=== PATIENT | female | born 1950 | race Caucasian/White ===

== ENCOUNTER 2022-07-04 13:15 | Outpatient (CLI) | payer MEDICARE, BC, SELFPAY ==
[2022-07-04 11:25] LABS: Albumin* 4.6 g/dL (3.3-5.0)
[2022-07-04 11:26] LABS: Chloride* 105 mmol/L (96-114); Potassium* 4.4 mmol/L (3.6-5.1); Sodium* 141 mmol/L (135-149)
[2022-07-04 11:28] LABS: Cholesterol* 179 mg/dL (90-199); Creatinine* 0.6 mg/dL (0.5-1.5); Estimated Glomerular Filt Rate 95 ml/min
[2022-07-04 11:29] LABS: Alanine Aminotransferase* 43 U/L (4-35); Alkaline Phosphatase* 79 U/L (40-150); Aspartate Amino Transferase* 34 U/L (12-35); Bilirubin Total* 0.6 mg/dL (0.1-1.5); Blood Urea Nitrogen* 16 mg/dL (7-30); Calcium* 9.7 mg/dL (8.4-10.6); Carbon Dioxide* 28 mmol/L (20-32); Glucose* 89 mg/dL (60-115); Total Protein* 7.5 g/dL (6.0-8.3); Triglycerides* 119 mg/dL (40-149); Vitamin D 25 Hydroxy* 45 ng/mL (30-80)
[2022-07-04 11:30] LABS: HDL Cholesterol* 61 mg/dL (>=50); LDL Cholesterol Calculated 94 mg/dL (<100)
== END 2022-07-04 13:16 | disposition home or self-care (01) ==
PROVIDERS: PCP Family Medicine; Visit Provider Family Medicine
DX: I10 Essential (primary) hypertension (principal); E78.5 Hyperlipidemia, unspecified
CPT/HCPCS: 80053; 80061; 82306

== ENCOUNTER 2022-07-05 17:46 | Outpatient (CLI) | payer MEDICARE, BC, SELFPAY ==
--- OUTSIDE RECORDS SUMMARY | 2022-07-05 17:49 | XMS_ITS | Encounter Summary ---
:1950 Author Organization [facility] Address [address] [place] [id number] Care Team Providers Name Role Phone Sofia Landers PA-C Primary Care Provider Sofia Landers PA-C Unavailable Sofia Landers PA-C Unavailable Reason for Visit Reason Onset Date Comments Panel Management 06/13/2017 colon cancer screeni Encounter Details Date Type Department Care Team Description 06/13/2017 Telephone [facility] Sofia Landers Panel Management Clinic Oumou MONCADA (colon cancer [address] [place] screening ) [place] [address] [facility] [id number] [place] [address] (Wo rk) Social History Tobacco Use Types Packs/Day Years Used Date Smoking Tobacco: Never Smokeless Tobacco: Never Alcohol Use Standard Drinks/Week Comments Yes 0 (1 standard drink = 0.6 oz pure alcoho l) occasional glass of wine Sex Assigned at Date Recorded Not on file documented as of this encounter Miscellaneous Notes Telephone Encounter - Sveta Anglin CMA - 06/13/2017 1:09 PM CST Summary: Patient is due/failing the following: COLONOSCOPY Action needed: Schedule a colonoscopy Type of outreach: Phone, spoke to patient. patient will complete in 2018 closer to when her is due Questions for provider review: None Sveta Anglin Chart routed to Care Team . Panel Management Review Patient has the following on her problem list: Hypertension Last three blood pressure readings: BP Readings from Last 3 Encounters: 04/05/17 120/70 04/05/16 124/66 03/30/15 134/80 Blood pressure: Passed HTN Guidelines: Age 18-59 BP range: Less than 140/90 Age 60-85 with Diabetes: Less than 140/90 Age 60-85 without Diabetes: less than 150/90 Composite cancer screening Chart review shows that this patient is due/due soon for the following Colonoscopy [employer] documented in this encounter Plan of Treatment Not on filedocumented as of this encounter Visit Diagnoses Not on filedocumented in this encounter Care Teams Cement Tester Assistant Relationship Specialty Start Date End Date Sofia Landers PA-C PCP - General 05/10/06 Sofia Landers PA-C PCP - Assigned PCP 12/05/10 10/09/18 Jessica [id number] JOSE LU[place] FRASER [id number] Sofia Landers PA-C Assigned PCP 05/10/12 04/17/21 Jessica [id number] [place] [id number] documented as of this encounter
--- OUTSIDE RECORDS SUMMARY | 2022-07-05 17:49 | XMS_ITS | Encounter Summary ---
:1950 Author Organization [place] Address [address] [place] [address] Care Team Providers Name Role Phone Sofia Landers PA-C Primary Care Provider Sofia Landers PA-C Unavailable Sofia Landers PA-C Unavailable Reason for Referral Diagnostic Procedure Outpatient (Routine) - Closed Specialty Diagnoses / Procedures Referred By Contact Refer red To Contact Diagnoses Special screening for malignant neoplasms, colon Sofia Landers PA-C [facility] [id number] [place] [address] [place] CORNELI[place] [id number] Referral ID Status Reason Start Date Expiration Date Visits V isits Requested Authorized [id number] Closed Specialty 10/18/2017 10/18/2018 1 1 Services Required Reason for Visit Reason Onset Date Comments Orders 10/18/2017 call- order Encounter Details Date Type Department Care Team Description 10/18/2017 [facility] Laura Landers PA-C Orders (call- order) [facility] Oumou Lopez [address] [place] [address] [place] [phone] Social History Tobacco Use Types Packs/Day Years Used Date Smoking Tobacco: Never Smokeless Tobacco: Never Alcohol Use Standard Drinks/Week Comments Yes 0 (1 standard drink = 0.6 oz pure alcoho l) occasional glass of wine Sex Assigned at Date Recorded Not on file documented as of this encounter Miscellaneous Notes Telephone Encounter - Lauryn Maurer CMA - 10/18/2017 3:48 PM CDT Order placed. Pt informed. Lauryn Maurer CMA ([facility]) Telephone Encounter - Giuliana Bryson - 10/18/2017 10:15 AM CDT Reason for Call: Request for an order or referral: Order or referral being requested: colonoscopy Date needed: as soon as possible Has the patient been seen by the PCP for this problem? Not Applicable Additional comments: Pt received a letter that she is due for this. She called to set it up, but there is no order. Please call once placed. Phone number Patient can be reached at: Home number on file [phone] (home) Best Time: Any Can we leave a detailed message on this number? YES Call taken on 10/18/2017 at 10:15 AM by Giuliana Bryson documented in this encounter Plan of Treatment Scheduled Referrals Name Type Priority Associated Diagnoses [facility] Referral Routine Special screen ing for Ordered: 10/18/2017 PROCEDURE ONLY [facility] malignant neopla [facility] ; No colon Provider Preference documented as of this encounter Visit Diagnoses Diagnosis Special screening for malignant neoplasm s, colon - Primary documented in this encounter Care Teams Claim Auditor Relationship Specialty Start Date End Date Sofia Landers PA-C PCP - General 05/10/06 Sofia Landers PA-C PCP - Assigned PCP 12/05/10 10/09/18 Saurabh [id number] [facility] [place] [id number] Sofia aLnders PA-C Assigned PCP 05/10/12 04/17/21 Saurabh [id number] [facility] [id number] documented as of this encounter
--- OUTSIDE RECORDS SUMMARY | 2022-07-05 17:49 | XMS_ITS | Encounter Summary ---
:1950 Author Organization [facility] Address [address] [place] [id number] Care Team Providers Name Role Phone Sofia Landers PA-C Primary Care Provider Sofia Landers PA-C Unavailable Sofia Landers PA-C Unavailable Reason for Visit Reason Comments Physical Panel Management Fall risk, Hep C, Lipid, MP Encounter Details Date Type Department Care Team Description 04/05/2016 Office Visit [facility] Sofia Landers Encoun ter for routine adult health examination without abnormal findings (Primary Dx); Clinic [place]ADA Uterine cancer (H); [address] [place]h Malignant neoplasm of ovary, unspecified laterality (H); [place] [address] ISHA Hyperlipide marissa LDL goal <130; [id number] Essential hypertension with goal blood p ressure less than 130/80; [phone] [place] [address] Visit for screening mammogram; [phone] Need for hepati tis C screening test (Work) Social History Tobacco Use Types Packs/Day Years Used Date Smoking Tobacco: Never Smokeless Tobacco: Never Alcohol Use Standard Drinks/Week Comments Yes 0 (1 standard drink = 0.6 oz pure alcoho l) occasional glass of wine Sex Assigned at Date Recorded Not on file documented as of this encounter Last Filed Vital Signs Vital Sign Reading Time Taken Comments Blood Pressure 124/66 04/05/2016 9:37 AM CDT Pulse 78 04/05/2016 9:37 AM CDT Temperature 36.7 ??C (98.1 ??F) 04/05/2016 9:37 AM CDT Respiratory Rate 12 04/05/2016 9:37 AM CDT Oxygen Saturation - - Inhaled Oxygen Concentration - - Weight 72.1 kg (159 lb) 04/05/2016 9:37 AM CDT Height 149.9 cm (4' 11) 04/05/2016 9:37 AM CDT Body Mass Index 32.11 04/05/2016 9:37 AM CDT documented in this encounter Patient Instructions Patient InstructionsMorosa-Lorelei Pete CMA - 04/01/2016 8:09 AM CDT Preventive Health Recommendations Female Ages 65 + Yearly exam: ??? See your health care provider every year in order to o Review health changes. o Discuss preventive care. o Review your medicines if your doctor has prescribed any. ??? You no longer need a yearly Pap test unless you've had an abnormal Pap test in the past 10 years. If you have vaginal symptoms, such as bleeding or discharge, be sure to talk with your provider about a Pap test. ??? Every 1 to 2 years, have a mammogram. If you are over 69, talk with your health care provider about whether or not you want to continue having screening mammograms. ??? Every 10 years, have a colonoscopy. Or, have a yearly FIT test (stool test). These exams will check for colon cancer. ??? Have a cholesterol test every 5 years, or more often if your doctor advises it. ??? Have a diabetes test (fasting glucose) every three years. If you are at risk for diabetes, you should have this test more often. ??? At age 65, have a bone density scan (DEXA) to check for osteoporosis (brittle bone disease). Shots: ??? Get a flu shot each year. ??? Get a tetanus shot every 10 years. ??? Talk to your doctor about your pneumonia vaccines. There are now two you should receive - Pneumovax (PPSV 23) and Prevnar (PCV 13). ??? Talk to your doctor about the shingles vaccine. ??? Talk to your doctor about the hepatitis B vaccine. Nutrition: ??? Eat at least 5 servings of fruits and vegetables each day. ??? Eat whole-grain bread, whole-wheat pasta and brown rice instead of white grains and rice. ??? Talk to your provider about Calcium and Vitamin D. Lifestyle ??? Exercise at least 150 minutes a week (30 minutes a day, 5 days a week). This will help you control your weight and prevent disease. ??? Limit alcohol to one drink per day. ??? No smoking. ??? Wear sunscreen to prevent skin cancer. ??? See your dentist twice a year for an exam and cleaning. ??? See your eye doctor every 1 to 2 years to screen for conditions such as glaucoma, macular degeneration, cataracts, etc??? documented in this encounter Progress Notes Winifred Grimes - 04/08/2016 9:26 AM CDT Order(s) created erroneously. Erroneous order ID: [id number] Order canceled by: WINIFRED GRIMES Order cancel date/time: 04/08/2016 9:26 AM Sofia Landers PA-C - 04/05/2016 9:39 AM CDT SUBJECTIVE: Edith Stallings is a 65 year old female who presents for Preventive Visit. Are you in the first 12 months of your Medicare coverage? No-just has not used it Physical Annual: Getting at least 3 servings of Calcium per day:: Yes Bi-annual eye exam:: Yes Dental care twice a year:: Yes Sleep apnea or symptoms of sleep apnea:: None Diet:: Low salt and Low fat/cholesterol Frequency of exercise:: 1 day/week Duration of exercise:: Less than 15 minutes Taking medications regularly:: Yes Medication side effects:: Not applicable Additional concerns today:: No She has not follow up with sas statistical programmer for her ovarian and uterine cancer as recommended. She was to have 1 more appt with them before she went to annual screening tests with me. She would like pap today COGNITIVE SCREEN 1) Repeat 3 items (Banana, Ebony, Chair) 2) Clock draw: NORMAL 3) 3 item recall: Recalls 3 objects Results: 3 items recalled: COGNITIVE IMPAIRMENT LESS LIKELY, normal clock Mini-CogTM Copyright S [employer]. Licensed by the author for use in [facility]; reprintedwith permission (fabiano@[email or web address]). All rights reserved. All Histories reviewed and updated in [facility] as appropriate. Social History Substance Use Topics ??? Smoking status: Never Smoker ??? Smokeless tobacco: Never Used ??? Alcohol Use: Yes Comment: occasional glass of wine The patient does not drink >3 drinks per day nor >7 drinks per week. Today's PHQ-2 Score: PHQ-2 (??1999 Pfizer) 04/05/2016 Q1: Little interest or pleasure in doing things 0 Q2: Feeling down, depressed or hopeless 0 PHQ-2 Score 0 Little interest or pleasure in doing things - Feeling down, depressed or hopeless - PHQ-2 Score - Do you feel safe in your environment - Yes Do you have a Health Care Directive?: No: Advance care planning reviewed with patient; information given to patient to review. Current providers sharing in care for this patient include: Patient Care Team: Sofia Landers PA-C as PCP - General ?? Hearing impairment: No ?? Ability to successfully perform activities of daily living: Yes, no assistance needed ?? Fall risk: Fallen 2 or more times in the past year?: No Any fall with injury in the past year?: No ?? Home safety: none identified The following health maintenance items are reviewed in [facility] and correct as of today: Health Maintenance Topic Date Due ??? HEPATITIS C SCREENING 1966 ??? FALL RISK ASSESSMENT 2013 ??? BMP Q1 YR (NO INBASKET) 03/30/2016 ??? LIPID MONITORING Q1 YEAR( NO INBASKET) 03/30/2016 ??? INFLUENZA VACCINE (SYSTEM ASSIGNED) 04/07/2016 ??? ADVANCE DIRECTIVE PLANNING Q5 YRS (NO INBASKET) 03/28/2017 ??? MAMMO SCREEN Q2 YR (SYSTEM ASSIGNED) 04/06/2017 ??? TETANUS IMMUNIZATION (SYSTEM ASSIGNED) 05/02/2017 ??? COLON CANCER SCREEN (SYSTEM ASSIGNED) 05/23/2017 ??? DEXA SCAN SCREENING (SYSTEM ASSIGNED) Completed ??? PNEUMOCOCCAL Completed Pneumonia Vaccine:are both up to date Mammogram Screening: Patient over age 50, mutual decision to screen reflected in health maintenance. History of abnormal Pap smear: she is no longer seeing onc [employer] statistical programmer ROS: C: NEGATIVE for fever, chills, change in weight I: NEGATIVE for worrisome rashes, moles or lesions E: NEGATIVE for vision changes or irritation E/M: NEGATIVE for ear, mouth and throat problems R: NEGATIVE for significant cough or SOB B: NEGATIVE for masses, tenderness or discharge CV: NEGATIVE for chest pain, palpitations or peripheral edema GI: NEGATIVE for nausea, abdominal pain, heartburn, or change in bowel habits : NEGATIVE for frequency, dysuria, or hematuria female: has some labial itching, uses hydrocortisone and /or vagisil with good relief, she did have a yeast infection in the past year as well, is a bit itchy again wonders if she has this back M: NEGATIVE for significant arthralgias or myalgia N: NEGATIVE for weakness, dizziness or paresthesias P: NEGATIVE for changes in mood or affect Labs reviewed in [facility] BP Readings from Last 3 Encounters: 03/30/15 134/80 10/29/14 155/85 04/28/14 138/81 Wt Readings from Last 3 Encounters: 04/05/16 159 lb (72.122 kg) 03/30/15 161 lb (73.029 kg) 04/28/14 156 lb (70.761 kg) OBJECTIVE: Pulse 78 Temp(Src) 98.1 ??F (36.7 ??C) (Oral) Resp 12 Ht 4' 11 (1.499 m) Wt 159 lb (72.122 kg) BMI 32.10 kg/m2 Estimated body mass index is 32.1 kg/(m^2) as calculated from the following: Height as of this encounter: 4' 11 (1.499 m). Weight as of this encounter: 159 lb (72.122 kg). EXAM: GENERAL: healthy, alert and no distress EYES: Eyes grossly normal to inspection, PERRL and conjunctivae and sclerae normal HENT: ear canals and TM's normal, nose and mouth without ulcers or lesions NECK: no adenopathy, no asymmetry, masses, or scars and thyroid normal to palpation RESP: lungs clear to auscultation - no rales, rhonchi or wheezes BREAST: normal without masses, tenderness or nipple discharge and no palpable axillary masses or adenopathy CV: regular rate and rhythm, normal S1 S2, no S3 or S4, no murmur, click or rub, no peripheral edemaand peripheral pulses strong ABDOMEN: soft, nontender, no hepatosplenomegaly, no masses and bowel sounds normal (female): normal female external genitalia with some erythema and excoriations of labias B, normal urethral meatus, vaginal mucosa is pale, normal cervix/adnexa/uterus without masses or discharge MS: no gross musculoskeletal defects noted, no edema SKIN: no suspicious lesions or rashes NEURO: Normal strength and tone, mentation intact and speech normal PSYCH: mentation appears normal, affect normal/bright ASSESSMENT / PLAN: 1. Encounter for routine adult health examination without abnormal findings Pap smear updated, patient will schedule mammogram 2. Uterine cancer (H) Sent staff message to her onc provider regarding necessity for further Pap smears and for how long - Pap imaged thin layer screen with HPV - recommended age 30 - 65 years (select HPV order below) - HPV High Risk Types DNA Cervical cancelled order for Pap and HPV, received staff message from her [employer] statistical programmer onc, she no longer requires Pap smears the only time she would need a vaginal Pap smear is if she was having vaginal bleeding. She should continue to have annual pelvic exams though and surveillance of her ovarian cancer, see telephone call April 05, 2016 3. Malignant neoplasm of ovary, unspecified laterality (H) Annual pelvic exams - Pap imaged thin layer screen with HPV - recommended age 30 - 65 years (select HPV order below) - HPV High Risk Types DNA Cervical 4. Hyperlipidemia LDL goal <130 Continue current meds - LIPID REFLEX TO DIRECT LDL PANEL - Comprehensive metabolic panel (BMP + Alb, Alk Phos, ALT, AST, Total. Bili, TP) 5. Essential hypertension with goal blood pressure less than 130/80 Has been well-controlled continue current meds - Comprehensive metabolic panel (BMP + Alb, Alk Phos, ALT, AST, Total. Bili, TP) 6. Visit for screening mammogram - *MA Screening Digital Bilateral; Future 7. Need for hepatitis C screening test - Hepatitis C antibody End of Life Planning: Patient currently has an advanced directive: No. I have verified the patient's ablity to prepare an advanced directive/make health care decisions. Literature was provided to assist patient in preparingan advanced directive. COUNSELING: Reviewed preventive health counseling, as reflected in patient instructions Estimated body mass index is 32.1 kg/(m^2) as calculated from the following: Height as of this encounter: 4' 11 (1.499 m). Weight as of this encounter: 159 lb (72.122 kg). Weight management plan: Discussed healthy diet and exercise guidelines and patient will follow up in6 months in clinic to re-evaluate. reports that she has never smoked. She has never used smokeless tobacco. Appropriate preventive services were discussed with this patient, including applicable screening as appropriate for cardiovascular disease, diabetes, osteopenia/osteoporosis, and glaucoma. As appropriate for age/gender, discussed screening for colorectal cancer, prostate cancer, breast cancer, and cervical cancer. Checklist reviewing preventive services available has been given to the patient. Reviewed patients plan of care and provided an AVS. The Basic Care Plan (routine screening as documented in Health Maintenance) for Edith meets the Care Plan requirement. This Care Plan has been established and reviewed with the Patient. Counseling Resources: ATP IV Guidelines Pooled Cohorts Equation Calculator Breast Cancer Risk Calculator FRAX Risk Assessment ICSI Preventive Guidelines Dietary Guidelines for Americans, 2009 [employer] MyPlate ASA Prophylaxis Lung CA Screening Sofia Landers PA-C [facility] Answers for HPI/ROS submitted by the patient on 04/02/2016 PHQ-2 Depressed: Not at all, Not at all PHQ-2 Score: 0 Electronically signed by Sofia Landers PA-C documented in this encounter Plan of Treatment Not on filedocumented as of this encounter Procedures Procedure Name Priority Date/Time Associated Diagnosis Comme nts LIPID REFLEX TO Routine 04/05/2016 10:25 Hyperlipidemia LDL Re sults for this DIRECT LDL PANEL AM CDT goal <130 procedure a re in the results section. HEPATITIS C ANTIBODY Routine 04/05/2016 10:25 Need for hepatit is C Results for this AM CDT screening test procedure are in the results section. COMPREHENSIVE Routine 04/05/2016 10:25 Hyperlipidemia LDL Resu lts for this METABOLIC PANEL AM CDT goal <130 procedure are in Essential hypertension the r esults with goal blood section. pressure less than 130/80 HPV HIGH RISK TYPES Routine 04/05/2016 10:05 Uterine can cer (H) Results for this DNA CERVICAL AM CDT Malignant neoplasm of proced ure are in ovary, unspecified the resul ts laterality (H) section. documented in this encounter Results *MA Screening Digital Bilateral (04/08/2016 9:39 AM CDT) Anatomical Region Laterality Modality Breast Bilateral Mammography Specimen (Source) Anatomical Location Collection Method / Collectio n Time Received Time / Laterality Volume Impressions 04/08/2016 11:09 AM CDT IMPRESSION: BI-RADS CATEGORY: 1 - Negative. RECOMMENDED FOLLOW-UP: Annual Mammograph y. Recommend routine annual screening mammo graphy. Exam results letter mailed to patient. CHIDI ESPOSITO MD Narrative 04/08/2016 11:09 AM CDT SCREENING MAMMOGRAM, BILATERAL, DIGITAL w/CAD - 04/08/2016 9:39 AM. BREAST SYMPTOMS: No current breast compl aints. COMPARISON: ??04/06/2015, 03/31/2014, 03/27, 03/27/2012. BREAST DENSITY: Almost entirely fat. COMMENTS: No findings of suspicion for m alignancy. Procedure Note Chidi Esposito MD - 04/08/2016 SCREENING MAMMOGRAM, BILATERAL, DIGITAL w/CAD - 04/08/2016 9:39 AM. BREAST SYMPTOMS: No current breast compl aints. COMPARISON: 04/06/2015, 03/31/2014, 013, 03/27/2012. BREAST DENSITY: Almost entirely fat. COMMENTS: No findings of suspicion for m alignancy. IMPRESSION: BI-RADS CATEGORY: 1 - Negati ve. RECOMMENDED FOLLOW-UP: Annual Mammograph y. Recommend routine annual screening mammo graphy. Exam results letter mailed to patient. CHIDI ESPOSITO MD Sofia Landers PA-C IMFrank MAMMOGRAPHY ORDERABLES (ABNORMAL) Comprehensive metabolic panel (BMP + Alb, Alk Phos, ALT, AST, Total. Bili, TP) (04/05/2016 10:25 AM CDT) athologist Signature Sodium 140 133 - 144 [facility] mmol/L [facility] Potassium 4.1 3.4 - 5.3 [facility] mmol/L [facility] Chloride 104 94 - 109 [facility] mmol/L [facility] Carbon Dioxide 31 20 - 32 [facility] mmol/L [facility] Anion Gap 5 3 - 14 [facility] mmol/L [facility] Glucose 91 70 - 99 [facility] mg/dL [facility] Urea Nitrogen 14 7 - 30 [place] mg/dL [facility] Creatinine 0.70 0.52 - [place] 1.04 mg/dL [facility] GFR Estimate 84 >60 [place] mL/min/1.[address] Comment: Non GFR Calc GFR Estimate If Black >90 >60 mL/min/1.7m2 F [facility] GFR Calc [facility] Calcium 9.9 8.5 - 10.1 mg/dL [facility] Bilirubin Total 0.4 0.2 - 1.3 mg/dL [facility] Albumin 4.0 3.4 - 5.0 g/dL [facility] Protein Total 7.9 6.8 - 8.8 g/dL [place] [facility] Alkaline Phosphatase 82 40 - 150 U/L [facility] ALT 51 (H) 0 - 50 U/L [facility] AST 19 0 - 45 U/L [facility] Specimen Anatomical Collection Method Collection Time Receive d Time (Source) Location / / Volume Laterality Blood specimen 04/05/2016 10: 6 (specimen) AM CDT 10:26 AM CDT Sofia Landers PA-C LAB - BLOOD ORDERABLES Performing Organization Address City/State/ZIP Code Phon e Number [address] [place] [address] [place] [address] [phone] CENTER Hepatitis C antibody (04/05/2016 10:25 AM CDT) Component Value Ref Test Analysis Performed At [facility] Range Method Time Signature Hepatitis C Nonreactive NR [facility] Antibody Assay performance character istics have not been established for newborns, [facility] infants, and children [facility] Specimen Anatomical Collection Method Collection Time Receive d Time (Source) Location / / Volume Laterality Blood specimen 04/05/2016 10:25 6 (specimen) AM CDT 10:26 AM CDT Sofia SAENZ-C LAB - BLOOD ORDERABLES Performing Organization Address City/State/ZIP Code Phon e Number [facility] [address] [place] [address] [place] (ABNORMAL) LIPID REFLEX TO DIRECT LDL PANEL (04/05/2016 10:25 AM CDT) athologist Signature Cholesterol 243 (H) <200 mg/dL [facility] Comment: Desirable: <200 mg/dl Triglycerides 220 (H) <150 mg/dL [facility] Comment: Borderline high: ??150-199 mg/dl High: ? 200-499 mg/dl Very high: ? >499 mg/dl HDL Cholesterol 45 (L) >49 mg/dL [facility] LDL Cholesterol Calculated 154 (H) <100 mg/dL [facility] Comment: Above desirable: ??100-129 mg/dl Borderline High: ??130-159 mg/dL High: ? 160-189 mg/dL Very high: ? >189 mg/dl Non HDL Cholesterol 198 (H) <130 mg/dL [facility] Comment: Above Desirable: ??130-159 mg/dl Borderline high: ??160-189 mg/dl High: ? 190-219 mg/dl Very high: ? >219 mg/dl Specimen Anatomical Collection Method Collection Time Receive d Time (Source) Location / / Volume Laterality Blood specimen 04/05/2016 10:25 6 (specimen) AM CDT 10:26 AM CDT Sofia Landers PA-C LAB - BLOOD ORDERABLES Performing Organization Address City/State/ZIP Code Phon e Number M [address] [place] [address] [place] [id number] [phone] CENTER (ABNORMAL) HPV High Risk Types DNA Cervical (04/05/2016 10:05 AM CDT) [facility] gist Method Time Signature HPV 16 DNA Test canceled NEG [facility] by physician [facility] [place] Specimen Cervical [facility] Description Cells [facility] [place] Specimen Anatomical Collection Method Collection Time Receive d Time (Source) Location / / Volume Laterality Cervical Cells 04/05/2016 10:05 6 AM CDT 11:40 AM CDT Sofia Landers PA-C LAB - BLOOD ORDERABLES Performing Organization Address City/State/ZIP Code Phon e Number [facility] [place] [address] [place], [place] [id number] documented in this encounter Visit Diagnoses Diagnosis Encounter for routine adult health exami nation without abnormal findings - Primary Uterine cancer (H) Malignant neoplasm of uterus, part unspe cified Malignant neoplasm of ovary, unspecified laterality (H) Hyperlipidemia LDL goal <130 Other and unspecified hyperlipidemia Essential hypertension with goal blood p ressure less than 130/80 Visit for screening mammogram Other screening mammogram Need for hepatitis C screening test Special screening examination for other specified viral diseases Visit for screening mammogram Other screening mammogram documented in this encounter 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
--- OUTSIDE RECORDS SUMMARY | 2022-07-05 17:49 | XMS_ITS | Encounter Summary ---
:1950 Author Organization [facility] Address [address] [place] [address] Care Team Providers Name Role Phone Sofia Landers PA-C Primary Care Provider Sofia Landers PA-C Unavailable Sofia Landers PA-C Unavailable Reason for Visit Diagnostic Imaging Mammo - Closed Specialty Diagnoses / Procedures Referred By Contact Refer red To Contact Diagnoses Encounter for screening mammogram for breast cancer Sofia Landers PA-C Procedures *MA Screening Digital Bilateral [place] [address] [facility] [place] [id number] Referral ID Status Reason Start Date Expiration Date Visits Requ ested Visits Authorized [id number] Closed 04/12/2018 04/12/2019 1 1 Encounter Details Date Type Department Care Team Description 05/02/2018 Radiant Appointment [facility] Sofia Landers, Encounter for Clinic Yulia Flaherty PA-C screening mammogram [address] [place] [address] [facility] [id number] [facility] [phone] [place] [id number] Social History Tobacco Use Types Packs/Day Years Used Date Smoking Tobacco: Never Smokeless Tobacco: Never Alcohol Use Standard Drinks/Week Comments Yes 0 (1 standard drink = 0.6 oz pure alcoho l) occasional glass of wine Sex Assigned at Date Recorded Not on file documented as of this encounter Plan of Treatment Not on filedocumented as of this encounter Procedures Procedure Name Priority Date/Time Associated Diagnosis Comme nts MA SCREENING Routine 05/02/2018 9:28 AM Encounter for Results for this DIGITAL BILATERAL CDT screening mammogram pro cedure are in for breast cancer the result s section. documented in this encounter Results *MA Screening Digital Bilateral (05/02/2018 9:28 AM CDT) Anatomical Region Laterality Modality Breast Bilateral Mammography Specimen (Source) Anatomical Location Collection Method / Collectio n Time Received Time / Laterality Volume Impressions 05/02/2018 5:59 PM CDT IMPRESSION: BI-RADS CATEGORY: 1 - ??NEGATIVE. RECOMMENDED FOLLOW-UP: Annual Mammograph y Exam results letter mailed to patient. DAMIAN JACKMAN MD Narrative 05/02/2018 5:59 PM CDT MAMMOGRAPHY SCREENING DIGITAL BILATERAL ??With CAD 05/02/2018 9:28 AM BREAST SYMPTOMS: No current breast compl aints. COMPARISON: 04/12/2017, 04/08/2016, 5, 03/31/2014. BREAST DENSITY: Almost entirely fat. COMMENTS: No findings of suspicion for m alignancy. ?? Procedure Note Damian Jackman MD - 05/02/2018Form atting of this note might be different from the original. MAMMOGRAPHY SCREENING DIGITAL BILATERAL With CAD 05/02/2018 9:28 AM BREAST SYMPTOMS: No current breast compl aints. COMPARISON: 04/12/2017, 04/08/2016, 5, 03/31/2014. BREAST DENSITY: Almost entirely fat. COMMENTS: No findings of suspicion for m alignancy. IMPRESSION: BI-RADS CATEGORY: 1 - NEGATI VE. RECOMMENDED FOLLOW-UP: Annual Mammograph y Exam results letter mailed to patient. DAMIAN JACKMAN MD Sofia Landers PA-C IM[facility] MAMMOGRAPHY ORDERABLES documented in this encounter Visit Diagnoses Diagnosis Encounter for screening mammogram for br east cancer documented in this encounter Care Teams [employer] Wiring Technician Relationship Specialty Start Date End Date Sofia Landers PA-C PCP - General 05/10/06 Sofia Landers PA-C PCP - Assigned PCP 12/05/10 10/09/18 [place] [id number] [place] [id number] Sofia Landers PA-C Assigned PCP 05/10/12 04/17/21 [place] [address] [place] [id number] documented as of this encounter
--- OUTSIDE RECORDS SUMMARY | 2022-07-05 17:49 | XMS_ITS | Encounter Summary ---
:1950 Author Organization [facility] Address [address] [place] [id number] Care Team Providers Name Role Phone Sofia Landers PA-C Primary Care Provider Sofia Landers PA-C Unavailable Encounter Details Date Type Department Care Team Description 01/15/2019 Travel Social History Tobacco Use Types Packs/Day Years [...] on filedocumented in this encounter Care Teams Indirect Sales Representative Relationship Specialty Start Date End Date Sofia Landers PA-C PCP - General 05/10/06 Sofia Landers PA-C Assigned PCP 05/10/12 04/17/21 Saurabh [id number] JOSE LUIS FRASER [id number] documented as of this encounter
--- OUTSIDE RECORDS SUMMARY | 2022-07-05 17:49 | XMS_ITS | Encounter Summary ---
:1950 Author Organization [facility] Address [address] [place] [address] Care Team Providers Name Role Phone Sofia Landers PA-C Primary Care Provider Sofia Landers PA-C Unavailable Reason for Visit Reason Comments Flank Pain Encounter Details Date Type Department Care Team Description 01/15/[address] [facility] Fabricio Momin, Kidney stone [facility] Emergency Dept [address] [place] [phone] [place] [id number] (Wo rk) Social History Tobacco Use Types Packs/Day Years Used Date Smoking Tobacco: Never Smokeless Tobacco: Never Alcohol Use Standard Drinks/Week Comments Yes 0 (1 standard drink = 0.6 oz pure alcoho l) occasional glass of wine Sex Assigned at Date Recorded Not on file documented as of this encounter Last Filed Vital Signs Vital Sign Reading Time Taken Comments Blood Pressure 129/69 01/15/2019 11:30 PM CDT Pulse 88 01/15/2019 11:30 PM CDT Temperature 35.7 ??C (96.3 ??F) 01/15/2019 9:30 PM CDT Respiratory Rate 16 01/15/2019 11:30 PM CDT Oxygen Saturation 97% 01/15/2019 11:30 PM CDT Inhaled Oxygen Concentration - - Weight 68.9 kg (152 lb) 01/15/2019 9:30 PM CDT Height - - Body Mass Index 30.36 04/12/2018 9:52 AM CDT documented in this encounter Discharge Instructions AttachmentsThe following attachments cannot be sent through Care Everywhere. Kidney Stone w/ Colic (Malagasy)documented in this encounter Medications at Time of Discharge Medication Sig Dispensed Refills Start Date End Date amLODIPine (NORVASC) 10 MG Take 1 tablet 90 tablet 3 2017 tabletIndications: (10 mg) by mouth Hypertension goal BP (blood daily pressure) < 130/80 atorvastatin (LIPITOR) 20 MG Take 1 tablet 90 tablet 3 01/2018 tabletIndications: (20 mg) by mouth Hyperlipidemia LDL goal <130 daily ZACH LOW STRENGTH OR 1 TABLET DAILY 0 fish oil-omega-3 fatty acids Take 2 g by 0 (OMEGA 3) 1000 MG capsule mouth daily. hydrochlorothiazide Take 1 tablet 90 tablet 3 04/12/2018 (HYDRODIURIL) 25 MG (25 mg) by mouth tabletIndications: daily Hypertension goal BP (blood pressure) < 130/80 ibuprofen (ADVIL/MOTRIN) 800 Take 1 tablet 30 tablet 0 01/05 MG tablet (800 mg) by mouth every 8 hours as needed for pain lisinopril Take 3 tablets 270 tablet 3 04/12/2018 (PRINIVIL/ZESTRIL) 20 MG (60 mg) by mouth tabletIndications: daily Hypertension goal BP (blood pressure) < 130/80 MULTI-VITAMIN OR 1 tablet daily 0 HYDROcodone-acetaminophen Take 1 tablet by 18 tablet 0 01/0501/18/2019 (NORCO) 5-325 MG tablet mouth every 6 hours as needed for pain ondansetron (ZOFRAN ODT) 4 Take 1 tablet (4 10 tablet 0 06/201901/18/2019 MG ODT tab mg) by mouth every 8 hours as needed for nausea tamsulosin (FLOMAX) 0.4 MG Take 1 capsule 10 capsule 0 01/1501/25/2019 capsule (0.4 mg) by mouth daily for 10 doses documented as of this encounter ED Notes Blanca Mai RN - 01/15/2019 10:43 PM CDT Pt going to CT at this time, reports comfort still no further medication given at this time Sofia Chau RN - 01/15/2019 9:27 PM CDT Pt presents with concerns of possible kidney stone. Pt states that it started with bladder spasms. Pain started about 1900 in the right flank. Extra strength Tylenol at 1900 and Advil at 1730. Fabricio Momin MD - 01/15/2019 9:19 PM CDT History Chief Complaint Patient presents with ??? Flank Pain The history is provided by the patient. Edith Stallings is a 68 year old female who presents to the emergency department with concerns of a possible kidney stone. Patient started having urinary frequency and urgency around 1530 today. She started to get right flank pain around 1900. She reports having 4-5 kidney stones in the past and this pain today feels similar. Patient denies any hematuria. No nausea or vomiting. The pain in her back is constant, but waxes and wanes in intensity. She took one Advil at 1700 and one extra strength Tylenolat 1900. Patient denies any recent falls or injuries. Allergies: Allergies Allergen Reactions ??? Pneumovax [Pneumococcal Polysaccharides] Lump, fever ??? Sulfa Drugs Rash Problem List: Patient Active Problem List Diagnosis Date Noted ??? [facility] 02/10/2011 Priority: High X EMERGENCY CARE PLAN Presenting Problem Signs and Symptoms Treatment Plan Questions or conerns during clinic hours I will call the clinic directly Questions or conerns outside clinic hours I will call the 24 hour nurse line at [phone] Patient needs to schedule an appointment I will call the 24 hour scheduling team at [phone] orclinic directly Same day treatment I will call the clinic first, nurse line if after hours, urgent care and expresscare if needed DX [phone] REPLACED WITH [phone] [facility] (11/12/2012) ??? H/O malignant neoplasm of endometrium Priority: Medium 04/29/10 Hysterectomy: Pathology - Stage IA, grade 1, endometrioid adenocarcinoma of the endometrium.?? 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 8/31/11 NIL pap 03/28/12 NIL pap 04/15/13 NIL pap 04/05/16 NIL pap. Per telephone encounter on 04/05/16 with Mary Portillo from Oncology, does not need any pap testing done unless she is having vaginal spotting or bleeding or something concerning on speculum exam. ??? Overweight 11/06/2013 Priority: Medium Problem list name updated by automated process. Provider to review ??? Advanced directives, counseling/discussion 03/28/2012 Priority: Medium ??? Osteopenia 01/31/2011 Priority: Medium ? ? Hypertension goal BP (blood pressure) < 130/80 12/10/2010 Priority: Medium ??? Malignant neoplasm of ovary (H) 08/18/2010 Priority: Medium ? ? HYPERLIPIDEMIA LDL GOAL <130 06/06/2010 Priority: Medium ??? Uterine cancer (H) 04/21/2010 Priority: Medium 03/30/10 embx-- A. Uterus, endometrial curettings: - Endometrial endometrioid adenocarcinoma, FIGO grade I - Background of atypical complex hyperplasia 04/29/10 hysterectomy: FINAL DIAGNOSIS: A-D. Lymph nodes, right periaortic (3), left periaortic (2), left pelvic (9), and right pelvic (7): - No evidence of malignancy. (0) E. Uterus, fallopian tube and ovary, hysterectomy and right salpingo-oophorectomy: - Uterus: - Endometrial endometrioid adenocarcinoma, FIGO grade I. - Tumor invades myometrium to a maximal depth of 0.2 cm of a 1.2 cm myometrium. - No lymphovascular invasion present. - Tumor confined to endometrium without involvement of lower uterine segment of endocervix. - Surgical margins free of tumor. - Parametria: - No evidence of malignancy. - Ovary: - No evidence of malignancy. - Fallopian tube: - No evidence of malignancy. F. 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 - Tumor size: 6.5 x 5.7 x 3.5 - Estimated percentage of adenocarcinomatous component: 70%. - Ovarian surface free of tumor. - Fallopian tube: - No pathologic diagnosis 08/05/10: Appendix, appendectomy: - Obliteration of appendiceal lumen at tip; small fecalith present. - Negative for significant inflammation and neoplasia. B. Omentum, biopsy: - Fibroadipose tissue with no diagnostic alteration. - Negative for malignancy. 04/06/11 pap NIL 03/28/12 pap NIL. Plan-- pap in 1 year. Next surveillance visit scheduled for 09/26/12. 04/15/13 pap NIL. Plan-- If today's Pap is WNL, she will be due in one year for a pap (due 04/15/14) Per SGO guidelines pap not indicated in patients with endometrial cancer as it is not a reliable indicator of recurrence. No pap due unless clinically indicated/advised by provider. ??? Postmenopausal bleeding 03/08/2010 Priority: Medium ??? Symptomatic menopausal or female climacteric states 05/10/2006 Priority: Medium Past Medical History: Past Medical History: Diagnosis Date ??? Endometrial cancer (H) ??? Essential hypertension, benign ??? H/O malignant neoplasm of endometrium ??? Other and unspecified hyperlipidemia ??? Ovarian cancer (H) ??? Personal history of urinary calculi Past Surgical History: Past Surgical History: Procedure Laterality Date ??? BIOPSY ??? COLONOSCOPY 05/23/2007 repeat in 10 years ??? COLONOSCOPY N/A 11/10/2017 Procedure: COLONOSCOPY; COLONOSCOPY; Surgeon: Jordan Jimenes MD; Location: [facility] ??? CYSTOSCOPY 11/28/06 [facility] ??? EVENT PLANNING MANAGER SURGERY April 2010 ??? HYSTEROSCOPY 03/30/10 Hysteroscopy, D&C, removal of portion of endocervical polyp. ??? LAPAROSCOPIC APPENDECTOMY ??? LAPAROSCOPIC HYSTERECTOMY SUPRACERVICAL, BILATERAL SALPINGO-OOPHORECTOMY, COMBINED with lymph node dissection Family History: Family History Problem Relation Age of Onset ??? Genetic Disorder Daughter down's syndrome ??? C.A.D. Father [place], age 65, first event at 40 ??? Hypertension Father ??? Hypertension Mother ??? Genetic Disorder Daughter Social History: Marital Status: [2] Social History Tobacco Use ??? Smoking status: Never Smoker ??? Smokeless tobacco: Never Used Substance Use Topics ??? Alcohol use: Yes Comment: occasional glass of wine ??? Drug use: No Medications: amLODIPine (NORVASC) 10 MG tablet atorvastatin (LIPITOR) 20 MG tablet ZACH LOW STRENGTH OR fish oil-omega-3 fatty acids (OMEGA 3) 1000 MG capsule hydrochlorothiazide (HYDRODIURIL) 25 MG tablet lisinopril (PRINIVIL/ZESTRIL) 20 MG tablet MULTI-VITAMIN OR Review of Systems All other systems reviewed and are negative. Physical Exam BP: 161/85 Heart Rate: 95 Temp: 96.3 ??F (35.7 ??C) Resp: 19 Weight: 68.9 kg (152 lb) SpO2: 99 % Physical Exam Constitutional: She appears well-developed and well-nourished. No distress. HENT: Head: Normocephalic and atraumatic. Right Ear: External ear normal. Left Ear: External ear normal. Eyes: Right eye exhibits no discharge. Left eye exhibits no discharge. Neck: Normal range of motion. Neck supple. Cardiovascular: Normal rate. Pulmonary/Chest: Effort normal. No respiratory distress. Abdominal: Soft. Bowel sounds are normal. She exhibits no distension and no mass. There is no tenderness. There is no rebound and no guarding. No hernia. Musculoskeletal: Normal range of motion. She exhibits no edema, tenderness or deformity. Neurological: She is alert. No cranial nerve deficit. Skin: Skin is warm and dry. No rash noted. She is not diaphoretic. No erythema. No pallor. Psychiatric: She has a normal mood and affect. Her behavior is normal. Judgment and thought content normal. Nursing note and vitals reviewed. ED Course Procedures Results for orders placed or performed during the hospital encounter of 01/15/19 CT Abdomen Pelvis w/o Contrast Narrative CT ABDOMEN AND PELVIS WITHOUT CONTRAST 01/15/2019 10:48 PM HISTORY: Right flank pain, hematuria, history of kidney stones COMPARISON: None. TECHNIQUE: Axial CT images of the abdomen and pelvis from the diaphragm to the symphysis pubis were acquired without IV contrast. Radiation dose for this scan was reduced using automated exposure control, adjustment of the mA and/or kV according to patient size, or iterative reconstruction technique. FINDINGS: 5 mm stone in the distal right ureter with mild-moderate proximal hydronephrosis. There is mild right perinephric fat stranding. Kidneys are normal in size and configuration. No other renal, ureteral, or bladder stones. Hysterectomy change. No free air or free fluid. There is mild diverticulosis without evidence for diverticulitis. There are no dilated loops of small intestine or large bowel to suggest ileus or obstruction. Probable appendectomy changes. Gallbladder unremarkable. Liver unremarkable. No splenomegaly. No definite adrenal nodules. Pancreas grossly unremarkable. The remainder of the visualized abdomen is unremarkable on this noncontrast scan. Survey of the visualized bony structures demonstrates no destructive bony lesions. The visualized lung bases are unremarkable. There are mild atherosclerotic changes of the visualized aorta and its branches. There is no evidence of aortic aneurysm. Impression IMPRESSION: 5 mm stone in the distal right ureter with mild/moderate hydronephrosis. Routine UA with microscopic Result Value Ref Range Color Urine Yellow Appearance Urine Slightly Cloudy Glucose Urine Negative NEG^Negative mg/dL Bilirubin Urine Negative NEG^Negative Ketones Urine Negative NEG^Negative mg/dL Specific [place] Urine 1.021 1.003 - 1.035 Blood Urine Large (A) NEG^Negative pH Urine 6.0 5.0 - 7.0 pH Protein Albumin Urine 30 (A) NEG^Negative mg/dL Urobilinogen mg/dL 0.0 0.0 - 2.0 mg/dL Nitrite Urine Negative NEG^Negative Leukocyte Esterase Urine Negative NEG^Negative Source Midstream Urine WBC Urine 3 0 - 5 /HPF RBC Urine >182 (H) 0 - 2 /HPF Bacteria Urine Few (A) NEG^Negative /HPF Squamous Epithelial /HPF Urine 3 (H) 0 - 1 /HPF Mucous Urine Present (A) NEG^Negative /LPF Basic metabolic panel Result Value Ref Range Sodium 140 133 - 144 mmol/L Potassium 3.8 3.4 - 5.3 mmol/L Chloride 104 94 - 109 mmol/L Carbon Dioxide 29 20 - 32 mmol/L Anion Gap 7 3 - 14 mmol/L Glucose 122 (H) 70 - 99 mg/dL Urea Nitrogen 25 7 - 30 mg/dL Creatinine 0.83 0.52 - 1.04 mg/dL GFR Estimate 72 >60 mL/min/[1.73_m2] GFR Estimate If Black 83 >60 mL/min/[1.73_m2] Calcium 9.3 8.5 - 10.1 mg/dL CBC with platelets differential Result Value Ref Range WBC 9.7 4.0 - 11.0 10e9/L RBC Count 4.69 3.8 - 5.2 10e12/L Hemoglobin 14.3 11.7 - 15.7 g/dL Hematocrit 42.5 35.0 - 47.0 % MCV 91 78 - 100 fl MCH 30.5 26.5 - 33.0 pg MCHC 33.6 31.5 - 36.5 g/dL RDW 13.5 10.0 - 15.0 % Platelet Count 380 150 - 450 10e9/L Diff Method Automated Method % Neutrophils 64.9 % % Lymphocytes 20.8 % % Monocytes 10.1 % % Eosinophils 3.3 % % Basophils 0.6 % % Immature Granulocytes 0.3 % Nucleated RBCs 0 0 /100 Absolute Neutrophil 6.3 1.6 - 8.3 10e9/L Absolute Lymphocytes 2.0 0.8 - 5.3 10e9/L Absolute Monocytes 1.0 0.0 - 1.3 10e9/L Absolute Basophils 0.1 0.0 - 0.2 10e9/L Abs Immature Granulocytes 0.0 0 - 0.4 10e9/L Absolute Nucleated RBC 0.0 Medications 0.9% sodium chloride BOLUS (0 mLs Intravenous Stopped 01/15/192319) ketorolac (TORADOL) injection 15 mg (15 mg Intravenous Given 01/15/192216) Labs are reviewed and patient did have a fair amount of blood in her urine. I did do a CT scan of the abdomen which did show a 5 mm distal ureteral stone. She has passed stones in the past so I think atrial of pain medications at home is reasonable. Patient's pain is much better after the above medications were given. Patient will be discharged home with Vicodin, ibuprofen and Flomax. Patient will strain her urine. Patient will follow up with urology if there is no improvement over the next 2 to 3 days. Assessments & Plan (with Medical Decision Making) Kidney stone I have reviewed the nursing notes. I have reviewed the findings, diagnosis, plan and need for follow up with the patient. This document serves as a record of services personally performed by Fabricio Momin, *. It was created on their behalf by Garima Johnson, a trained medical van driver. The creation of this record is based on the provider's personal observations and the statements of the patient. This document has been checked and approved by the attending provider. Note: Chart documentation done in part with [employer] Voice Recognition software. Although reviewed after completion, some word and grammatical errors may remain. 01/15/2019 [facility] Fabricio Momin MD 01/16/19 0637 documented in this encounter Miscellaneous Notes Result Encounter Note - Landon Morales RN - 01/15/2019 11:32 PM CDT Final urine culture report is NEGATIVE per [facility] ED Lab Result protocol. If NEGATIVE result, no change in treatment, per [facility] ED Lab Result protocol. documented in this encounter Plan of Treatment Not on filedocumented as of this encounter Procedures Procedure Name Priority Date/Time Associated Comments Diagnosis CT ABDOMEN PELVIS W/O STAT 01/15/2019 10:48 Re sults for this CONTRAST PM CDT procedure are i n the results section. CBC WITH PLATELETS & STAT 01/15/2019 10:14 Res ults for this DIFFERENTIAL PM CDT procedure are i n the results section. BASIC METABOLIC PANEL STAT 01/15/2019 10:14 Re sults for this PM CDT procedure are i n the results section. ROUTINE UA WITH STAT 01/15/2019 9:34 PM Result s for this MICROSCOPIC CDT procedure are i n the results section. URINE CULTURE Routine 01/15/2019 9:34 PM Kidney stone Results for this CDT procedure are i n the results section. documented in this encounter Results CT Abdomen Pelvis w/o Contrast (01/15/2019 10:48 PM CDT) Anatomical Region Laterality Modality Abdomen/Pelvis, SUBRAD CT BODY, UMP CT ABDOMEN PELVIS, Computed Tomography RAD CT Specimen (Source) Anatomical Location Collection Method / Collectio n Time Received Time / Laterality Volume Impressions 01/16/2019 6:27 PM CDT IMPRESSION: 5 mm stone in the distal right ureter with mild/moderate hydronephrosis. RAMA PEREZ MD Narrative 01/16/2019 6:[address] ABDOMEN AND PELVIS WITHOUT CONTRAST 01/15/2019 10:48 PM HISTORY: Right flank pain, hematuria, hi story of kidney stones COMPARISON: None. TECHNIQUE: Axial CT images of the abdome n and pelvis from the diaphragm to the symphysis pubis were ac quired without IV contrast. Radiation dose for this scan was reduced using automated exposure control, adjustment of the mA and/or kV according to patient size, or iterative reconstruction technique. FINDINGS: 5 mm stone in the distal right ureter with mild-moderate proximal hydronephrosis. There is mild r ight perinephric fat stranding. Kidneys are normal in size an d configuration. No other renal, ureteral, or bladder stones. Hyst erectomy change. No free air or free fluid. There is mild diverticulo sis without evidence for diverticulitis. There are no dilated loo ps of small intestine or large bowel to suggest ileus or obstruction. P robable appendectomy changes. Gallbladder unremarkable. Liver unremark able. No splenomegaly. No definite adrenal nodules. Pancreas gross ly unremarkable. The remainder of the visualized abdomen is unremarkabl e on this noncontrast scan. Survey of the visualized bony structures demonstrates no destructive bony lesions. The visualized lung bases are unremarkable. There are mild atherosclerotic changes of the visu alized aorta and its branches. There is no evidence of aortic aneurysm. Procedure Note Rama Perez MD - 01/16/2019Fo rmatting of this note might be different from the original. CT ABDOMEN AND PELVIS WITHOUT CONTRAST 10:48 PM HISTORY: Right flank pain, hematuria, hi story of kidney stones COMPARISON: None. TECHNIQUE: Axial CT images of the abdome n and pelvis from the diaphragm to the symphysis pubis were ac quired without IV contrast. Radiation dose for this scan was reduced using automated exposure control, adjustment of the mA and/or kV according to patient size, or iterative reconstruction technique. FINDINGS: 5 mm stone in the distal right ureter with mild-moderate proximal hydronephrosis. There is mild r ight perinephric fat stranding. Kidneys are normal in size an d configuration. No other renal, ureteral, or bladder stones. Hyst erectomy change. No free air or free fluid. There is mild diverticulo sis without evidence for diverticulitis. There are no dilated loo ps of small intestine or large bowel to suggest ileus or obstruction. P robable appendectomy changes. Gallbladder unremarkable. Liver unremark able. No splenomegaly. No definite adrenal nodules. Pancreas gross ly unremarkable. The remainder of the visualized abdomen is unremarkabl e on this noncontrast scan. Survey of the visualized bony structures demonstrates no destructive bony lesions. The visualized lung bases are unremarkable. There are mild atherosclerotic changes of the visu alized aorta and its branches. There is no evidence of aortic aneurysm. IMPRESSION: 5 mm stone in the distal rig ht ureter with mild/moderate hydronephrosis. RAMA PEREZ MD Fabricio Momin MD IMG CT ORDERABLES CBC with platelets differential (01/15/2019 10:14 PM [facility]) [facility] gist Method Time Signature WBC 9.7 4.0 - 01/15/2019 [facility] 11.0 10:25 PM [facility] 10e9/L [facility] RBC Count 4.69 3.8 - 5.2 01/15/2019 [facility] 10e12/L 10:25 PM [facility] Hemoglobin 14.3 11.7 - 01/15/2019 [facility] 15.7 g/dL 10:25 PM [facility] Hematocrit 42.5 35.0 - 01/15/2019 [facility] 47.0 % 10:25 PM [facility] MCV 91 78 - 100 01/15/2019 [facility] fl 10:25 PM [facility] MCH 30.5 26.5 - 01/15/2019 [facility] 33.0 pg 10:25 PM [facility] MCHC 33.6 31.5 - 01/15/2019 [facility] 36.5 g/dL 10:25 PM [facility] RDW 13.5 10.0 - 01/15/2019 [facility] 15.0 % 10:25 PM [facility] Platelet Count 380 150 - 450 01/15/2019 [facility] 10e9/L 10:25 PM [facility] Diff Method Automated 01/15/2019 [facility] Method 10:25 PM [facility] % Neutrophils 64.9 % 01/15/2019 [facility] 10:25 PM [facility] % Lymphocytes 20.8 % 01/15/2019 [facility] 10:25 PM [facility] % Monocytes 10.1 % 01/15/2019 [facility] 10:25 PM [facility] % Eosinophils 3.3 % 01/15/2019 [facility] 10:25 PM [facility] % Basophils 0.6 % 01/15/2019 [facility] 10:25 PM [facility] % Immature 0.3 % 01/15/2019 [facility] Granulocytes 10:25 PM [facility] Nucleated RBCs 0 0 /100 01/15/2019 [facility] 10:25 PM [facility] Absolute 6.3 1.6 - 8.3 01/15/2019 [facility] Neutrophil 10e9/L 10:25 PM [facility] Absolute 2.0 0.8 - 5.3 01/15/2019 [facility] Lymphocytes 10e9/L 10:25 PM [facility] Absolute 1.0 0.0 - 1.3 01/15/2019 [facility] Monocytes 10e9/L 10:25 PM [facility] Absolute 0.1 0.0 - 0.2 01/15/2019 [facility] Basophils 10e9/L 10:25 PM [facility] Abs Immature 0.0 0 - 0.4 01/15/2019 [facility] Granulocytes 10e9/L 10:25 PM [facility] Absolute 0.0 01/15/2019 [facility] Nucleated RBC 10:25 PM [facility] Specimen Anatomical Collection Method Collection Time Receive d Time (Source) Location / / Volume Laterality Blood specimen 01/15/2019 10:14 9 (specimen) PM CDT 10:22 PM CDT Fabricio Momin MD LAB - BLOOD ORDERABLES Performing Organization Address City/State/ZIP Code [facility] e Number [address] [place] [address] [address] [place], [place] [address] [phone] CENTER (ABNORMAL) Basic metabolic panel (01/15/2019 10:14 PM CDT) athologist Signature Sodium 140 133 - 144 01/15/2019 [place] mmol/L 10:39 PM [facility] Potassium 3.8 3.4 - 5.3 01/15/2019 [place] mmol/L 10:39 PM [facility] Chloride 104 94 - 109 01/15/2019 [place] mmol/L 10:39 PM [facility] Carbon Dioxide 29 20 - 32 01/15/2019 [place] mmol/L 10:39 PM [facility] Anion Gap 7 3 - 14 01/15/2019 [place] mmol/L 10:39 PM [facility] Glucose 122 (H) 70 - 99 01/15/2019 [place] mg/dL 10:39 PM [facility] Urea Nitrogen 25 7 - 30 01/15/2019 [place] mg/dL 10:39 PM [facility] Creatinine 0.83 0.52 - 01/15/2019 [place] 1.04 mg/dL 10:39 PM [facility] GFR Estimate 72 >60 01/15/2019 [place] mL/min/{1. 10:39 PM [facility] 73_m2} [facility] Comment: Non GFR Calc Starting 07/24/2018, serum creatinine ba sed estimated GFR (eGFR) will be calculated using the Chronic Kidney Dise [facility] Epidemiology Collaboration (CKD-EPI) equation. GFR Estimate If 83 >60 mL/min/{1.73_m2} 01/15/2019 10 :39 PM [facility] Black [facility] Comment: GFR Calc Starting 07/24/2018, serum creatinine ba sed estimated GFR (eGFR) will be calculated using the Chronic Kidney Dise [facility] Epidemiology Collaboration (CKD-EPI) equation. Calcium 9.3 8.5 - 10.1 mg/dL 01/15/2019 10:39 PM [facility] Specimen Anatomical Collection Method Collection Time Receive d Time (Source) Location / / Volume Laterality Blood specimen 01/15/2019 10:14 9 (specimen) PM CDT 10:22 PM CDT Fabricio Momin MD LAB - BLOOD ORDERABLES Performing Organization Address City/State/ZIP Code Phon e Number [address] [place] [id number] [address] [place] [address], [facility] [phone] [place] Urine Culture Aerobic Bacterial (01/15/2019 9:34 PM CDT) Component Value Ref Test Analysis Performed At [facility] Range Method Time Signature Specimen Midstream Urine INFECTIOUS Description DISEASES DIAGNOSTIC LABORATORY Culture Micro 10,000 to 50,000 colonies/mL 019 INFECTIOUS mixed urogenital edison 5:31 AM CDT DISEA SES Susceptibility testing not routinely done DIAGNOSTIC LABORATORY Specimen (Source) Anatomical Collection Method Collection Time Re ceived Time Location / / Volume Laterality Examination of 01/15/2019 9:34 01/15/2019 9:38 midstream urine PM CDT PM CDT specimen (procedure) Fabricio Momin MD LAB - MICRO GENERAL ORDERABL ES Performing Organization Address City/State/ZIP Code Phon e Number INFECTIOUS DISEASES [address] [place] [address] DIAGNOSTIC LABORATORY, [facility] INFECTIOUS DISEASES [address] [place] [address], [place] DIAGNOSTIC LABORATORY (ABNORMAL) Routine UA with microscopic (01/15/2019 9:34 PM CDT) [facility] Method Time Signature Color Urine Yellow 01/15/2019 [facility] 9:45 PM [facility] Appearance Urine Slightly 01/15/2019 [facility] Cloudy 9:45 PM [facility] Glucose Urine Negative NEG^Negat 01[facility]15[facility]2019 [facility]dL 9:45 PM [facility] Bilirubin Urine Negative NEG^Negat 01/15/2019 [facility] [place] 9:45 PM [facility] Ketones Urine Negative NEG^Negat 01/15/2019 [place] mg/dL 9:45 PM [facility] Specific [place] 1.021 1.003 - 01/15/2019 [facility] Urine 1.035 9:45 PM [facility] Blood Urine Large (A) NEG^Negat 01/15/2019 [facility] [place] 9:45 PM [facility] pH Urine 6.0 5.0 - 7.0 01/15/2019 [facility] pH 9:45 PM [facility] Protein Albumin 30 (A) NEG^Negat 01/15/2019 [place] U[place]anta mg/dL 9:45 PM [facility] Urobilinogen 0.0 0.0 - 2.0 01/15/2019 [facility] mg/dL mg/dL 9:45 PM [facility] Nitrite Urine Negative NEG^Negat 01/15/2019 [facility] [place] 9:45 PM [facility] Leukocyte Negative NEG^Negat 01/15/2019 [place] Esterase Urine [place] 9:45 PM [facility] Source Midstream 01/15/2019 [place] Urine 9:34 PM [facility] WBC Urine 3 0 - 5 01/15/2019 [facility] /HPF 9:45 PM [facility] RBC Urine >182 (H) 0 - 2 01/15/2019 [facility] /HPF 9:45 PM [facility] Bacteria Urine Few (A) NEG^Negat 01/15/2019 [place] /HPF 9:45 PM [facility] Squamous 3 (H) 0 - 1 01/15/2019 [place] Epithelial /HPF /HPF 9:45 PM T [facility] Mucous Urine Present (A) NEG^Negat 01/15/2019 [place] /LPF 9:45 PM [facility] Specimen (Source) Anatomical Collection Method Collection Time Re ceived Time Location / / Volume Laterality Examination of 01/15/2019 9:34 01/15/2019 9:37 midstream urine PM CDT PM CDT specimen (procedure) Fabricio Momin MD LAB - URINE ORDERABLES Performing Organization Address City/State/ZIP Code Phon e Number [address] [place], [place] [address] [place], [place] [address], [facility] [phone] CENTER documented in this encounter Visit Diagnoses Diagnosis Kidney stone Calculus of kidney documented in this encounter Administered Medications Inactive Administered Medications - up to 3 most recent administrations Medication Order MAR Action Action Date Dose Rate Site 0.9% sodium chloride BOLUS New Bag 01/15/2019 10:15 PM 1,000 mLs 1000 mL/hr Intravenous, 1,000 mL, CDT ONCE, at 1,000 mL/hr, Administer over 1 Hours, On Mon01/15/19 at 2157, For 1 dose HYDROmorphone (PF) (DILAUDID) injection 0.5 mg 0.5 mg, Intravenous, ONCE PRN, moderate to severe pain, Starting on Mon01/15/19 at 2155, For 1 dose, For ordered IV doses 0 .1-4 mg give IV Push undiluted. Administer each 2mg over 2-5 minutes. ketorolac (TORADOL) injection 15 mg Given 01/15/2019 10:17 PM CDT 15 mg 15 mg, Intravenous, ONCE, On Mon01/15/19 at 2157, For 1 dose, Do not give within 6 hours of Ibuprofen. Can cause pain on injection. If ordered intravenously (IV) : administer through a running maintenance fluid over 1 minute followed by a flush. If patient complains of pain on injection, may dilute 15-30 mg in 5 mL and push over 1 to 2 minutes. ondansetron (ZOFRAN) injection 4 mg Given 01/15/2019 10:15 PM CDT 4 mg 4 mg, Intravenous, EVERY 30 MIN PRN, nausea, vomiting, Administer over 2-5 Minutes, Starting on Mon01/15/19 at 2155, For 3 doses, May repeat in 30 minutes as needed, up to 3 doses. Irritant. For ordered IV doses 0.1-4 mg, give IV Push undiluted over 2-5 minutes. sodium chloride 0.9% infusion at 125 mL/hr, Intravenous, CONTINUOUS, A dminister after the bolus., Starting on Mon01/15/19 at 2157, Until Mon01/16/19 at 0132 documented in this encounter Active and Recently Administered Medications Times are shown in CDT. Scheduled Medication Order 01/13/2019 01/14/2019 01/15/2019 0.9% sodium chloride BOLUS (COMPLETED) 2214 (New Bag - Provider: Blanca Mai, KLAUS)2320 (Stopped - Provider: Blanca Mai, RN) Intravenous, 1,000 mL, ONCE, at 1,000 mL /hr, Administer over 1 Hours, Mon01/15/19 at 2157, For 1 dose ketorolac (TORADOL) injection 15 mg (COMPLETED) 2216 (Given - Provider: Blanca Mai, RN) 15 mg, Intravenous, ONCE, Mon01/15/19 at 2157, For 1 dose, Do not give within 6 hours of Ibuprofen. Can cause pain on injection. If ordered intravenously (IV) : administer through a running maintenance fluid over 1 minute followed by a flush. If patient complains of pain on injection, may dilute 15-30 mg in 5 mL and push over 1 to 2 minutes. Continuous Medication Order 01/13/2019 01/14/2019 01/15/2019 sodium chloride 0.9% infusion 21 57 (Canceled Entry - Provider: Orders Generic Provider - Comment: Automatically canceled at discontinue of medication order) at 125 mL/hr, Intravenous, CONTINUOUS, A dminister after the bolus., Starting Mon01/15/19 at 2157, Until Mon01/16/19 at 0132 PRN Medication Order 01/13/2019 01/14/2019 01/15/2019 HYDROmorphone (PF) (DILAUDID) injection 0.5 mg 0.5 mg, Intravenous, ONCE PRN, 1 dose, S tarting Mon01/15/19 at 2155, Until Mon01/16/19 at 0132, moderate to severe pain, For ordered IV doses 0.1-4 mg give IV Push undiluted. Administer each 2mg over 2-5 minutes. ondansetron (ZOFRAN) injection 4 mg 2215 (Given - Provider: Blanca Mai RN) 4 mg, Intravenous, EVERY 30 MIN PRN, hannah sea, vomiting, Administer over 2-5 Minutes, Starting Mon01/15/19 at 2155, For 3 doses, May repeat in 30 minutes as needed, up to 3 doses. Irritant. For ordered IV doses 0.1-4 mg, give IV Push undiluted over 2-5 minutes. documented in this encounter Care Teams Improvement Coordinator Relationship Specialty Start Date End Date Sofia Landers PA-C PCP - General 05/10/06 Sofia Landers PA-C Assigned PCP 05/10/12 04/17/21 Saurabh [id number] [facility] [place] [id number] documented as of this encounter
--- OUTSIDE RECORDS SUMMARY | 2022-07-05 17:49 | XMS_ITS | Encounter Summary ---
:1950 Author Organization [facility] Address [address] [place] [id number] Care Team Providers Name Role Phone Sofia Landers PA-C Primary Care Provider Sofia Landers PA-C Unavailable Sofia Landers PA-C Unavailable Reason for Visit (Routine) - Closed Specialty Diagnoses / Procedures Referred By Contact Refer red To Contact Radiology / Radiology. Procedures Ph Mammography MA SCREENING DIGITAL [address] [place] [address] Phone: Referral ID Status Reason Start Date Expiration Date Visits Requ ested Visits Authorized [id number] Closed 04/05/2017 04/05/2018 1 1 Encounter Details Date Type Department Care Team Description 04/12/2017 Hospital Encounter [facility] Sofia Landers, Visit for screening [facility] PA-C mammogram [address] [place] [address] [facility] [id number] [address] [phone] [place] [address] Social History Tobacco Use Types Packs/Day Years Used Date Smoking Tobacco: Never Smokeless Tobacco: Never Alcohol Use Standard Drinks/Week Comments Yes 0 (1 standard drink = 0.6 oz pure alcoho l) occasional glass of wine Sex Assigned at Date Recorded Not on file documented as of this encounter Medications at Time of Discharge Medication Sig Dispensed Refills Start Date End Date ZACH LOW STRENGTH OR 1 TABLET DAILY 0 fish oil-omega-3 fatty acids Take 2 g by 0 (OMEGA 3) 1000 MG capsule mouth daily. MULTI-VITAMIN OR 1 tablet daily 0 amLODIPine (NORVASC) 10 MG Take 1 tablet 90 tablet 3 201604/12/2018 tabletIndications: (10 mg) by mouth Hypertension goal BP (blood daily pressure) < 130/80 atorvastatin (LIPITOR) 20 MG Take 1 tablet 90 tablet 3 03/0904/12/2018 tabletIndications: (20 mg) by mouth Hyperlipidemia LDL goal <130 daily hydrochlorothiazide Take 1 tablet 90 tablet 3 04/05/2017 (HYDRODIURIL) 25 MG (25 mg) by mouth tabletIndications: daily Hypertension goal BP (blood pressure) < 130/80 lisinopril Take 3 tablets 270 tablet 3 04/05/2017 04/12/2018 (PRINIVIL/ZESTRIL) 20 MG (60 mg) by mouth tabletIndications: daily Hypertension goal BP (blood pressure) < 130/80 documented as of this encounter Plan of Treatment Not on filedocumented as of this encounter Procedures Procedure Name Priority Date/Time Associated Diagnosis Comme nts MA SCREENING Routine 04/12/2017 9:27 AM Visit for screening Re sults for this DIGITAL BILATERAL CDT mammogram procedure are in the results section. documented in this encounter Results MA Screening Digital Bilateral (04/12/2017 9:27 AM CDT) Anatomical Region Laterality Modality Breast Bilateral Mammography Specimen (Source) Anatomical Location Collection Method / Collectio n Time Received Time / Laterality Volume Impressions 04/12/2017 5:50 PM CDT IMPRESSION: BI-RADS CATEGORY: 1 - ??NEGATIVE. RECOMMENDED FOLLOW-UP: Annual Mammograph y. Exam results letter mailed to patient. DAMIAN JACKMAN MD Narrative 04/12/2017 5:50 PM CDT SCREENING MAMMOGRAPHY, BILATERAL, DIGITAL w/CAD ??04/12/2017 9:27 AM BREAST SYMPTOMS: No current breast compl aints. COMPARISON: ??04/08/2016, 04/06/2015, 2013, 03/27/2013. BREAST DENSITY: Almost entirely fat. COMMENTS: No findings of suspicion for m alignancy. ?? Procedure Note Damian Jackman MD - 04/12/2017Form atting of this note might be different from the original. SCREENING MAMMOGRAPHY, BILATERAL, DIGITA L w/CAD 04/12/2017 9:27 AM BREAST SYMPTOMS: No current breast compl aints. COMPARISON: 04/08/2016, 04/06/2015, 03/31/20 14, 03/27/2013. BREAST DENSITY: Almost entirely fat. COMMENTS: No findings of suspicion for m alignancy. IMPRESSION: BI-RADS CATEGORY: 1 - NEGATI VE. RECOMMENDED FOLLOW-UP: Annual Mammograph y. Exam results letter mailed to patient. DAMIAN JACKMAN MD Sofia Landers PA-C [facility] MAMMOGRAPHY ORDERABLES documented in this encounter Visit Diagnoses Diagnosis Visit for screening mammogram Other screening mammogram documented in this encounter Care Teams Manager Integrated Relationship Specialty Start Date End Date Sofia Landers PA-C PCP - General 05/10/06 Sofia Landers PA-C PCP - Assigned PCP 12/05/10 10/09/18 Saurabh [id number] [place] [id number] Sofia Landers PA-C Assigned PCP 05/10/12 04/17/21 Saurabh [id number] [place] [id number] documented as of this encounter
--- OUTSIDE RECORDS SUMMARY | 2022-07-05 17:49 | XMS_ITS | Encounter Summary ---
:1950 Author Organization [facility] Address [address] [place] [id number] Care Team Providers Name Role Phone Sofia Landers PA-C Primary Care Provider Sofia Landers PA-C Unavailable Sofia Landers PA-C Unavailable Reason for Referral Diagnostic Imaging Mammo - Closed Specialty Diagnoses / Procedures Referred By Contact Refer red To Contact Diagnoses Encounter for screening mammogram for breast cancer Sofia Landers PA-C Procedures *MA Screening Digital Bilateral [place] [id number] [place] [id number] Referral ID Status Reason Start Date Expiration Date Visits Requ ested Visits Authorized [id number] Closed 04/12/2018 04/12/2019 1 1 Reason for Visit Reason Comments Physical Panel Management Honoring Choices, BMP, lipid , Fall risk, PHQ2 Encounter Details Date Type Department Care Team Description 04/12/[address] [facility] Sofia Landers Encoun ter for routine adult health examination without abnormal findings (Primary Dx); [facility] Hypertension goal BP (blood pressure) < 130/80; [address] Saurabh Hyperlipidemia LDL goal <130; [place] [id number] [address] Need for pr ophylactic vaccination and inoculation against influenza; [id number] VD Encounter for screening mammogram for br east cancer [phone] [place] [id number] Social History Tobacco Use Types Packs/Day Years Used Date Smoking Tobacco: Never Smokeless Tobacco: Never Alcohol Use Standard Drinks/Week Comments Yes 0 (1 standard drink = 0.6 oz pure alcoho l) occasional glass of wine Sex Assigned at Date Recorded Not on file documented as of this encounter Last Filed Vital Signs Vital Sign Reading Time Taken Comments Blood Pressure 130/66 04/12/2018 9:52 AM CDT Pulse 64 04/12/2018 9:52 AM CDT Temperature 36.8 ??C (98.2 ??F) 04/12/2018 9:52 AM CDT Respiratory Rate 12 04/12/2018 9:52 AM CDT Oxygen Saturation - - Inhaled Oxygen Concentration - - Weight 68 kg (150 lb) 04/12/2018 9:52 AM CDT Height 150.7 cm (4' 11.33) 04/12/2018 9:52 AM CDT Body Mass Index 29.96 04/12/2018 9:52 AM CDT documented in this encounter Patient Instructions Patient InstructionsMolin-Lorelei Pete CMA - 04/06/2018 2:10 PM CDT Preventive Health Recommendations Female Ages 65 [...] Prevnar (PCV 13). ??? Talk to your pharmacist about the shingles vaccine. ??? Talk to your doctor about the hepatitis B vaccine. Nutrition: ??? Eat at least 5 servings of fruits and vegetables each day. ??? Eat whole-grain bread, whole-wheat pasta and brown rice instead of white grains and rice. ??? Get adequate Calcium and Vitamin D. Lifestyle ??? Exercise [...] screen for conditions such as glaucoma, macular degeneration and cataracts. documented in this encounter Progress Notes Lauryn Maurer CMA - 04/12/2018 10:43 AM CDT Prior to injection verified patient identity using patient's name and date of . Due to injection administration, patient instructed to remain in clinic for 15 minutes afterwards, and to report any adverse reaction to me immediately. Injectable Influenza Immunization Documentation 1. Is the person to be vaccinated sick today? No 2. Does the person to be vaccinated have an allergy to a component of the vaccine? No Egg Allergy Algorithm Link 3. Has the person to be vaccinated ever had a serious reaction to influenza vaccine in the past? No 4. Has the person to be vaccinated ever had Guillain-Aguirre?? syndrome? No Form completed by Lauryn Maurer CMA (AAMA) Sofia Landers PA-C - 04/12/2018 9:45 AM CDT SUBJECTIVE: Edith Stallings is a 67 year old female who presents for Preventive Visit. Are you in the first 12 months of your Medicare coverage? No Physical Annual: Getting at least 3 servings of Calcium per day: Yes Bi-annual eye exam: Yes Dental care twice a year: Yes Sleep apnea or symptoms of sleep apnea: None Diet: Low salt Frequency of exercise: None Taking medications regularly: Yes Medication side effects: Not applicable Additional concerns today: YES (check mole on back) Ability to successfully perform activities of daily living: no assistance needed Home Safety: No safety concerns identified Hearing Impairment: no hearing concerns Fall risk: COGNITIVE SCREEN 1) Repeat 3 items (Leader, Season, Table) 2) Clock draw: NORMAL 3) 3 item recall: Recalls 3 objects Results: 3 items recalled: COGNITIVE IMPAIRMENT LESS LIKELY Mini-CogTM Copyright S Viky. Licensed by the author for use in [facility]; reprintedwith permission (soob@[employer]). All rights reserved. Reviewed and updated as needed this visit by clinical staff Tobacco Allergies Meds Med Hx Surg Hx Fam Hx Soc Hx Reviewed and updated as needed this visit by Provider Social History Substance Use Topics ??? Smoking status: Never Smoker ??? Smokeless tobacco: Never Used ??? Alcohol use Yes Comment: occasional glass of wine Alcohol Use 04/12/2018 If you drink alcohol do you typically have greater than 3 drinks per day OR greater than 7 drinks per week? No Today's PHQ-2 Score: PHQ-2 (??1999 Pfizer) 04/12/2018 Q1: Little interest or pleasure in doing things 0 Q2: Feeling down, depressed or hopeless 0 PHQ-2 Score 0 Q1: Little interest or pleasure in doing things Not at all Q2: Feeling down, depressed or hopeless Not at all PHQ-2 Score 0 Do you feel safe in your environment - Yes Do you have a Health Care Directive?: No: Advance care planning reviewed with patient; information given to patient to review. Current providers sharing in care for this patient include: Patient Care Team: Sofia Landers PA-C as PCP - General The following health maintenance items are reviewed in Epic and correct as of today: Health Maintenance Topic Date Due ??? ADVANCE DIRECTIVE PLANNING Q5 YRS 03/28/2017 ??? BMP Q1 YR 04/05/2018 ??? LIPID MONITORING Q1 YEAR 04/05/2018 ??? INFLUENZA VACCINE (1) 04/07/2018 ??? FALL RISK ASSESSMENT 04/05/2018 ??? PHQ-2 Q1 YR 04/05/2018 ??? MAMMO SCREEN Q2 YR (SYSTEM ASSIGNED) 04/12/2019 ??? TETANUS IMMUNIZATION (SYSTEM ASSIGNED) 04/05/2027 ??? COLON CANCER SCREEN (SYSTEM ASSIGNED) 11/11/2027 ??? DEXA SCAN SCREENING (SYSTEM ASSIGNED) Completed ??? PNEUMOCOCCAL Completed ??? HEPATITIS C SCREENING Completed Labs reviewed in [facility] BP Readings from Last 3 Encounters: 04/12/18 130/66 11/10/17 110/63 04/05/17 120/70 Wt Readings from Last 3 Encounters: 04/12/18 150 lb (68 kg) 04/05/17 161 lb 6.4 oz (73.2 kg) 04/05/16 159 lb (72.1 kg) Pneumonia Vaccine:up to date on both Mammogram Screening: Patient over age 50, mutual decision to screen reflected in health maintenance. She is s/p ovarian cancer, s/p total hysterectomy with BSO Review of Systems CONSTITUTIONAL: NEGATIVE for fever, chills, change in weight INTEGUMENTARY/SKIN: is worried about mole on back EYES: NEGATIVE for vision changes or irritation EYES: just saw eye dr ENT/MOUTH: NEGATIVE for ear, mouth and throat problems RESP: NEGATIVE for significant cough or SOB BREAST: NEGATIVE for masses, tenderness or discharge CV: NEGATIVE for chest pain, palpitations or peripheral edema GI: NEGATIVE for nausea, abdominal pain, heartburn, or change in bowel habits : NEGATIVE for frequency, dysuria, or hematuria MUSCULOSKELETAL: NEGATIVE for significant arthralgias or myalgia NEURO: NEGATIVE for weakness, dizziness or paresthesias PSYCHIATRIC: NEGATIVE for changes in mood or affect OBJECTIVE: BP 130/66 Pulse 64 Temp 98.2 ??F (36.8 ??C) (Temporal) Resp 12 Ht 4' 11.33 (1.507 m) Wt 150 lb (68 kg) BMI 29.96 kg/m2 Estimated body mass index is 29.96 kg/(m^2) as calculated from the following: Height as of this encounter: 4' 11.33 (1.507 m). Weight as of this encounter: 150 lb (68 kg). Physical Exam GENERAL APPEARANCE: healthy, alert and no distress EYES: Eyes grossly normal to inspection, PERRL and conjunctivae and sclerae normal HENT: ear canals and TM's normal, nose and mouth without ulcers or lesions, oropharynx clear and oral mucous membranes moist NECK: no adenopathy, no asymmetry, masses, or [...] bowel sounds normal (female): normal female external genitalia, normal urethral meatus, vaginal mucosal atrophy notedand normal post-hysterectomy exam without masses. MS: no musculoskeletal defects are noted and gait is age appropriate without ataxia SKIN: keratoses - seborrheic # left upper back NEURO: Normal strength and tone, sensory exam grossly normal, mentation intact and speech normal PSYCH: mentation appears normal and affect normal/bright Diagnostic Test Results: No results found for this or any previous visit (from the past 24 hour(s)). ASSESSMENT / PLAN: 1. Encounter for routine adult health examination without abnormal findings Healthy female - FLU VACCINE, INCREASED ANTIGEN, PRESV FREE, AGE 65+ [01550] - Vaccine Administration, Initial [92124] 2. Hypertension goal BP (blood pressure) < 130/80 At goal - amLODIPine (NORVASC) 10 MG tablet; Take 1 tablet (10 mg) by mouth daily Dispense: 90 tablet; Refill: 3 - hydrochlorothiazide (HYDRODIURIL) 25 MG tablet; Take 1 tablet (25 mg) by mouth daily Dispense: 90 tablet; Refill: 3 - lisinopril (PRINIVIL/ZESTRIL) 20 MG tablet; Take 3 tablets (60 mg) by mouth daily Dispense: 270 tablet; Refill: 3 - Comprehensive metabolic panel (BMP + Alb, Alk Phos, ALT, AST, Total. Bili, TP) 3. Hyperlipidemia LDL goal <130 Doing well - atorvastatin (LIPITOR) 20 MG tablet; Take 1 tablet (20 mg) by mouth daily Dispense: 90 tablet; Refill: 3 - Lipid panel reflex to direct LDL Fasting 4. Need for prophylactic vaccination and inoculation against influenza - FLU VACCINE, INCREASED ANTIGEN, PRESV FREE, AGE 65+ [65283] - Vaccine Administration, Initial [63474] End of Life Planning: Patient currently has an advanced directive: No. I have verified the patient's ablity to prepare an advanced directive/make health care decisions. Literature was provided to assist patient in preparingan advanced directive. COUNSELING: Reviewed preventive health counseling, as reflected in patient instructions BP Readings from Last 1 Encounters: 04/12/18 130/66 Estimated body mass index is 29.96 kg/(m^2) as calculated from the following: Height as of this encounter: 4' 11.33 (1.507 m). Weight as of this encounter: 150 lb (68 kg). reports that she has never smoked. She [...] ICSI Preventive Guidelines Dietary Guidelines for Americans, 2010 USDA's MyPlate ASA Prophylaxis Lung CA Screening Sofia Landers PA-C [facility] Answers for HPI/ROS submitted by the patient on 04/12/2018 PHQ-2 Score: 0 Electronically signed by Sofia Landers PA-C lipd documented in this encounter Miscellaneous Notes Addendum Note - Sofia Landers PA-C - 04/12/2018 10:52 AM CDT Addended by: SOFIA LANDERS on: 04/12/2018 10:52 AM Modules accepted: Orders documented in this encounter Plan of Treatment Not on filedocumented as of this encounter Procedures Procedure Name Priority Date/Time Associated Diagnosis Comme nts LIPID REFLEX TO Routine 04/12/2018 10:41 Hyperlipidemia LDL Re sults for this DIRECT LDL PANEL AM CDT goal <130 procedure a re in the results section. COMPREHENSIVE Routine 04/12/2018 10:41 Hypertension goal BP Re sults for this METABOLIC PANEL AM CDT (blood pressure) < proced ure are in 130/80 the results section. documented in this encounter Results *MA [...] patient. DAMIAN JACKMAN MD Sofia Landers PA-C IMG MAMMOGRAPHY ORDERABLES Comprehensive metabolic panel (BMP + Alb, Alk Phos, ALT, AST, Total. Bili, TP) (04/12/2018 10:41 AM CDT) P athologist Signature Sodium 141 133 - 144 04/12/2018 [place] mmol/L 2:27 PM [facility] Potassium 3.7 3.4 - 5.3 04/12/2018 [facility] mmol/L 2:27 PM [facility] Chloride 104 94 - 109 04/12/2018 [place] mmol/L 2:27 PM [facility] Carbon Dioxide 29 20 - 32 04/12/2018 [facility] mmol/L 2:27 PM [facility] Anion Gap 8 3 - 14 04/12/2018 [place] mmol/L 2:27 PM [facility] Glucose 88 70 - 99 04/12/2018 [place] mg/dL 2:27 PM [facility] Urea Nitrogen 20 7 - 30 04/12/2018 [place] mg/dL 2:27 PM [facility] Creatinine 0.68 0.52 - 04/12/2018 [place] 1.04 mg/dL 2:27 PM [facility] GFR Estimate 86 >60 04/12/2018 [place] mL/min/1.7 2:[address] Comment: Non GFR Calc GFR Estimate If >90 >60 mL/min/1.7m2 04/12/2018 2:27 P [facility] Comment: GFR Calc Calcium 9.4 8.5 - 10.1 mg/dL 04/12/2018 2:27 PM [facility] Bilirubin Total 0.5 0.2 - 1.3 mg/dL 04/12/2018 2:27 PM [facility] Albumin 3.9 3.4 - 5.0 g/dL 04/12/2018 2:27 PM [facility] Protein Total 7.7 6.8 - 8.8 g/dL 04/12/2018 2:27 PM [facility] Alkaline Phosphatase 80 40 - 150 U/L 04/12/2018 2:27 PM [facility] ALT 38 0 - 50 U/L 04/12/2018 2:27 PM [facility] AST 22 0 - 45 U/L 04/12/2018 2:27 PM [facility] Specimen Anatomical Collection Method Collection Time Receive d Time (Source) Location / / Volume Laterality Blood specimen 04/12/2018 10:41 8 (specimen) AM CDT 10:42 AM CDT Sofia Landers PA-C LAB - BLOOD ORDERABLES Performing Organization Address City/State/ZIP Code Phon e Number M [address] [place], [place] [address] [place] [address], [facility] [phone] CENTER (ABNORMAL) Lipid panel reflex to direct LDL Fasting (04/12/2018 10:41 AM CDT) athologist Signature Cholesterol 171 <200 mg/dL 04/12/2018 [place] 2:27 PM T [facility] Triglycerides 154 (H) <150 mg/dL 04/12/2018 [place] 2:27 PM CDT [facility] Comment: Borderline high: ??150-199 mg/dl High: ? 200-499 mg/dl Very high: ? >499 mg/dl HDL Cholesterol 50 >49 mg/dL 04/12/2018 2:27 PM CDT [facility] LDL Cholesterol 90 <100 mg/dL 04/12/2018 2:27 PM CDT [facility] Comment: Desirable: <100 mg/dl Non HDL Cholesterol 121 <130 mg/dL 04/12/2018 2:27 PM CDT [facility] Specimen Anatomical Collection Method Collection Time Receive d Time (Source) Location / / Volume Laterality Blood specimen 04/12/2018 10:41 8 (specimen) AM CDT 10:42 AM CDT Sofia Landers PA-C LAB - BLOOD ORDERABLES Performing Organization Address City/State/ZIP Code Phon e Number M [address] [place] [address] [place] [address], [facility] [phone] CENTER documented in this encounter Visit Diagnoses Diagnosis Encounter for routine adult health exami nation without abnormal findings - Primary Hypertension goal BP (blood pressure) < 130/80 Unspecified essential hypertension Hyperlipidemia LDL goal <130 Other and unspecified hyperlipidemia Need for prophylactic vaccination and in oculation against influenza Encounter for screening mammogram for br east cancer Encounter for screening mammogram for br east cancer documented in this encounter 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
--- OUTSIDE RECORDS SUMMARY | 2022-07-05 17:49 | XMS_ITS | Encounter Summary ---
:1950 Author Organization [facility] Address [address] [place] [address] Care Team Providers Name Role Phone Sofia Landers PA-C Primary Care Provider Sofia Landers PA-C Unavailable Sofia Landers PA-C Unavailable Reason for Visit Auth/Cert Specialty Diagnoses / Procedures Referred By Contact Refer red To Contact Gastroenterology Diagnoses screening Ph Endoscopy Procedures COLONOSCOPY [address] [place] [phone] Phone: Referral ID Status Reason Start Date Expiration Date Visits Requ ested Visits Authorized [id number] 1 1 Encounter Details Date Type Department Care Team Description 11/10/2017 Surgery [facility] Jordan Powell MD COLONOSCOPY Endoscopy [address] [address] [place], [place] [id number] (Wo rk) Surgery Details Date/Time Status Location OR Service Patient Case Case Traum a Class Class Type Case? 11/10/17 11:00 Posted PH GI Proc 01 Gastroenterology Outpatient AM Panel 1 Procedure [facility]RB Anes Op Region Wound Class Commen ts COLONOSCOPY N/A Conscious Sedation Rectum II-Clean Contami nated COLONOSCOPY Surgeon Surgeon Role Service Panel Jordan Jimenes MD Primary Gastroenterology 1 documented in this encounter Social History Tobacco Use Types Packs/Day Years Used Date Smoking Tobacco: Never Smokeless Tobacco: Never Alcohol Use Standard Drinks/Week Comments Yes 0 (1 standard drink = 0.6 oz pure alcoho l) occasional glass of wine Sex Assigned at Date Recorded Not on file documented as of this encounter Last Filed Vital Signs Vital Sign Reading Time Taken Comments Blood Pressure 110/63 11/10/2017 11:45 AM CDT Pulse - - Temperature 36.4 ??C (97.6 ??F) 11/10/2017 10:11 AM CDT Respiratory Rate 14 11/10/2017 11:45 AM CDT Oxygen Saturation 100% 11/10/2017 11:45 AM CDT Inhaled Oxygen Concentration - - Weight - - Height - - Body Mass Index - - documented in this encounter Medications at Time of [...] < 130/80 documented as of this encounter H&P Notes Jordan Jimenes MD - 11/10/2017 10:55 AM CDT [facility] GI Pre-Procedure Physical Assessment Edith Stallings Age: [age] year old Date of : 1950 Date of Surgery: 11/10/2017 Location [facility] Date of Exam 11/10/2017 Facility (Same day) Home clinic: [facility] Primary care provider: Sofia Landers Active problem list: Patient Active Problem List Diagnosis ??? Symptomatic menopausal or female climacteric states ??? Postmenopausal bleeding ??? Uterine cancer (H) ? ? HYPERLIPIDEMIA LDL GOAL <130 ??? Malignant neoplasm of ovary (H) ? ? Hypertension goal BP (blood pressure) < 130/80 ??? Osteopenia ??? Health Fdc ??? Advanced directives, counseling/discussion ??? Overweight ??? H/O malignant neoplasm of endometrium Medications (include herbals and vitamins): Any Plavix use in the last 7 days? No Current Facility-Administered Medications Medication ??? lidocaine 1 % 1 mL ??? lidocaine (LMX4) kit ??? sodium chloride (PF) 0.9% PF flush 3 mL ??? sodium chloride (PF) 0.9% PF flush 3 mL ??? ondansetron (ZOFRAN) injection 4 mg Allergies: Allergies Allergen Reactions ??? Pneumovax [Pneumococcal Polysaccharides] Lump, fever ??? Sulfa Drugs Rash Allergy to Latex? No Allergy to tape? No Social History: Social History Substance Use Topics ??? Smoking status: Never Smoker ??? Smokeless tobacco: Never Used ??? Alcohol use Yes Comment: occasional glass of wine Physical Exam: All vitals have been reviewed Blood pressure 155/85, temperature 97.6 ??F (36.4 ??C), temperature source Oral, resp. rate 16, FoB373 %. Airway assessment: Patient is able to open mouth wide Patient is able to stick out tongue Lungs: No increased work of breathing, good air exchange, clear to auscultation bilaterally, no crackles or wheezing Cardiovascular: Normal apical impulse, regular rate and rhythm, normal S1 and S2, no S3 or S4, and no murmur noted Lab / Radiology Results: All laboratory data reviewed Assessment: Appropriately NPO Chief complaint or anatomic assessment of involved area: screen Plan: Moderate (conscious) sedation Patient's active problems diagnostically and therapeutically optimized for the planned procedure Risks, benefits, alternatives to sedation and blood explained and consent obtained Risks, benefits, alternatives to procedure explained and consent obtained P2 (patient with mild systemic disease) Orders and progress notes are in the chart Discharge from Phase 1 and / or Phase 2 recovery when patient meets criteria I have reviewed the history and physical, lab finding(s), diagnostic data, medicaitons, and the planfor sedation. I have determined this patient to be an appropriate candidate for the planned sedation/ procedure and have reassessed the patient immediately prior to sedation / procedure. I have personally and medically directed the administration of medications used. Jordan Jimenes MD documented in this encounter Plan of Treatment Not on filedocumented as of this encounter Procedures Procedure Name Priority Date/Time Associated Diagnosis Comme nts COLONOSCOPY 11/10/2017 10:50 AM screening CDT COLONOSCOPY Routine 11/10/2017 10:47 AM Results for this CDT procedure are i n the results section . documented in this encounter Results COLONOSCOPY (11/10/2017 10:47 AM CDT) [facility] Method Time Signature COLONOSCOPY [facility] RADIOLOGY [address] [place] [address] [phone] ? Endoscopy Department RESULTS Patient Name: Edith Stallings ? Proc edure Date: 11/10/2017 10:47 AM ? Accou nt Number: [id number] Date of : 1950 ?Admit Type: Out patient Age: 67 ? Room: [place] [address] Gender: Female ?Note Statu s: Finalized Attending MD: Jordan Jimenes MD ? Total Sedation Time: Procedure: ? Colonoscopy Indications: ? Screening for colorectal malignant neoplasm Providers: ? Jordan Jimenes MD Referring MD: ?Sofia Landers MD Medicines: ? Fentanyl 50 micrograms IV, Midazol am 5 mg IV Complications: ? No immediate complications. Procedure: ? Pre-Anesthesia Assessment: ? - Prior to the procedure, a History and Physical was ? performed, and patient medications, allergies and ? sensitivities were reviewed. The patient's tolerance of ? previous anesthesia was revie wed. ? - The risks and benefits of the procedure and the ? sedation options and risks were discussed with the ? patient. All questions were answered and informed ? consent was obtained. ? After obtaining informed consent, the colonoscope was ? passed under direct vision. Throughout the procedure, ? the patie nt's blood pressure, pulse, and oxygen ? saturations were monitored continuously. The Colonoscope ? was introduced through the anus and advanced to the ? cecum, identified by appendiceal orifice and ileocecal ? valve. The colonoscopy was performed without difficulty. ? The patient tolerated the procedure well. The quality of ? the bowel preparation was goo d. ? Findings: ? Diverticula were found in the sigmoid colon. ? The exam was otherwise without abnormality. ? Impression: ?- Diverticulosis in the sigmoid co phil. ? - The examination was otherwi se normal. Recommendation: ?- Re peat colonoscopy in 10 years for screening purposes. ? - Return to referring physici an. ? Jordan Jimenes MD 11/10/2017 11:17:19 AM I was physically present for the entire viewing portion of t he exam.Jordan Jimenes MD Number of Addenda: 0 Note Initiated On: 11/10/2017 10:47 AM Specimen (Source) Anatomical Collection Method Collection Time Re ceived Time Location / / Volume Laterality 11/10/2017 10:47 AM CDT Sofia Landers PA-C PROCEDURES Performing Organization Address City/State/ZIP Code Phon e Number RADIOLOGY RESULTS documented in this encounter Visit Diagnoses Not on filedocumented in this encounter Administered Medications Inactive Administered Medications - up to 3 most recent administrations Medication Order MAR Action Action Date Dose Rate Site fentaNYL (PF) (SUBLIMAZE) Given 11/10/2017 10:55 AM CDT 50 mcg injection PRN, Administer over 3-5 Minutes, Starting on Mon11/10/17 at 1055, Intra-procedure lactated ringers infusion New Bag 11/10/2017 11:12 AM CDT 125 mL/hr at 125 mL/hr, Intravenous, CONTINUOUS, Intra-procedure, Starting on Mon11/10/17 at 1115, Until Mon11/10/17 at 1429 lidocaine (LMX4) kit Topical, EVERY 1 HOUR PRN, pain, with VA D insertion or accessing implanted port., Starting on Mon11/10/17 at 0952, Do NOT g shanta if patient has a history of allergy to any local anesthetic or any noelle product. Apply 30 minutes prior to VAD insertion or port access. MAX Dose: 2.5 g (?? of 5 g t ube), Pre-procedure lidocaine 1 % 1 mL Given 11/10/2017 10:22 AM CDT 1 mL 1 mL, Other, EVERY 1 HOUR PRN, mild pain with VAD insertion or accessing implanted port, Starting on Mon11/10/17 at 0952, Do NOT give if patient has a history of allergy to any local anesthetic or any noelle product. MAX dose 1 mL subcutaneous OR intradermal in divided doses., Pre-procedure midazolam (VERSED) injection Given 11/10/2017 10:58 AM CDT 1 mg Administer over 2 Minutes, PRN, Starting on Mon11/10/17 at 1055, Intra-procedure Given 11/10/2017 10:57 AM CDT 1 mg Given 11/10/2017 10:56 AM CDT 1 mg ondansetron (ZOFRAN) injection 4 mg 4 mg, Intravenous, ONCE PRN, nausea, vomiting, Adminis ter over 2-5 Minutes, Starting on Mon11/10/17 at 0952, For 1 do se, Give in ENDO pre procedure prep area. Irritant. For ordered doses up to 4 mg, give IV Push undiluted over 2-5 minutes., Pre-procedure simethicone (MYLICON) suspension Given 11/10/2017 10:57 AM CDT 0.1 mLs PRN, Starting on Mon11/10/17 at 1057, Intra-procedure sodium chloride (PF) 0.9% PF flush 3 mL Given 11/10/2017 10:22 AM CDT 3 mLs 3 mL, Intracatheter, EVERY 1 HOUR PRN, line flush, for peripheral IV flush post IV meds, Starting on Mon11/10/17 at 0952, Pre-procedure sodium chloride (PF) 0.9% PF flush 3 mL 3 mL, Intracatheter, EVERY 8 HOURS, Firs t dose on Mon11/10/17 at 1000, And Q1H PRN, to lock peripheral IV dormant line., Pre-procedure documented in this encounter Active and Recently Administered Medications Times are shown in CDT. Scheduled Medication Order 11/08/2017 11/09/2017 11/10/2017 sodium chloride (PF) 0.9% PF flush 3 mL 1000 (Canceled Entry - Provider: Orders Generic Provider - Comment: Automatically canceled at discontinue of medication order) 3 mL, Intracatheter, EVERY 8 HOURS, Firs t dose on Mon11/10/17 at 1000, And Q1H PRN, to lock peripheral IV dormant line., Pre-procedure Continuous Medication Order 11/08/2017 11/09/2017 11/10/2017 lactated ringers infusion 1112 ( New Bag - Provider: Karissa Renae RN) at 125 mL/hr, Intravenous, CONTINUOUS, I ntra-procedure, Starting Mon11/10/17 at 1115, Until Mon11/10/17 at 1429 PRN Medication Order 11/08/2017 11/09/2017 11/10/2017 fentaNYL (PF) (SUBLIMAZE) injection 1055 (Given - Provider: Karissa Renae, RN) Administer over 3-5 Minutes, PRN, Starting Mon11/10/17 at 105 5, Intra-procedure lidocaine (LMX4) kit Topical, EVERY 1 HOUR PRN, pain, with VA D insertion or accessing implanted port., Starting Mon11/10/17 at 0952, Do NOT give if patient has a history of allergy to any local anesthetic or any noelle prod uct. Apply 30 minutes prior to VAD inser tion or port access. MAX Dose: 2.5 g (?? of 5 g tube), Pre-procedure lidocaine 1 % 1 mL 1022 (Given - Provider: Koki Giron RN) 1 mL, Other, EVERY 1 HOUR PRN, mild pain with VAD insertion or accessing implanted port, Starting Mon11/10/17 at 0952, Do NOT give if patient has a history of allergy to any local anesthetic or any tenorio e product. MAX dose 1 mL subcutaneous O R intradermal in divided doses., Pre-procedure midazolam (VERSED) injection 105 5 (Given - Provider: Karissa Renae RN)1056 (Given - Provider: Karissa Renae RN)1057 (Given - Provider: Karissa Renae RN)1058 (Given - Provider: Karissa Renae, RN) Administer over 2 Minutes, PRN, Starting Mon11/10/17 at 1055, Int ra-procedure ondansetron (ZOFRAN) injection 4 mg 4 mg, Intravenous, ONCE PRN, nausea, vom iting, Administer over 2-5 Minutes, Starting Mon11/10/17 at 0952, For 1 dose, Give in ENDO pre procedure prep area. Irritant. For ordered doses up to 4 mg, give IV Push undiluted over 2-5 minutes., Pre-procedure simethicone (MYLICON) suspension 1057 (Given - Provider: Karissa Renae, RN) PRN, Starting Mon11/10/17 at 1057, Intra-procedure sodium chloride (PF) 0.9% PF flush 3 mL 1022 (Given - Provider: Koki Giron RN) 3 mL, Intracatheter, EVERY 1 HOUR PRN, l ine flush, for peripheral IV flush post IV meds, Starting Mon11/10/17 at 0952, Pre-procedure documented in this encounter Care Teams Nick Setter Relationship Specialty Start Date End Date Sofia Landers PA-C PCP - General 05/10/06 Sofia Landers PA-C PCP - Assigned PCP 12/05/10 10/09/18 Saurabh [id number] [facility] LU[facility] [place] [id number] Sofia Landers PA-C Assigned PCP 05/10/12 04/17/21 [facility] [id number] [facility] [phone] documented as of this encounter
--- OUTSIDE RECORDS SUMMARY | 2022-07-05 17:49 | XMS_ITS | Encounter Summary ---
:1950 Author Organization [facility] Address [address] [place] [address] Care Team Providers Name Role Phone Sofia Landers PA-C Primary Care Provider Sofia Landers PA-C Unavailable Sofia Landers PA-C Unavailable Reason for Visit Reason Comments Medication Refill Lisinopril, HCTZ, Lipitor, A mlodipine, Fosamax Encounter Details Date Type Department Care Team Description 03/31/2015 Refill [facility] Laura Landers PA-C Medication Refill Clinic [facility] (Lisinopril, HCTZ, [address] [place] [address] [address] [facility] Lipitor, Amlodipine, [place] [address] Fosamax) [address] [phone] Social History Tobacco Use Types Packs/Day Years Used Date Smoking Tobacco: Never Smokeless Tobacco: Never Alcohol Use Standard Drinks/Week Comments No 0 (1 standard drink = 0.6 oz pure alcoho l) Sex Assigned at Date Recorded Not on file documented as of this encounter Miscellaneous Notes Telephone Encounter - Katalina Post - 03/31/2015 2:43 PM CDT Lisinopril Last Written Prescription Date: 02/10/2014 Last Fill Quantity: 135, # refills: 3 Last Office Visit with [facility] primary care provider: 03/30/2015 Next 5 appointments (look out 90 days) May 20, 2015 10:00 AM Return Visit with Mary Portillo APRN CNP [facility] ([facility] [address] [address] [address] [facility] [address] POTASSIUM Date Value Ref Range Status 03/30/2015 3.8 3.4 - 5.3 mmol/L Final CREATININE Date Value Ref Range Status 03/30/2015 0.67 0.52 - 1.04 mg/dL Final BP Readings from Last 3 Encounters: 03/30/15 134/80 10/29/14 155/85 04/28/14 138/81 HCTZ Last Written Prescription Date: 02/10/2014 Last Fill Quantity: 90# refills: 3 Last Office Visit with [facility] primary care provider: 03/30/2015 Next 5 appointments (look out 90 days) May 20, 2015 10:00 AM Return Visit with Mary Portillo APRN CNP [facility] ([facility] [address] [address] [address] [facility] [address] POTASSIUM Date Value Ref Range Status 03/30/2015 3.8 3.4 - 5.3 mmol/L Final CREATININE Date Value Ref Range Status 03/30/2015 0.67 0.52 - 1.04 mg/dL Final BP Readings from Last 3 Encounters: 03/30/15 134/80 10/29/14 155/85 04/28/14 138/81 Lipitor Last Written Prescription Date: 02/10/2014 Last Fill Quantity: 90# refills: 3 Last Office Visit with [facility] primary care provider: 03/30/2015 Next 5 appointments (look out 90 days) May 20, 2015 10:00 AM Return Visit with Mary Portillo APRN CNP [facility] ([facility]) [address] [facility] [address] CHOL 183 03/30/2015 HDL 50 03/30/2015 LDL 100 03/30/2015 TRIG 163 03/30/2015 CHOLHDLRATIO 3.7 03/30/2015 Amlodipine Last Written Prescription Date: 02/10/2014 Last Fill Quantity: 90# refills: 3 Last Office Visit with [facility] primary care provider: 03/30/2015 Future Office Visit: Next 5 appointments (look out 90 days) May 20, 2015 10:00 AM Return Visit with Mary Portillo APRN CNP [facility] ([facility] [address] [facility] [address] BP Readings from Last 3 Encounters: 03/30/15 134/80 10/29/14 155/85 04/28/14 138/81 Fosamax Last Written Prescription Date: 03/27/2013 Last Fill Quantity: 12 tablets # refills: prn Last Office Visit with [facility] primary care provider: 03/30/2015 Future Office visit: Next 5 appointments (look out 90 days) May 20, 2015 10:00 AM Return Visit with Mary Portillo APRN CNP [facility] ([facility]) [address] [facility] [address] Routing refill request to provider for review/approval because: Drug not active on patient's medication list - discontinued 10/29/2014 documented in this encounter Plan of Treatment Not on filedocumented as of this encounter Visit Diagnoses Diagnosis Hyperlipidemia LDL goal <130 - Primary Other and unspecified hyperlipidemia Hypertension goal BP (blood pressure) < 130/80 Unspecified essential hypertension Osteopenia Disorder of bone and cartilage, unspecif ied documented in this encounter Care Teams Corrosion Control Engineer Relationship Specialty Start Date End Date Sofia Landers PA-C PCP - General 05/10/06 Sofia Landers PA-C PCP - Assigned PCP 12/05/10 10/09/18 Saurabh [id number] [facility] JOSE LUIS LOPEZ [id number] Sofia Landers PA-C Assigned PCP 05/10/12 04/17/21 Saurabh [id number] [place] JOSE LUIS [place] [id number] documented as of this encounter
--- OUTSIDE RECORDS SUMMARY | 2022-07-05 17:49 | XMS_ITS | Encounter Summary ---
:1950 Author Organization [facility] Address [address] [place] [address] Care Team Providers Name Role Phone Sofia Landers PA-C Primary Care Provider Sofia Landers PA-C Unavailable Sofia Landers PA-C Unavailable Reason for Visit Reason Onset Date Comments Medication Request 08/17/2016 Encounter Details Date Type Department Care Team Description 08/17/2016 Telephone [facility] Laura Landers PA-C Medication Request Clinic [facility] Lopez [address] [place] [address] [place] [address] [place] [phone] [phone] Social History Tobacco Use Types Packs/Day Years Used Date Smoking Tobacco: Never Smokeless Tobacco: Never Alcohol Use Standard Drinks/Week Comments Yes 0 (1 standard drink = 0.6 oz pure alcoho l) occasional glass of wine Sex Assigned at Date Recorded Not on file documented as of this encounter Miscellaneous Notes Telephone Encounter - Dhara Allred - 08/17/2016 2:55 PM CST Patient would like to do 3 of the 20mg she also wanted to thank you for thinking of that. DULER CONVEYOR Telephone Encounter - Sofia Landers PA-C - 08/17/2016 2:49 PM CST Please call pt- does she want to take 3 of the 20 mg tablets to equal 60mg so she only has 1 co payment or would she rather take the 20+40 mg ? Sofia Landers PA-C DULER CONVEYOR Telephone Encounter - Jackie Clemons - 08/17/2016 1:09 PM CST Pt is currently taking 60 mg of the lisinopril. She had switched over to [facility] pharmacy and they dont allow her to TAKE ONE AND ONE-HALF TABLETS BY MOUTH ONCE DAILY. So she would need a separate prescription for 20mg. DULER CONVEYOR documented in this encounter Plan of Treatment Not on filedocumented as of this encounter Visit Diagnoses Diagnosis Hypertension goal BP (blood pressure) < 130/80 - Primary Unspecified essential hypertension documented in this encounter Care Teams Endodontic Assistant Relationship Specialty Start Date End Date Sofia Landers PA-C PCP - General 05/10/06 Sofia Landers PA-C PCP - Assigned PCP 12/05/10 10/09/18 Jessica [id number] [place] [address] Sofia Landers PA-C Assigned PCP 05/10/12 04/17/21 Jessica [address] [facility] [place] [address] documented as of this encounter
--- OUTSIDE RECORDS SUMMARY | 2022-07-05 17:49 | XMS_ITS | Encounter Summary ---
:1950 Author Organization [facility] Address [address] [place] [address] Care Team Providers Name Role Phone Sofia Landers PA-C Primary Care Provider Sofia Landers PA-C Unavailable Sofia Landers PA-C Unavailable Reason for Visit Reason Comments Imm/Inj Encounter Details Date Type Department Care Team Description 08/21/2015 [facility]Nurse [facility] Imm/Inj Visit [address] [address] Social History Tobacco Use Types Packs/Day Years Used Date Smoking Tobacco: Never Smokeless Tobacco: Never Alcohol Use Standard Drinks/Week Comments No 0 (1 standard drink = 0.6 oz pure alcoho l) Sex Assigned at Date Recorded Not on file documented as of this encounter Progress Notes Etta Horn - 08/21/2015 3:24 PM CST Injectable Influenza Immunization Documentation 1. Is the person to be vaccinated sick today? No 2. Does the person to be vaccinated have an allergy to eggs or to a component of the vaccine? No 3. Has the person to be vaccinated today ever had a serious reaction to influenza vaccine in the past? No 4. Has the person to be vaccinated ever had Guillain-Blackwell syndrome? No Form completed by Etta Horn MA E CHANGER documented in this encounter Plan of Treatment Not on filedocumented as of this encounter Visit Diagnoses Diagnosis Need for prophylactic vaccination and in oculation against influenza - Primary documented in this encounter Care Teams Mediation Commissioner Relationship Specialty Start Date End Date Sofia Landers PA-C PCP - General 05/10/06 Sofia Landers PA-C PCP - Assigned PCP 12/05/10 10/09/18 Saurabh [id number] JOSE LU[place] FRASER [id number] Sofia Landers PA-C Assigned PCP 05/10/12 04/17/21 Saurabh [id number] JO[place] [id number] documented as of this encounter
--- OUTSIDE RECORDS SUMMARY | 2022-07-05 17:49 | XMS_ITS | Clinical Summary ---
:1950 Author Organization [facility] Address [address] [place] [address] Care Team Providers Name Role Phone Sofia Landers PA-C Primary Care Provider Allergies Active Allergy Reactions Severity Noted Date Comments Pneumococcal Polysaccharides 02/13/2014 Lump, fever Sulfa Drugs Rash 05/10/2006 Medications Medication Sig Dispensed Refills Start Date End Date Status ZACH LOW STRENGTH OR 1 TABLET 0 Active DAILY MULTI-VITAMIN OR 1 tablet 0 Act shanta daily fish oil-omega-3 fatty Take 2 g by 0 Active acids (OMEGA 3) 1000 MG mouth daily. capsule amLODIPine (NORVASC) 10 MG Take 1 tablet 90 tablet 3 8 Active tabletIndications: (10 mg) by Hypertension goal BP mouth daily (blood pressure) < 130/80 atorvastatin (LIPITOR) 20 Take 1 tablet 90 tablet 3 04/12/2018 Active MG tabletIndications: (20 mg) by Hyperlipidemia LDL goal mouth daily <130 hydrochlorothiazide Take 1 tablet 90 tablet 3 04/12/2018 Active (HYDRODIURIL) 25 MG (25 mg) by tabletIndications: mouth daily Hypertension goal BP (blood pressure) < 130/80 lisinopril Take 3 270 tablet 3 04/12/2018 Active (PRINIVIL/ZESTRIL) 20 MG tablets (60 tabletIndications: mg) by mouth Hypertension goal BP daily (blood pressure) < 130/80 ibuprofen (ADVIL/MOTRIN) Take 1 tablet 30 tablet 0 01/15/2019 Active 800 MG tablet (800 mg) by mouth every 8 hours as needed for pain Active Problems Problem Noted Date Overweight 11/06/2013 Overview: Problem list name updated by kelli pozo. Provider to review Advanced directives, counseling/discussion 03/28/2012 [facility] 02/10/2011 Overview: Formatting of this note is dif ferent from the original. X EMERGENCY CARE PLAN Presenting Problem Signs and Symptoms Tr eatment Plan Questions or conerns during clinic hour s I will call the clinic directly Questions or conerns outside clinic randy rs I will call the 24 hour nurse line at [phone] Patient needs to schedule an appointmen t I will call the 24 hour scheduling team at [phone] or clinic directly Same day treatment I will call the clin ic first, nurse line if after hours, urgent care and express care if needed DX V65.8 REPLACED WITH [id number] [facility] INTERMEDIATE (11/12/2012) Osteopenia 01/31/2011 Hypertension goal BP (blood pressure) < 130/80 011 Malignant neoplasm of ovary 08/18/2010 HYPERLIPIDEMIA LDL GOAL <130 06/06/2010 Uterine cancer 04/21/2010 Overview: 03/30/10 embx-- A. Uterus, endometrial cu rettings: - Endometrial endometrioid adenocarcinom a, FIGO grade I - Background of atypical complex hyperpl christopher 04/29/10 hysterectomy: FINAL DIAGNOSIS: A-D. Lymph nodes, right periaortic (3) , left periaortic (2), left pelvic (9), and right pelvic (7): - No evidence of malignancy. (0/) E. Uterus, fallopian tube and ovary, hys terectomy and right salpingo-oophorectomy: - Uterus: - Endometrial endometrioid adenocarcinom a, FIGO grade I. - Tumor invades myometrium [...] malignancy. F. 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 - Tumor size: 6.5 x 5.7 x 3.5 - Estimated percentage of adenocarcinoma tous component: 70%. - Ovarian surface free of tumor. - Fallopian tube: - No pathologic diagnosis 08/05/10: Appendix, appendectomy: - Obliteration of appendiceal lumen at t ip; small fecalith present. - Negative for significant inflammation and neoplasia. B. Omentum, biopsy: - Fibroadipose tissue with no diagnostic alteration. - Negative for malignancy. 04/06/11 pap NIL 03/28/12 pap NIL. Plan-- pap in 1 year. N ext surveillance visit scheduled for 09/26/12. 04/15/13 pap NIL. Plan-- If today's Pap is WNL, she will be due in one year for a pap (due 04/15/14) Per [facility] guidelines pap not indicated in patients with endometrial cancer as it is not a reliable indicator of recurrence. No pap due unless clinically indicated/advised by provider. Postmenopausal bleeding 03/08/2010 Overview: Symptomatic menopausal or female climacteric states H/O malignant neoplasm of endometrium Overview: Formatting of this note is dif ferent from the original. 04/29/10 Hysterectomy: Pathology - Stage IA, grade 1, endometrioid adenocarcinoma of the endometrium.?? 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 04/06/11 NIL pap 03/28/12 NIL pap 04/15/13 NIL pap 04/05/16 NIL pap. Per telephone encounter on 04/05/16 with Mary Portillo from Oncology, does not need any pap testing done unless she is having vaginal spotting or bleeding or something concerning on speculum exam. Resolved Problems Problem Noted Date Resolved Date Hyperlipidemia 05/10/2006 10/19/2010 Overview: Problem list name updated by kelli pozo. Provider to review Essential hypertension, benign 05/10/2006 4 Immunizations Name Administration Dates Next Due HEPA 04/18/2011, 01/04/2000 HepB 07/08/1994, 01/17/1994, 12/16/1993 Influenza (High Dose) 3 valent 04/12/2018, 06/13/2017, 04/08, vaccine 08/21/2015 Influenza (IIV3) PF 04/19/2012, 04/18/2011, 06/12/2007, 06/13/2006, 06/21/2002, 05/26/2001, 06/24/2000 Pneumo Conj 13-V (2010&after) 03/30/2015 Pneumococcal 23 valent 02/10/2014 TD (ADULT, 7+) 11/29/1996 TDAP Vaccine (Adacel) 04/05/2017, 05/02/2007 Typhoid IM 01/04/2000 Zoster vaccine, live 04/19/2012 Family History Medical History Relation Comments Genetic Disorder Daughter 1 down's syndrome Genetic Disorder Daughter 2 C.A.D. Father [place], age 65, fir st event at 40 Hypertension Father Hypertension Mother Relation Status Comments Daughter 1 Alive Daughter 2 Father Mother Son 1 Alive Son 2 Alive Social History Tobacco Use Types Packs/Day Years Used Date Smoking Tobacco: Never Smokeless Tobacco: Never Alcohol Use Standard Drinks/Week Comments Yes 0 (1 standard drink = 0.6 oz pure alcoho l) occasional glass of wine Sex Assigned at Date Recorded Not on file Last Filed Vital Signs Vital Sign Reading Time Taken Comments Blood Pressure 129/69 01/15/2019 11:30 PM CDT Pulse 88 01/15/2019 11:30 PM CDT Temperature 35.7 ??C (96.3 ??F) 01/15/2019 9:30 PM CDT Respiratory Rate 16 01/15/2019 11:30 PM CDT Oxygen Saturation 97% 01/15/2019 11:30 PM CDT Inhaled Oxygen Concentration - - Weight 68.9 kg (152 lb) 01/15/2019 9:30 PM CDT Height 150.7 cm (4' 11.33) 04/12/2018 9:52 AM CDT Body Mass Index 30.36 04/12/2018 9:52 AM CDT Plan of Treatment Health Maintenance Due Date Last Done Comments ANNUAL REVIEW OF HM ORDERS 1950 CT COLONOGRAPHY 1950 FIT-DNA (Cologuard) 1950 FIT 1950 FLEX SIG 1950 COVID-19 Vaccine (#1) 04/29/1951 ZOSTER IMMUNIZATION (2 of 06/14/2012 04/19/2012 3) ADVANCE CARE PLANNING 03/28/2017 03/28/2012 FALL RISK ASSESSMENT 04/12/2019 04/12/2018, 04/05/2017, 04/05/2016 LIPID 04/12/2019 04/12/2018, 04/05/2017, 04/05/2016, Additional history exists MEDICARE ANNUAL WELLNESS 04/12/2019 04/12/2018, 04/05/2017, VISIT 04/05/2016, Additional history exists BMP 01/16/2020 01/15/2019, 04/12/2018, 04/05/2017, Additional history exists MAMMO SCREENING 05/02/2020 05/02/2018, 04/12/2017, 04/08/2016, Additional history exists PHQ-2 (once per calendar 08/07/2021 04/12/2018, 04/05/2017, year) 04/05/2016, Additional history exists INFLUENZA VACCINE (#1) 2022 04/12/2018, 06/13/2017, 04/08/2016, Additional history exists DTAP/TDAP/TD IMMUNIZATION 04/05/2027 04/05/2017, 05/02/2007 , (4 - Td or Tdap) 11/29/1996, Additional history exists DEXA 04/19/2027 04/19/2012, 08/05/2008, 07/26/2006 COLONOSCOPY 11/11/2027 11/10/2017, 11/10/2017, 05/23/2007 COLORECTAL CANCER SCREENING 11/11/2027 Pneumococcal Vaccine: 65+ Completed 03/30/2015, 02/10/2014 Years HEPATITIS C SCREENING Completed 04/05/2016 IPV IMMUNIZATION Aged Out No longer eligi ble based on patient 's age to complete this topic MENINGITIS IMMUNIZATION Aged Out No longe r eligible based on patient 's age to complete this topic Insurance Payer Benefit Plan / Subscriber ID Effective Phone Address T ype Group Dates MEDICARE MEDICARE [id number] 2015-Prese [phone] ATTN ROMINA MS Medicare nt 40 [address] [place] [address] BCBS BCBS OF [place] [id number] 2018-Prese [phone] [address] [address] Indemnity nt 00 [place] [id number] [address] Stallings Personal/Family Self [id number]) [place] [phone] Edith Stallings Personal/Family Self [id number] (Home) W [phone] Pieter [place] (Work) [phone] Edith Stallings Personal/Family Self 1950 [address] (Home) [place] [id number] Care Teams Regional Facilities Specialist Relationship Specialty Start Date End Date Sofia Landers PA-C PCP - General 05/10/06
--- OUTSIDE RECORDS SUMMARY | 2022-07-05 17:49 | XMS_ITS | Encounter Summary ---
:1950 Author Organization [facility] Address [address] [place] [address] Care Team Providers Name Role Phone Sofia Landers PA-C Primary Care Provider Sofia Landers PA-C Unavailable Sofia Landers PA-C Unavailable Reason for Visit Reason Comments Other Encounter Details Date Type Department Care Team Description 04/05/2016 Telephone [facility] Sofia Landers PA-C [place] [address] [address] [facility] [place] [phone] [place] [id number] (Wo rk) Social History Tobacco Use Types Packs/Day Years Used Date Smoking Tobacco: Never Smokeless Tobacco: Never Alcohol Use Standard Drinks/Week Comments Yes 0 (1 standard drink = 0.6 oz pure alcoho l) occasional glass of wine Sex Assigned at Date Recorded Not on file documented as of this encounter Miscellaneous Notes Telephone Encounter - Sofia Landers PA-C - 04/05/2016 2:07 PM CDT Spoke with pt to relay this message, no longer needing paps Will cancel this pap pt is fine with this still needs annual pelvic exams despite having total hysterectomy and BSO to check for masses Sofia Landers PA-C Telephone Encounter - Sofia Landers PA-C - 04/05/2016 2:02 PM CDT ----- Message from Mary Portillo APRN CNP sent at 04/05/2016 1:21 PM CDT ----- Regarding: RE: does she need continued paps and for how long? She actually does not need any pap testing done unless she is having vaginal spotting or bleeding orsomething concerning on speculum exam. Our group stopped doing pap tests for women with endometrial cancer (previously was on an annual basis). As for ovarian cancer, she would not need any pap tests either. The only time she would need pap follow up would be if she had a history of DEANDRA II or greater.She is actually over 5 years out so she can have annual pelvic exams which can be done with you as she does not need to be seen at our clinic unless there is something concerning. FYI: The recommendations regarding no pap tests in women with endometrial cancer came from [facility] choosing wisely. Thanks Mary ----- Message ----- From: Sofia Landers PA-C Sent: 04/05/2016 1:17 PM To: Mary Portillo APRN CNP Subject: does she need continued paps and for how phil# Norma, I saw our mutual patient today for a PE. She admitted that she did not follow up as she was supposed to with you. She requested a pap, which I did today. Is the co test for HPV necessary in conjunction with the screening pap for her? Also, does she require further paps and if so for how long would you recommend them? Thanks Sofia Landers PA-C documented in this encounter Plan of Treatment Not on filedocumented as of this encounter Visit Diagnoses Not on filedocumented in this encounter Care Teams Oil Pipeline Operator Relationship Specialty Start Date End Date Sofia Landers PA-C PCP - General 05/10/06 Sofia Landers PA-C PCP - Assigned PCP 12/05/10 10/09/18 Saurabh [id number] [place] [id number] Sofia Landers PA-C Assigned PCP 05/10/12 04/17/21 Saurabh [id number] [place] [id number] documented as of this encounter
--- OUTSIDE RECORDS SUMMARY | 2022-07-05 17:49 | XMS_ITS | Encounter Summary ---
:1950 Author Organization [facility] Address [address] [place] [address] Care Team Providers Name Role Phone Sofia Landers PA-C Primary Care Provider Sofia Landers PA-C Unavailable Sofia Landers PA-C Unavailable Reason for Visit (Routine) - Closed Specialty Diagnoses / Procedures Referred By Contact Refer red To Contact Radiology / Radiology. Diagnoses 04/06/15, 03/31/14, 03/27/13, 03/27/12 Ph Mammography Procedures MA SCREENING DIGITAL BILATERAL [address] [place] [address] Phone: Referral ID Status Reason Start Date Expiration Date Visits Requ ested Visits Authorized [id number] Closed 04/05/2016 04/05/2017 1 1 Encounter Details Date Type Department Care Team Description 04/08/2016 Hospital Encounter [facility] Sofia Landers, Visit for screening [facility] PA-C mammogram [address] [place] [address] [facility] [address] [phone] [place] [address] Social History Tobacco Use Types [...] MG Take 1 tablet 90 tablet 3 201504/05/2017 tabletIndications: (10 mg) by mouth Hypertension goal BP (blood daily pressure) < 130/80 atorvastatin (LIPITOR) 20 MG Take 1 tablet 90 tablet 3 03/0904/05/2017 tabletIndications: (20 mg) by mouth Hyperlipidemia LDL goal <130 daily hydrochlorothiazide Take 1 tablet 90 tablet 3 04/05/2016 (HYDRODIURIL) 25 MG (25 mg) by mouth tabletIndications: daily Hypertension goal BP (blood pressure) < 130/80 lisinopril TAKE ONE AND 135 tablet 3 04/05/2016 08/17/2016 (PRINIVIL,ZESTRIL) 40 MG ONE-HALF TABLETS tabletIndications: BY MOUTH ONCE Hypertension goal BP (blood DAILY pressure) < 130/80 documented as of this encounter Plan of Treatment Not on filedocumented as of this encounter Procedures Procedure Name Priority Date/Time Associated Diagnosis Comme nts MA SCREENING Routine 04/08/2016 9:39 AM Visit for screening Re sults for [...] graphy. Exam results letter mailed to patient. HUE ESPOSITO MD Narrative 04/08/2016 11:09 AM CDT SCREENING MAMMOGRAM, BILATERAL, DIGITAL w/CAD - 04/08/2016 9:39 AM. BREAST SYMPTOMS: No current breast compl aints. COMPARISON: ??04/06/2015, 03/31/2014, 03/27, 03/27/2012. BREAST DENSITY: Almost entirely fat. COMMENTS: No findings of suspicion for m alignancy. Procedure Note Hue Esposito MD - 04/08/2016 SCREENING MAMMOGRAM, BILATERAL, DIGITAL w/CAD - 04/08/2016 9:39 AM. BREAST SYMPTOMS: No current breast compl aints. COMPARISON: 04/06/2015, 03/31/2014, 013, 03/27/2012. BREAST DENSITY: Almost entirely fat. COMMENTS: No findings of suspicion for m alignancy. IMPRESSION: BI-RADS CATEGORY: 1 - Negati ve. RECOMMENDED FOLLOW-UP: Annual Mammograph y. Recommend routine annual screening mammo graphy. Exam results letter mailed to patient. HUE ESPOSITO MD Sofia Landers PA-C IMG MAMMOGRAPHY ORDERABLES documented in this encounter Visit Diagnoses Diagnosis Visit for screening mammogram Other screening mammogram documented in this encounter Care Teams Lacquer Sizer Relationship Specialty Start Date End Date Sofia Landers PA-C PCP - General 05/10/06 Sofia Landers PA-C PCP - Assigned PCP 12/05/10 10/09/18 Saurabh [id number] [address] [id number] Sofia Landers PA-C Assigned PCP 05/10/12 04/17/21 Saurabh [id number] [place] [id number] documented as of this encounter
--- OUTSIDE RECORDS SUMMARY | 2022-07-05 17:49 | XMS_ITS | Encounter Summary ---
:1950 Author Organization [facility] Address [address] [place] [address] Care Team Providers Name Role Phone Sofia Landers PA-C Primary Care Provider Sofia Landers PA-C Unavailable Sofia Landers PA-C Unavailable Reason for Visit Reason Comments Imm/Inj flu shot Encounter Details Date Type Department Care Team Description 06/13/2017 Allied Health/Nurse [facility] Imm/Inj (flu shot) Visit [address] [address] Social History Tobacco Use Types Packs/Day Years Used Date Smoking Tobacco: Never Smokeless Tobacco: Never Alcohol Use Standard Drinks/Week Comments Yes 0 (1 standard drink = 0.6 oz pure alcoho l) occasional glass of wine Sex Assigned at Date Recorded Not on file documented as of this encounter Progress Notes Lauryn Maurer CMA - 06/13/2017 9:13 AM CST Chief Complaint Patient presents with ??? Imm/Inj flu shot Prior to injection verified patient identity using patient's name and date of . Injectable Influenza Immunization Documentation 1. Is the [...] No Form completed by Lauryn Maurer CMA (AAGA) Per orders of Sofia Landers, injection of flu shot given by Lauryn Maurer. Patient instructed to remain in clinic for 15 minutes afterwards, and to report any adverse reaction to me immediately. GER RELIABILITY documented in this encounter Plan of Treatment Not on filedocumented as of this encounter Visit Diagnoses Diagnosis Need for prophylactic vaccination and in oculation against influenza - Primary documented in this encounter Care Teams Gang Punch Operator Relationship Specialty Start Date End Date Sofia Landers PA-C PCP - General 05/10/06 Sofia Landers PA-C PCP - Assigned PCP 12/05/10 10/09/18 Jessica [id number] [facility] [place] [id number] Sofia Landers PA-C Assigned PCP 05/10/12 04/17/21 Jessica [id number] [facility] JOSE LUIS [place] [id number] documented as of this encounter
--- OUTSIDE RECORDS SUMMARY | 2022-07-05 17:49 | XMS_ITS | Encounter Summary ---
:1950 Author Organization [facility] Address [address] [place] [address] Care Team Providers Name Role Phone Sofia Landers PA-C Primary Care Provider Sofia Landers PA-C Unavailable Sofia Landers PA-C Unavailable Encounter Details Date Type Department Care Team Description 04/06/[address] [facility] Sofia Landers, Routine general medical examination at a health care facility; [facility] LETTY-Dania Screening for breast cancer [address] [place] [address] [place] [address] [address] [phone] [place] [address] Social History Tobacco Use Types [...] daily. MULTI-VITAMIN OR 1 tablet daily 0 alendronate (FOSAMAX) 35 MG TAKE 1 TABLET BY 12 tablet 4 04/05/2016 tabletIndications: MOUTH EVERY 7 Osteopenia DAYS amLODIPine (NORVASC) 10 MG TAKE ONE TABLET 90 tablet 3 03/0804/05/2016 tabletIndications: BY MOUTH EVERY Hypertension goal BP (blood DAY pressure) < 130/80 atorvastatin (LIPITOR) 20 MG TAKE ONE TABLET 90 tablet 3 04/05/2016 tabletIndications: BY MOUTH EVERY Hyperlipidemia LDL goal <130 DAY hydrochlorothiazide TAKE ONE TABLET 90 tablet 3 04/01/2015 04/05/2016 (HYDRODIURIL) 25 MG BY MOUTH EVERY tabletIndications: DAY Hypertension goal BP (blood pressure) < 130/80 lisinopril TAKE ONE AND 135 tablet 3 04/01/2015 04/05/2016 (PRINIVIL,ZESTRIL) 40 MG ONE-HALF TABLETS tabletIndications: BY MOUTH ONCE Hypertension goal BP (blood DAILY pressure) < 130/80 documented as of this encounter Plan of Treatment Not on filedocumented as of this encounter Procedures Procedure Name Priority Date/Time Associated Diagnosis Comme nts MA SCREENING Routine 04/06/2015 11:29 AM Routine general Resul ts for this DIGITAL BILATERAL CDT medical examination pro cedure are [facility] the results facility section. Screening for breast cancer documented in this encounter Results MA Screening Digital Bilateral (04/06/2015 11:29 AM CDT) Anatomical Region Laterality Modality Breast Bilateral Mammography Specimen (Source) Anatomical Location Collection Method / Collectio n Time Received Time / Laterality Volume Impressions 04/06/2015 3:23 PM CDT IMPRESSION: BI-RADS CATEGORY: 1 - ??Negative RECOMMENDED FOLLOW-UP: Annual Mammograph y. Exam results letter mailed to patient. ?? ARLEN FAUSTIN MD Narrative 04/06/2015 3:23 PM CDT SCREENING MAMMOGRAM, BILATERAL, DIGITAL w/CAD - 04/06/2015 11:29 AM BREAST SYMPTOMS: No current breast compl aints. COMPARISON: ??03/31/14, 03/27/13, 03/27/12, 03/22/11. BREAST DENSITY: Almost entirely fat. COMMENTS: No findings of suspicion for m alignancy. ? Procedure Note Arlen Faustin MD - 04/06/2015For matting of this note might be different from the original. SCREENING MAMMOGRAM, BILATERAL, DIGITAL w/CAD - 04/06/2015 11:29 AM BREAST SYMPTOMS: No current breast compl aints. COMPARISON: 03/31/14, 03/27/13, 03/27/12, . BREAST DENSITY: Almost entirely fat. COMMENTS: No findings of suspicion for m alignancy. IMPRESSION IMPRESSION: BI-RADS CATEGORY: 1 - Negati ve RECOMMENDED FOLLOW-UP: Annual Mammograph y. Exam results letter mailed to patient. ARLEN FAUSTIN MD Sofia Landers PA-C IMG MAMMOGRAPHY ORDERABLES documented in this encounter Visit Diagnoses Diagnosis Routine general medical examination at a health care facility documented in this encounter Care Teams Furniture Painter Relationship Specialty Start Date End Date Sofia Landers PA-C PCP - General 05/10/06 Sofia Landers PA-C PCP - Assigned PCP 12/05/10 10/09/18 Saurabh [id number] [address] [id number] Sofia Landers PA-C Assigned PCP 05/10/12 04/17/21 Saurabh [id number] JOSE LU[place] FR[place] [id number] documented as of this encounter
--- OUTSIDE RECORDS SUMMARY | 2022-07-05 17:49 | XMS_ITS | Encounter Summary ---
:1950 Author Organization [facility] Address [address] [place] [address] Care Team Providers Name Role Phone Sofia Landers PA-C Primary Care Provider Sofia Landers PA-C Unavailable Sofia Landers PA-C Unavailable Reason for Visit Auth/Cert Specialty Diagnoses / Procedures Referred By Contact Refer red To Contact Gastroenterology Diagnoses screening Ph Endoscopy Procedures COLONOSCOPY [address] [place] [address] Phone: Referral ID Status Reason Start Date Expiration Date Visits Requ ested Visits Authorized [id number] 1 1 Encounter Details Date Type Department Care Team Description 11/10/2017 Hospital Encounter [facility] Jordan Jimenes [facility] Endoscopy MD Rob [address] [place], [place] [address] [facility] [phone] [place], [place] [address] (Wo rk) Social History Tobacco Use Types [...] Jimenes MD - 11/10/2017 10:55 AM CDT [facility] GI Pre-Procedure Physical Assessment Edith Stallings Age: [age] year old Date of : 1950 Date of Surgery: 11/10/2017 Location [facility] [place] Date of Exam 11/10/2017 Facility (Same day) Home clinic: [facility] Primary care provider: Sofia Landers Active problem list: Patient Active Problem List Diagnosis ??? Symptomatic menopausal or female climacteric states ??? Postmenopausal bleeding ??? Uterine cancer (H) ? ? HYPERLIPIDEMIA LDL GOAL <130 ??? Malignant neoplasm of ovary (H) ? ? Hypertension goal BP (blood pressure) < 130/80 ??? Osteopenia ??? Health Shelter ??? Advanced directives, counseling/discussion ??? Overweight ??? [...] ??C), temperature source Oral, resp. rate 16, [id number] %. Airway assessment: Patient is able to [...] encounter Results COLONOSCOPY (11/10/2017 10:47 AM CDT) [facility] Method Time Signature COLONOSCOPY [facility] [place] RADIOLOGY [address] [place] [address] [phone] ? Endoscopy Department RESULTS Patient Name: Edith Stallings ? Proc edure Date: 11/10/2017 10:47 AM ? Accou nt Number: [id number] Date of : 1950 ?Admit Type: Out patient Age: 67 ? Room: [place] [address] Gender: Female ?Note Statu s: Finalized Attending [...] (SUBLIMAZE) injection 1055 (Given - Provider: Karissa Renae RN) Administer over 3-5 Minutes, PRN, Starting [...] Karissa Renae RN)1058 (Given - Provider: Karissa Renae RN) Administer over 2 Minutes, PRN, Starting [...] (MYLICON) suspension 1057 (Given - Provider: Karissa Renae RN) PRN, Starting Mon11/10/17 at 1057, Intra-procedure sodium chloride (PF) 0.9% PF flush 3 mL 1022 (Given - Provider: Koki Giron RN) 3 mL, Intracatheter, EVERY 1 HOUR PRN, l ine flush, for peripheral IV flush post IV meds, Starting Mon11/10/17 at 0952, Pre-procedure documented in this encounter Care Teams Carbon Sequestration Plant Manager Relationship Specialty Start Date End Date Sofia Landers PA-C PCP - General 05/10/06 Sofia Landers PA-C PCP - Assigned PCP 12/05/10 10/09/18 Saurabh [id number] [id number] Sofia Landers PA-C Assigned PCP 05/10/12 04/17/21 Saurabh [id number] LU[place] [id number] documented as of this encounter
--- OUTSIDE RECORDS SUMMARY | 2022-07-05 17:49 | XMS_ITS | Encounter Summary ---
:1950 Author Organization [facility] Address [address] [place] [address] Care Team Providers Name Role Phone Sofia Landers PA-C Primary Care Provider Sofia Landers PA-C Unavailable Sofia Landers PA-C Unavailable Reason for Visit Reason Comments Physical Panel Management Tdap, fall risk, honoring ch oices, lipid, bmp Encounter Details Date Type Department Care Team Description 04/05/2017 Office Visit [facility] Sofia Landers Encoun ter for routine adult health examination without abnormal findings (Primary Dx); [facility] Hypertension goal BP (blood pressure) < 130/80; [id number] Saurabh Hyperlipidemia LDL goal <130; [place] [address] [facility] Encounter f or screening mammogram for breast cancer; [id number] Need for vaccination; [phone] [place] [address] Malignant neoplasm of ovary, unspecified laterality (H) Social History Tobacco Use Types Packs/Day Years Used Date Smoking Tobacco: Never Smokeless Tobacco: Never Alcohol Use Standard Drinks/Week Comments Yes 0 (1 standard drink = 0.6 oz pure alcoho l) occasional glass of wine Sex Assigned at Date Recorded Not on file documented as of this encounter Last Filed Vital Signs Vital Sign Reading Time Taken Comments Blood Pressure 120/70 04/05/2017 8:20 AM CDT Pulse 85 04/05/2017 7:39 AM CDT Temperature 36.9 ??C (98.5 ??F) 04/05/2017 7:39 AM CDT Respiratory Rate 18 04/05/2017 7:39 AM CDT Oxygen Saturation - - Inhaled Oxygen Concentration - - Weight 73.2 kg (161 lb 6.4 oz) 04/05/2017 7:39 AM CDT Height 150.2 cm (4' 11.13) 04/05/2017 7:39 AM CDT Body Mass Index 32.45 04/05/2017 7:39 AM CDT documented in this encounter Patient Instructions Patient InstructionsMarisel Goodman - 03/29/2017 11:58 AM CDT Preventive Health Recommendations Female Ages [...] cataracts. documented in this encounter Progress Notes Sofia Landers PA-C - 04/05/2017 7:30 AM CDT SUBJECTIVE: Edith Stallings is a 66 year old female who presents for Preventive Visit. Are you in the first 12 months of your Medicare coverage? No Physical Annual: Getting at least 3 servings of Calcium per day:: Yes Bi-annual eye exam:: Yes Dental care twice a year:: Yes Sleep apnea or symptoms of sleep apnea:: None Diet:: Low fat/cholesterol and Carbohydrate counting Taking medications regularly:: Yes Medication side effects:: None Additional concerns today:: No COGNITIVE SCREEN 1) Repeat 3 items (Banana, [place], Chair) 2) Clock draw: NORMAL 3) 3 item recall: Recalls 3 objects Results: 3 items recalled: COGNITIVE IMPAIRMENT LESS LIKELY Mini-CogTM Kirill Salmon. Licensed by the author for use in [facility]; reprintedwith permission ([email or web address]). All rights reserved. Reviewed and updated as needed this visit by clinical staff Reviewed and updated as needed this visit by Provider Social History Substance Use Topics ??? Smoking status: Never Smoker ??? Smokeless tobacco: Never Used ??? Alcohol use Yes Comment: occasional glass of wine The patient does not drink >3 drinks per day nor >7 drinks per week. Today's PHQ-2 Score: PHQ-2 (??1999 Pfizer) 04/05/2016 Q1: Little interest or pleasure in doing things 0 Q2: Feeling down, depressed or hopeless 0 PHQ-2 Score 0 Q1: Little interest or pleasure in doing things - Q2: Feeling down, depressed or hopeless - PHQ-2 [...] Yes, no assistance needed ?? Fall risk: ?? Home safety: none identified The following health maintenance items are reviewed in [facility] and correct as of today:Health Maintenance Topic Date Due ??? ADVANCE DIRECTIVE PLANNING Q5 YRS 03/28/2017 ??? BMP Q1 YR 04/05/2017 ??? FALL RISK ASSESSMENT 04/05/2017 ??? LIPID MONITORING Q1 YEAR 04/05/2017 ??? INFLUENZA VACCINE (SYSTEM ASSIGNED) 04/07/2017 ??? TETANUS IMMUNIZATION (SYSTEM ASSIGNED) 05/02/2017 ??? COLON CANCER SCREEN (SYSTEM ASSIGNED) 05/23/2017 ??? MAMMO SCREEN Q2 YR (SYSTEM ASSIGNED) 04/08/2018 ??? DEXA SCAN SCREENING (SYSTEM ASSIGNED) Completed ??? PNEUMOCOCCAL Completed ??? HEPATITIS C SCREENING Completed Labs reviewed in [facility] BP Readings from Last 3 Encounters: 04/05/17 140/76 04/05/16 124/66 03/30/15 134/80 Wt Readings from Last 3 Encounters: 04/05/17 161 lb 6.4 oz (73.2 kg) 04/05/16 159 lb (72.1 kg) 03/30/15 161 lb (73 kg) Pneumonia Vaccine:UTD Mammogram Screening: Patient over age 50, mutual decision to screen reflected in health maintenance. History of abnormal Pap smear: NO - age 63 - see link Cervical Cytology Screening Guidelines Last 3 Pap Results: PAP (no units) Date Value 04/15/2013 NIL 03/28/2012 NIL 04/06/2011 NIL She did have ovarian cancer- no longer seeing oncology, s/p complete hysterectomy and BSO ROS: C: NEGATIVE for fever, chills, change [...] : NEGATIVE for frequency, dysuria, or hematuria M: NEGATIVE for significant arthralgias or myalgia N: NEGATIVE for weakness, dizziness or paresthesias P: NEGATIVE for changes in mood or affect OBJECTIVE: There were no vitals taken for this visit. Estimated body mass index is 32.11 kg/(m^2) as calculatedfrom the following: Height as of 04/05/16: 4' 11 (1.499 m). Weight as of 04/05/16: 159 lb (72.1 kg). EXAM: GENERAL APPEARANCE: healthy, alert and no distress [...] no masses and bowel sounds normal (female): deferred by pt today MS: no musculoskeletal defects are noted and gait is age appropriate without ataxia SKIN: no suspicious lesions or rashes NEURO: Normal strength and tone, sensory exam grossly normal, mentation intact and speech normal PSYCH: mentation appears normal and affect normal/bright ASSESSMENT / PLAN: 1. Encounter for routine adult health examination without abnormal findings Healthy female, 2. Hypertension goal BP (blood pressure) < 130/80 At goal, continue current meds - BASIC METABOLIC PANEL - lisinopril (PRINIVIL/ZESTRIL) 20 MG tablet; Take 3 tablets (60 mg) by mouth daily Dispense: 270 tablet; Refill: 3 - amLODIPine (NORVASC) 10 MG tablet; Take 1 tablet (10 mg) by mouth daily Dispense: 90 tablet; Refill: 3 - hydrochlorothiazide (HYDRODIURIL) 25 MG tablet; Take 1 tablet (25 mg) by mouth daily Dispense: 90 tablet; Refill: 3 3. Hyperlipidemia LDL goal <130 Await labs, continue current treatment - Lipid panel reflex to direct LDL - atorvastatin (LIPITOR) 20 MG tablet; Take 1 tablet (20 mg) by mouth daily Dispense: 90 tablet; Refill: 3 4. Encounter for screening mammogram for breast cancer Pt to set up - *MA Screening Digital Bilateral; Future 5. Need for vaccination updated - TDAP VACCINE (ADACEL) [64851.002] - 1st Administration [04243] 6. Malignant neoplasm of ovary, unspecified laterality (H) Will plan for pelvic exam next year, she declined this year as she is not having any symptoms End of Life Planning: Patient currently has an advanced directive: No. I have verified the patient's ablity to prepare an advanced directive/make health care decisions. Literature was provided to assist patient in preparingan advanced directive. COUNSELING: Reviewed preventive health counseling, as reflected in patient instructions Estimated body mass index is 32.11 kg/(m^2) as calculated from the following: Height as of 04/05/16: 4' 11 (1.499 m). Weight as of 04/05/16: 159 lb (72.1 kg). Weight management plan: Discussed healthy diet and exercise guidelines and patient will follow up in12 months in clinic to re-evaluate. reports that [...] Preventive Guidelines Dietary Guidelines for Americans, 2009 USDA's MyPlate ASA Prophylaxis Lung CA Screening Sofia Landers PA-C [facility] signed by Sofia Landers PA-C documented in this encounter Nursing Notes Imani Sue - 04/05/2017 7:30 AM CDT Chief Complaint Patient presents with ??? Physical ??? Panel Management Tdap, fall risk, honoring choices, lipid, bmp Initial BP 140/76 Pulse 85 Temp 98.5 ??F (36.9 ??C) (Oral) Resp 18 Ht 4' 11.13 (1.502 m) Wt 161 lb 6.4 oz (73.2 kg) BMI 32.45 kg/m2 Estimated body mass index is 32.45 kg/(m^2) as calculated from the following: Height as of this encounter: 4' 11.13 (1.502 m). Weight as of this encounter: 161 lb 6.4 oz (73.2 kg). Medication Reconciliation: complete Imani Guerrero MA Lauryn Maurer CMA - 04/05/2017 7:30 AM CDT Prior to injection verified patient identity using patient's name and date of . Screening Questionnaire for Adult Immunization Are you sick today? No Do you have allergies to medications, food, a vaccine component or latex? Yes Have you ever had a serious reaction after receiving a vaccination? Yes Do you have a long-term health problem with heart disease, lung disease, asthma, kidney disease, metabolic disease (e.g. diabetes), anemia, or other blood disorder? No Do you have cancer, leukemia, HIV/AIDS, or any other immune system problem? No In the past 3 months, have you taken medications that affect your immune system, such as prednisone,other steroids, or anticancer drugs; drugs for the treatment of rheumatoid arthritis, Crohn???s disease, or psoriasis; or have you had radiation treatments? No Have you had a seizure, or a brain or other nervous system problem? No During the past year, have you received a transfusion of blood or blood products, or been given immune (gamma) globulin or antiviral drug? No For women: Are you or is there a chance you could become during the next month? No Have you received any vaccinations in the past 4 weeks? No Immunization questionnaire was positive for at least one answer. Notified provider. Per orders of Sofia Landers, injection of tdap given by Lauryn Maurer. Patient instructed to remain in clinic for 15 minutes afterwards, and to report any adverse reaction to me immediately. Screening performed by Lauryn Maurer on 04/05/2017 at 8:25 AM. documented in this encounter Plan of Treatment Not on filedocumented as of this encounter Procedures Procedure Name Priority Date/Time Associated Diagnosis Comme nts LIPID REFLEX TO Routine 04/05/2017 8:26 AM Hyperlipidemia LDL goal Results for this DIRECT LDL PANEL CDT <130 procedure a re in the results section. BASIC METABOLIC Routine 04/05/2017 8:26 AM Hypertension goal B P Results for this PANEL CDT (blood pressure) < procedure are in 130/80 the results section. documented in this encounter Results Lipid panel reflex to direct LDL (04/05/2017 8:26 AM CDT) athologist Signature Cholesterol 156 <200 mg/dL 04/05/2017 [place] 10:57 AM T [facility] Triglycerides 93 <150 mg/dL 04/05/2017 [place] 10:57 AM [facility] Comment: Fasting specimen HDL Cholesterol 51 >49 mg/dL 04/05/2017 10:57 AM [facility] LDL Cholesterol 86 <100 mg/dL 04/05/2017 10:57 AM KACEY SAHIL [facility] Comment: Desirable: <100 mg/dl Non HDL Cholesterol 105 <130 mg/dL 04/05/2017 10:[address] [facility] Specimen Anatomical Collection Method Collection Time Receive d Time (Source) Location / / Volume Laterality Blood specimen 04/05/2017 8:26 AM 017 8:27 (specimen) CDT AM CDT Sofia Landers PA-C LAB - BLOOD ORDERABLES Performing Organization Address City/State/ZIP Code Phon e Number [address] [place] [address] [place], [place] [address], [facility] [phone] [place] BASIC METABOLIC PANEL (04/05/2017 8:26 AM CDT) athologist Signature Sodium 143 133 - 144 04/05/2017 [place] mmol/L 10:57 AM [facility] Potassium 3.8 3.4 - 5.3 04/05/2017 [place] mmol/L 10:57 AM [facility] Chloride 106 94 - 109 04/05/2017 [place] mmol/L 10:57 AM [facility] Carbon Dioxide 26 20 - 32 04/05/2017 [place] mmol/L 10:57 AM [facility] Anion Gap 11 3 - 14 04/05/2017 [place] mmol/L 10:57 AM [facility] Glucose 91 70 - 99 04/05/2017 [place] mg/dL 10:57 AM [facility] Comment: Fasting specimen Urea Nitrogen 16 7 - 30 mg/dL 04/05/2017 10:57 AM [facility] Creatinine 0.76 0.52 - 1.04 mg/dL 04/05/2017 10:[address] [facility] GFR Estimate 75 >60 mL/min/1.7m2 04/05/2017 10:57 AM [facility] Comment: Non GFR Calc GFR Estimate If >90 >60 mL/min/1.7m2 04/05/2017 10:57 AM [facility] Comment: GFR Calc Calcium 9.3 8.5 - 10.1 mg/dL 04/05/2017 10:57 AM [facility] Specimen Anatomical Collection Method Collection Time Receive d Time (Source) Location / / Volume Laterality Blood specimen 04/05/2017 8:26 AM 017 8:27 (specimen) CDT AM T Sofia Landers PA-C LAB - BLOOD ORDERABLES Performing Organization Address City/State/ZIP Code Phon e Number [address] [place] [id number] [place] [id number] [place] [address] CENTER documented in this encounter Visit Diagnoses Diagnosis Encounter for routine adult health exami nation without abnormal findings - Primary Hypertension goal BP (blood pressure) < 130/80 Unspecified essential hypertension Hyperlipidemia LDL goal <130 Other and unspecified hyperlipidemia Encounter for screening mammogram for br east cancer Need for vaccination Need for prophylactic vaccination and in oculation against unspecified single disease Malignant neoplasm of ovary, unspecified laterality (H) documented in this encounter Care Teams Heavy Equipment Service Manager Relationship Specialty Start Date End Date Sofia Landers PA-C PCP - General 05/10/06 Sofia Landers PA-C PCP - Assigned PCP 12/05/10 10/09/18 Saurabh [id number] [phone] Sofia Landers PA-C Assigned PCP 05/10/12 04/17/21 [place] [id number] documented as of this encounter
--- OUTSIDE RECORDS SUMMARY | 2022-07-05 17:49 | XMS_ITS | Encounter Summary ---
:1950 Author Organization [facility] Address [address] [place] [address] Care Team Providers Name Role Phone Sofia Landers PA-C Primary Care Provider Sofia Landers PA-C Unavailable Sofia Landers PA-C Unavailable Reason for Visit Reason Onset Date Comments Refill Request 04/05/2016 call- refill Encounter Details Date Type Department Care Team Description 04/05/2016 Telephone [facility] Sofia Landers Refill Request (call- [facility] refill ) [id number] [place] [address] [facility] [phone] [place] [phone] (Wo rk) Social History Tobacco Use Types Packs/Day Years Used Date Smoking Tobacco: Never Smokeless Tobacco: Never Alcohol Use Standard Drinks/Week Comments Yes 0 (1 standard drink = 0.6 oz pure alcoho l) occasional glass of wine Sex Assigned at Date Recorded Not on file documented as of this encounter Miscellaneous Notes Telephone Encounter - Jonathon Valentin - 04/05/2016 2:24 PM CDT Rx sent to local pharm. Jonathon Valentin RN Telephone Encounter - Dhara Allred - 04/05/2016 1:52 PM CDT This was sent to mail order can you please resend to [facility]. Thanks. Telephone Encounter - Giuliana Bryson - 04/05/2016 1:27 PM CDT [facility] phone call message- patient requests medication or medication refill: If this is a refill request, has the caller requested the refill from the pharmacy already? [place] of the pharmacy and phone number for the current request: [facility] Flaherty Name of the medication requested: Lisinopril, Hydrochlorothiazide, Atorvastatin, Amlodipine Other request: Was in this AM, would like 90 day supplies OK to leave the result message on voice mail or with a family member? YES Call taken on 04/05/2016 at 1:27 PM by Giuliana Bryson documented in this encounter Plan of Treatment Not on filedocumented as of this encounter Visit Diagnoses Diagnosis Hypertension goal BP (blood pressure) < 130/80 - Primary Unspecified essential hypertension Hyperlipidemia LDL goal <130 Other and unspecified hyperlipidemia documented in this encounter Care Teams Physician Assistant Relationship Specialty Start Date End Date Sofia Landers PA-C PCP - General 05/10/06 Sofia Landers PA-C PCP - Assigned PCP 12/05/10 10/09/18 Jessica [id number] [place] [address] Sofia Landers PA-C Assigned PCP 05/10/12 04/17/21 Jessica [id number] [facility] [place] [phone] documented as of this encounter
--- OUTSIDE RECORDS SUMMARY | 2022-07-05 17:49 | XMS_ITS | Encounter Summary ---
:1950 Author Organization [facility] Address [address] [place] [address] Care Team Providers Name Role Phone Sofia Landers PA-C Primary Care Provider Sofia Landers PA-C Unavailable Sofia Landers PA-C Unavailable Reason for Visit Reason Onset Date Comments Call to schedule test 10/18/2017 colonoscopy Encounter Details Date Type Department Care Team Description 10/18/[address] [facility] Sofia Landers, Call t o schedule test [facility] (colonoscopy) Services Saurabh [facility] MASSIEL HARMAN [address] [address] [place], [place] [phone] Social History Tobacco Use Types Packs/Day Years Used Date Smoking Tobacco: Never Smokeless Tobacco: Never Alcohol Use Standard Drinks/Week Comments Yes 0 (1 standard drink = 0.6 oz pure alcoho l) occasional glass of wine Sex Assigned at Date Recorded Not on file documented as of this encounter Miscellaneous Notes Telephone Encounter - Cori Argueta - 10/18/2017 4:00 PM CDT Prep mailed Telephone Encounter - Mattie Hall - 10/18/2017 3:55 PM CDT Pt called to schedule colonoscopy. Orders placed by Bryce. Dx: screening. Pt is scheduled 11/10/2017 @ 1100 w/jerzy Jimenes @ 1000. Please mail prep. documented in this encounter Plan of Treatment Not on filedocumented as of this encounter Visit Diagnoses Not on filedocumented in this encounter Care Teams Rodeo Rider Relationship Specialty Start Date End Date Sofia Landers PA-C PCP - General 05/10/06 Sofia Landers PA-C PCP - Assigned PCP 12/05/10 10/09/18 [place]h [id number] [place] [phone] Sofia Landers PA-C Assigned PCP 05/10/12 04/17/21 Saurabh [id number] [place] [phone] documented as of this encounter
--- OUTSIDE RECORDS SUMMARY | 2022-07-05 17:50 | XMS_ITS | Encounter Summary ---
:1950 Author Organization [facility] Address [address] [place] [address] Care Team Providers Name Role Phone Sofia Landers PA-C Primary Care Provider Mikayla Allan MD Unavailable Sofia Landers PA-C Unavailable Reason for Visit Reason Comments Flu Shot Imm/Inj Zostavax Encounter Details Date Type Department Care Team Description 04/19/2012 [facility]/Nurse [facility] Flu Shot; Imm/Inj Visit Clinic [facility] (Zostavax) [address] [place] [phone] Social History Tobacco Use Types Packs/Day Years Used Date Smoking Tobacco: Never Smokeless Tobacco: Never Alcohol Use Standard Drinks/Week Comments No 0 (1 standard drink = 0.6 oz pure alcoho l) Sex Assigned at Date Recorded Not on file documented as of this encounter Progress Notes Kanwal Maurer - 04/19/2012 3:27 PM CDT Screening Questionnaire for Adult Immunization Are you sick today? No Do you have allergies to medications, food or any vaccine? Yes Have you ever had a serious reaction after receiving a vaccination? No Do you have a long-term health problem with heart disease, lung disease, asthma, kidney disease, diabetes, anemia, metabolic or blood disease? No Do you have cancer, leukemia, AIDS, or any immune system problem? No Do you take cortisone, prednisone, other steroids, or anticancer drugs, or have you had any x-ray (radiation) treatments? No Have you had a seizure, brain, or other nervous system problem? No During the past year, have you received a transfusion of blood or blood products, or been given a medicine called immune (gamma) globulin? No For women: Are you or is there a chance you could become during the next month? No Have you received any vaccinations in the past 4 weeks? No Immunization questionnaire was positive for at least one answer. Notified Yes. MNVFC doesn't apply on this patient Screening performed by Kanwal Maurer on 04/19/2012 at 3:27 PM. Injectable Influenza Immunization Documentation 1. Has the patient received the information for the injectable influenza vaccine? YES 2. Is the patient 6 months of age or older? YES 3. Does the patient have any of the following contraindications? Severe allergy to eggs? No Severe allergic reaction to previous influenza vaccines? No Allergy to contact lens solution/thimerosol? No History of Guillain-[place] syndrome? No Undergoing chemotherapy or radiation therapy? (vaccine should be given at least 2 weeks prior or 3 weeks after) No Currently have moderate or severe illness? No 4. The vaccine has been administered and the patient was instructed to wait 15 minutes before leaving the building in the event of an allergic reaction: YES Vaccination given by Kanwal Maurer LPN documented in this encounter Nursing Notes 04/19/2012 3:15 PM CDT >> KANWAL MAURER [facility] Apr 19, 2012 3:37 PM Prior to injection verified patient identity using patient's name and date of . Patient instructed to wait 15 minutes after injection is given. Kanwal Maurer LPN documented in this encounter Plan of Treatment Not on filedocumented as of this encounter Visit Diagnoses Diagnosis Need for prophylactic vaccination and in oculation against influenza - Primary Need for prophylactic vaccination and in oculation against other viral diseases(V04.89) Need for prophylactic vaccination and in oculation against other viral diseases documented in this encounter Care Teams Mutuel Clerk Relationship Specialty Start Date End Date Sofia Landers PA-C PCP - General 05/10/06 Mikayla Allan MD PCP - Obstetrics/Gynecology 05/18/1004/27 [facility] [address] [id number] Sofia Landers PA-C PCP - Assigned PCP 12/05/10 10/09/18 [place]aurabh [address] [place] [id number] documented as of this encounter
--- OUTSIDE RECORDS SUMMARY | 2022-07-05 17:50 | XMS_ITS | Encounter Summary ---
:1950 Author Organization [facility] Address [address] [place] [address] Care Team Providers Name Role Phone Sofia Landers PA-C Primary Care Provider Mikayla Allan MD Unavailable oSfia Landers PA-C Unavailable Sofia Landers PA-C Unavailable Encounter Details Date Type Department Care Team Description 10/08/[address] [facility] Mary Portillo ne cancer (H) [facility] Deanna Medel APRN CNP (Primary Dx) [address] [facility] [address] [place] [address] [id number] Social History Tobacco Use Types Packs/Day Years Used Date Smoking Tobacco: Never Smokeless Tobacco: Never Alcohol Use Standard Drinks/Week Comments No 0 (1 standard drink = 0.6 oz pure alcoho l) Sex Assigned at Date Recorded Not on file documented as of this encounter Last Filed Vital Signs Vital Sign Reading Time Taken Comments Blood Pressure 144/86 10/08/2012 1:57 PM TEACHER ASSOCIATE Pulse 103 10/08/2012 1:57 PM TEACHER ASSOCIATE Temperature 36.7 ??C (98.1 ??F) 10/08/2012 1:17 PM TEACHER ASSOCIATE Respiratory Rate 20 10/08/2012 1:17 PM TEACHER ASSOCIATE Oxygen Saturation 99% 10/08/2012 1:17 PM TEACHER ASSOCIATE Inhaled Oxygen Concentration - - Weight 75.8 kg (167 lb) 10/08/2012 1:17 PM TEACHER ASSOCIATE Height - - Body Mass Index 32.61 03/28/2012 8:37 AM CDT documented in this encounter Progress Notes Mary Portillo NP - 10/08/2012 1:19 PM CST Follow Up Notes on Referred Patient Date: 10/08/2012 RE: Edith Stallings : 1950 TIANA: 10/08/2012 Edith Stallings is a 61 year old woman with a diagnosis of Stage IA, grade 1, endometrioid adenocarcinoma of the endometrium. 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 She is here today for a surveillance visit. In brief, Ms. Stallings presented for evaluation after having onset of postmenopausal bleeding. She first had an attempted EMBx in clinic, but this came back showing scant cervical tissue only. She had an ultrasound done which found the uterus to measure 9cm in maximum dimension with an EMS = 1.5cm. The ov patricia appeared essentially normal, with a stable left approximate 2cm dermoid cyst which is stablefrom prior CT scan done in 2006. On 04/29/2010 she was taken to the OR and underwent a total laparoscopic hysterectomy with BSO and lymph node dissection. At her postop visit we discussed the fact that due to her early stage and lack of risk factors, that I did not recommend she undergo adjuvant therapy for her endometrial cancer. Dueto her incidental GI tumor found in her ovary I sent her to Medical Oncology for second opinion. Edith met with Dr. Olvera who recommended appendectomy to rule out this as a primary site of the cancer which could have metastasized to the ovary. So on 08/05/2010 she underwent a laparoscopic appendectomy and omentectomy. Both returned showing no evidence of disease. She has been VINEET since. Today she presents to clinic feeling well. She denies any vaginal bleeding, no changes in her bowel or bladder habits, no nausea/emesis, no lower extremity edema, and no difficulties eating or sleeping. She denies any abdominal discomfort/bloating, no fevers or chills, and no chest pain or shortness of breath. She states she has been feeling well and has no issues or concerns. She reports that she iscurrently sexually active and is using a lubricant without any difficulties; she denies any vaginal/vulvar dryness. She states that she has a blood pressure cuff at home but has not been using it; she states she is up to date on her visit with her PCP. She states that she is currently not doing anything for exercise beyond walking at work and that she would like to start and try to lose some weight. Review of Systems: See RN note for full ROS Past Medical History: Past Medical History Diagnosis Date ??? Other and unspecified hyperlipidemia Hyperlipidemia ??? Essential hypertension, benign Hypertension, Benign ??? Personal history of urinary calculi ??? Endometrial cancer ??? Ovarian cancer Past Surgical History: Past Surgical History Procedure Date ??? Cystoscopy 11/28/06 [place] ??? Colonoscopy 05/23/2007 repeat in 10 years ??? Hysteroscopy 03/30/10 Hysteroscopy, D&C, removal of portion of endocervical polyp. ??? Laparoscopic hysterectomy supracervical, bilateral salpingo-oophorectomy, combined with lymph node dissection ??? Laparoscopic appendectomy No health maintenance topics applied. Current Medications: Current Outpatient Prescriptions Medication Sig ??? amLODIPine (NORVASC) 10 MG tablet Take 1 tablet by mouth daily. ??? alendronate (FOSAMAX) 35 MG tablet Take 1 tablet by mouth every 7 days. ??? atorvastatin (LIPITOR) 20 MG tablet Take 1 tablet by mouth daily. ??? lisinopril (PRINIVIL,ZESTRIL) 40 MG tablet Take 1 tablet by mouth daily. ??? hydrochlorothiazide (HYDRODIURIL) 25 MG tablet Take 1 tablet by mouth daily. ??? fish oil-omega-3 fatty acids (OMEGA 3) 1000 MG capsule Take 2 g by mouth daily. ??? ZACH LOW STRENGTH OR 1 TABLET DAILY ??? MULTI-VITAMIN OR 1 tablet daily Allergies: Allergies Allergen Reactions ??? Sulfa Drugs Rash Social History: History Substance Use Topics ??? Smoking status: Never Smoker ??? Smokeless tobacco: Never Used ??? Alcohol Use: No History Drug Use No Family History: Family History Problem Relation Age of Onset ??? C.A.D. Father [place], age 65, first event at 40 ??? Hypertension Mother ??? Genetic Daughter down's syndrome Physical Exam: BP 152/90 Pulse 115 Temp(Src) 98.1 ??F (36.7 ??C) (Oral) Resp 20 Wt 75.751 kg (167 lb) SpO2 99% There is no height on file to calculate BMI. General Appearance: healthy and alert, no distress HEENT: no thyromegaly, no palpable nodules or masses Cardiovascular: regular rate and rhythm, no gallops, rubs or murmurs Respiratory: lungs clear, no rales, rhonchi or wheezes, normal diaphragmatic excursion Musculoskeletal: extremities non tender and without edema Skin: no lesions or rashes Neurological: normal gait, no gross defects Psychiatric: appropriate mood and affect Hematological: normal cervical, supraclavicular and inguinal lymph nodes Gastrointestinal: abdomen soft, non-tender, non-distended, no organomegaly or masses Genitourinary: External genitalia and urethral meatus appears normal. Vagina is smooth without nodularity or masses. Cervix, uterus, and adnexa are surgically absent. Bimanual exam reveal no masses, nodularity or fullness. Recto-vaginal exam confirms these findings. Assessment: Edith Stallings is a 61 year old woman with a diagnosis of Stage IA, grade 1, endometrioid adenocarcinoma of the endometrium. 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 She is here today for a surveillance visit. No evidence of disease. 25 minutes were spent with this patient, over 50% of that time was spent in symptom management, treatment planning and in counseling and coordination of care. Plan: 1.) Patient to RTC in 6 months for next surveillance visit with pap. BP and HR rechecked at end of visit and were improved. Patient to contact the clinic with any questions or concerns in the interim. 2.) Discussed starting exercise program for weight loss and control of HTN. Reviewed the importance of achieving weight control for risk reduction and for overall health. Encouraged her to start off slowly and gradually increase her activity. Patient verbalized understanding and that she would look into her insurance regarding a step program. 3.) Labs and/or tests ordered include: None today. 4.) Health maintenance issues addressed today and is up to date. Have encouraged her to contact the clinic where she had her colonoscopy and update them with her uterine cancer diagnosis to see if theywould like her to be seen sooner than 2017 (10 years from last colonoscopy). ZIYAD Vasquez- Women's Health Nurse Practitioner Gynecologic Oncology CC Patient Care Team: Sofia Landers PA-C as PCP - General HER ASSOCIATE documented in this encounter Nursing Notes 10/08/2012 1:15 PM CST >> JESUS MANUEL MAGALLON RN MonOct 08, 2012 1:20 PM Edith Stallings's goals for this visit include: follow up Patient requests these members of her care team be copied on today's visit information: Jacquie Crews Initial BP 152/90 Pulse 115 Temp(Src) 98.1 ??F (36.7 ??C) (Oral) Resp 20 Wt 75.751 kg (167 lb) SpO2 99% Estimated Body mass index is 32.62 kg/(m^2) as calculated from the following: Height as of 12: 5' 0(1.524 m). Weight as of this encounter: 167 lb(75.751 kg).. BP completed using cuff size: regular Review of Systems: Systemic no weight changes; no fever; no chills; no night sweats; no appetite changes Skin no rashes, or lesions Eye no irritation; no changes in vision Eduardo-Laryngeal no dysphagia; no hoarseness Pulmonary no cough; no shortness of breath Cardiovascular no chest pain; no palpitations Gastrointestinal no diarrhea; no constipation; no abdominal pain; no changes in bowel habits; no blood in stool Genitourinary no urinary frequency; no urinary urgency; no dysuria; no pain; no abnormal vaginal discharge; no abnormal vaginal bleeding Breast no breast discharge; no breast changes; no breast pain Musculoskeletal no myalgias; no arthralgias; no back pain Psychiatric no depressed mood; no anxiety Hematologic no tender lymph nodes; no noticeable swellings or lumps Endocrine no hot flashes; no heat/cold intolerance Neurological no tremor; no numbness and tingling; no headaches; no difficulty Sleeping Jesus Manuel Magallon RN documented in this encounter Plan of Treatment Not on filedocumented as of this encounter Visit Diagnoses Diagnosis Uterine cancer (H) - Primary Malignant neoplasm of uterus, part unspe cified documented in this encounter Care Teams Instructor Nurse Relationship Specialty Start Date End Date Sofia Landers PA-C PCP - General 05/10/06 Mikayla Allan MD PCP - Obstetrics/Gynecology 05/18/1004/27 [facility] [address] [place] [address] [id number] Sofia Landers PA-C PCP - Assigned PCP 12/05/10 10/09/18 [place] [id number] [place] [id number] Sofia Landers PA-C Assigned PCP 05/10/12 04/17/21 Saurabh [id number] [facility] [place] [phone] documented as of this encounter
--- OUTSIDE RECORDS SUMMARY | 2022-07-05 17:50 | XMS_ITS | Encounter Summary ---
:1950 Author Organization [facility] Address [address] [place] [address] Care Team Providers Name Role Phone Sofia Landers PA-C Primary Care Provider Mikayla Allan MD Unavailable Sofia Landers PA-C Unavailable Sofia Landers PA-C Unavailable Reason for Visit Reason Comments Oncology Clinic Visit follow up with Pap Encounter Details Date Type Department Care Team Description 11/04/2013 Oncology Visit [facility] Mary Portillo ne cancer (H) (Primary Dx); Cancer Center Deanna Medel APRN AIRCRAFT DESIGNER Malignant neoplasm of ovary, unspecified laterality (H); [address] Hypertension goal BP (blood pressure) < 130/[id number] [place] [address] [id number] Social History Tobacco Use Types Packs/Day Years Used Date Smoking Tobacco: Never Smokeless Tobacco: Never Alcohol Use Standard Drinks/Week Comments No 0 (1 standard drink = 0.6 oz pure alcoho l) Sex Assigned at Date Recorded Not on file documented as of this encounter Last Filed Vital Signs Vital Sign Reading Time Taken Comments Blood Pressure 167/91 11/04/2013 1:32 PM CDT Pulse 104 11/04/2013 1:32 PM CDT Temperature 36.7 ??C (98 ??F) 11/04/2013 1:32 PM CDT Respiratory Rate 20 11/04/2013 1:32 PM CDT Oxygen Saturation 98% 11/04/2013 1:32 PM CDT Inhaled Oxygen Concentration - - Weight 73.8 kg (162 lb 9.6 oz) 11/04/2013 1:32 PM CDT Height 151.1 cm (4' 11.5) 11/04/2013 1:32 PM CDT Body Mass Index 32.29 11/04/2013 1:32 PM CDT documented in this encounter Progress Notes Mary Portillo, ENRIQUE - 11/04/2013 1:07 PM CDT Follow Up Notes on Referred Patient Date: 11/04/2013 RE: Edith Stallings : 1950 TIANA: 11/04/2013 Edith Stallings is a 63 year old woman with a diagnosis of [...] lymph node dissection. At her postop visit it was discussed that the fact that due to her early stage and lack of risk factors, that Dr. Allan did not recommend she undergo adjuvant therapy for her endom etrial cancer or be followed with CA 125. Due to her incidental GI tumor found in her ovary Dr. Allan sent her to Medical Oncology for second opinion. Edith met with Dr. Olvera who recommended appendectomy to rule out this as a primary site of the cancer which could have metastasized to the ovary. So on 08/05/2010 she underwent a laparoscopic appendectomy and omentectomy. Both returned showing no evidence of disease. She has been VINEET since. 04/15/13: Pap NIL. Today she comes to clinic feeling well. She denies any vaginal bleeding, no changes in her bowel or bladder habits, no nausea/emesis, no lower extremity edema, and no difficulties eating or sleeping. She denies any abdominal discomfort/bloating, no fevers or chills, and no chest pain or shortness of br eath. She states she is sexually active and is using a lubricant; she reports some vaginal/vulvar dryness but has not been using anything. She states she has a blood pressure cuff at home but has not been using it; she denies any new onset headaches or vision changes. She states her hot flashes are the same and only occur on first waking in the morning; she denies any hot flashes during the day or atnight and states the one she has is not very bad. Review of Systems: See RN note for [...] with lymph node dissection ??? Laparoscopic appendectomy Health Maintenance Due Topic Date Due ??? Pneumovax ([facility] Assigned) 2013 Current Medications: Current Outpatient Prescriptions Medication Sig ??? amLODIPine (NORVASC) 10 MG tablet Take 1 tablet (10 mg) by mouth daily ??? alendronate (FOSAMAX) 35 MG tablet Take 1 tablet (35 mg) by mouth every 7 days ??? atorvastatin (LIPITOR) 20 MG tablet Take 1 tablet (20 mg) by mouth daily ??? lisinopril (PRINIVIL,ZESTRIL) 40 MG tablet Take 1 tablet (40 mg) by mouth daily ??? hydrochlorothiazide (HYDRODIURIL) 25 MG tablet Take 1 tablet (25 mg) by mouth daily ??? fish oil-omega-3 fatty acids (OMEGA 3) [...] Relation Age of Onset ??? C.A.D. Father [place], age 65, first event at 40 ??? Hypertension Mother ??? Genetic Daughter down's syndrome Physical Exam: BP 167/91 Pulse 104 Temp 98 ??F (36.7 ??C) (Oral) Resp 20 Ht 1.511 m (4' 11.5) Wt 73.755 kg (162 lb 9.6 oz) BMI 32.30 kg/m2 SpO2 98% Body mass index is 32.30 kg/(m^2). General Appearance: healthy and alert, no distress [...] these findings. Assessment: Edith Stallings is a 63 year old woman with a diagnosis of Stage IA, grade 1, endometrioid adenocarcinoma of the endometrium. 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 She is here today for a surveillance visit. 30 minutes were spent with this patient, over 50% of that time was spent in symptom management, treatment planning and in counseling and coordination of care. Plan: 1.) Patient to RTC in 6 months for her next surveillance visit. Reviewed remaining surveillance of every 6 months until 04/2015. Reviewed new recommendations from [facility] against annual pap smears for endometrial cancer as well as not following CA 125 for her and answered her questions to the best of my ability. Reviewed signs and symptoms for when she should contact the clinic or seek additional care. Patient to contact the clinic with any questions or concerns in the interim. Discussed using a water based lubricant, like Replens, for daily use as well as for intercourse. 2.) Genetic risk factors were assessed and the patient does not meet the qualifications for a referral. 3.) Labs and/or tests ordered include: None today. 4.) HTN: she is declining a recheck of her BP at visit end. Discussed taking her BP at home and recording to bring with her to her PCP visit; she states she will call her PCP today/tomorrow and be seenthis week. Reviewed when to seek emergency care for elevated BP and she verbalized understanding. 5.) Health maintenance issues addressed today include annual health maintenance, including DEXA scanis due this year. Non-obstetrics gyn issues with PCP. She is overdue for follow up on her HTN with her PCP. ZIYAD Vasquez- Women's Health Nurse Practitioner Gynecologic Oncology CC Patient Care Team: Sofia Landers PA-C as PCP - General documented in this encounter Nursing Notes 11/04/2013 1:15 PM CDT >> Jackie Woodward LPN Mon Nov 04, 2013 1:37 PM Edith Stallings's goals for this visit include: follow up Patient requests these members of her care team be copied on today's visit information: Sofia Landers Initial BP 167/91 Pulse 104 Temp 98 ??F (36.7 ??C) (Oral) Resp 20 Ht 1.511 m (4' 11.5) Wt73.755 kg (162 lb 9.6 oz) BMI 32.30 kg/m2 SpO2 98% Estimated Body mass index is 32.30 kg/(m^2) as calculated from the following: Height as of this encounter: 4' 11.5(1.511 m). Weight as of this encounter: 162 lb 9.6 oz(73.755 kg).. BP completed using cuff size: regular [...] nodes; no noticeable swellings or lumps Endocrine yes - Hot flashes on and on Neurological no tremor; no numbness and tingling; no headaches; no difficulty sleeping Controls Design Engineer Referral Protocol If the patient has any difficulties chewing/swallowing. Has lost > 2# in 1 week or 8# in 1 month. Or is on a tube feeding. Please discuss Controls Design Engineer referral with provider. Last colonoscopy: 2006 Last mammogram: 03/2013 Last dexascan:02/2012 Last thyroid screening: NONE Last cholesterol screenin03/2013 Last diabetes screenin03/2013 Does the patient need a Flu shot/Pneumonia shot? NO* Does the patient have an advanced directive? NO If no, was information packet given? has Do you feel safe at home? YES Jackie Woodward LPN documented in this encounter Plan of Treatment Not on filedocumented as of this encounter Visit Diagnoses Diagnosis Uterine cancer (H) - Primary Malignant neoplasm of uterus, part unspe cified Malignant neoplasm of ovary, unspecified laterality (H) Hypertension goal BP (blood pressure) < 130/80 Unspecified essential hypertension documented in this encounter Care Teams Windsurfing Instructor Relationship Specialty Start Date End Date Sofia Landers PA-C PCP - General 05/10/06 Mikayla Allan MD PCP - Obstetrics/Gynecology 05/18/1004/27 [facility] [address] [place] [id number] Sofia Landers PA-C PCP - Assigned PCP 12/05/10 10/09/18 Saurabh [id number] LUIS DASILVA [id number] Sofia Landers PA-C Assigned PCP 05/10/12 04/17/21 Saurabh [id number] LUIS DASILVA [phone] documented as of this encounter
--- OUTSIDE RECORDS SUMMARY | 2022-07-05 17:50 | XMS_ITS | Encounter Summary ---
:1950 Author Organization [facility] Address [address] [place] [address] Care Team Providers Name Role Phone Sofia Landers PA-C Primary Care Provider Mikayla Allan MD Unavailable Sofia Landers PA-C Unavailable Sofia Landers PA-C Unavailable Encounter Details Date Type Department Care Team Description 03/27/2013 Hospital Encounter [facility] Fifi Landers PA-C [facility] [address] [place] [address] [place] [id number] [phone] Social History Tobacco Use Types Packs/Day Years [...] tablet daily 0 alendronate (FOSAMAX) 35 MG Take 1 tablet 12 tablet 0 03/2710/29/2014 tabletIndications: Osteopenia (35 mg) by mouth every 7 days amLODIPine (NORVASC) 10 MG Take 1 tablet 90 tablet 3 201202/10/2014 tabletIndications: (10 mg) by mouth Hypertension goal BP (blood daily pressure) < 130/80 atorvastatin (LIPITOR) 20 MG Take 1 tablet 90 tablet 3 03/0802/10/2014 tabletIndications: (20 mg) by mouth Hyperlipidemia LDL goal <130 daily hydrochlorothiazide Take 1 tablet 90 tablet 3 03/27/2013 (HYDRODIURIL) 25 MG (25 mg) by mouth tabletIndications: daily Hypertension goal BP (blood pressure) < 130/80 lisinopril (PRINIVIL,ZESTRIL) Take 1 tablet 90 tablet 3 11/06/2013 40 MG tabletIndications: (40 mg) by mouth Hypertension goal BP (blood daily pressure) < 130/80 documented as of this encounter Plan of Treatment Not on filedocumented as of this encounter Visit Diagnoses Not on filedocumented in this encounter Care Teams Front Sight Attacher Relationship Specialty Start Date End Date Sofia Landers PA-C PCP - General 05/10/06 Mikayla Allan MD PCP - Obstetrics/Gynecology 05/18/1004/27 [facility] [address] [place] [address] [phone] Sofia Landers PA-C PCP - Assigned PCP 12/05/10 10/09/18 Jessica [id number] [address] [place] [id number] Sofia Landers PA-C Assigned PCP 05/10/12 04/17/21 Jessica [id number] JOSE LUIS FRASER [id number] documented as of this encounter
--- OUTSIDE RECORDS SUMMARY | 2022-07-05 17:50 | XMS_ITS | Encounter Summary ---
:1950 Author Organization [place] Address [address] [place] [address] Care Team Providers Name Role Phone Sofia Landers PA-C Primary Care Provider Sofia Landers PA-C Unavailable Sofia Landers PA-C Unavailable Reason for Visit Reason Comments Physical renew rx Panel Management BMP Encounter Details Date Type Department Care Team Description 03/30/2015 Office Visit [facility] Sofia Landers Routin e general medical examination at a health care facility (Primary Dx); Clinic Oumou MONCADA Hyperlipidemia LDL goal <130; [id number] Saurabh Hypertension goal BP (blood pressure) < 130/80; [place] [address] ISHA Screening f or breast cancer; [id number] [address] Need for prophylactic vaccination and in oculation against other combinations of diseases [phone] [place] [id number] Social History Tobacco Use Types Packs/Day Years Used Date Smoking Tobacco: Never Smokeless Tobacco: Never Alcohol Use Standard Drinks/Week Comments No 0 (1 standard drink = 0.6 oz pure alcoho l) Sex Assigned at Date Recorded Not on file documented as of this encounter Last Filed Vital Signs Vital Sign Reading Time Taken Comments Blood Pressure 134/80 03/30/2015 8:36 AM CDT Pulse 74 03/30/2015 8:36 AM CDT Temperature 36.7 ??C (98 ??F) 03/30/2015 8:36 AM CDT Respiratory Rate 14 03/30/2015 8:36 AM CDT Oxygen Saturation - - Inhaled Oxygen Concentration - - Weight 73 kg (161 lb) 03/30/2015 8:36 AM CDT Height 151.5 cm (4' 11.65) 03/30/2015 8:36 AM CDT Body Mass Index 31.82 03/30/2015 8:36 AM CDT documented in this encounter Patient Instructions Patient Emanuel Rinaldi - 03/25/2015 4:23 PM CDT Preventive Health Recommendations Female Ages [...] a tetanus shot every 10 years. ??? Get a one-time shot to prevent pneumonia (Pneumovax). ??? Talk to your doctor about the shingles vaccine. ??? Talk to your doctor about the hepatitis B vaccine. Nutrition: ??? Eat at least 5 servings of fruits and vegetables each day. ??? Eat whole-grain bread, whole-wheat pasta and brown rice instead of white grains and rice. ??? For bone health: Eat calcium-rich foods or take calcium pills (500 to 600 mg) twice a day with food. Also take vitamin D (1000 IUs) each day. Lifestyle ??? Exercise at least 150 minutes [...] encounter Progress Notes Sofia Landers PA-C - 03/25/2015 4:23 PM CDT SUBJECTIVE: Edith Stallings is a 64 year old female who presents for Preventive Visit. Are you in the first 12 months of your Medicare coverage? No Healthy Habits: ?? Do you get at least three servings of calcium containing foods daily (dairy, green leafy vegetables, etc.)? yes ?? Amount of exercise or daily activities, outside of work: 1 day(s) per week ?? Problems taking medications regularly No ?? Medication side effects: No ?? Have you had an eye exam in the past two years? no ?? Do you see a dentist twice per year? yes ?? Do you have sleep apnea, excessive snoring or daytime drowsiness?no COGNITIVE SCREEN 1) Repeat 3 items (Banana, [place], Chair) 2) Clock draw: ABNORMAL wrong time 3) 3 item recall: Recalls 3 objects Results: abnormal clock only the time was wrong though she recalls 3 objects Mini-CogTM Copyright Marline Salmon. Licensed by the author for use in [facility]; reprintedwith permission ([email or web address]). All rights reserved. Other concerns to address: Vaginal itch- slight, started about 2 months ago, uses replens for vaginal moisturizer. Helps a little bit, seems to be more focused on one labia. All Histories reviewed and updated in [facility] as appropriate. History Substance Use Topics ??? Smoking status: Never Smoker ??? Smokeless tobacco: Never Used ??? Alcohol Use: No The patient does not drink >3 drinks per day nor >7 drinks per week. Today's PHQ-2 Score: Do you feel safe in your environment [...] no assistance needed ?? Fall risk: ?? Fall Risk Assessment completed per order. ?? Home safety: none identified The following health maintenance items are reviewed in [facility] and correct as of today: Health Maintenance Topic Date Due ??? FALL RISK ASSESSMENT 2013 ??? BMP Q1 YR (NO INBASKET) 02/14/2015 ??? LIPID MONITORING Q1 YEAR( NO INBASKET) 02/14/2015 ??? INFLUENZA VACCINE (SYSTEM ASSIGNED) 04/07/2015 ??? MAMMO SCREEN Q2 YR (SYSTEM ASSIGNED) 03/31/2016 ??? ADVANCE DIRECTIVE PLANNING Q5 YRS (NO INBASKET) 03/28/2017 ??? TETANUS IMMUNIZATION (SYSTEM ASSIGNED) 05/02/2017 ??? COLON CANCER SCREEN (SYSTEM ASSIGNED) 05/23/2017 ??? PNEUMOVAX ([facility] ASSIGNED) Completed ??? DEXA SCAN SCREENING (SYSTEM ASSIGNED) Completed Pneumonia Vaccine:Adults age 65+ who received Pneumovax (PPSV23) at 65 years or older: Should be given PCV13 > 1 year after their most recent PPSV23 Mammogram Screening: Patient over age 50, mutual decision to screen reflected in health maintenance. ROS: C: NEGATIVE for fever, chills, change [...] NEGATIVE for frequency, dysuria, or hematuria female: right labia has been itching. It does not bother her during the day it seems to be more irritated at night. nno vaginal discharge, she uses Replens for vaginal moisturizing M: NEGATIVE for significant arthralgias or myalgia N: NEGATIVE for weakness, dizziness or paresthesias E: NEGATIVE for temperature intolerance, skin/hair changes H: NEGATIVE for bleeding problems P: NEGATIVE for changes in mood or affect Labs reviewed in [facility] BP Readings from Last 3 Encounters: 03/30/15 134/80 10/29/14 155/85 04/28/14 138/81 Wt Readings from Last 3 Encounters: 03/30/15 161 lb (73.029 kg) 04/28/14 156 lb (70.761 kg) 02/10/14 156 lb 14.4 oz (71.169 kg) OBJECTIVE: There were no vitals taken for this visit. Estimated body mass index is 30.47 kg/(m^2) as calculatedfrom the following: Height as of 04/28/14: 5' (1.524 m). Weight as of 04/28/14: 156 lb (70.761 kg). EXAM: GENERAL APPEARANCE: healthy, alert and [...] no masses and bowel sounds normal (female): right labia is beefy red , no vaginal discharge no blisters or ulcerations noted MS: no musculoskeletal defects are noted and gait is age appropriate without ataxia SKIN: no suspicious lesions or rashes NEURO: Normal strength and tone, sensory exam grossly normal, mentation intact and speech normal PSYCH: mentation appears normal and affect normal/bright ASSESSMENT / PLAN: 1. Routine general medical examination at a health care facility - Lipid Profile with reflex to direct LDL - Comprehensive metabolic panel (BMP + Alb, Alk Phos, ALT, AST, Total. Bili, TP) - MA Screening Digital Bilateral; Future 2. Hyperlipidemia LDL goal <130 Await labs - Lipid Profile with reflex to direct LDL - Comprehensive metabolic panel (BMP + Alb, Alk Phos, ALT, AST, Total. Bili, TP) 3. Hypertension goal BP (blood pressure) < 130/80 Near goal patient is going to start exercising now that she is retired - Comprehensive metabolic panel (BMP + Alb, Alk Phos, ALT, AST, Total. Bili, TP) 4. Screening for breast cancer Patient will call to set up appointment - MA Screening Digital Bilateral; Future 5. Need for prophylactic vaccination and inoculation against other combinations of diseases - PNEUMOCOCCAL CONJ VACCINE 13 VALENT IM (PREVNAR 13) - ADMIN 1st VACCINE End of Life Planning: Patient currently has an advanced directive: No. I have verified the patient's ablity to prepare an advanced directive/make health care decisions. Literature was provided to assist patient in preparingan advanced directive. COUNSELING: regular exercise healthy diet/nutrition vision screening Estimated body mass index is 30.47 kg/(m^2) as calculated from the following: Height as of 04/28/14: 5' (1.524 m). Weight as of 04/28/14: 156 lb (70.761 kg). Weight management plan: Current exercise routine: no regular exercise. Diet regimen was discussed and plan is self-directed dieting: reduce portions. reports that she has never smoked. She [...] been established and reviewed with the Patient. Sofia Landers PA-C, [facility] Electronically signed by Sofia Landers PA-C documented in this encounter Nursing Notes Lauryn Maurer, ROOM SERVICE WAITER - 03/30/2015 9:38 AM CDT Prior to injection verified patient [...] positive for at least one answer. Notified provider of both yes' and was ok to give. MNVFC doesn't apply on this patient Per orders of Sofia Landers, injection of prevnar given by Lauryn Maurer. Patient instructed to remain in clinic for 20 minutes afterwards, and to report any adverse reaction to me immediately. Screening performed by Lauryn Maurer on 03/30/2015 at 9:38 AM. Etta Horn - 03/30/2015 8:38 AM CDT Chief Complaint Patient presents with ??? Physical renew rx ??? Panel Management BMP Initial BP 134/80 mmHg Pulse 74 Temp(Src) 98 ??F (36.7 ??C) (Temporal) Resp 14 Ht 4' 11.65 (1.515 m) Wt 161 lb (73.029 kg) BMI 31.82 kg/m2 Estimated body mass index is 31.82 kg/(m^2) as calculated from the following: Height as of this encounter: 4' 11.65 (1.515 m). Weight as of this encounter: 161 lb (73.029 kg). BP completed using cuff size: regular Etta Horn MA documented in this encounter Plan of Treatment Not on filedocumented as of this encounter Procedures Procedure Name Priority Date/Time Associated Comments Diagnosis LIPID REFLEX TO DIRECT Routine 03/30/2015 9:23 AM Routine gene ral Results for this LDL PANEL CDT medical examination devin alfaro are in at a health care the results facility section. Hyperlipidemia LDL goal <130 COMPREHENSIVE Routine 03/30/2015 9:23 AM Routine general Resul ts for this METABOLIC PANEL CDT medical examination gorge juarez are in at a [facility] the results facility section. Hyperlipidemia LDL goal <130 Hypertension goal BP (blood pressure) < 130/80 documented in this encounter Results MA Screening Digital Bilateral (04/06/2015 11:29 AM CDT) Anatomical Region Laterality Modality Breast Bilateral Mammography Specimen (Source) Anatomical Location Collection Method / Collectio n Time Received Time / Laterality Volume Impressions 04/06/2015 3:23 PM CDT IMPRESSION: BI-RADS CATEGORY: 1 - ??Negative RECOMMENDED FOLLOW-UP: Annual Mammograph y. Exam results letter mailed to patient. ?? KIKE FAUSTIN MD Narrative 04/06/2015 3:23 PM CDT SCREENING MAMMOGRAM, BILATERAL, DIGITAL w/CAD - 04/06/2015 11:29 AM BREAST SYMPTOMS: No current breast compl aints. COMPARISON: ??03/31/14, 03/27/13, 03/27/12, 03/22/11. BREAST DENSITY: Almost entirely fat. COMMENTS: No findings of suspicion for m alignancy. ? Procedure Note Kike Faustin MD - 04/06/2015For matting of this [...] y. Exam results letter mailed to patient. KIKE FAUSTIN MD Sofia Landers PA-C IMG MAMMOGRAPHY ORDERABLES Comprehensive metabolic panel (BMP + Alb, Alk Phos, ALT, AST, Total. Bili, TP) (03/30/2015 9:23 AM CDT) athologist Signature Sodium 137 133 - 144 [place] mmol/L [facility] Potassium 3.8 3.4 - 5.3 [place] mmol/L [facility] Chloride 103 94 - 109 [place] mmol/L [facility] Carbon Dioxide 26 20 - 32 [place] mmol/L [facility] Anion Gap 8 3 - 14 [place] mmol/L [facility] Glucose 88 70 - 99 [place] mg/dL [facility] Urea Nitrogen 20 7 - 30 [place] mg/dL [facility] Creatinine 0.67 0.52 - [place] 1.04 mg/dL [facility] GFR Estimate 88 >60 [place] mL/min/1.[address] Comment: Non GFR Calc GFR Estimate If Black >90 >60 mL/min/1.7m2 F [facility] GFR Calc [facility] Calcium 10.0 8.5 - 10.1 mg/dL [facility] Bilirubin Total 0.4 0.2 - 1.3 mg/dL [facility] Albumin 4.0 3.4 - 5.0 g/dL [facility] Protein Total 7.9 6.8 - 8.8 g/dL [facility] Alkaline Phosphatase 84 40 - 150 U/L [facility] ALT 47 0 - 50 U/L [facility] AST 21 0 - 45 U/L [facility] Specimen Anatomical Collection Method Collection Time Receive d Time (Source) Location / / Volume Laterality Blood specimen 03/30/2015 9:23 AM 015 9:24 (specimen) CDT AM CDT Sofia Landers PA-C LAB - BLOOD ORDERABLES Performing Organization Address City/State/ZIP Code Phon e Number [address] [place] [id number] [place] [address], [facility] [phone] CENTER (ABNORMAL) Lipid Profile with reflex to direct LDL (03/30/2015 9:23 AM CDT) P athologist Signature Cholesterol 183 <200 mg/dL [facility] Comment: LDL Cholesterol is the primary guide to therapy. The NCEP recommends further evaluation of: patients with cholesterol greater than 200 mg/dL if additional risk facto rs are present, cholesterol greater than 240 mg/dL, triglycerides greater than 1 50 mg/dL, or HDL less than 40 mg/dL. Triglycerides 163 (H) 0 - 150 mg/dL [facility] HDL Cholesterol 50 (L) >50 mg/dL [facility] LDL Cholesterol Calculated 100 0 - 129 mg/dL [facility] Comment: LDL Cholesterol is the primary guide to therapy: LDL-cholesterol goal in high risk patients is <100 mg/dL and in very high risk patients is <70 mg/dL. VLDL-Cholesterol 33 (H) 0 - 30 mg/dL [facility] Cholesterol/HDL Ratio 3.7 0.0 - 5.0 [facility] Specimen Anatomical Collection Method Collection Time Receive d Time (Source) Location / / Volume Laterality Blood specimen 03/30/2015 9:23 AM 015 9:24 (specimen) CDT AM CDT Sofia Landers PA-C LAB - BLOOD ORDERABLES Performing Organization Address City/State/ZIP Code Phon e Number [address] [place] [phone] [place] [address], [facility] [phone] CENTER documented in this encounter Visit Diagnoses Diagnosis Routine general medical examination at a health care facility - Primary Hyperlipidemia LDL goal <130 Other and unspecified hyperlipidemia Hypertension goal BP (blood pressure) < 130/80 Unspecified essential hypertension Need for prophylactic vaccination and in oculation against other combinations of diseases Routine general medical examination at a health care facility documented in this encounter Care Teams Athletic Field Custodian Relationship Specialty Start Date End Date Sofia Landers PA-C PCP - General 05/10/06 Sofia Landers PA-C PCP - Assigned PCP 12/05/10 10/09/18 Saurabh [id number] [place] [id number] Sofia Landers PA-C Assigned PCP 05/10/12 04/17/21 Saurabh [id number] [place] [id number] documented as of this encounter
--- OUTSIDE RECORDS SUMMARY | 2022-07-05 17:50 | XMS_ITS | Encounter Summary ---
:1950 Author Organization [place] Address [address] [place] [address] Care Team Providers Name Role Phone Sofia Landers PA-C Primary Care Provider Mikayla Allan MD Unavailable Sofia Landers PA-C Unavailable Sofia Landers PA-C Unavailable Reason for Visit Reason Comments Oncology Clinic Visit Encounter Details Date Type Department Care Team Description 04/15/2013 Oncology Visit [facility] Mary Mckeon ne cancer (H) (Primary Dx); Cancer Center Deanna Medel APRN CNP Malignant neoplasm of ovary (H) [address] [facility] [address] [place] [id number] Social History Tobacco Use Types Packs/Day Years Used Date Smoking Tobacco: Never Smokeless Tobacco: Never Alcohol Use Standard Drinks/Week Comments No 0 (1 standard drink = 0.6 oz pure alcoho l) Sex Assigned at Date Recorded Not on file documented as of this encounter Last Filed Vital Signs Vital Sign Reading Time Taken Comments Blood Pressure 140/85 04/15/2013 3:09 PM CDT Pulse 95 04/15/2013 3:09 PM CDT Temperature 36.9 ??C (98.5 ??F) 04/15/2013 3:09 PM CDT Respiratory Rate 18 04/15/2013 3:09 PM CDT Oxygen Saturation 98% 04/15/2013 3:09 PM CDT Inhaled Oxygen Concentration - - Weight 73.2 kg (161 lb 6.4 oz) 04/15/2013 3:09 PM CDT Height - - Body Mass Index 32.05 03/27/2013 8:30 AM CDT documented in this encounter Progress Notes Mary Mckeon NP - 04/22/2013 8:23 AM CDT Quick Note: Reviewed. Mary Mckeon NP - 04/15/2013 12:50 PM CDT Follow Up Notes on Referred Patient Date: 04/15/2013 RE: Edith Anaya : 1950 TIANA: 04/15/2013 Edith Anaya is a 62 year old woman with a history of Stage IA, grade 1, endometrioid adenocarcinoma of the endometrium. 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 She is here today for a surveillance visit and pap. In brief, Ms. Anaya presented for evaluation after having onset of [...] She has been VINEET since. 04/15/13: Pap pending. Today she comes to clinic feeling well. She denies any vaginal bleeding, no changes in her bowel or bladder habits, no nausea/emesis, no lower extremity edema, and no difficulties eating or sleeping. She denies any abdominal discomfort/bloating, no fevers or chills, and no chest pain or shortness of br eath. She states she has no specific concerns today regarding her cancer; she is wondering about hercontinued follow up plans. She states she is currently sexually active and they use a lubricant. Shestates she has a little vaginal/vulvar dryness but it is not bothersome or constant. She states she r ecently started a probiotic to help with some intestinal issues she was having; she states this along with taking Activia has helped. Review of Systems: See RN note for [...] Health Maintenance Due Topic Date Due ??? Pap Q1 Yr Diagnostic InDooBop Message 03/28/2013 ??? Influenza Vaccine (System Assigned) 05/07/2013 Current Medications: Current Outpatient Prescriptions Medication Sig [...] Relation Age of Onset ??? C.A.D. Father MS, age 65, first event at 40 ??? Hypertension Mother ??? Genetic Daughter down's syndrome Physical Exam: BP 140/85 Pulse 95 Temp 98.5 ??F (36.9 ??C) Resp 18 Wt 73.211 kg (161 lb 6.4 oz) SpO2 98% ? No There is no height on file to [...] Vagina is smooth without nodularity or masses. Cervix surgically absent. Bimanual exam reveal no masses, nodularity or fullness. Recto-vaginal exam confirms these findings. Pap collected. Assessment: Edith Anaya is a 62 year old woman with a history of Stage IA, grade 1, endometrioid adenocarcinoma of the endometrium. 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 She is here today for a surveillance visit and pap. 25 minutes were spent with this patient, over 50% of that time was spent in symptom management, treatment planning and in counseling and coordination of care. Plan: 1.) Patient to RTC in 6 months for her next surveillance visit. If today's Pap is WNL, she will be due in one year for a pap; if today's pap is not WNL, will evaluate to determine if additional testingis indicated. Reviewed her remaining surveillance of every 6 months for two more years. Reviewed signs and symptoms for when she should contact the clinic or seek additional care. Patient to contact the clinic with any questions or concerns in the interim. 2.) Genetic risk factors were assessed and the patient does not meet the qualifications for a referral. 3.) Discussed use of a water based lubricant (Replens) to help with vaginal/vulvar dryness. She can continue to use this for intercourse. 4.) Labs and/or tests ordered include: Pap. 5.) Health maintenance issues addressed today include annual health maintenance is up to date. She will continue to monitor her GI issues and if they worsen or do not improve, she will recontact her PCP. ZIYAD Vasquez- Women's Health Nurse Practitioner Gynecologic Oncology CC Patient Care Team: Sofia Landers PA-C as PCP - General documented in this encounter Nursing Notes 04/15/2013 3:15 PM CDT >> GIULIANA HAYES RN Mon Apr 15, 2013 3:12 PM Edith Anaya's goals for this visit include: follow up Patient requests these members of her care team be copied on today's visit information: Initial BP 140/85 Pulse 95 Temp 98.5 ??F (36.9 ??C) Resp 18 Wt 73.211 kg (161 lb 6.4 oz) SpO2 98% ? No Estimated Body mass index is 32.05 kg/(m^2) as calculated from the following: Height as of 03/27/13: 4' 11.5(1.511 m). Weight as of this encounter: 161 lb 6.4 oz(73.211 kg).. BP completed using cuff size: regular [...] and tingling; no headaches; no difficulty sleeping Joinery Factory Worker Referral Protocol If the patient has any difficulties chewing/swallowing. Has lost > 2# in 1 week or 8# in 1 month. Or is on a tube feeding. Please discuss Joinery Factory Worker referral with provider. Last colonoscopy: 2006 Last mammogram: 2012 Last dexascan:2011 Last thyroid screenin Last cholesterol screenin Last diabetes screenin Does the patient need a Flu shot/Pneumonia shot? NO Does the patient have an advanced directive? NO If no, was information packet given? Do you feel safe at home? YES Giuliana Hayes RN documented in this encounter Plan of Treatment Not on filedocumented as of this encounter Procedures Procedure Name Priority Date/Time Associated Comments Diagnosis PAP IMAGED THIN Routine 04/15/2013 12:00 AM Malignant neoplasm Results for this LAYER, DIAGNOSTIC CDT of ovary (H) procedure are in Uterine cancer (H) the resul ts section. documented in this encounter Results PAP imaged thin layer, diagnostic (04/15/2013 12:00 AM CDT) Component Value Ref Test Analysis Performed At [facility] Range Method Time Signature PAP NIL COPATH Copath Report COPATH Patient Name: EDITH ANAYA MR#: [id number] Specimen #: [id number] Collected: 04/15/2013 Received: 04/16/2013 Reported: 04/17/2013 11:18 Ordering Phy(s): MARY MCKEON SPECIMEN/STAIN PROCESS: Pap Imaged thin layer prep diagnostic (SurePath, FocalPoint with guided screening) ? Pap-Cyto x 1, Reflex HPV x 1 SOURCE: Vaginal ---- Pap Imaged thin layer prep diagnostic (SurePath, FocalPoint with guided screening) SPECIMEN ADEQUACY: Satisfactory for evaluation. -Transformation zone component absent. CYTOLOGIC INTERPRETATION: Negative for Intraepithelial Lesion or Malignancy Electronically signed out by: KRISTI Arrieta (ASCP) Processed and screened at [facility] CLINICAL HISTORY: Post Menopausal, Previous normal pap Date of Last Pap: 03/28/2012 Can Conveyor Feeder Cancer:: Hx of Uterine cancer, Papanicolaou Test Limitations: ??Cervical cytology is a scre ening test with limited sensitivity; regular screening is critical for cancer prevention; Pap tests are primarily effective for the diagnosis/prevention of squamous cell carcinoma, not adenoca rcinomas or other cancers. TESTING LAB LOCATION: [facility], [address] ??[id number] COLLECTION SITE: Client: ??[facility] Location: [facility] (B) Specimen (Source) Anatomical Collection Method Collection Time Re ceived Time Location / / Volume Laterality Cytologic 04/15/2013 04/16/2013 10:3 7 material AM CDT (specimen) Mary Mckeon APRN, CNP LAB - [facility] Performing Organization Address City/State/ZIP Code Phon e Number [place] documented in this encounter Visit Diagnoses Diagnosis Uterine cancer (H) - Primary Malignant neoplasm of uterus, part unspe cified Malignant neoplasm of ovary (H) Malignant neoplasm of ovary documented in this encounter Care Teams Inspector Circuitry Negative Relationship Specialty Start Date End Date Sofia Landers PA-C PCP - General 05/10/06 Mikayla Allan MD PCP - Obstetrics/Gynecology 05/18/1004/27 [facility] [address] [place] [address] Sofia Landers PA-C PCP - Assigned PCP 12/05/10 10/09/18 Saurabh [id number] [facility] [id number] Sofia Landers PA-C Assigned PCP 05/10/12 04/17/21 Saurabh [id number] [place] [id number] documented as of this encounter
--- OUTSIDE RECORDS SUMMARY | 2022-07-05 17:50 | XMS_ITS | Encounter Summary ---
:1950 Author Organization [place] Address [address] [place] [id number] Care Team Providers Name Role Phone Sofia Landers PA-C Primary Care Provider Mikayla Allan MD Unavailable Sofia Landers PA-C Unavailable Encounter Details Date Type Department Care Team Description 04/19/2012 Hospital Encounter [facility] Fifi Landers PA-C Osteopenia [address] [place], [place] [id number] [phone] Social History Tobacco Use Types Packs/Day Years [...] alendronate (FOSAMAX) 35 MG Take 1 tablet by 12 tablet 0 03/27/2013 tabletIndications: Osteopenia mouth every 7 days. amLODIPine (NORVASC) 10 MG Take 1 tablet by 90 tablet 3 03/27/2013 tabletIndications: mouth daily. Hypertension goal BP (blood pressure) < 130/80 atorvastatin (LIPITOR) 20 MG Take 1 tablet by 90 tablet 3 0 03/27/2012 03/27/2013 tabletIndications: mouth daily. Hyperlipidemia LDL goal <130 hydrochlorothiazide Take 1 tablet by 90 tablet 3 03/27/2012 03/27/2013 (HYDRODIURIL) 25 MG mouth daily. tabletIndications: Hypertension goal BP (blood pressure) < 130/80 lisinopril (PRINIVIL,ZESTRIL) Take 1 tablet by 90 tablet 3 03/27/2012 03/27/2013 40 MG tabletIndications: mouth daily. Hypertension goal BP (blood pressure) < 130/80 documented as of this encounter Plan of Treatment Not on filedocumented as of this encounter Procedures Procedure Name Priority Date/Time Associated Diagnosis Comme nts DX HIP/PELVIS/SPINE Routine 04/19/2012 3:54 PM Osteopenia Re sults for this CDT procedure are i n the results section. documented in this encounter Results Dexa hip/pelvis/spine* (04/19/2012 3:54 PM CDT) Anatomical Region Laterality Modality Dexa Computed Radiography Specimen (Source) Anatomical Collection Method Collection Time Re ceived Time Location / / Volume Laterality 04/19/2012 3:54 PM CDT Impressions 04/19/2012 6:27 PM CDT DXA BONE MINERAL DENSITY SCAN 04/19/2012 3:55 PM TECHNIQUE: The lumbar spine and hips wer e scanned with DXA technique performed using a Vapotherm scann er. ??DXA results are reported according to T-score. ??The T-score is t he standard deviation from the peak bone mass in a normal young adult p atient. ??A T-score of -1.0 to -2.5 correlates with osteopenia. ??A T-s core of less than -2.5 correlates with osteoporosis. In accordance with the ISCD (Internation al Society of Clinical Densitometry) the lowest BMD between the total hip and femoral neck will be used. INDICATION: ??Postmenopausal female who has been on Fosamax for 3 years. Personal history of osteopenia. COMPARISON: 08/05/2008. FINDINGS: Lumbar spine: The T-score is -1.3 betwee n L1 and L4. There has been no statistically significant change in t he bone mineral density of the lumbar spine since the most recent p rior study. Hips: ??The right hip T-score is -1.6. T he left hip T-score is -1.3. Bone mineral density in the worst hip is 0.929 gm/cm2. There is been no statistically significant change in t he average bone marrow density of the bilateral femoral neck si nce the most recent prior study. IMPRESSION: 1. Mild to moderate osteopenia, not sign ificantly changed since the prior study. DAMIAN JACKMAN 04/19/2012 6:26 PM Sofia Landers PA-C IMG DEXA ORDERABLES documented in this encounter Visit Diagnoses Diagnosis Osteopenia Disorder of bone and cartilage, unspecif ied documented in this encounter Care Teams Operating Room Technologist Relationship Specialty Start Date End Date Sofia Landers PA-C PCP - General 05/10/06 Mikayla Allan MD PCP - Obstetrics/Gynecology 05/18/1004/27 [facility] [address] [place] [address] Sofia Landers PA-C PCP - Assigned PCP 12/05/10 10/09/18 Saurabh [id number] [facility] [place] [id number] documented as of this encounter
--- OUTSIDE RECORDS SUMMARY | 2022-07-05 17:50 | XMS_ITS | Encounter Summary ---
:1950 Author Organization [place] Address [address] [place] [address] Care Team Providers Name Role Phone Sofia Landers PA-C Primary Care Provider Sofia Landers PA-C Unavailable Sofia Landers PA-C Unavailable Reason for Visit Reason Comments Oncology Clinic Visit 6 month follow up Uterine ca ncer Encounter Details Date Type Department Care Team Description 10/29/2014 Oncology Visit [facility] Mary Portillo neoplasm of ovary, unspecified laterality (H) (Primary Dx); [facility] Deanna Medel APRN CNP Uterine cancer (H) [address] [phone] [id number] Social History Tobacco Use Types Packs/Day Years Used Date Smoking Tobacco: Never Smokeless Tobacco: Never Alcohol Use Standard Drinks/Week Comments No 0 (1 standard drink = 0.6 oz pure alcoho l) Sex Assigned at Date Recorded Not on file documented as of this encounter Last Filed Vital Signs Vital Sign Reading Time Taken Comments Blood Pressure 155/85 10/29/2014 3:45 PM CDT Pulse 72 10/29/2014 3:45 PM CDT Temperature - - Respiratory Rate 18 10/29/2014 3:45 PM CDT Oxygen Saturation 98% 10/29/2014 3:45 PM CDT Inhaled Oxygen Concentration - - Weight - - Height - - Body Mass Index - - documented in this encounter Progress Notes Mary Portillo, JUNIOR STAFF ACCOUNTANT [employer] SALTER - 10/29/2014 3:40 PM CDT Follow Up Notes on Referred Patient Date: 10/29/2014 RE: Edith Stallings : 1950 TIANA: 10/29/2014 Edith Stallings is a 64 year old woman with a diagnosis of [...] to clinic feeling well. She denies any concerning symptoms related to her cancer. She denies any vaginal bleeding, no changes in her bowel or bladder habits, no nausea/emesis, no lower extremity edema, and no difficulties eating or sleeping. She denies any abdominal discomfort/bloating, no fevers or chills, and no chest pain or shortness of breath. She states her health screenings arecurrent and her PCP is managing her HTN. She states she does have a BP cuff at home and checks it periodically. She states she is sexually active and using a lubricant. She reports that she started using a water based lubricant after her last visit and has noticed an improvement in her dryness. Review of Systems: Systemic no weight changes; no fever; no chills; no night sweats; no appetite changes Skin no rashes, or lesions Eye no irritation; no changes in vision Eduardo-Laryngeal no dysphagia; no hoarseness Pulmonary no cough; no shortness of breath Cardiovascular no chest pain; no palpitations; + HTN Gastrointestinal no diarrhea; no constipation; no abdominal [...] and tingling; no headaches; no difficulty sleeping Past Medical History: Past Medical History Diagnosis Date ??? Other and unspecified hyperlipidemia Hyperlipidemia ??? Essential hypertension, benign Hypertension, Benign ??? Personal history of urinary calculi ??? Endometrial cancer ??? Ovarian cancer Past Surgical History: Past Surgical History Procedure Laterality Date ??? Cystoscopy 11/28/06 [place] ??? Colonoscopy 05/23/2007 repeat in 10 years ??? Hysteroscopy 03/30/10 Hysteroscopy, D&C, removal of portion of endocervical polyp. ??? Laparoscopic hysterectomy supracervical, bilateral salpingo-oophorectomy, combined with lymph node dissection ??? Laparoscopic appendectomy Health Maintenance Due Topic Date Due ??? FALL RISK ASSESSMENT 2013 Current Medications: Current Outpatient Prescriptions Medication Sig Dispense Refill ??? lisinopril (PRINIVIL,ZESTRIL) 40 MG tablet Take 1.5 tablets (60 mg) by mouth daily 135 tablet 3 ??? amLODIPine (NORVASC) 10 MG tablet Take 1 tablet (10 mg) by mouth daily 90 tablet 3 ??? atorvastatin (LIPITOR) 20 MG tablet Take 1 tablet (20 mg) by mouth daily 90 tablet 3 ??? fish oil-omega-3 fatty acids (OMEGA 3) 1000 MG capsule Take 2 g by mouth daily. ??? ZACH LOW STRENGTH OR 1 TABLET DAILY ??? MULTI-VITAMIN OR 1 tablet daily ??? hydrochlorothiazide (HYDRODIURIL) 25 MG tablet Take 1 tablet (25 mg) by mouth daily 90 tablet 3 Allergies: Allergies Allergen Reactions ??? Pneumovax [Pneumococcal Polysaccharides] Lump, fever ??? Sulfa Drugs Rash Social History: History Substance Use Topics ??? Smoking status: Never Smoker ??? Smokeless tobacco: Never Used ??? Alcohol Use: No History Drug Use No Family History: Family History Problem Relation Age of Onset ??? C.A.D. Father [place], age 65, first event at 40 ??? Hypertension Mother ??? Genetic Daughter down's syndrome Physical Exam: BP 155/85 Pulse 72 Resp 18 SpO2 98% There is no weight on file to calculate BMI. General Appearance: [...] smooth without nodularity or masses. Cervix surgically absent.. Bimanual exam reveal no masses, nodularity or fullness. Recto-vaginal exam confirms these findings. Assessment: Edith Stallings is a 64 year old woman with a diagnosis of Stage IA, grade 1, endometrioid adenocarcinoma of the endometrium. 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 She is here today for a surveillance visit. 20 minutes were spent with this patient, over 50% of that time was spent in symptom management, treatment planning and in counseling and coordination of care. Plan: 1.) Patient to RTC in 6 months for her next surveillance visit which will be near her five year chaparro; discussed that after that visit she can extend her surveillance to annually which can be done with her OB/PCP. Reviewed signs and symptoms for when she should contact the clinic or seek additional care. Patient to contact the clinic with any questions or concerns in the interim. 2.) Genetic risk factors were assessed and the patient does not meet the qualifications for a referral. 3.) Labs and/or tests ordered include: None today. 4.) Health maintenance issues addressed today include annual health maintenance and non-agency manager issues with PCP. Encouraged her to continue to monitor her BP at home and follow up with her PCP within one week for management of her HTN. Mary Portillo APRN, [facility]- Women's Health Nurse Practitioner Gynecologic Oncology CC ESTABLISHED PATIENT documented in this encounter Nursing Notes Jackie Woodward LPN - 10/29/2014 3:45 PM CDT Edith Stallings is a 64 year old female who presents for: Chief Complaint Patient presents with ??? Oncology Clinic Visit 6 month follow up Uterine cancer Initial Vitals: Pulse 72 Resp 18 Estimated body mass index is 30.47 kg/(m^2) as calculated from the following: Height as of 04/28/14: 1.524 m (5'). Weight as of 04/28/14: 70.761 kg (156 lb).. There is no height or weight on file to calculate BSA. BP completed using cuff size: regular No Pain (0) No LMP recorded. Patient has had a hysterectomy. Allergies and medications reviewed. Do you feel safe in your environment? Yes Medications: Medication refills not needed today. Pharmacy name entered into [employer]: [facility] - [place], [place] - [address] Have you fallen two or more times in the past year? No Have you fallen and had an injury in the past year? No At risk for falls?No Patient instructed to ask for assistance, when needed, while in clinic Preventing Falls at Home; Simple Steps To Keep You Safe booklet for fall prevention available forpatient and family per request Comments: 7 minutes for nursing intake (face to face time) Jackie Woodward LPN documented in this encounter Plan of Treatment Not on filedocumented as of this encounter Visit Diagnoses Diagnosis Malignant neoplasm of ovary, unspecified laterality (H) - Primary Uterine cancer (H) Malignant neoplasm of uterus, part unspe cified documented in this encounter Care Teams Locksmith Helper Relationship Specialty Start Date End Date Sofia Landers PA-C PCP - General 05/10/06 Sofia Landers PA-C PCP - Assigned PCP 12/05/10 10/09/18 Saurabh [id number] [place] [id number] Sofia Landers PA-C Assigned PCP 05/10/12 04/17/21 Saurabh [id number] [place] [id number] documented as of this encounter
--- OUTSIDE RECORDS SUMMARY | 2022-07-05 17:50 | XMS_ITS | Encounter Summary ---
:1950 Author Organization [place] Address [address] [place] [address] Care Team Providers Name Role Phone Sofia Landers PA-C Primary Care Provider Mikayla Allan MD Unavailable Sofia Landers PA-C Unavailable Sofia Landers PA-C Unavailable Reason for Visit Reason Onset Date Comments Refill Request 04/17/2014 fosamax Encounter Details Date Type Department Care Team Description 04/17/[address] [facility] Laura Landers PA-C Refill Request Clinic [facility] (fosamax) [phone] [address] [facility] [place] [phone] [phone] Social History Tobacco Use Types Packs/Day Years Used Date Smoking Tobacco: Never Smokeless Tobacco: Never Alcohol Use Standard Drinks/Week Comments No 0 (1 standard drink = 0.6 oz pure alcoho l) Sex Assigned at Date Recorded Not on file documented as of this encounter Miscellaneous Notes Telephone Encounter - Sofia Tillman LPN - 04/18/2014 4:48 PM CDT Patient is ok not renewing fosamax. Sofia Tillman LPN Telephone Encounter - Christoph Mendieta CMA - 04/18/2014 10:58 AM CDT Called and left message for patient with below information and requested call back as to what her thoughts are. Clint Mendieta MA Telephone Encounter - Sofia Landers PA-C - 04/18/2014 10:50 AM CDT Please call pt- at our last PE we discussed stopping this med as the new recommendations are to use it for 5 years. She starting this med in 2008, so this med should be stopped in 2013. What are her thoughts? I can call her on Monday too if she wishes to further discuss Sofia Landers PA-C Telephone Encounter - Jennifer Gibson RN - 04/17/2014 3:06 PM CDT Pending Prescriptions: Disp Refills alendronate (FOSAMAX) 35 MG tablet 12 tab*prn Sig: Take 1 tablet (35 mg) by mouth every 7 days Provider only. HIRO: 03/13/2014 Last Dexa Scan: 04/19/2012 Creatinine Date Value Range Status 02/14/2014 0.81 0.52 - 1.04 mg/dL Final ] Jennifer Gibson MS/ALIX, RN Telephone Encounter - Dhara Allred - 04/17/2014 2:52 PM CDT Last Fill Date: 01/31/14 Last Fill Quantity: 12 Last Office Visit: 03/13/14 documented in this encounter Plan of Treatment Not on filedocumented as of this encounter Visit Diagnoses Diagnosis Osteopenia Disorder of bone and cartilage, unspecif ied documented in this encounter Care Teams Fur Operator Relationship Specialty Start Date End Date Sofia Landers PA-C PCP - General 05/10/06 Mikayla Allan MD PCP - Obstetrics/Gynecology 05/18/1004/27 [facility] [address] [place] [id number] Sofia Landers PA-C PCP - Assigned PCP 12/05/10 10/09/18 Saurabh [id number] [place] [phone] Sofia Landers PA-C Assigned PCP 05/10/12 04/17/21 Saurabh [id number] [place] [phone] documented as of this encounter
--- OUTSIDE RECORDS SUMMARY | 2022-07-05 17:50 | XMS_ITS | Encounter Summary ---
:1950 Author Organization [place] Address [address] [place] [address] Care Team Providers Name Role Phone Sofia Landers PA-C Primary Care Provider Mikayla Allan MD Unavailable Sofia Landers PA-C Unavailable Sofia Landers PA-C Unavailable Reason for Visit Reason Onset Date Comments Results 02/21/2014 Encounter Details Date Type Department Care Team Description 02/21/2014 Telephone [facility] Sofia Landers PA-C Results [facility] [id number] [place] [address] [place] [address] [place] [phone] (Wo rk) Social History Tobacco Use Types Packs/Day Years Used Date Smoking Tobacco: Never Smokeless Tobacco: Never Alcohol Use Standard Drinks/Week Comments No 0 (1 standard drink = 0.6 oz pure alcoho l) Sex Assigned at Date Recorded Not on file documented as of this encounter Miscellaneous Notes Telephone Encounter - Sofia Tillman LPN - 02/21/2014 4:55 PM CDT Patient informed note below. Sofia Tillman LPN Telephone Encounter - Dhara Allred - 02/21/2014 2:51 PM CDT Notes Recorded by Dhara Allred on 02/21/2014 at 2:50 PM lmtc see phone encounter thanks ------ Notes Recorded by Lauryn Mcneill NP on 02/21/2014 at 12:27 PM Please let her know that her liver function was slightly elevated. This could be related to her cholesterol medication. Please see if she drinks alcohol and if so I would recommend cutting back on this. If not I would recommend following up to recheck this in 4-6 weeks. If any body aches, joint pains to let us know. If no new symptoms would just recommend recheck. ------ documented in this encounter Plan of Treatment Not on filedocumented as of this encounter Visit Diagnoses Not on filedocumented in this encounter Care Teams Drosophere Operator Relationship Specialty Start Date End Date Sofia Landers PA-C PCP - General 05/10/06 Mikayla Allan MD PCP - Obstetrics/Gynecology 05/18/1004/27 [facility] [address] [place] [address] Sofia Landers PA-C PCP - Assigned PCP 12/05/10 10/09/18 Saurabh [id number] [id number] Sofia Landers PA-C Assigned PCP 05/10/12 04/17/21 Saurabh [id number] [phone] documented as of this encounter
--- OUTSIDE RECORDS SUMMARY | 2022-07-05 17:50 | XMS_ITS | Encounter Summary ---
:1950 Author Organization [facility] Address [address] [place] [address] Care Team Providers Name Role Phone Sofia Landers PA-C Primary Care Provider Mikayla Allan MD Unavailable Sofia aLnders PA-C Unavailable Sofia Landers PA-C Unavailable Encounter Details Date Type Department Care Team Description 02/14/2014 Orders Only [facility] Maribell vated ALT measurement (Primary Dx); [facility] Hyperlipidemia LDL goal <130 ; [id number] Hypertension goal BP (blood pressure) < 130/80 [place] [phone] Social History Tobacco Use Types Packs/Day Years Used Date Smoking Tobacco: Never Smokeless Tobacco: Never Alcohol Use Standard Drinks/Week Comments No 0 (1 standard drink = 0.6 oz pure alcoho l) Sex Assigned at Date Recorded Not on file documented as of this encounter Miscellaneous Notes Addendum Note - Lauryn Mcneill NP - 02/21/2014 12:30 PM CDT Addended by: LAURYN MCNEILL on: 02/21/2014 12:30 PM Modules accepted: Orders documented in this encounter Plan of Treatment Not on filedocumented as of this encounter Procedures Procedure Name Priority Date/Time Associated Diagnosis Comme nts LIPID REFLEX TO Routine 02/14/2014 8:42 AM Hyperlipidemia LDL goal Results for this DIRECT LDL PANEL CDT <130 procedure a re in the results section. ALT Routine 02/14/2014 8:42 AM Hyperlipidemia LDL goa l Results for this CDT <130 procedure are i n the results section. BASIC METABOLIC Routine 02/14/2014 8:42 AM Hypertension goal B P Results for this PANEL CDT (blood pressure) < procedure are in 130/80 the results section. documented in this encounter Results (ABNORMAL) Lipid panel reflex to direct LDL (02/14/2014 8:42 AM CDT) athologist Signature Cholesterol 138 <200 mg/dL [facility] Comment: LDL Cholesterol is the primary guide to therapy. The NCEP recommends further evaluation of: patients with cholesterol greater than 200 mg/dL if additional risk facto rs are present, cholesterol greater than 240 mg/dL, triglycerides greater than 1 50 mg/dL, or HDL less than 40 mg/dL. Triglycerides 152 (H) 0 - 150 mg/dL [facility] HDL Cholesterol 23 (L) >50 mg/dL [facility] LDL Cholesterol Calculated 85 0 - 129 mg/dL [facility] Comment: LDL Cholesterol is the primary guide to therapy: LDL-cholesterol goal in high risk patients is <100 mg/dL and in very high risk patients is <70 mg/dL. VLDL-Cholesterol 30 0 - 30 mg/dL [facility] Cholesterol/HDL Ratio 6.0 (H) 0.0 - 5.0 [facility] Specimen Anatomical Collection Method Collection Time Receive d Time (Source) Location / / Volume Laterality Blood specimen 02/14/2014 8:42 AM 014 8:43 (specimen) CDT AM CDT Sofia Landers PA-C LAB - BLOOD ORDERABLES Performing Organization Address City/State/ZIP Code Phon e Number M [place] [phone] [facility] [address] [place], [place] [address] [facility] [facility] (ABNORMAL) Basic metabolic panel (02/14/2014 8:42 AM CDT) athologist Signature Sodium 143 133 - 144 [place] mmol/L [facility] Potassium 3.4 3.4 - 5.3 [place] mmol/L [facility] Chloride 103 94 - 109 [place] mmol/L [facility] Carbon Dioxide 29 20 - 32 [place] mmol/L [facility] Anion Gap 12.2 6 - 17 [place] mmol/L [facility] Glucose 104 (H) 60 - 99 [place] mg/dL [facility] Urea Nitrogen 18 7 - 30 [place] mg/dL [facility] Creatinine 0.81 0.52 [facility] 1.04 mg/dL [facility] GFR Estimate 71 >60 [place] mL/min/1.[address] LAB GFR Estimate If 86 >60 [place] Black mL/min/1.[address] LAB Calcium 9.5 8.5 - 10.4 [place] mg/dL [facility] Specimen Anatomical Collection Method Collection Time Receive d Time (Source) Location / / Volume Laterality Blood specimen 02/14/2014 8:42 AM 014 8:43 (specimen) CDT AM CDT Sofia Landers PA-C LAB - BLOOD ORDERABLES Performing Organization Address City/State/ZIP Code Phon e Number M [address] [place] [phone] [facility] (ABNORMAL) ALT (02/14/2014 8:42 AM CDT) P athologist Signature ALT 86 (H) 0 - 50 U/L [facility] Specimen Anatomical Collection Method Collection Time Receive d Time (Source) Location / / Volume Laterality Blood specimen 02/14/2014 8:42 AM 014 8:43 (specimen) CDT AM CDT Sofia Landers PA-C LAB - BLOOD ORDERABLES Performing Organization Address City/State/ZIP Code Phon e Number [address] [place] [address] [facility] documented in this encounter Visit Diagnoses Diagnosis Elevated ALT measurement - Primary Nonspecific elevation of levels of trans aminase or lactic acid dehydrogenase (LDH) Hyperlipidemia LDL goal <130 Other and unspecified hyperlipidemia Hypertension goal BP (blood pressure) < 130/80 Unspecified essential hypertension documented in this encounter Care Teams Sampler Radioactive Waste Relationship Specialty Start Date End Date Sofia Landers PA-C PCP - General 05/10/06 Mikayla Allan MD PCP - Obstetrics/Gynecology 05/18/1004/27 [facility] [address] [place] [address] [phone] Sofia Landers PA-C PCP - Assigned PCP 12/05/10 10/09/18 Saurabh [id number] [facility] [place] [id number] Sofia Landers PA-C Assigned PCP 05/10/12 04/17/21 Saurabh [id number] [place] [id number] documented as of this encounter
--- OUTSIDE RECORDS SUMMARY | 2022-07-05 17:50 | XMS_ITS | Encounter Summary ---
:1950 Author Organization [facility] Address [address] [place] [address] Care Team Providers Name Role Phone Sofia Landers PA-C Primary Care Provider Mikayla Allan MD Unavailable Sofia Landers PA-C Unavailable Sofia Landers PA-C Unavailable Reason for Visit Reason Comments Physical Encounter Details Date Type Department Care Team Description 03/27/2013 Office Visit [facility] Sofia Landers Routin e general medical examination at a health care facility (Primary Dx); Clinic [place] Hypertension goal BP (blood pressure) < 130/80; [address] Saurabh Osteopenia; [place] [id number] [place]HA Hyperlipide marissa LDL goal <130; [id number] Screening for breast cancer [phone] [place] [address] Social History Tobacco Use Types Packs/Day Years Used Date Smoking Tobacco: Never Smokeless Tobacco: Never Alcohol Use Standard Drinks/Week Comments No 0 (1 standard drink = 0.6 oz pure alcoho l) Sex Assigned at Date Recorded Not on file documented as of this encounter Last Filed Vital Signs Vital Sign Reading Time Taken Comments Blood Pressure 136/84 03/27/2013 8:30 AM CDT Pulse 92 03/27/2013 8:30 AM CDT Temperature 36.7 ??C (98 ??F) 03/27/2013 8:30 AM CDT Respiratory Rate - - Oxygen Saturation - - Inhaled Oxygen Concentration - - Weight 73 kg (161 lb) 03/27/2013 8:30 AM CDT Height 151.1 cm (4' 11.5) 03/27/2013 8:30 AM CDT Body Mass Index 31.97 03/27/2013 8:30 AM CDT documented in this encounter Patient Instructions Patient InstructionsSo Robertson - 03/27/2013 8:21 AM CDT Preventive Health Recommendations Female Ages 50 - 64 Yearly exam: See your health care provider every year in order to o Review health changes. o Discuss preventive care. o Review your medicines if your doctor has prescribed any. Get a Pap test every three years (unless you have an abnormal result and your provider advises testing more often). If you get Pap tests with HPV test, you only need to test every 5 years, unless you have an abnormal result. You do not need a Pap test if your uterus was removed (hysterectomy) and you have not had cancer. You should be tested each year for STDs (sexually transmitted diseases) if you're at risk. Have a mammogram every 1 to 2 years. Have a colonoscopy at age 50, or have a yearly FIT test (stool test). These exams screen for colon cancer. Have a cholesterol test every 5 years, or more often if advised. Have a diabetes test (fasting glucose) every three years. If you are at risk for diabetes, you should have this test more often. If you are at risk for osteoporosis (brittle bone disease), think about having a bone density scan (DEXA). Shots: Get a flu shot each year. Get a tetanus shot every 10 years. Nutrition: Eat at least 5 servings of fruits and vegetables each day. Eat whole-grain bread, whole-wheat pasta and brown rice instead of white grains and rice. For bone health: Eat calcium-rich foods or take calcium pills (500 to 600 mg) twice a day with food. Also take vitamin D (1000 IUs) each day. Lifestyle Exercise at least 150 minutes a week (30 minutes a day, 5 days a week). This will help you control your weight and prevent disease. Limit alcohol to one drink per day. No smoking. Wear sunscreen to prevent skin cancer. See your dentist every six months for an exam and cleaning. See your eye doctor every 1 to 2 years. documented in this encounter Progress Notes Sofia Landers PA-C - 03/27/2013 8:21 AM CDT SUBJECTIVE: CC: Edith Stallings is an 62 year old woman who presents for preventive health visit. Healthy Habits: ?? Do you get at least three servings of calcium containing foods daily (dairy, green leafy vegetables, etc.)? yes ?? Amount of exercise or daily activities, outside of work: 1 day(s) per week, ?? Problems taking medications regularly No ?? Medication side effects: No ?? Have you had an eye exam in the past two years? No, but going to do that ?? Do you see a dentist twice per year? yes ?? Do you have sleep apnea, excessive snoring or daytime drowsiness?no Other concerns to address: none Today's PHQ-2 Score: 0 Abuse: Current or Past(Physical, Sexual or Emotional)- No Do you feel safe in your environment - Yes History Substance Use Topics ??? Smoking status: Never Smoker ??? Smokeless tobacco: Never Used ??? Alcohol Use: No The patient does not drink >3 drinks per day nor >7 drinks per week. Last Mammo:No results found. Recent Labs Lab Test 03/28/12 0905 03/07/11 0848 CHOL 193 167 HDL 42* 39* LDL 120 99 TRIG 152* 148 CHOLHDLRATIO 5.0 4.0 Reviewed orders with patient. Reviewed health maintenance and updated orders accordingly - Yes History of abnormal Pap smear: NO - age 30-65 PAP every 5 years with negative HPV co-testing recommended Last 3 Pap Results: PAP (no units) Date Value 03/28/2012 NIL 04/06/2011 NIL 03/30/2010 NIL All Histories reviewed and updated in [facility]. ROS: C: NEGATIVE for fever, chills, change in weight I: NEGATIVE for worrisome rashes, moles or lesions E: NEGATIVE for vision changes or irritation ENT: NEGATIVE for ear, mouth and throat problems R: NEGATIVE for significant cough or SOB B: NEGATIVE for masses, tenderness or discharge CV: NEGATIVE for chest pain, palpitations or peripheral edema GI: has had 1 explosive episode of diarrhea right away in the morning, then she feels better. This has been going on for about 1 month. No blood no ab pain. No nausea or diarrhea noted. Last colonoscopy was in 2006 and was normal. : NEGATIVE for unusual urinary or vaginal symptoms. No vaginal bleeding. M: NEGATIVE for significant arthralgias or myalgia N: NEGATIVE for weakness, dizziness or paresthesias P: NEGATIVE for changes in mood or affect Labs reviewed in [facility] BP Readings from Last 3 Encounters: 03/27/13 136/84 10/08/12 144/86 03/28/12 122/74 Wt Readings from Last 3 Encounters: 03/27/13 161 lb (73.029 kg) 10/08/12 167 lb (75.751 kg) 03/28/12 163 lb (73.936 kg) OBJECTIVE: There were no vitals taken for this visit. Estimated Body mass index is 32.62 kg/(m^2) as calculatedfrom the following: Height as of 03/28/12: 5' 0(1.524 m). Weight as of 10/08/12: 167 lb(75.751 kg). 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 MS: no musculoskeletal defects are noted and gait is age appropriate without ataxia SKIN: no suspicious lesions or rashes NEURO: Normal strength and tone, sensory exam grossly normal, mentation intact and speech normal PSYCH: mentation appears normal and affect normal/bright ATP III Guidelines FRAX Risk Assessment ICSI Preventive Guidelines ASSESSMENT/PLAN: V70.0 Routine general medical examination at a health care facility (primary encounter diagnosis) Comment: Plan: Lipid panel reflex to direct LDL 401.9 Hypertension goal BP (blood pressure) < 130/80 Comment: improving Plan: amLODIPine (NORVASC) 10 MG tablet, lisinopril (PRINIVIL,ZESTRIL) 40 MG tablet, hydrochlorothiazide (HYDRODIURIL) 25 MG tablet, Basic metabolic panel Recheck in 6 months 733.90 Osteopenia Comment: been on meds since 2008 Plan: alendronate (FOSAMAX) 35 MG tablet Consider d/c med in 2013 per new guidelines 272.4 Hyperlipidemia LDL goal <130 Comment: await labs Plan: atorvastatin (LIPITOR) 20 MG tablet, ALT, Lipid panel reflex to direct LDL Recheck in 12 months V76.10 Screening for breast cancer Comment: Plan: MA Screening Digital Bilateral Diarrhea, she will add probiotics and if unimproved do colonoscopy to evaluate Counseling: Dietary Guidelines for Americans, 2010 USDA's MyPlate regular exercise healthy diet/nutrition vision screening reports that she has never smoked. She has never used smokeless tobacco. Estimated Body mass index is 32.62 kg/(m^2) as calculated from the following: Height as of 12: 5' 0(1.524 m). Weight as of 10/08/12: 167 lb(75.751 kg). Weight management plan: Current exercise routine: walking. Diet regimen was discussed and plan is self-directed dieting: reduce portions. Sofia Landers PA-C, [facility] Electronically signed by Sofia Landers PA-C documented in this encounter Nursing Notes 03/27/2013 8:30 AM CDT >> SO ROBERTSON Wed Mar 27, 2013 8:36 AM Patient presents with: Physical Initial BP 136/84 Pulse 92 Temp 98 ??F (36.7 ??C) (Oral) Ht 4' 11.5 (1.511 m) Wt 161 lb (73.029 kg) BMI 31.97 kg/m2 Estimated Body mass index is 31.97 kg/(m^2) as calculated from the following: Height as of this encounter: 4' 11.5(1.511 m). Weight as of this encounter: 161 lb(73.029 kg).. BP completed using cuff size: regular documented in this encounter Plan of Treatment Not on filedocumented as of this encounter Procedures Procedure Name Priority Date/Time Associated Diagnosis Comme nts LIPID REFLEX TO Routine 03/27/2013 9:06 AM Routine general med ical Results for this DIRECT LDL PANEL CDT examination at a health procedure are in care facility the results Hyperlipidemia LDL goal sect ion. <130 ALT Routine 03/27/2013 9:06 AM Hyperlipidemia LDL goa l Results for this CDT <130 procedure are i n the results section. BASIC METABOLIC Routine 03/27/2013 9:06 AM Hypertension goal B P Results for this PANEL CDT (blood pressure) < procedure are in 130/80 the results section. documented in this encounter Results (ABNORMAL) Lipid panel reflex to direct LDL (03/27/2013 9:06 AM CDT) P athologist Signature Cholesterol 153 0 - 200 AMALIA mg/dL [facility] Comment: LDL Cholesterol is the primary guide to therapy. The NCEP recommends further evaluation of: patients with cholesterol greater than 200 mg/dL if additional risk facto rs are present, cholesterol greater than 240 mg/dL, triglycerides greater than 1 50 mg/dL, or HDL less than 40 mg/dL. Triglycerides 101 0 - 150 mg/dL [facility] Comment: Fasting specimen HDL Cholesterol 41 (L) 50 - 110 mg/dL [facility] LDL Cholesterol Calculated 92 0 - 129 mg/dL [facility] Comment: LDL Cholesterol is the primary guide to therapy: LDL-cholesterol goal in high risk patients is <100 mg/dL and in very high risk patients is <70 mg/dL. VLDL-Cholesterol 20 0 - 30 mg/dL [facility] Cholesterol/HDL Ratio 4.0 0.0 - 5.0 [facility] Specimen Anatomical Collection Method Collection Time Receive d Time (Source) Location / / Volume Laterality Blood specimen 03/27/2013 9:06 AM 013 9:08 (specimen) CDT AM CDT Sofia Landers PA-C LAB - BLOOD ORDERABLES Performing Organization Address City/State/ZIP Code Phon e Number M [place] [id number] [facility] [place] [address] [facility] (ABNORMAL) Basic metabolic panel (03/27/2013 9:06 AM CDT) athologist Signature Sodium 145 (H) 133 - 144 [place] mmol/L [facility] Potassium 3.8 3.4 - 5.3 [place] mmol/L [facility] Chloride 104 94 - 109 [place] mmol/L [facility] Carbon Dioxide 30 20 - 32 [place] mmol/L [facility] Anion Gap 10.8 6 - 17 [place] mmol/L [facility] Glucose 94 60 - 99 [place] mg/dL [facility] Comment: Fasting specimen Urea Nitrogen 14 7 - 30 mg/dL [facility] Creatinine 0.75 0.52 - 1.04 mg/dL [facility] GFR Estimate 78 >60 mL/min/1.7m2 [facility] GFR Estimate If Black >90 >60 mL/min/1.7m2 F [facility] Calcium 9.9 8.5 - 10.4 mg/dL [facility] Specimen Anatomical Collection Method Collection Time Receive d Time (Source) Location / / Volume Laterality Blood specimen 03/27/2013 9:06 AM 013 9:08 (specimen) CDT AM CDT Sofia Leesa PA-C LAB - BLOOD ORDERABLES Performing Organization Address City/State/ZIP Code Phon e Number M [address] [place] [address] [facility] ALT (03/27/2013 9:06 AM CDT) athologist Signature ALT 47 0 - 50 U/L [facility] Specimen Anatomical Collection Method Collection Time Receive d Time (Source) Location / / Volume Laterality Blood specimen 03/27/2013 9:06 AM 013 9:08 (specimen) CDT AM CDT Sofia [place] PA-C LAB - BLOOD ORDERABLES Performing Organization Address City/State/ZIP Code Phon e Number M [place] [phone] [facility] [address] JUAREZ, [place] [address] [facility] documented in this encounter Visit Diagnoses Diagnosis Routine general medical examination at a health care facility - Primary Hypertension goal BP (blood pressure) < 130/80 Unspecified essential hypertension Osteopenia Disorder of bone and cartilage, unspecif ied Hyperlipidemia LDL goal <130 Other and unspecified hyperlipidemia documented in this encounter Care Teams Fermenting Cellar Dropper Relationship Specialty Start Date End Date Sofia Landers PA-C PCP - General 05/10/06 Mikayla Allan MD PCP - Obstetrics/Gynecology 05/18/1004/27 [facility] [address] [place] [address] [id number] Sofia Landers PA-C PCP - Assigned PCP 12/05/10 10/09/18 Saurabh [id number] DASIL[place] [id number] Sofia Landers PA-C Assigned PCP 05/10/12 04/17/21 Saurabh [id number] [id number] documented as of this encounter
--- OUTSIDE RECORDS SUMMARY | 2022-07-05 17:50 | XMS_ITS | Encounter Summary ---
:1950 Author Organization [facility] Address [address] [place] [address] Care Team Providers Name Role Phone Sofia Landers PA-C Primary Care Provider Mikayla Allan MD Unavailable Sofia Landers PA-C Unavailable Sofia Landers PA-C Unavailable Reason for Visit Reason Onset Date Comments Symptoms 02/13/2014 Encounter Details Date Type Department Care Team Description 02/13/[address] [facility] Sofia Landers PA-C Symptoms [place] [id number] [place] [address] [place] [address] [place] LOPE[place] [address] (Wo rk) Social History Tobacco Use Types Packs/Day Years Used Date Smoking Tobacco: Never Smokeless Tobacco: Never Alcohol Use Standard Drinks/Week Comments No 0 (1 standard drink = 0.6 oz pure alcoho l) Sex Assigned at Date Recorded Not on file documented as of this encounter Miscellaneous Notes Telephone Encounter - Jennifer Gibson RN - 02/13/2014 1:06 PM CDT Edith Stallings is a 63 year old female who calls with possible reaction to pneumovax and cough. NURSING ASSESSMENT Description: Redness around injection site about the size of a silver dollar, better today, now concerned with cough Onset/duration: 02/11/2014 Precip. factors: Pneumovax on 02/10/2014, canceled appointment with regarding same symptoms on 02/11/2014 Associated symptoms: Cough, fever - at 5:00a.m temp was 101 after tylenol temp is currently 98.0. Improves/worsens symptoms: Fever managed with tylenol Pain scale (1-10) 0/10 Taking medication(s) as prescribed? Yes Taking over the counter medication(s?) Yes Any medication side effects? No significant side effects Any barriers to taking medication(s) as prescribed? No Medication(s) improving/managing symptoms? Yes Medication reconciliation completed: Yes Last exam/Treatment: 02/10/2014 NURSING PLAN: Nursing advice to patient continue taking tylenol, encourage fluids and rest RECOMMENDED DISPOSITION: Home care advice -see above. Patient has a lab appointment tomorrow morning. If she is still experiencing symptoms she will make an appointment. Will comply with recommendation: Yes If further questions/concerns or if symptoms do not improve, worsen or new symptoms develop, call your PCP or [facility] as soon as possible. Guideline used: cough Telephone Triage Protocols for Nurses, Fourth Edition, Araceli Gbison RN Telephone Encounter - Lauryn Maurer CMA - 02/13/2014 12:01 PM CDT Spoke with EL and reviewed chart, pt received pneumovax(not flu) and did not show up to appt that was scheduled 02/11(looks like it was canceled.) Please triage per Lauryn Mcneill. Lauryn Maurer CMA ([facility]) Telephone Encounter - Micki Guillen - 02/13/2014 11:52 AM CDT Pt called and was seen on Saturday 02/10 and received a flu shot, she was seen again on 02/11 because she was running a fever and the area from the shot was raised and swollen. She is still running a tempand the area is red,raised,swollen and hurts. Thanks documented in this encounter Plan of Treatment Not on filedocumented as of this encounter Visit Diagnoses Not on filedocumented in this encounter Care Teams Awning Hanger Supervisor Relationship Specialty Start Date End Date Sofia Landers PA-C PCP - General 05/10/06 Mikayla Allan MD PCP - Obstetrics/Gynecology 05/18/1004/27 [facility] [address] [place] [phone] Sofia Landers PA-C PCP - Assigned PCP 12/05/10 10/09/18 Saurabh [id number] [place] FRASER [phone] Sofia Landers PA-C Assigned PCP 05/10/12 04/17/21 Saurabh [id number] [place] [phone] documented as of this encounter
--- OUTSIDE RECORDS SUMMARY | 2022-07-05 17:50 | XMS_ITS | Encounter Summary ---
:1950 Author Organization [place] Address [address] [place] [address] Care Team Providers Name Role Phone Sofia Landers PA-C Primary Care Provider Mikayla Allan MD Unavailable Sofia Landers PA-C Unavailable Sofia Landers PA-C Unavailable Reason for Referral Specialty Diagnoses / Procedures Referred By Contact Refer red To Contact Sofia Landers PA- C [place] [phone] [facility] [place] [id number] Referral ID Status Reason Start Date Expiration Date Visits Requ ested Visits Authorized Reason for Visit Reason Comments Hypertension Health Maintenance pneumovax Encounter Details Date Type Department Care Team Description 11/06/2013 Office Visit [facility] Sofia Landers, Hypert ension goal BP (blood pressure) < 130/80 (Primary Dx); Clinic [place] Overweight; [address] Jessica Hyperlipidemia LDL goal <130 [place] [address] [place] [phone] [facility] [phone] [place] [id number] Social History Tobacco Use Types Packs/Day Years Used Date Smoking Tobacco: Never Smokeless Tobacco: Never Alcohol Use Standard Drinks/Week Comments No 0 (1 standard drink = 0.6 oz pure alcoho l) Sex Assigned at Date Recorded Not on file documented as of this encounter Last Filed Vital Signs Vital Sign Reading Time Taken Comments Blood Pressure 146/82 11/06/2013 9:34 AM CDT Pulse 67 11/06/2013 9:34 AM CDT Temperature - - Respiratory Rate - - Oxygen Saturation - - Inhaled Oxygen Concentration - - Weight 73.6 kg (162 lb 4.8 oz) 11/06/2013 9:34 AM CDT Height 152.4 cm (5') 11/06/2013 9:34 AM CDT Body Mass Index 31.7 11/06/2013 9:34 AM CDT documented in this encounter Progress Notes Sofia Landers PA-C - 11/06/2013 8:43 AM CDT SUBJECTIVE: Edith Stallings is a 63 year old female who presents to clinic today for the following health issues: Hyperlipidemia Follow-Up ?? Rate your low fat/cholesterol diet?: good ?? Taking statin? Yes, no muscle aches from statin ?? Other lipid medications/supplements?: none Hypertension Follow-up ?? Outpatient blood pressures are not being checked. ?? Low Salt Diet: no added salt ?? Amount of exercise or physical activity: None, she is motivated to start exercise In fact, she isgoing to check out gyms after our appt today She knows how to eat well, just has to do it. States she does pretty well already though does think she eats too much ?? Problems taking medications regularly: No ?? Medication side effects: none ?? Diet: regular (no restrictions) History Substance Use Topics ??? Smoking status: Never Smoker ??? Smokeless tobacco: Never Used ??? Alcohol Use: No Problem list and histories reviewed & adjusted, as indicated. Additional history: has just met with creative arts therapist oncologist. She is doing well per pt. Notes are reviewed BP Readings from Last 3 Encounters: 11/06/13 146/82 11/04/13 167/91 04/15/13 140/85 Wt Readings from Last 3 Encounters: 11/06/13 162 lb 4.8 oz (73.619 kg) 11/04/13 162 lb 9.6 oz (73.755 kg) 04/15/13 161 lb 6.4 oz (73.211 kg) Labs reviewed in [facility] ROS: C: NEGATIVE for fever, chills, change in weight E/M: NEGATIVE for ear, mouth and throat problems R: NEGATIVE for significant cough or SOB CV: NEGATIVE for chest pain, palpitations or peripheral edema GI: NEGATIVE for nausea, abdominal pain, heartburn, or change in bowel habits OBJECTIVE: BP 146/82 Pulse 67 Ht 5' (1.524 m) Wt 162 lb 4.8 oz (73.619 kg) BMI 31.70 kg/m2 Body mass index is 31.70 kg/(m^2). GENERAL: healthy, alert, well nourished, well hydrated, no distress NECK: no tenderness, no adenopathy, no asymmetry, no masses, no stiffness; thyroid- normal to palpation RESP: lungs clear to auscultation - no rales, no rhonchi, no wheezes CV: regular rates and rhythm, normal S1 S2, no S3 or S4 and no murmur, no click or rub - ABDOMEN: soft, no tenderness, no hepatosplenomegaly, no masses, normal bowel sounds MS: extremities- no gross deformities noted, no edema Diagnostic test results: None, labs are up to date ASSESSMENT/PLAN: Hypertension - is not to goal, will increase dosage of lisinopril to 60 mg, float nurse bp recheck encouraged weight loss, she is able to do 4 METS of activity without symptoms so may begin exercise program, recheck in 3 months with me Overweight- nutrition referral, diet and exercise lifestyle changes. Pt is motivated will recheck in3 month to see progress, may be able to decrease bp med dosage at that time Hyperlipidemia- goal is meet, labs in 6 months Follow up with Provider - 3 months Sofia Landers PA-C, [facility] Electronically signed by Sofia Landers PA-C documented in this encounter Nursing Notes 11/06/2013 9:30 AM CDT >> Christoph Mendieta, PARKER MonNov 06, 2013 9:40 AM Patient presents with: Blood Pressure Health Maintenance - pneumovax Initial BP 146/82 Pulse 67 Ht 5' (1.524 m) Wt 162 lb 4.8 oz (73.619 kg) BMI 31.70 kg/m2 Estimated Body mass index is 31.70 kg/(m^2) as calculated from the following: Height as of this encounter: 5' 0(1.524 m). Weight as of this encounter: 162 lb 4.8 oz(73.619 kg). BP completed using cuff size: regular. K Gayatri VILA documented in this encounter Plan of Treatment Scheduled Referrals Name Type Priority Associated Diagnoses Order S [facility] NUTRITION REFERRAL Referral Routine Hypertension goal BP ( blood Ordered: 11/06/2013 pressure) < 130/ 80 Overweight documented as of this encounter Visit Diagnoses Diagnosis Hypertension goal BP (blood pressure) < 130/80 - Primary Unspecified essential hypertension Overweight(278.02) Overweight Hyperlipidemia LDL goal <130 Other and unspecified hyperlipidemia documented in this encounter Care Teams Boarding Specialist Relationship Specialty Start Date End Date Sofia Landers PA-C PCP - General 05/10/06 Mikayla Allan MD PCP - Obstetrics/Gynecology 05/18/1004/27 [facility] [address] [place] [phone] Sofia Landers PA-C PCP - Assigned PCP 12/05/10 10/09/18 Jessica [id number] [facility] [place] [id number] Sofia Landers PA-C Assigned PCP 05/10/12 04/17/21 Jessica [id number] [place] [address] documented as of this encounter
--- OUTSIDE RECORDS SUMMARY | 2022-07-05 17:50 | XMS_ITS | Encounter Summary ---
:1950 Author Organization [place] Address [address] [place] [address] Care Team Providers Name Role Phone Sofia Landers PA-C Primary Care Provider Mikayla Allan MD Unavailable Sofia Landers PA-C Unavailable Sofia Landers PA-C Unavailable Encounter Details Date Type Department Care Team Description 11/13/2013 Office Visit [facility] XX RESIGNED XX [address] [place], [place] [id number] [place] [address] [phone] Social History Tobacco Use Types Packs/Day Years Used Date Smoking Tobacco: Never Smokeless Tobacco: Never Alcohol Use Standard Drinks/Week Comments No 0 (1 standard drink = 0.6 oz pure alcoho l) Sex Assigned at Date Recorded Not on file documented as of this encounter Last Filed Vital Signs Vital Sign Reading Time Taken Comments Blood Pressure - - Pulse - - Temperature - - Respiratory Rate - - Oxygen Saturation - - Inhaled Oxygen - - Concentration Weight 71.7 kg (158 lb) 11/13/2013 4:03 PM CDT Height 152.4 cm (5') 11/13/2013 4:03 PM per EPIC lyric rds from CDT 03/28/12 Body Mass Index 30.86 11/13/2013 4:03 PM CDT documented in this encounter Progress Notes Kylie Street, RD - 11/20/2013 4:11 PM CDT [facility] Medical Nutrition Therapy Visit Type: Initial Assessment Edith Stallings referred by Sofia Landers for MNT related to Hyperlipidemia, Hypertension and Overweight Patient accompanied by self. Nutrition Assessment: Anthropometrics Height: . 152.4 cm (5') (per EPIC records from 03/28/12) BMI: 30.92 Weight: 71.668 kg (158 lb) WT hx: 167# 10/08/12 BSA: 1.74 IBW (kg): Female: 43 Recommended BMT: Nutrition History Meal/Snack Patterns: 3 meals/day Use of Vitamin/Mineral/Herbal Supplements: MVI, fish oil Previous Diet / Nutrition Education / Counseling: none Level of Knowledge: Intermediate knowledge Beliefs and Attitudes: Self-efficacy Willingness to Learn: Eager Physical Activity Physical Activity History: none Nutrition Prescription Energy: [id number] Protein: Fluid: Food Record Motivated to lose wt because had to increase BP meds. Knows what she needs to do but struggling to make her head do it. Wants to lose sensibly and doesn't want it to be about the # on the scale. Knows she needs to exercise more. 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 Past week has been weighing and measuring food and decreasing portions. Drinks black coffee and water. Doers get hungry either amsnack or pm snack time depending on when lunch is. Wakes 6am 7am B bran flakes with a honey nut cheerios to add flavor, half chobani yogurt 11:30am packs lunch 1cup leftovers made from scratch cooking, fresh veggies w/hummus and fruit 5:30pm if home sald and veggie, meat, skim milk. If not home, eats out 1x/wk salad or soup out of town for work (eats with 0-4x/wk, they split meals) Evening tough time, recently stopped eating after supper except 1 piece of chocolate which has been working. Focuses on getting work down during this time. Labs: none noteworthy Dx: HTN, high cholesterol, h/o uterine cancer Nutrition Diagnosis: Problem: Excessive energy intake Etiology: r/t self monitoring deficit and inactivity Signs and Symptoms: AEB BMI>30 and discussion with pt Nutrition Intervention: Nutrition Education: Survival information, Meals and Snacks: General/healthful diet Nutrition counseling: Cognitive such as self-monitoring Handouts: all from wt management folder Nutrition Goals: Wt loss of 1-2# per week Nutrition Plan: ?? Eat within 1 hour of rising and 4-6x/day by adding an am or pm snack. ?? 3+ cups non-starchy veggies/day. ?? 64+oz water/day. Self Monitoring Plan: ?? Weigh and measure foods for appropriate portions Accountability Plan: ?? Weigh in at clinic, start with weekly Physical Activity Goal: 7x/wk for 15 minutes Plan A: walk on treadmill before work Nutrition Follow Up / Monitoring: Weight, physical activity, portions Patient has RD contact information to call/email if needed. Kylie Street RD, LD Time Spent: 60 minutes documented in this encounter Plan of Treatment Not on filedocumented as of this encounter Visit Diagnoses Not on filedocumented in this encounter Care Teams Paper Cup Machine Operator Relationship Specialty Start Date End Date Sofia Landers PA-C PCP - General 05/10/06 Mikayla Allan MD PCP - Obstetrics/Gynecology 05/18/1004/27 [facility] [address] [place] [address] Sofia Landers PA-C PCP - Assigned PCP 12/05/10 10/09/18 [id number] [place] [address] [place] [address] Sofia Landers PA-C Assigned PCP 05/10/12 04/17/21 [facility]abh [id number] [facility] [id number] documented as of this encounter
--- OUTSIDE RECORDS SUMMARY | 2022-07-05 17:50 | XMS_ITS | Encounter Summary ---
:1950 Author Organization [place] Address [address] [place] [address] Care Team Providers Name Role Phone Sofia Mccray PA-C Primary Care Provider Mikayla Allan MD Unavailable Sofia Mccray PA-C Unavailable Sofia Mccray PA-C Unavailable Reason for Visit Reason Comments Hypertension re check Panel Management pneumovax Encounter Details Date Type Department Care Team Description 02/10/2014 Office Visit [facility] Sofia Mccray Need f or prophylactic vaccination against Streptococcus pneumoniae (pneumococcus) (Primary Dx); [facility] [place] Hypertension goal BP (blood pressure) < 130/80; [address] Saurabh Hyperlipidemia LDL goal <130 [place] [address] [id number] [address] [phone] [place] [address] Social History Tobacco Use Types Packs/Day Years Used Date Smoking Tobacco: Never Smokeless Tobacco: Never Alcohol Use Standard Drinks/Week Comments No 0 (1 standard drink = 0.6 oz pure alcoho l) Sex Assigned at Date Recorded Not on file documented as of this encounter Last Filed Vital Signs Vital Sign Reading Time Taken Comments Blood Pressure 130/62 02/10/2014 8:36 AM CDT Pulse 76 02/10/2014 8:07 AM CDT Temperature 36.7 ??C (98.1 ??F) 02/10/2014 8:07 AM CDT Respiratory Rate 20 02/10/2014 8:07 AM CDT Oxygen Saturation - - Inhaled Oxygen Concentration - - Weight 71.2 kg (156 lb 14.4 oz) 02/10/2014 8:07 AM CDT Height 152.4 cm (5') 02/10/2014 8:07 AM CDT Body Mass Index 30.64 02/10/2014 8:07 AM CDT documented in this encounter Progress Notes Sofia Mccray PA-C - 02/10/2014 7:55 AM CDT SUBJECTIVE: Edith Stallings is a 63 year old female who presents to clinic today for the following health issues: Hypertension Follow-up ?? Outpatient blood pressures are not being checked. ?? Low Salt Diet: low salt ?? Amount of exercise or physical activity: varies by day but goes 10 minutes to an hour a day ?? Problems taking medications regularly: No ?? Medication side effects: none ?? Diet: low salt and cut back on bread, not as much sugar History Substance Use Topics ??? Smoking status: Never Smoker ??? Smokeless tobacco: Never Used ??? Alcohol Use: No Problem list and histories reviewed & adjusted, as indicated. Additional history: she is seeing the php wordpress developer on a regular basis, to keep her motivated She is losing weight and feels so much better per pt BP Readings from Last 3 Encounters: 02/10/14 130/62 11/06/13 146/82 11/04/13 167/91 Wt Readings from Last 3 Encounters: 02/10/14 156 lb 14.4 oz (71.169 kg) 11/13/13 158 lb (71.668 kg) 11/06/13 162 lb 4.8 oz (73.619 kg) Labs reviewed in EPIC ROS: C: NEGATIVE for fever, chills, change in weight R: NEGATIVE for significant cough or SOB CV: NEGATIVE for chest pain, palpitations or peripheral edema OBJECTIVE: BP 130/62 Pulse 76 Temp(Src) 98.1 ??F (36.7 ??C) (Oral) Resp 20 Ht 5' (1.524 m) Wt 156 lb 14.4 oz (71.169 kg) BMI 30.64 kg/m2 Body mass index is 30.64 kg/(m^2). GENERAL: healthy, alert, well nourished, well hydrated, no distress NECK: no tenderness, no adenopathy, no asymmetry, no masses, no stiffness; thyroid- normal to palpation RESP: lungs clear to auscultation - no rales, no rhonchi, no wheezes CV: regular rates and rhythm, normal S1 S2, no S3 or S4 and no murmur, no click or rub - MS: extremities- no gross deformities noted, no edema PSYCH: Alert and oriented times 3; speech- coherent , normal rate and volume; able to articulate logical thoughts, able to abstract reason, no tangential thoughts, no hallucinations or delusions, affect- normal Diagnostic test results: none ASSESSMENT/PLAN: (V03.82) Need for prophylactic vaccination against Streptococcus pneumoniae (pneumococcus) (primary encounter diagnosis) Comment: Plan: PNEUMOCOCCAL VACCINE,ADULT,SQ OR IM, ADMIN VACCINE, FIRST [60007] HTN- near goal encouraged more weight loss, recheck in 6 months random BP checks recommended Hyperlipidemia- await results titrate prn Sofia Mccray PA-C, [facility] documented in this encounter Nursing Notes Lauryn Maurer, [facility] - 02/10/2014 8:36 AM CDT Prior to injection verified patient identity using patient's name and date of . Per orders of Sofia Mccray, injection of pneumovax given by Lauryn Maurer. Patient instructed to remain in clinicfor 20 minutes afterwards, and to report any adverse reaction to me immediately. Screening Questionnaire for Adult Immunization Are you sick today? No Do you have allergies to medications, food or any vaccine? No Have you ever had a serious reaction [...] the past 4 weeks? No Immunization questionnaire answers were all negative. MNVFC doesn't apply on this patient Lauryn Maurer CMA ([facility]) Screening performed by Lauryn Maurer on 02/10/2014 at 8:36 AM. Lauryn Maurer CMA - 02/10/2014 8:09 AM CDT Chief Complaint Patient presents with ??? Blood Pressure re check ??? Panel Management pneumovax Initial BP 136/72 Pulse 76 Temp(Src) 98.1 ??F (36.7 ??C) (Oral) Resp 20 Ht 5' (1.524 m) Wt156 lb 14.4 oz (71.169 kg) BMI 30.64 kg/m2 Estimated body mass index is 30.64 kg/(m^2) as calculated from the following: Height as of this encounter: 5' (1.524 m). Weight as of this encounter: 156 lb 14.4 oz (71.169 kg). BP completed using cuff size: regular Lauryn Maurer CMA ([facility]) documented in this encounter Miscellaneous Notes Addendum Note - Sofia Mccray PA-C - 02/10/2014 10:28 AM CDT Addended by: SOFIA MCCRAY on: 02/10/2014 10:28 AM Modules accepted: Orders documented in this encounter Plan of Treatment Not on filedocumented as of this encounter Visit Diagnoses Diagnosis Need for prophylactic vaccination agains t Streptococcus pneumoniae (pneumococcus) - Primary Need for prophylactic vaccination agains t streptococcus pneumoniae (pneumococcus) Hypertension goal BP (blood pressure) < 130/80 Unspecified essential hypertension Hyperlipidemia LDL goal <130 Other and unspecified hyperlipidemia documented in this encounter Care Teams Compress Trucker Relationship Specialty Start Date End Date Sofia Mccray PA-C PCP - General 05/10/06 Mikayla Allan MD PCP - Obstetrics/Gynecology 05/18/1004/27 [facility] [address] [place] [address] Sofia Mccray PA-C PCP - Assigned PCP 12/05/10 10/09/18 Saurabh [id number] [facility] [place] [phone] Sofia Mccray PA-C Assigned PCP 05/10/12 04/17/21 [facility]aurabh [id number] [facility] [place] [phone] documented as of this encounter
--- OUTSIDE RECORDS SUMMARY | 2022-07-05 17:50 | XMS_ITS | Encounter Summary ---
:1950 Author Organization [place] Address [address] [place] [address] Care Team Providers Name Role Phone Sofia Landers PA-C Primary Care Provider Mikayla Allan MD Unavailable Sofia Landers PA-C Unavailable Sofia Landers PA-C Unavailable Encounter Details Date Type Department Care Team Description 03/27/2013 Results Only [facility] Sofia Landers PA-C Zimmerman Rogers [address] [place] [address] [address] [place] [address] [place] [phone] [place] [address] (Wo rk) Social [...] Date/Time Associated Diagnosis Comme nts MA SCREENING 03/27/2013 11:37 AM Results for this DIGITAL BILATERAL CDT procedure are in the results section. documented in this encounter Results MA Screening Digital Bilateral (03/27/2013 11:37 AM CDT) Anatomical Region Laterality Modality Breast Bilateral Other Specimen (Source) Anatomical Collection Method Collection Time Re ceived Time Location / / Volume Laterality 03/27/2013 11:37 AM CDT Impressions 03/27/2013 3:16 PM CDT IMPRESSION: BI-RADS 1: NEGATIVE. RECOMMENDATIONS: ??Routine annual mammog nabil. DAMIAN JACKMAN MD Narrative 03/27/2013 3:16 PM CDT SCREENING MAMMOGRAM, BILATERAL, DIGITAL w/ CAD ??- ??03/27/2013 11:37 AM BREAST SYMPTOMS: ? No current breast symptoms were reported. COMPARISON: 03/27/2012, 03/22/2011, , 08/05/2008 PARENCHYMAL PATTERN: The breasts are mos tly fatty replaced. COMMENTS: No findings of suspicion for m alignancy. Procedure Note Damian Jackman MD - 03/27/2013Form atting of this note might be different from the original. SCREENING MAMMOGRAM, BILATERAL, DIGITAL w/ CAD - 03/27/2013 11:37 AM BREAST SYMPTOMS: No current breast sympt oms were reported. COMPARISON: 03/27/2012, 03/22/2011, , 08/05/2008 PARENCHYMAL PATTERN: The breasts are mos tly fatty replaced. COMMENTS: No findings of suspicion for m alignancy. IMPRESSION IMPRESSION: BI-RADS 1: NEGATIVE. RECOMMENDATIONS: Routine annual mammogra phy. DAMIAN JACKMAN MD Sofia Landers PA-C [facility]G MAMMOGRAPHY ORDERABLES documented in this encounter Visit Diagnoses Not on filedocumented in this encounter Care Teams Wagon Person Relationship Specialty Start Date End Date Sofia Landers PA-C PCP - General 05/10/06 Mikayla Allan MD PCP - Obstetrics/Gynecology 05/18/1004/27 [facility] [address] [phone] Sofia Landers PA-C PCP - Assigned PCP 12/05/10 10/09/18 [facility]aur[facility] [id number] [facility] [address] Sofia Landers PA-C Assigned PCP 05/10/12 04/17/21 Saurabh [id number] [facility] [place] [id number] documented as of this encounter
--- OUTSIDE RECORDS SUMMARY | 2022-07-05 17:50 | XMS_ITS | Encounter Summary ---
:1950 Author Organization [place] Address [address] [place] [address] Care Team Providers Name Role Phone Sofia Landers PA-C Primary Care Provider Mikayla Allan MD Unavailable Sofia Landers PA-C Unavailable Sofia Landers PA-C Unavailable Reason for Visit Reason Comments Cough Health Maintenance UTD Encounter Details Date Type Department Care Team Description 03/13/[address] [facility] Sofia Landers, Acute bronchitis (Primary Dx); [facility] [place] Elevated ALT measurement [address] [place] [address] [facility] [phone] [address] [phone] [place] [address] (Wo rk) Social History Tobacco Use Types Packs/Day Years Used Date Smoking Tobacco: Never Smokeless Tobacco: Never Alcohol Use Standard Drinks/Week Comments No 0 (1 standard drink = 0.6 oz pure alcoho l) Sex Assigned at Date Recorded Not on file documented as of this encounter Last Filed Vital Signs Vital Sign Reading Time Taken Comments Blood Pressure 120/70 03/13/2014 11:11 AM CDT Pulse 88 03/13/2014 10:31 AM CDT Temperature 36.7 ??C (98 ??F) 03/13/2014 10:31 AM CDT Respiratory Rate 16 03/13/2014 10:31 AM CDT Oxygen Saturation 99% 03/13/2014 10:31 AM CDT Inhaled Oxygen Concentration - - Weight - - Height - - Body Mass Index - - documented in this encounter Progress Notes Christoph Mendieta CMA - 03/14/2014 11:51 AM CDT Quick Note: Called and advised of results below. Clint Mendieta MA Sofia Landers PA-C - 03/13/2014 8:52 AM CDT SUBJECTIVE: Edith Stallings is a 63 year old female who presents to clinic today for the following health issues: Acute Illness- symptoms started the day after getting her pneumonia injection. She continues to cough it is worse morning and evening though is some better in that she is not coughing all day long anymore. She felt like she has influenza initially after her shot-aches, fatigue, felt like she had a fever Acute illness concerns?- cough Onset: 1 month ?? Fever: no ?? Chills/Sweats: no ?? Headache (location?): no ?? Sinus Pressure:no ?? Conjunctivitis: no ?? Ear Pain: no ?? Rhinorrhea: no ?? Congestion: YES ?? Sore Throat: no ?? Cough: YES-productive of clear sputum, productive of yellow sputum, improving over time ?? Wheeze: YES At times ?? Decreased Appetite: no ?? Nausea: no ?? Vomiting: no ?? Diarrhea: no ?? Dysuria/Freq.: no ?? Fatigue/Achiness: YES i initially - energy level is back ?? Sick/Strep Exposure: no Therapies Tried and outcome: Pushing fluids - Doesn't like cough medicenes Problem list and histories reviewed & adjusted, as indicated. Additional history: as documented BP Readings from Last 3 Encounters: 03/13/14 120/70 02/10/14 130/62 11/06/13 146/82 Wt Readings from Last 3 Encounters: 02/10/14 156 lb 14.4 oz (71.169 kg) 11/13/13 158 lb (71.668 kg) 11/06/13 162 lb 4.8 oz (73.619 kg) Labs reviewed in [facility] ROS: As documented above OBJECTIVE: BP 120/70 Pulse 88 Temp(Src) 98 ??F (36.7 ??C) Resp 16 SpO2 99% There is no weight on file to calculate BMI. GENERAL: healthy, alert, well nourished, well hydrated, no distress HENT: ear canals- normal; TMs- normal; Nose- normal; Mouth- no ulcers, no lesions NECK: no tenderness, no adenopathy, no asymmetry, no masses, no stiffness; thyroid- normal to palpation RESP: lungs clear to auscultation - no rales, no rhonchi, no wheezes CV: regular rates and rhythm, normal S1 S2, no S3 or S4 and no murmur, no click or rub - Diagnostic test results: No results found for this or any previous visit (from the past 24 hour(s)). ASSESSMENT/PLAN: (466.0) Acute bronchitis (primary encounter diagnosis) Comment: suspect more of an immune response than an actual reaction Plan: azithromycin (ZITHROMAX) 250 MG tablet otc meds prn (790.4) Elevated ALT measurement Comment: Plan: if still elevated consider hepatitis screening labs and perhaps ab ultrasound or lowering statin Follow up with Provider - prn Sofia Landers PA-C, [facility] Electronically signed by Sofia Landers PA-C documented in this encounter Nursing Notes Lianne Ray LPN - 03/13/2014 10:37 AM CDT Chief Complaint Patient presents with ??? Cough ??? Health Maintenance UTD Initial BP 138/72 Pulse 88 Temp(Src) 98 ??F (36.7 ??C) Resp 16 SpO2 99% Estimated body mass index is 30.64 kg/(m^2) as calculated from the following: Height as of 02/10/14: 5' (1.524 m). Weight as of 02/10/14: 156 lb 14.4 oz (71.169 kg). BP completed using cuff size: regular documented in this encounter Plan of Treatment Not on filedocumented as of this encounter Procedures Procedure Name Priority Date/Time Associated Diagnosis Comme nts ALT Routine 03/13/2014 11:18 AM Elevated ALT Results for this CDT measurement procedure are i n the results section. documented in this encounter Results ALT (03/13/2014 11:18 AM CDT) P athologist Signature ALT 42 0 - 50 U/L [facility] Specimen Anatomical Collection Method Collection Time Receive d Time (Source) Location / / Volume Laterality Blood specimen 03/13/2014 11:18 4 (specimen) AM CDT 11:19 AM CDT [facility]ard [facility] MANAGER ANIMATION FLOUR MIXER HELPER LAB - BLOOD ORDERABLES Performing Organization Address City/State/ZIP Code Phon e Number [facility] [address] [facility] [place] [address] [facility] documented in this encounter Visit Diagnoses Diagnosis Acute bronchitis - Primary Elevated ALT measurement Nonspecific elevation of levels of trans aminase or lactic acid dehydrogenase (LDH) documented in this encounter Care Teams Medical Officer Psychiatry Relationship Specialty Start Date End Date Sofia Landers PA-C PCP - General 05/10/06 Mikayla Allan MD PCP - Obstetrics/Gynecology 05/18/1004/27 [facility] [address] [place] [address] Sofia Landers PA-C PCP - Assigned PCP 12/05/10 10/09/18 Saurabh [id number] [address] Sofia Landers PA-C Assigned PCP 05/10/12 04/17/21 Saurabh [id number] [id number] documented as of this encounter
--- OUTSIDE RECORDS SUMMARY | 2022-07-05 17:50 | XMS_ITS | Encounter Summary ---
:1950 Author Organization [facility] Address [address] [place] [address] Care Team Providers Name Role Phone Sofia Landers PA-C Primary Care Provider Mikayla Allan MD Unavailable Sofia Landers PA-C Unavailable Reason for Visit Reason Comments Physical Pre Visit Planning - Done Encounter Details Date Type Department Care Team Description 03/28/2012 Office Visit [facility] Sofia Landers Routin e general medical examination at a health care facility (Primary Dx); [facility] Hypertension goal BP (blood pressure) < 130/80; [address] Saurabh Osteopenia; [place] [address] ISHA Hyperlipide marissa LDL goal <[address] [id number] [phone] [place] [address] Social History Tobacco Use Types Packs/Day Years Used Date Smoking Tobacco: Never Smokeless Tobacco: Never Alcohol Use Standard Drinks/Week Comments No 0 (1 standard drink = 0.6 oz pure alcoho l) Sex Assigned at Date Recorded Not on file documented as of this encounter Last Filed Vital Signs Vital Sign Reading Time Taken Comments Blood Pressure 122/74 03/28/2012 8:37 AM CDT Pulse - - Temperature 36.6 ??C (97.8 ??F) 03/28/2012 8:37 AM CDT Respiratory Rate - - Oxygen Saturation - - Inhaled Oxygen Concentration - - Weight 73.5 kg (162 lb) 03/28/2012 8:37 AM CDT Height 152.4 cm (5') 03/28/2012 8:37 AM CDT Body Mass Index 31.64 03/28/2012 8:37 AM CDT documented in this encounter Patient Instructions Patient InstructionsAntoine Valero - 03/27/2012 2:27 PM CDT PREVENTIVE HEALTH RECOMMENDATIONS: Get a Pap test each year. If you have 3 normal tests in a row, you may have the test every 2 to 3 years. You do not need a Pap test if you've had a hysterectomy (removal of uterus) and have not had cancer. You should be tested each year for STDs (sexually transmitted diseases), if you're at risk. Have a mammogram every 1 to 2 years. Have a colonoscopy at age 50, or have a yearly FIT test (stool test). These exams will check for colon cancer. Have a cholesterol test every 5 years. Have a diabetes test (fasting glucose) every three years. If you are at risk for diabetes, you should have this test more often. Vaccines: Get a flu shot each year. Get a tetanus shot every 10 years. Eat at least 5 servings of fruits and vegetables daily. Eat whole-grain bread, whole-wheat pasta and brown rice instead of white grains and rice. For bone health: Eat calcium-rich foods or take calcium pills (500 to 600 mg) twice a day with food.Also take vitamin D (1000 IUs) each day. If you are at risk for osteoporosis (brittle bone disease), think about having a bone density scan (DEXA). Exercise for at least 150 minutes a week (an average of 30 minutes a day, 5 days of the week). This will help you control your weight and prevent disease. Limit alcohol to one drink per day. No smoking. Wear sunscreen to prevent skin cancer. See your dentist twice a year for an exam and cleaning. See your eye doctor every 1 to 2 years. documented in this encounter Progress Notes Sofia Landers PA-C - 03/27/2012 2:27 PM CDT SUBJECTIVE: CC: Edith Stallings is an 61 year old woman who presents for preventive health visit. Healthy Habits: ?? Do you get at least three servings of calcium containing foods daily (dairy, green leafy vegetables, etc.)? yes ?? Amount of exercise or daily activities, outside of work: no ?? Problems taking medications regularly No ?? Medication side effects: No ?? Have you had an eye exam in the past two years? yes ?? Do you see a dentist twice per year? yes Other concerns to address: is seeing oncologist for 2 year follow up visit, she is feeling well Dietary Guidelines for Americans, 2010 USDA's MyPlate Estimated Body mass index is 31.04 kg/(m^2) as calculated from the following: Height as of 04/18/11: 5' 1(1.549 m). Weight as of 11/16/11: 164 lb 4.8 oz(74.526 kg). Staff Signature Sarah Ríos CMA Today's PHQ-2 Score: Abuse: Current or Past(Physical, Sexual or Emotional)- No Do you feel safe in your environment - Yes History Substance Use Topics ??? Smoking status: Never Smoker ??? Smokeless tobacco: Not on file ??? Alcohol Use: No The patient does not drink >3 drinks per day nor >7 drinks per week. Last Mammo:No results found. Last lipid profile: Total Cholesterol: Cholesterol Date Value Range Status 03/07/2011 167 0-200 (mg/dL) Final LDL Cholesterol is the primary guide to therapy. The NCEP recommends further evaluation of: patients with cholesterol greater than 200 mg/dL if additional risk factors are present, cholesterol greater than 240 mg/dL, triglycerides greater than 150 mg/dL, or HDL less than 40 mg/dL. LDL Cholesterol: LDL Cholesterol Calculated Date Value Range Status 03/07/2011 99 0-129 (mg/dL) Final LDL Cholesterol is the primary guide to therapy: LDL-cholesterol goal in high risk patients is <100 mg/dL and in very high risk patients is <70 mg/dL. HDL Cholesterol: HDL Cholesterol Date Value Range Status 03/07/2011 39* 50-110 (mg/dL) Final Reviewed orders with patient. Reviewed health maintenance and updated orders accordingly - Yes Staff Signature Sarah Ríos CMA History of abnormal Pap smear: No Last 3 Pap Results: PAP (no units) Date Value 04/06/2011 NIL 03/30/2010 NIL 03/30/2009 NIL All Histories reviewed and updated in [facility]. ROS: C: NEGATIVE for fever, chills, [...] change in bowel habits : NEGATIVE for unusual urinary or vaginal symptoms. No vaginal bleeding. M: NEGATIVE for significant arthralgias or myalgia MUSCULOSKELETAL:cut her right thumb at the [place] [facility], is healing well sutures placed 03-11-12, wonders what to do for keeping it covered or not at this point N: NEGATIVE for weakness, dizziness or paresthesias P: NEGATIVE for changes in mood or affect Labs reviewed in EPIC BP Readings from Last 3 Encounters: 03/28/12 122/74 03/21/12 150/92 03/11/12 152/87 Wt Readings from Last 3 Encounters: 03/28/12 162 lb (73.483 kg) 11/16/11 164 lb 4.8 oz (74.526 kg) 07/13/11 159 lb 11.2 oz (72.439 kg) OBJECTIVE: There were no vitals taken for this visit. Estimated Body mass index is 31.04 kg/(m^2) as calculatedfrom the following: Height as of 04/18/11: 5' 1(1.549 m). Weight as of 11/16/11: 164 lb 4.8 oz(74.526 kg). 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 MS: no musculoskeletal defects are noted and gait is age appropriate without ataxia SKIN: no suspicious lesions or rashes NEURO: Normal strength and tone, sensory exam grossly normal, mentation intact and speech normal PSYCH: mentation appears normal and affect normal/bright ATP III Guidelines FRAX Risk Assessment ICSI Preventive Guidelines ASSESSMENT/PLAN: Routine general medical examination at a health care facility (primary encounter diagnosis) Comment: Plan: UTD with mammo, dexa scan ordered, colon UTD Hypertension goal BP (blood pressure) < 130/80 Comment: well controlled Plan: amLODIPine (NORVASC) 10 MG tablet, lisinopril (PRINIVIL,ZESTRIL) 40 MG tablet, hydrochlorothiazide (HYDRODIURIL) 25 MG tablet, Basic metabolic panel (Ca, Cl, CO2, Creat, Gluc, K, Na, BUN) Recheck in 6 months Osteopenia Comment: await bone density Plan: alendronate (FOSAMAX) 35 MG tablet, Dexa hip/pelvis/spine* Needs to add weight bearing exercise Hyperlipidemia LDL goal <130 Comment: await results Plan: atorvastatin (LIPITOR) 20 MG tablet, Lipid panel reflex to direct LDL, ALT Titrate prn COUNSELING: regular exercise healthy diet/nutrition vision screening reports that she has never smoked. She does not have any smokeless tobacco history on file. Estimated Body mass index is 31.04 kg/(m^2) as calculated from the following: Height as of 04/18/11: 5' 1(1.549 m). Weight as of 11/16/11: 164 lb 4.8 oz(74.526 kg). Weight management plan: Current exercise routine: no regular exercise. Established an exercise regimen with the patient. and Diet regimen was discussed. self-directed dieting Electronically signed by Sofia Landers PA-C documented in this encounter Nursing Notes 03/28/2012 8:30 AM CDT >> ANTOINE VALERO MonMar 28, 2012 8:44 AM Patient is here today for her physical. She would like her wound on her right hand checked today. Estimated Body mass index is 31.64 kg/(m^2) as calculated from the following: Height as of this encounter: 5' 0(1.524 m). Weight as of this encounter: 162 lb(73.483 kg). BP Readings from Last 1 Encounters: 03/28/12 : 122/74] BP cuff size: regular Do you feel safe in your environment? Yes Does the patient need any medication refills today? yes documented in this encounter Plan of Treatment Not on filedocumented as of this encounter Procedures Procedure Name Priority Date/Time Associated Diagnosis Comme nts LIPID REFLEX TO Routine 03/28/2012 9:05 AM Hyperlipidemia LDL goal Results for this DIRECT LDL PANEL CDT <130 procedure a re in the results section. ALT Routine 03/28/2012 9:05 AM Hyperlipidemia LDL goa l Results for this CDT <130 procedure are i n the results section. BASIC METABOLIC Routine 03/28/2012 9:05 AM Hypertension goal B P Results for this PANEL CDT (blood pressure) < procedure are in 130/80 the results section. documented in this encounter Results ALT (03/28/2012 9:05 AM CDT) athologist Signature ALT 43 0 - 50 U/L [facility] Specimen Anatomical Collection Method Collection Time Receive d Time (Source) Location / / Volume Laterality Blood specimen 03/28/2012 9:05 AM 012 9:06 (specimen) CDT AM CDT Sofia Landers PA-C LAB - BLOOD ORDERABLES Performing Organization Address City/State/ZIP Code Phon e Number M [facility] [address] [place], [place] [address] [facility] Basic metabolic panel (Ca, Cl, CO2, Creat, Gluc, K, Na, BUN) (03/28/2012 9:05 AM CDT) athologist Signature Sodium 144 133 - 144 [place] mmol/L [facility] Potassium 4.0 3.4 - 5.3 [place] mmol/L [facility] Chloride 106 94 - 109 [place] mmol/L [facility] Carbon Dioxide 30 20 - 32 [place] mmol/L [facility] Anion Gap 8.5 6 - 17 [place] mmol/L [facility] Glucose 91 60 - 99 [place] mg/dL [facility] Comment: Fasting specimen Urea Nitrogen 16 7 - 30 mg/dL [facility] Creatinine 0.67 0.52 - 1.04 mg/dL [facility] GFR Estimate 89 >60 mL/min/1.7m2 [facility] GFR Estimate If Black >90 >60 mL/min/1.7m2 F [facility] Calcium 9.7 8.5 - 10.4 mg/dL [facility] Specimen Anatomical Collection Method Collection Time Receive d Time (Source) Location / / Volume Laterality Blood specimen 03/28/2012 9:05 AM 012 9:06 (specimen) CDT AM CDT Sofia Landers PA-C LAB - BLOOD ORDERABLES Performing Organization Address City/State/ZIP Code Phon e Number M [facility] [address] [place] [address] CENTER [facility] (ABNORMAL) Lipid panel reflex to direct LDL (03/28/2012 9:05 AM CDT) athologist Signature Cholesterol 193 0 - 200 [place] mg/dL [facility] Comment: LDL Cholesterol is the primary guide to therapy. The NCEP recommends further evaluation of: patients with cholesterol greater than 200 mg/dL if additional risk facto rs are present, cholesterol greater than 240 mg/dL, triglycerides greater than 1 50 mg/dL, or HDL less than 40 mg/dL. Triglycerides 152 (H) 0 - 150 mg/dL [facility] Comment: Fasting specimen HDL Cholesterol 42 (L) 50 - 110 mg/dL [facility] LDL Cholesterol Calculated 120 0 - 129 mg/dL [facility] Comment: LDL Cholesterol is the primary guide to therapy: LDL-cholesterol goal in high risk patients is <100 mg/dL and in very high risk patients is <70 mg/dL. VLDL-Cholesterol 30 0 - 30 mg/dL [facility] Cholesterol/HDL Ratio 5.0 0.0 - 5.0 [facility] Specimen Anatomical Collection Method Collection Time Receive d Time (Source) Location / / Volume Laterality Blood specimen 03/28/2012 9:05 AM 012 9:06 (specimen) CDT AM CDT Sofia Landers PA-C LAB - BLOOD ORDERABLES Performing Organization Address City/State/ZIP Code Phon e Number M [place] [id number] [facility] [place] [address] [facility] documented in this encounter Visit Diagnoses Diagnosis Routine general medical examination at a health care facility - Primary Hypertension goal BP (blood pressure) < 130/80 Unspecified essential hypertension Osteopenia Disorder of bone and cartilage, unspecif ied Hyperlipidemia LDL goal <130 Other and unspecified hyperlipidemia documented in this encounter Care Teams Physical Therapy Coordinator Relationship Specialty Start Date End Date Sofia Landers PA-C PCP - General 05/10/06 Mikayla Allan MD PCP - Obstetrics/Gynecology 05/18/1004/27 [facility] [address] [place] [address] [phone] Sofia Landers PA-C PCP - Assigned PCP 12/05/10 10/09/18 Saurabh [id number] [place] [id number] documented as of this encounter
--- OUTSIDE RECORDS SUMMARY | 2022-07-05 17:50 | XMS_ITS | Encounter Summary ---
:1950 Author Organization [facility] Address [address] [place] [address] Care Team Providers Name Role Phone Sofia Landers PA-C Primary Care Provider Mikayla Allan MD Unavailable Sofia Landers PA-C Unavailable Sofia Landers PA-C Unavailable Encounter Details Date Type Department Care Team Description 03/31/2014 Hospital Encounter [facility] Fifi Landers PA-C Screening [address] [place] [address] [phone] [phone] Social History Tobacco Use Types Packs/Day Years [...] 1 tablet 12 tablet 0 03/2710/29/2014 tabletIndications: (35 mg) by mouth Osteopenia every 7 days amLODIPine (NORVASC) 10 MG Take 1 tablet 90 tablet 3 07/07/ 2014 03/31/2015 tabletIndications: (10 mg) by mouth Hypertension goal BP (blood daily pressure) < 130/80 atorvastatin (LIPITOR) 20 MG Take 1 tablet 90 tablet 3 02/201403/31/2015 tabletIndications: (20 mg) by mouth Hyperlipidemia LDL goal <130 daily azithromycin (ZITHROMAX) 250 Two tablets 6 tablet 0 201310/29/2014 MG tabletIndications: Acute first day, then bronchitis one tablet daily for four days. hydrochlorothiazide Take 1 tablet 90 tablet 3 02/10/2014 (HYDRODIURIL) 25 MG (25 mg) by mouth tabletIndications: daily Hypertension goal BP (blood pressure) < 130/80 lisinopril Take 1.5 tablets 135 tablet 3 02/10/2014 03/31/20 15 (PRINIVIL,ZESTRIL) 40 MG (60 mg) by mouth tabletIndications: daily Hypertension goal BP (blood pressure) < 130/80 documented as of this encounter Plan of Treatment Not on filedocumented as of this encounter Procedures Procedure Name Priority Date/Time Associated Diagnosis Comme nts MA SCREENING Routine 03/31/2014 5:05 PM Screening Results f or this DIGITAL BILATERAL CDT procedure are in the results section. documented in this encounter Results MA Screening Digital Bilateral (03/31/2014 5:05 PM CDT) Anatomical Region Laterality Modality Breast Bilateral Mammography Specimen (Source) Anatomical Location Collection Method / Collectio n Time Received Time / Laterality Volume Impressions 04/01/2014 9:39 AM CDT IMPRESSION: BI-RADS CATEGORY: 1 - ??NEGATIVE. RECOMMENDED FOLLOW-UP: Annual Mammograph y Exam results letter mailed to patient. DAMIAN JACKMAN MD Narrative 04/01/2014 9:39 AM CDT SCREENING MAMMOGRAM, BILATERAL, DIGITAL w/CAD - 03/31/2014 5:05 PM. BREAST SYMPTOMS: No current breast compl aints. ?. COMPARISON: ??03/27/2013, 03/27/2012, 03/22, 03/29/2010. BREAST DENSITY: Almost entirely fat. COMMENTS: No findings of suspicion for m alignancy. ?? Small focal asymmetry in the slightly upper posterio r central right breast 12:00 position is stable. Procedure Note Damian Jackman MD - 04/01/2014Form atting of this note might be different from the original. SCREENING MAMMOGRAM, BILATERAL, DIGITAL w/CAD - 03/31/2014 5:05 PM. BREAST SYMPTOMS: No current breast compl aints. . COMPARISON: 03/27/2013, 03/27/2012, 011, 03/29/2010. BREAST DENSITY: Almost entirely fat. COMMENTS: No findings of suspicion for m alignancy. Small focal asymmetry in the slightly upper posterio r central right breast 12:00 position is stable. IMPRESSION IMPRESSION: BI-RADS CATEGORY: 1 - NEGATI VE. RECOMMENDED FOLLOW-UP: Annual Mammograph y Exam results letter mailed to patient. DAMIAN JACKMAN MD Sofia Landers PA-C IMG MAMMOGRAPHY ORDERABLES documented in this encounter Visit Diagnoses Diagnosis Screening Screening for unspecified condition documented in this encounter Care Teams Hog Killer Relationship Specialty Start Date End Date Sofia Landers PA-C PCP - General 05/10/06 iMkayla Allan MD PCP - Obstetrics/Gynecology 05/18/1004/27 [facility] [address] [place] [address] [phone] Sofia Landers PA-C PCP - Assigned PCP 12/05/10 10/09/18 [place] [id number] [facility] [place] [id number] Sofia Landers PA-C Assigned PCP 05/10/12 04/17/21 Jessica [address] [facility] [place] [phone] documented as of this encounter
--- OUTSIDE RECORDS SUMMARY | 2022-07-05 17:50 | XMS_ITS | Encounter Summary ---
:1950 Author Organization [facility] Address [address] [place] [address] Care Team Providers Name Role Phone Sofia Landers PA-C Primary Care Provider Mikayla Allan MD Unavailable Sofia Landers PA-C Unavailable Sofia Landers PA-C Unavailable Reason for Visit Reason Comments Imm/Inj reaction Encounter Details Date Type Department Care Team Description 02/11/2014 Office Visit [facility] Ac MD ENCOUNTER--DISREGARD [address] (Primary Dx) [place] [phone] Social History Tobacco Use Types Packs/Day Years Used Date Smoking Tobacco: Never Smokeless Tobacco: Never Alcohol Use Standard Drinks/Week Comments No 0 (1 standard drink = 0.6 oz pure alcoho l) Sex Assigned at Date Recorded Not on file documented as of this encounter Progress Notes Osorio Davis - 02/26/2014 2:49 PM CDT Cancelled. documented in this encounter Plan of Treatment Not on filedocumented as of this encounter Visit Diagnoses Diagnosis ERRONEOUS ENCOUNTER--DISREGARD - Primary documented in this encounter Care Teams Magazine Filler Relationship Specialty Start Date End Date Sofia Landers PA-C PCP - General 05/10/06 Mikayla Allan MD PCP - Obstetrics/Gynecology 05/18/1004/27 [facility] [address] [place] [address] Sofia Landers PA-C PCP - Assigned PCP 12/05/10 10/09/18 Saurabh [id number] [place] [id number] Sofia Landers PA-C Assigned PCP 05/10/12 04/17/21 Saurabh [id number] [place] [phone] documented as of this encounter
--- OUTSIDE RECORDS SUMMARY | 2022-07-05 17:50 | XMS_ITS | Encounter Summary ---
:1950 Author Organization [facility] Address [address] [place] [address] Care Team Providers Name Role Phone Sofia Landers PA-C Primary Care Provider Mikayla Allan MD Unavailable Sofia Landers PA-C Unavailable Sofia Landers PA-C Unavailable Reason for Visit Reason Onset Date Comments Chronic Care Conference Provider Overview 11/27/2012 Encounter Details Date Type Department Care Team Description 11/27/2012 Telephone [facility] Sofia Landers [facility] Conference Provider [address] [place] [address] [facility] [phone] [place] [address] (Wo rk) Social History Tobacco Use Types Packs/Day Years Used Date Smoking Tobacco: Never Smokeless Tobacco: Never Alcohol Use Standard Drinks/Week Comments No 0 (1 standard drink = 0.6 oz pure alcoho l) Sex Assigned at Date Recorded Not on file documented as of this encounter Miscellaneous Notes Telephone Encounter - Chery Horn - 11/27/2012 4:22 PM CDT Letter mailed. Chery Horn MA Telephone Encounter - Sofia Landers PA-C - 11/27/2012 1:46 PM CDT Met in consultation for: Hypertension Parameters Addressed: B/P management Recommended follow-up: Ov with me Considerations: pt needs ov with me to recheck htn documented in this encounter Plan of Treatment Not on filedocumented as of this encounter Visit Diagnoses Not on filedocumented in this encounter Care Teams Medical Billing Coordinator Relationship Specialty Start Date End Date Sofia Landers PA-C PCP - General 05/10/06 Mikayla Allan MD PCP - Obstetrics/Gynecology 05/18/1004/27 [facility] [address] [place] [address] [phone] Sofia Landers PA-C PCP - Assigned PCP 12/05/10 10/09/18 Saurabh [id number] [place], [place] [phone] Sofia Landers PA-C Assigned PCP 05/10/12 04/17/21 Saurabh [id number] [facility] [place], [place] [phone] documented as of this encounter
--- OUTSIDE RECORDS SUMMARY | 2022-07-05 17:50 | XMS_ITS | Encounter Summary ---
:1950 Author Organization [facility] Address [address] [place] [address] Care Team Providers Name Role Phone Sofia Landers PA-C Primary Care Provider Mikayla Allan MD Unavailable Sofia Landers PA-C Unavailable Sofia Landers PA-C Unavailable Reason for Visit Reason Onset Date Comments Cough 03/07/2014 work in next week Encounter Details Date Type Department Care Team Description 03/07/2014 Telephone [facility] Sofia Landers Cough (work in next Clinic [facility] week) [address] [place] [place] [address] [facility] [phone] [place] [address] (Wo rk) Social History Tobacco Use Types Packs/Day Years Used Date Smoking Tobacco: Never Smokeless Tobacco: Never Alcohol Use Standard Drinks/Week Comments No 0 (1 standard drink = 0.6 oz pure alcoho l) Sex Assigned at Date Recorded Not on file documented as of this encounter Miscellaneous Notes Telephone Encounter - Sofia Tillman LPN - 03/07/2014 10:23 AM CDT Noted. Sofia Tillman LPN Telephone Encounter - Lorena Case - 03/07/2014 10:20 AM CDT Patient informed. Date and time work for her Telephone Encounter - Dhara Allred - 03/07/2014 10:18 AM CDT lmtc and held an appt for her Telephone Encounter - Bobbi Islas - 03/07/2014 10:11 AM CDT Requested Provider: Sav Lara PCP: Sofia Landers Is the patient's PCP out of clinic today? Yes If so, is the patient able to wait until her PCP returns to the clinic? Yes Reason for visit: can you see her next week for cough x 4 weeks Duration of symptoms: anytime next week has had for four weeks Have you been treated for this in the past? Yes She can't do Monday but any other day. Additional comments: none documented in this encounter Plan of Treatment Not on filedocumented as of this encounter Visit Diagnoses Not on filedocumented in this encounter Care Teams Art Therapist Relationship Specialty Start Date End Date Sofia Landers PA-C PCP - General 05/10/06 Mikayla Allan MD PCP - Obstetrics/Gynecology 05/18/1004/27 [facility] [address] [place] [address] [phone] Sofia Landers PA-C PCP - Assigned PCP 12/05/10 10/09/18 [facility] [id number] [facility] [place] [address] Sofia Landers PA-C Assigned PCP 05/10/12 04/17/21 Saurabh [address] [facility] [place] [id number] documented as of this encounter
--- OUTSIDE RECORDS SUMMARY | 2022-07-05 17:50 | XMS_ITS | Encounter Summary ---
:1950 Author Organization [place] Address [address] [place] [address] Care Team Providers Name Role Phone Sofia Landers PA-C Primary Care Provider Mikayla Allan MD Unavailable Sofia Landers PA-C Unavailable Reason for Visit Reason Comments Oncology Clinic Visit Encounter Details Date Type Department Care Team Description 03/28/2012 Oncology Visit [facility] Mikayla Allan Uterine cancer (H) (Primary Dx); Cancer Center Deanna Marin MD Malignant neoplasm of ovary (H) [facility] [address] [place] [phone] [facility] [phone] [place] [address] Social History Tobacco Use Types Packs/Day Years Used Date Smoking Tobacco: Never Smokeless Tobacco: Never Alcohol Use Standard Drinks/Week Comments No 0 (1 standard drink = 0.6 oz pure alcoho l) Sex Assigned at Date Recorded Not on file documented as of this encounter Last Filed Vital Signs Vital Sign Reading Time Taken Comments Blood Pressure 122/74 03/28/2012 3:25 PM CDT Pulse 84 03/28/2012 3:25 PM CDT Temperature 36.8 ??C (98.3 ??F) 03/28/2012 3:25 PM CDT Respiratory Rate 18 03/28/2012 3:25 PM CDT Oxygen Saturation 97% 03/28/2012 3:25 PM CDT Inhaled Oxygen Concentration - - Weight 73.9 kg (163 lb) 03/28/2012 3:25 PM CDT Height - - Body Mass Index 31.83 03/28/2012 8:37 AM CDT documented in this encounter Progress Notes Mikayla Mendoza MD - 04/18/2012 12:53 PM CDT Follow Up Notes on Referred Patient Date: 03/28/2012 RE: Edith Anaya : 1950 TIANA: 03/28/2012 Edith is a 61 year old woman with recently diagnosed Stage IA, grade 1, endometrioid adenocarcinoma of the endometrium. 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 She is here today for a surveillance visit. In brief, Ms. Anaya presented for evaluation [...] Both returned showing no evidence of disease. Review of Systems: See RN note for [...] Relation Age of Onset ??? C.A.D. Father [place], age 65, first event at 40 ??? Hypertension Mother ??? Genetic Daughter down's syndrome Physical Exam: BP 122/74 Pulse 84 Temp(Src) 98.3 ??F (36.8 ??C) (Oral) Resp 18 Wt 73.936 kg (163 lb) [id number]% There is no height on file to calculate BMI. General Appearance: healthy and alert, no distress Cardiovascular: regular rate and rhythm, no gallops, rubs or murmurs Respiratory: lungs clear, no rales, rhonchi or wheezes, normal diaphragmatic excursion Musculoskeletal: extremities non tender and without edema Skin: no lesions or rashes Neurological: normal gait, no gross defects Psychiatric: appropriate mood and affect Hematological: normal inguinal lymph nodes Gastrointestinal: abdomen soft, non-tender, non-distended, no organomegaly or masses Genitourinary: External genitalia and urethral meatus appears normal. Vagina is smooth without nodularity or masses. Cervix, uterus and adnexa are surgically absent. Bimanual exam reveal no masses, nodularity or fullness. Recto-vaginal exam confirms these findings. Pap was collected. Assessment: Edith is a 61 year old woman with recently diagnosed Stage IA, grade 1, endometrioid adenocarcinoma of the endometrium. 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 She is here today for a surveillance visit. Plan: 1.) Now that patient is two years from diagnosis, she will spread out her visits and return in six months. 2.) We will send patient her pap smear results. Mikayla Mendoza M.D., F.A.C.O.G. Mask Designer Department of Obstetrics, Gynecology and Women's Health Division of Gynecologic Oncology [phone] Patient Care Team: Sofia Landers PA-C as PCP - General Mikayla Mendoza MD as PCP - Obstetrics/Gynecology ESTABLISHED PATIENT Mikayla Mendoza MD - 04/02/2012 4:10 PM CDT Quick Note: Reviewed. Repeat in one year. documented in this encounter Nursing Notes 03/28/2012 3:30 PM CDT >> Kanwal Michael LPN Wed Mar 28, 2012 3:27 PM Edith Anaya's goals for this visit include: follow up Patient requests these members of her care team be copied on today's visit information: n/a Initial There were no vitals taken for this visit. Estimated Body mass index is 31.04 kg/(m^2) as calculated from the following: Height as of 04/18/11: 5' 1(1.549 m). Weight as of 11/16/11: 164 lb 4.8 oz(74.526 kg).. BP completed using cuff size: Review of Systems: Systemic no weight changes; [...] noticeable swellings or lumps Endocrine yes - hot flashes Neurological no tremor; no numbness and tingling; no headaches; no difficulty sleeping Last colonoscopy: 2006 Last mammogram: yesterday Last dexascan:scheduled Last thyroid screening: today Last cholesterol screening: today Last diabetes screening: today Does the patient have an advanced directive? no If no, was information packet given? Kanwal Michael LPN documented in this encounter Plan of Treatment Not on filedocumented as of this encounter Procedures Procedure Name Priority Date/Time Associated Comments Diagnosis PAP IMAGED THIN Routine 03/28/2012 4:15 PM Uterine cancer (H) Results for this LAYER, DIAGNOSTIC CDT procedure are in the results section. documented in this encounter Results PAP imaged thin layer, diagnostic (03/28/2012 4:15 PM CDT) Component Value Ref Test Analysis Performed At [facility] Range Method Time Signature PAP NIL COPATH Copath Report COPATH Patient Name: EDITH ANAYA MR#: [id number] Specimen #: [id number] Collected: 03/28/2012 Received: 03/29/2012 Reported: 03/30/2012 14:13 Ordering Phy(s): MIKAYLA MENDOZA SPECIMEN/STAIN PROCESS: Pap Imaged thin layer prep diagnostic (SurePath, FocalPoint with guided screening) ? Pap-Cyto x 1, Reflex HPV x 1 SOURCE: Vaginal ---- Pap Imaged thin layer prep diagnostic (SurePath, FocalPoint with guided screening) SPECIMEN ADEQUACY: Satisfactory for evaluation. -Transformation zone component absent. CYTOLOGIC INTERPRETATION: Negative for Intraepithelial Lesion or Malignancy Electronically signed out by: KRISTI Arrieta (ASCP) Processed and screened at [facility] milad [facility] CLINICAL HISTORY: Post Menopausal, Previous normal pap Date of Last Pap: 04/06/11 [employer] Cancer:: uterine cancer, Papanicolaou Test Limitations: ??Cervical cytology is a scre ening test with limited sensitivity; regular screening is critical for cancer prevention; Pap tests are primarily effective for the diagnosis/prevention of squamous cell carcinoma, not adenoca rcinomas or other cancers. TESTING LAB LOCATION: [facility], [facility] [address] [place] [address] ??[phone] COLLECTION SITE: Client: [facility] Location: [facility] (B) Specimen (Source) Anatomical Collection Method Collection Time Re ceived Time Location / / Volume Laterality Cytologic 03/28/2012 4:15 03/29/2012 material PM CDT 10:02 AM CDT (specimen) Mikayla Allan MD LAB - OPTIME CLINICAL SPECIM EN Performing Organization Address City/State/ZIP Code Phon e Number COPATH documented in this encounter Visit Diagnoses Diagnosis Uterine cancer (H) - Primary Malignant neoplasm of uterus, part unspe cified Malignant neoplasm of ovary (H) Malignant neoplasm of ovary documented in this encounter Care Teams Looping Machine Operator Relationship Specialty Start Date End Date Sofia Landers PA-C PCP - General 05/10/06 Mikayla Allan MD PCP - Obstetrics/Gynecology 05/18/1004/27 [place] [facility] [address] [phone] Sofia Landers PA-C PCP - Assigned PCP 12/05/10 10/09/18 Saurabh [id number] [facility] JOSE LUIS LOPEZ [phone] documented as of this encounter
--- OUTSIDE RECORDS SUMMARY | 2022-07-05 17:50 | XMS_ITS | Encounter Summary ---
:1950 Author Organization [place] Address [address] [place] [address] Care Team Providers Name Role Phone Sofia Landers PA-C Primary Care Provider Sofia Landers PA-C Unavailable Sofia Landers PA-C Unavailable Reason for Visit Reason Comments Oncology Clinic Visit 6 month follow up Encounter Details Date Type Department Care Team Description 04/28/2014 Oncology Visit [facility] Mary Portillo ne cancer (H) Cancer Center Deanna Medel APRN MEDICAL CHARGE ENTRY SPECIALIST (Primary Dx) [address] [id number] Social History Tobacco Use Types Packs/Day Years Used Date Smoking Tobacco: Never Smokeless Tobacco: Never Alcohol Use Standard Drinks/Week Comments No 0 (1 standard drink = 0.6 oz pure alcoho l) Sex Assigned at Date Recorded Not on file documented as of this encounter Last Filed Vital Signs Vital Sign Reading Time Taken Comments Blood Pressure 138/81 04/28/2014 3:54 PM CDT Pulse 81 04/28/2014 3:54 PM CDT Temperature 36.8 ??C (98.2 ??F) 04/28/2014 3:54 PM CDT Respiratory Rate 20 04/28/2014 3:54 PM CDT Oxygen Saturation 98% 04/28/2014 3:54 PM CDT Inhaled Oxygen Concentration - - Weight 70.8 kg (156 lb) 04/28/2014 3:54 PM CDT Height 152.4 cm (5') 04/28/2014 3:54 PM CDT Body Mass Index 30.47 04/28/2014 3:54 PM CDT documented in this encounter Progress Notes Jackie Fletcher LPN - 04/28/2014 3:56 PM CDT Edith Stallings is a 63 year old female who presents for: Chief Complaint Patient presents with ??? Oncology Clinic Visit 6 month follow up Initial Vitals: BP 138/81 Pulse 81 Temp(Src) 98.2 ??F (36.8 ??C) (Oral) Resp 20 Ht 1.524 m (5') Wt 70.761 kg (156 lb) BMI 30.47 kg/m2 SpO2 98% Estimated body mass index is 30.47 kg/(m^2) as calculated from the following: Height as of this encounter: 1.524 m (5'). Weight as of this encounter: 70.761 kg (156 lb).. Body surface area is 1.73 meters squared. BP completed using cuff size: regular No Pain (0) No LMP recorded. Patient has had a hysterectomy. Allergies and medications reviewed. Do you feel safe in your environment? Yes Medications: Medication refills not needed today. Pharmacy name entered into SeeWhy: [facility] - [place], [place] - [address] [facility] - [place], [place] - [address] [facility] - [place], [place] - [address] Have you fallen two or more times in the past year? No Have you fallen and had an injury in the past year? No At risk for falls?No Patient instructed to ask for assistance, when needed, while in clinic Preventing Falls at Home; Simple Steps To Keep You Safe booklet for fall prevention available forpatient and family per request Comments: 8 minutes for nursing intake (face to face time) Jackie Fletcher LPN Mary Portillo NP - 04/28/2014 1:08 PM CDT Follow Up Notes on Referred Patient Date: 04/28/2014 RE: Edith Stallings : 1950 TIANA: 04/28/2014 Edith Stallings is a 63 year old [...] pain or shortness of br eath. She reports her health screenings are current. She states she is sexually active and using a lubricant for dryness which has helped. She states she has not been checking her BP at home with her cuff. She reports her hot flashes are very minimal and not bothersome. 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 Review of Systems: Systemic no weight changes; [...] nodes; no noticeable swellings or lumps Endocrine + hot flashes; no heat/cold intolerance Neurological no tremor; no numbness and tingling; no headaches; no difficulty sleeping Past Medical History: Past Medical History Diagnosis Date ??? Other and unspecified hyperlipidemia Hyperlipidemia ??? Essential hypertension, benign Hypertension, Benign ??? Personal history of urinary calculi ??? Endometrial cancer ??? Ovarian cancer Past Surgical History: Past Surgical History Procedure Laterality Date ??? Cystoscopy 11/28/06 [facility] ??? Colonoscopy 05/23/2007 repeat in 10 years ??? Hysteroscopy 03/30/10 Hysteroscopy, D&C, removal of portion of endocervical polyp. ??? Laparoscopic hysterectomy supracervical, bilateral salpingo-oophorectomy, combined with lymph node dissection ??? Laparoscopic appendectomy Health Maintenance Due Topic Date Due ??? PAP Q1 [facility] 04/15/2014 ??? INFLUENZA VACCINE (SYSTEM ASSIGNED) 05/07/2014 Current Medications: Current Outpatient Prescriptions Medication Sig Dispense Refill ??? azithromycin (ZITHROMAX) 250 MG tablet Two tablets first day, then one tablet daily for four days. 6 tablet 0 ??? lisinopril (PRINIVIL,ZESTRIL) 40 MG tablet Take 1.5 tablets (60 mg) by mouth daily 135 tablet 3 ??? amLODIPine (NORVASC) 10 MG tablet Take 1 tablet (10 mg) by mouth daily 90 tablet 3 ??? atorvastatin (LIPITOR) 20 MG tablet Take 1 tablet (20 mg) by mouth daily 90 tablet 3 ??? hydrochlorothiazide (HYDRODIURIL) 25 MG tablet Take 1 tablet (25 mg) by mouth daily 90 tablet 3 ??? alendronate (FOSAMAX) 35 MG tablet Take 1 tablet (35 mg) by mouth every 7 days 12 tablet prn ??? fish oil-omega-3 fatty acids (OMEGA 3) 1000 MG capsule Take 2 g by mouth daily. ??? ZACH LOW STRENGTH OR 1 TABLET DAILY ??? MULTI-VITAMIN OR 1 tablet daily Allergies: Allergies Allergen Reactions ??? Pneumovax [Pneumococcal Polysaccharides] Lump, fever ??? Sulfa Drugs Rash Social History: History Substance Use Topics ??? Smoking status: Never Smoker ??? Smokeless tobacco: Never Used ??? Alcohol Use: No History Drug Use No Family History: Family History Problem Relation Age of Onset ??? C.A.D. Father [place], age 65, first event at 40 ??? Hypertension Mother ??? Genetic Daughter down's syndrome Physical Exam: BP 138/81 Pulse 81 Temp(Src) 98.2 ??F (36.8 ??C) (Oral) Resp 20 Ht 1.524 m (5') Wt 70.761 kg (156 lb) BMI 30.47 kg/m2 SpO2 98% Body mass index is 30.47 kg/(m^2). General Appearance: healthy and alert, no [...] Recto-vaginal exam confirms these findings. Assessment: Edith Satllings is a 63 year old woman with a diagnosis of Stage IA, grade 1, endometrioid adenocarcinoma of the endometrium. 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 She is here today for a surveillance visit. 25 minutes were spent with this patient, over 50% of that time was spent in symptom management, treatment planning and in counseling and coordination of care. Plan: 1.) Patient to RTC in 6 months for her next surveillance visit. Reviewed her remaining surveillance of every 6 months until 04/2015 at which time she can extend her visits to annually which can be done with her OBGyn/PCP. Reviewed signs and symptoms for when she [...] addressed today include annual health maintenance and non-addiction therapist issues with PCP. Continue to be followed by PCP for HTN; encouraged monitoring BP at home with cuff. ZIYAD Vasquez- Women's Health Nurse Practitioner Gynecologic Oncology CC Patient Care Team: Sofia Landers PA-C as PCP - General ESTABLISHED PATIENT documented in this encounter Plan of Treatment Not on filedocumented as of this encounter Visit Diagnoses Diagnosis Uterine cancer (H) - Primary Malignant neoplasm of uterus, part unspe cified documented in this encounter Care Teams Chucking And Boring Machine Operator Relationship Specialty Start Date End Date Sofia Landers PA-C PCP - General 05/10/06 Sofia Landers PA-C PCP - Assigned PCP 12/05/10 10/09/18 Saurabh [id number] [place] [id number] Sofia Landers PA-C Assigned PCP 05/10/12 04/17/21 Saurabh [id number] [place] [id number] documented as of this encounter
--- OUTSIDE RECORDS SUMMARY | 2022-07-05 17:50 | XMS_ITS | Encounter Summary ---
:1950 Author Organization [facility] Address [address] [place] [address] Care Team Providers Name Role Phone Sofia Landers PA-C Primary Care Provider Mikayla Allan MD Unavailable Sofia Landers PA-C Unavailable Sofia Landers PA-C Unavailable Reason for Visit Reason Onset Date Comments Nurse Advice Line 02/11/2014 concern after immuni zation Encounter Details Date Type Department Care Team Description 02/11/2014 Telephone [facility] Sofia Landers Nurse Advice Line Clinic Oumou MONCADA (concern after [id number] [place] immunization) JOSE LUIS Coello [address] [facility] [phone] [place] [address] (Wo rk) Social History Tobacco Use Types Packs/Day Years Used Date Smoking Tobacco: Never Smokeless Tobacco: Never Alcohol Use Standard Drinks/Week Comments No 0 (1 standard drink = 0.6 oz pure alcoho l) Sex Assigned at Date Recorded Not on file documented as of this encounter Miscellaneous Notes Telephone Encounter - Jennifer Gibson RN - 02/11/2014 11:31 AM CDT Edith Stallings is a 63 year old female who's calls with concerns about injection reaction. NURSING ASSESSMENT Description: Redness around injection site about the size of a silver dollar Onset/duration: Patient noticed this morning at 06:00 Precip. Factors: Patient had pneumonia injection on 02/10/2014. Temperature at 11:00 was 103.4 Associated symptoms: Weakness. Patient had some nausea this morning, but no vomiting. Decreased appetite. Improves/worsens symptoms: Tried Asprin and cold compress, but did not relieve fever. Pain scale (1-10) 0/10 Taking medication(s) as prescribed? Yes Taking over the counter medication(s?) Yes Any medication side effects? No significant side effects Any barriers to taking medication(s) as prescribed? Yes, did not take scheduled medications this morning, but plans to take them at this time. Medication(s) improving/managing symptoms? No Medication reconciliation completed: Yes Last exam/Treatment: 02/10/2014 NURSING PLAN: Nursing advice to patient Tylenol every four hours for fever, encourage fluids, appointment made in [facility] RECOMMENDED DISPOSITION: See above. Appointment made with Dr. Davis 02/11/2014 at 3:45 PM Will comply with recommendation: Yes If further questions/concerns or if symptoms do not improve, worsen or new symptoms develop, call your PCP or [facility] as soon as possible. Guideline used: Immunization Reactions Telephone Triage Protocols for Nurses, Fourth Edition, Araceli Gibson RN Telephone Encounter - Sandy Jensen - 02/11/2014 11:07 AM CDT [facility] phone call message- patient reporting a symptom: Symptom or request: had pneumonia injection yesterday, now today has red ring at the injection site the size of silver dollar and has a fever of 103 at the moment. She also is feeling weak today Duration (how long have symptoms been present): 1 day Have you been treated for this before? No Additional comments: spouse Sunil calling Call taken on 02/11/2014 at 11:07 AM by Sandy Jensen documented in this encounter Plan of Treatment Not on filedocumented as of this encounter Visit Diagnoses Not on filedocumented in this encounter Care Teams Electronic Assembler Group Leader Relationship Specialty Start Date End Date [place], Sofia, PA-C PCP - General 05/10/06 Mikayla Allan MD PCP - Obstetrics/Gynecology 05/18/1004/27 [place] [facility] [address] [place] [phone] Sofia Landers PA-C PCP - Assigned PCP 12/05/10 10/09/18 Saurabh [id number] JO[place] LU[place] FRAS[place] [id number] Sofia Landers PA-C Assigned PCP 05/10/12 04/17/21 Saurabh [id number] JOSE LUIS FRASER [phone] documented as of this encounter
--- OUTSIDE RECORDS SUMMARY | 2022-07-05 17:51 | XMS_ITS | Encounter Summary ---
:1950 Author Organization [place] Address [address] [place] [address] Care Team Providers Name Role Phone Sofia Landers PA-C Primary Care Provider Mikayla Allan MD Unavailable Sofia Landers PA-C Unavailable Reason for Visit Reason Onset Date Comments Chronic Care Conference Provider Overview 05/10/2011 Encounter Details Date Type Department Care Team Description 05/10/2011 Telephone [facility] Sofia Landers Chroni c Care Clinic Oumou MONCADA Conference Provider [id number] Saurabh Overview JOSE LUIS Coello [address] [facility] [phone] JOSE LU[place] LOPE[place] [address] (Wo rk) Social History Tobacco Use Types Packs/Day Years Used Date Smoking Tobacco: Never Alcohol Use Standard Drinks/Week Comments No 0 (1 standard drink = 0.6 oz pure alcoho l) Sex Assigned at Date Recorded Not on file documented as of this encounter Miscellaneous Notes Telephone Encounter - Lashonda Valero - 05/10/2011 1:45 PM CDT Met in consultation for: Hypertension Parameters Addressed: B/P management Recommended follow-up: Needs B/P check with float nurse. Considerations: float nurse Future appt/Call to schedule--see above documented in this encounter Plan of Treatment Not on filedocumented as of this encounter Visit Diagnoses Not on filedocumented in this encounter Care Teams Solid Waste Disposal Manager Relationship Specialty Start Date End Date Sofia Landers PA-C PCP - General 05/10/06 Mikayla Allan MD PCP - Obstetrics/Gynecology 05/18/1004/27 [place] [facility] [address] [place] [phone] Sofia Landers PA-C PCP - Assigned PCP 12/05/10 10/09/18 Saurabh [id number] [place] [id number] documented as of this encounter
--- OUTSIDE RECORDS SUMMARY | 2022-07-05 17:51 | XMS_ITS | Encounter Summary ---
:1950 Author Organization [facility] Address [address] [place] [address] Care Team Providers Name Role Phone Sofia Landers PA-C Primary Care Provider Mikayla Allan MD Unavailable Encounter Details Date Type Department Care Team Description 11/19/2010 Orders Only [facility] Hyp erlipidemia LDL goal <130 [facility] [id number] [place] [address] Social History Tobacco Use Types [...] Diagnosis Comme nts LIPID REFLEX TO Routine 11/19/2010 8:49 AM Hyperlipidemia LDL goal Results for this DIRECT LDL PANEL CDT <130 procedure a re in the results section. documented in this encounter Results (ABNORMAL) Lipid panel reflex to direct LDL (11/19/2010 8:49 AM CDT) P athologist Signature Cholesterol 244 (H) 0 - 200 [place] mg/dL [facility] Comment: LDL Cholesterol is the primary guide to therapy. The NCEP recommends further evaluation of: patients with cholesterol <200 mg/dL if additional risk factors are present, cholesterol >240 mg/dL, triglycerides >150 mg/dL, or HDL <40 mg/dL. Triglycerides 133 0 - 150 mg/dL [facility] Comment: Fasting specimen HDL Cholesterol 44 (L) 50 - 110 mg/dL [facility] LDL Cholesterol Calculated 173 (H) 0 - 129 mg/dL [facility] Comment: LDL Cholesterol is the primary guide to therapy: LDL-cholesterol goal in high risk patients is <100 mg/dL and in very high risk patients is <70 mg/dL. VLDL-Cholesterol 27 0 - 30 mg/dL [facility] Cholesterol/HDL Ratio 6.0 (H) 0.0 - 5.0 [facility] Specimen Anatomical Collection Method Collection Time Receive d Time (Source) Location / / Volume Laterality Blood specimen 11/19/2010 8:49 AM 011 8:50 (specimen) CDT AM CDT Sofia Landers PA-C LAB - BLOOD ORDERABLES Performing Organization Address City/State/ZIP Code Phon e Number [address] [place] [address] [facility] documented in this encounter Visit Diagnoses Diagnosis Hyperlipidemia LDL goal <130 Other and unspecified hyperlipidemia documented in this encounter Care Teams Chairman President And Chief Executive Officer Relationship Specialty Start Date End Date Sofia Landers PA-C PCP - General 05/10/06 Mikayla Allan MD PCP - Obstetrics/Gynecology 05/18/1004/27 [place] [facility] [address] [place] [id number] documented as of this encounter
--- OUTSIDE RECORDS SUMMARY | 2022-07-05 17:51 | XMS_ITS | Encounter Summary ---
:1950 Author Organization [place] Address [address] [place] [address] Care Team Providers Name Role Phone Sofia Landers PA-C Primary Care Provider Mikayla Allan MD Unavailable Reason for Visit Reason Onset Date Comments Counseling 08/10/2010 post op Encounter Details Date Type Department Care Team Description 08/10/2010 Telephone [facility] Mikayla Allan, Co unseling (post op) [facility] [place] [place] [facility] ONCOLOGY [address] [place] [address] [phone] [facility] [phone] [place], [place] [address] (Wo rk) Social History Tobacco Use Types Packs/Day Years Used Date Smoking Tobacco: Never Alcohol Use Standard Drinks/Week Comments No 0 (1 standard drink = 0.6 oz pure alcoho l) Sex Assigned at Date Recorded Not on file documented as of this encounter Miscellaneous Notes Telephone Encounter - Armando Hayes - 08/10/2010 9:17 AM CST Left message for pt to call if she has any concerns from now until her next appointment with Dr. Mendoza on 08/18/10 at 1000. Call back number given. Armando Hayes RN RVISOR FINAL Telephone Encounter - Armando Hayes - 08/10/2010 9:16 AM CST Message copied by ARMANDO HAYES on MonAug 10, 2010 9:16 AM ------ Message from: HERMINIA LOPEZ Created: MonAug 09, 2010 4:27 PM Regarding: call back Norma Sharma is returning a phone call to Nery. Regarding how she is doing post surgery and she said she is fine. So has no concerns, things are going well and she will just plan to be at her appt on the . If you need to reach her back you can try her cell tomorrow at [phone] Thank you Herminia RVISOR FINAL documented in this encounter Plan of Treatment Not on filedocumented as of this encounter Visit Diagnoses Not on filedocumented in this encounter Care Teams Agricultural Commodities Grader Relationship Specialty Start Date End Date Sofia Landers PA-C PCP - General 05/10/06 Mikayla Allan MD PCP - Obstetrics/Gynecology 05/18/1004/27 [place] [facility] [address] [place] [id number] documented as of this encounter
--- OUTSIDE RECORDS SUMMARY | 2022-07-05 17:51 | XMS_ITS | Encounter Summary ---
:1950 Author Organization [place] Address [address] [place] [address] Care Team Providers Name Role Phone Mat Mccray PA-C Primary Care Provider Mikayla Allan MD Unavailable Reason for Visit Reason Comments Cancer Encounter Details Date Type Department Care Team Description [facility] Deanna Marin MD Malignant neoplasm of ovary (H) [facility] ONCOLOGY [address] [place] [phone] [facility][note 3] [phone] [place] [address] Social History Tobacco Use Types Packs/Day Years Used Date Smoking Tobacco: Never Alcohol Use Standard Drinks/Week Comments No 0 (1 standard drink = 0.6 oz pure alcoho l) Sex Assigned at Date Recorded Not on file documented as of this encounter Last Filed Vital Signs Vital Sign Reading Time Taken Comments Blood Pressure 153/89 08/18/2010 10:16 AM IT NETWORK ENGINEER Pulse 87 08/18/2010 10:16 AM IT NETWORK ENGINEER Temperature 36.4 ??C (97.6 ??F) 08/18/2010 10:16 AM IT NETWORK ENGINEER Respiratory Rate 18 08/18/2010 10:16 AM IT NETWORK ENGINEER Oxygen Saturation 100% 08/18/2010 10:16 AM IT NETWORK ENGINEER Inhaled Oxygen Concentration - - Weight 72.9 kg (160 lb 11.2 oz) 08/18/2010 10:16 AM IT NETWORK ENGINEER Height - - Body Mass Index 31.38 04/21/2010 1:49 PM CDT documented in this encounter Progress Notes Mikayla Mendoza Jazmin - 08/18/2010 12:47 PM CST Edith is a 59 year old woman with recently diagnosed Stage IA, grade 1, endometrioid adenocarcinoma of the endometrium. 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 She is here today for a postop appointment. In brief, Ms. Stallings presented for evaluation [...] Both returned showing no evidence of disease. ROS: See RN note for full ROS MH: Past Medical History Diagnosis Date ??? Other and unspecified hyperlipidemia Hyperlipidemia ??? Essential hypertension, benign Hypertension, Benign ??? Personal history of urinary calculi SH: Past Surgical History Procedure Date ??? Cystoscopy 11/28/06 [place] ??? Colonoscopy 05/23/2007 repeat in 10 years ??? Hysteroscopy 03/30/10 Hysteroscopy, D&C, removal of portion of endocervical polyp. ALL/Meds: Current outpatient prescriptions Medication Sig ??? lisinopril (PRINIVIL,ZESTRIL) 30 MG tablet Take 1 tablet by mouth daily. ??? fish oil-omega-3 fatty acids (OMEGA 3) 1000 MG capsule Take 2 g by mouth daily. ??? HYDROCHLOROTHIAZIDE 25 MG PO TABS 1 TABLET DAILY ??? SIMVASTATIN 20 MG PO TABS 1 TABLET AT BEDTIME ??? FOSAMAX 35 MG OR TABS 1 TABLET WEEKLY ON AN EMPTY STOMACH- will need dexa this fall/winter ??? ZACH LOW STRENGTH OR 1 TABLET DAILY ??? MULTI-VITAMIN OR 1 tablet daily FM: Family History Problem Relation Age of Onset ??? C.A.D. Father [place], age 65, first event at 40 ??? Hypertension Mother ??? Genetic Daughter down's syndrome PE: BP 153/89 Pulse 87 Temp 97.6 ??F (36.4 ??C) Resp 18 Wt 72.893 kg (160 lb 11.2 oz) SpO2 100% There is no height on file to calculate BMI. Constitutional: healthy, alert and no distress Assessment/Plan: Edith is a 59 year old woman with recently diagnosed Stage IA, grade 1, endometrioid adenocarcinoma of the endometrium. 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 She is here today for a postop appo intment. We discussed the pathology. As it is negative for either metastasis and/or site of primary intestinal disease there is no further work up necessary. We will therefore have Edith initiate her surveillance for her endometrial cancer. She will RTC in 3-4mths to see me. Mikayla Mendoza M.D. Dining Car Conductor Department of Obstetrics and Gynecology Division of Gynecologic Oncology [facility] NETWORK ENGINEER documented in this encounter Nursing Notes 08/18/2010 10:00 AM CST >> ARMANDO HAYES MonAug 18, 2010 10:19 AM Edithamara Stallings's goals for this visit include: post op check with Dr. Mendoza She requests these members of her care team be copied on today's visit information: MAT CHE PCP: MAT MCCRAY PA, PA Referring Provider: No referring provider defined for this encounter. Patient presents with: Cancer Initial BP 153/89 Pulse 87 Temp 97.6 ??F (36.4 ??C) Resp 18 Wt 72.893 kg (160 lb 11.2 oz) SpO2 100% Estimated Body mass index is 31.38 kg/(m^2) as calculated from the following: Height as of 04/21/10: 5' 0(1.524 m). Weight as of this encounter: 160 lb 11.2 oz(72.893 kg).. BP completed using cuff size: regular [...] no headaches; no difficulty sleeping Last colonoscopy: Last mammogram: Last dexascan: Last thyroid screening: Last cholesterol screening: Last diabetes screening: Does the patient have an advanced directive? no If no, was information packet given? Declined Armando Hayes RN documented in this encounter Plan of Treatment Not on filedocumented as of this encounter Visit Diagnoses Diagnosis Uterine cancer (H) Malignant neoplasm of uterus, part unspe cified Malignant neoplasm of ovary (H) Malignant neoplasm of ovary documented in this encounter Care Teams Powerhouse Helper Relationship Specialty Start Date End Date Mat Mccray PA-C PCP - General 05/10/06 Mikayla Allan MD PCP - Obstetrics/Gynecology 05/18/1004/27 [facility] [address] [place] [id number] documented as of this encounter
--- OUTSIDE RECORDS SUMMARY | 2022-07-05 17:51 | XMS_ITS | Encounter Summary ---
:1950 Author Organization [place] Address [address] [place] [address] Care Team Providers Name Role Phone Sofia Landers PA-C Primary Care Provider Mikayla Allan MD Unavailable Sofia Landers PA-C Unavailable Reason for Visit Reason Onset Date Comments Appointment 07/20/2011 reschedule Encounter Details Date Type Department Care Team Description 07/20/2011 Telephone [facility] Mikayla Allan, Ap [facility] Deanna [place] (reschedule) [facility] ONCOLOGY [address] [place] [phone] [facility] [phone] [place], [place] [address] (Wo rk) Social History Tobacco Use Types Packs/Day Years Used Date Smoking Tobacco: Never Alcohol Use Standard Drinks/Week Comments No 0 (1 standard drink = 0.6 oz pure alcoho l) Sex Assigned at Date Recorded Not on file documented as of this encounter Miscellaneous Notes Telephone Encounter - Armando Hayes RN - 07/20/2011 10:05 AM CST Left message on pt home phone. Informed her she can call and reschedule with the call center to a later date. Call back number given. Armando Hayes RN ER Telephone Encounter - Armando Hayes RN - 07/20/2011 10:04 AM CST Message copied by RAMANDO HAYES on MonJul 20, 2011 10:04 AM ------ Message from: ALEAH SAMANO Created: dominic Jul 19, 2011 9:25 AM Regarding: Cancel [Pool # [id number]] Cancer Center patient called to cancel/reschedule their appointment. Please call patient back to discuss. Preferred Brief reason for cancellation: Needs a new date for 11/08 Page 'Cancellation' to [phone] ER documented in this encounter Plan of Treatment Not on filedocumented as of this encounter Visit Diagnoses Not on filedocumented in this encounter Care Teams [place]htha Washing System Operator Relationship Specialty Start Date End Date Sofia Landers PA-C PCP - General 05/10/06 Mikayla Allan MD PCP - Obstetrics/Gynecology 05/18/1004/27 [place] [facility] [address] [place] [phone] Sofia Landers PA-C PCP - Assigned PCP 12/05/10 10/09/18 Saurabh [id number] [facility] [place] [id number] documented as of this encounter
--- OUTSIDE RECORDS SUMMARY | 2022-07-05 17:51 | XMS_ITS | Encounter Summary ---
:1950 Author Organization [place] Address [address] [place] [address] Care Team Providers Name Role Phone Sofia Landers PA-C Primary Care Provider Mikayla Allan MD Unavailable Sofia Landers PA-C Unavailable Reason for Visit Reason Onset Date Comments ER F/U 03/15/2012 Encounter Details Date Type Department Care Team Description 03/15/2012 Telephone [facility] Sofia Landers PA-C ER F/U [place] Lopez [phone] [place] [address] [place] [phone] [place] [phone] (Wo rk) Social History Tobacco Use Types Packs/Day Years Used Date Smoking Tobacco: Never Alcohol Use Standard Drinks/Week Comments No 0 (1 standard drink = 0.6 oz pure alcoho l) Sex Assigned at Date Recorded Not on file documented as of this encounter Miscellaneous Notes Telephone Encounter - Amelie Brock - 03/19/2012 9:27 AM CDT Sutures being removed today with clinic rn. Patient has appt with Sofia Landers on 03/28 Telephone Encounter - Dhara Allred - 03/15/2012 10:39 AM CDT Reason for follow up: Edith Stallings appeared on our Emergency Room/Urgent Care list Visit date: 03/11/12 Location: [facility] Diagnosis/Reason for visit: laceration # of ER visits in the past year: 1 F/u needed: only for suture removal. Called and [facility] to see if she would like help setting that up. documented in this encounter Plan of Treatment Not on filedocumented as of this encounter Visit Diagnoses Not on filedocumented in this encounter Care Teams Airport Ramp Supervisor Relationship Specialty Start Date End Date Sofia Landers PA-C PCP - General 05/10/06 Mikayla Allan MD PCP - Obstetrics/Gynecology 05/18/1004/27 [place] [facility] [address] [place] [phone] Sofia Landers PA-C PCP - Assigned PCP 12/05/10 10/09/18 Saurabh [id number] [facility] [place] [id number] documented as of this encounter
--- OUTSIDE RECORDS SUMMARY | 2022-07-05 17:51 | XMS_ITS | Encounter Summary ---
:1950 Author Organization [place] Address [address] [place] [id number] Care Team Providers Name Role Phone Sofia Landers PA-C Primary Care Provider Mikayla Allan MD Unavailable Sofia Landers PA-C Unavailable Reason for Visit Reason Comments Laceration Encounter Details Date Type Department Care Team Description 03/11/2012 [facility] Milly Preston Lac [facility]ation of right [facility] Dept [address] [place] [address] [place] [phone] (Wo rk) [id number] [phone] Social History Tobacco Use Types Packs/Day Years Used Date Smoking Tobacco: Never Alcohol Use Standard Drinks/Week Comments No 0 (1 standard drink = 0.6 oz pure alcoho l) Sex Assigned at Date Recorded Not on file documented as of this encounter Last Filed Vital Signs Vital Sign Reading Time Taken Comments Blood Pressure 152/87 03/11/2012 12:38 AM CDT Pulse 100 03/11/2012 12:38 AM CDT Temperature - - Respiratory Rate 20 03/11/2012 12:38 AM CDT Oxygen Saturation - - Inhaled Oxygen Concentration - - Weight - - Height - - Body Mass Index - - documented in this encounter Discharge Instructions Discharge InstructionsSoMilly higginbotham MD - 03/11/2012 2:00 AM CDT Keep clean and dry Antibiotic ointment once a day Keflex antibiotic 3 x a day Tylenol and ibuprofen as needed Follow up with your doctor if no improvement in 3-5 days Return to ER if worsening, rex any signs of infection Hope your hand feels better soon! AttachmentsThe following attachments cannot be sent through Care Everywhere. LACERATION, HAND (MOLDOVAN)documented in this encounter Medications at Time of Discharge Medication Sig Dispensed Refills Start Date End Date ZACH LOW STRENGTH OR 1 TABLET DAILY 0 fish oil-omega-3 fatty acids Take 2 g by 0 (OMEGA 3) 1000 MG capsule mouth daily. MULTI-VITAMIN OR 1 tablet daily 0 cephALEXin (KEFLEX) 500 MG Take 1 capsule 15 capsule 0 03/1103/16/2012 capsuleIndications: by mouth 3 times Laceration of right hand daily for 5 days. ALENdronate (FOSAMAX) 35 MG Take 1 tablet by 12 tablet 0 03/27/2012 tabletIndications: mouth every 7 Osteopenia days. amLODIPine (NORVASC) 10 MG Take 1 tablet by 90 tablet 3 07/201103/27/2012 tabletIndications: mouth daily. Hypertension goal BP (blood pressure) < 130/80 atorvastatin (LIPITOR) 20 MG Take 1 tablet by 90 tablet 3 0 04/18/2011 03/27/2012 tablet mouth daily. hydrochlorothiazide Take 1 tablet by 90 tablet 3 04/18/2011 03/27/2012 (HYDRODIURIL) 25 MG mouth daily. tabletIndications: Essential hypertension, benign HYDROcodone-acetaminophen Take 1-2 tablets 15 tablet 0 12/201103/21/2012 (VICODIN) 5-500 MG per by mouth every 6 tabletIndications: hours as needed Laceration of right hand for pain. lisinopril Take 1 tablet by 90 tablet 3 04/18/2011 03/27/20 12 (PRINIVIL,ZESTRIL) 40 MG mouth daily. tablet documented as of this encounter ED Notes Milly Preston MD - 03/11/2012 3:01 AM CDTAssociated Order(s): LACERATION REPAIR Images from the original note were not included. History Chief Complaint Patient presents with ??? Laceration HPI Edith Stallings is a 61 year old female who presents with right hand laceration. She cut it on a tree root in [place] at Noon yesterday. It is her web space of thumb and index finger. She hada nurse in her group and they put some anticoagulant stuff in it. Pain is a 2 out of 10. She denies any weakness or numbness. No other injury. TD is UTD I have reviewed the Medications, Allergies, Past Medical and Surgical History, and Social History inthe Trendabl system. Review of Systems Neg except for above. Physical Exam BP: 152/87 mmHg Pulse: 100 Resp: 20 Physical Exam Nursing note and vitals reviewed. Constitutional: She appears distressed. Musculoskeletal: Right hand: She exhibits normal range of motion. normal sensation noted. Normal strength noted. Hands: Neurological: She has normal strength. No sensory deficit. Skin: No rash noted. normal motor and sensory Good pulses ED Course She had a lot of debris from that anticoagulant in it Ingested with buffered lido throughouly cleaned Wound explored in a bloodless corona No tendon or ligament laceration Laceration repair Performed by: MILLY PRESTON Authorized by: MILLY PRESTON Consent: Verbal consent obtained. Risks and benefits: risks, benefits and alternatives were discussed Consent given by: patient Location: right hand. Laceration length: 5 cm Local anesthetic: lidocaine 1% without epinephrine Preparation: Patient was prepped and draped in the usual sterile fashion. Amount of cleaning: extensive (per [employer] dean) Skin closure: 5-0 nylon Number of sutures: 13 Suture technique: interrupted. Dressing: antibiotic ointment Patient tolerance: Patient tolerated the procedure well with no immediate complications. Assessments & Plan (with Medical Decision Making): 61 year old with right hand laceration. It has been over 12 hrs. Wound needed cleaning and suturing. Discussed risks and benefits. PLAN: stitches out in 7-10 days, Discussed wound care, risk of infection and will start Keflex 500 mg 3 times a day for 5 days for prophylactic. Please see discharge instructions . I have reviewed the nursing notes. I have reviewed the findings, diagnosis, plan and need for follow up with the patient. New Prescriptions CEPHALEXIN (KEFLEX) 500 MG CAPSULE Take 1 capsule by mouth 3 times daily for 5 days. HYDROCODONE-ACETAMINOPHEN (VICODIN) 5-500 MG PER TABLET Take 1-2 tablets by mouth every 6 hours as needed for pain. Final diagnoses: Laceration of right hand 03/11/2012 [facility] Milly Preston MD 03/11/12 0309 Wendy Booker RN - 03/11/2012 12:56 AM CDT Warm blanket brought to pt. Wendy Booker RN - 03/11/2012 12:40 AM CDT Pt cut hand on a piece of a tree root at 1200 yesterday at the [facility]. Pt thinks she may need stitches. documented in this encounter Plan of Treatment Not on filedocumented as of this encounter Procedures Procedure Name Priority Date/Time Associated Diagnosis Comme nts LACERATION REPAIR Routine 03/11/2012 3:09 AM Laceration of rig ht Results for this CDT hand procedure are i n the results section. documented in this encounter Results Laceration repair (03/11/2012 3:09 AM CDT) Narrative Milly Preston MD - 03/11/2012 3:09 AM CDT Milly Preston MD ? 03/11/2012 ??3:09 AM History Chief Complaint Patient presents with ? ? Laceration HPI Edith Stallings is a 61 year old female wh o presents with right hand laceration. ??She cut it on a tree root in [place] at [place]on yesterday. ??It is her we b space of thumb and index finger. She had a nurse in her group and they put some anticoagulant stuff in it. ??Pain is a 2 out of 10. ??She denies any weakness or numbness. No other injur y. ?? TD is UTD I have reviewed the Medications, Allergi es, Past Medical and Surgical History, and Social History in the Epic system. Review of Systems ??Neg except for above . Physical Exam BP: 152/87 mmHg Pulse: 100 Resp: 20 Physical Exam Nursing note and vitals reviewed. Constitutional: She appears distressed. Musculoskeletal: ? Right hand: She exhibits normal r sarah of motion. normal sensation noted. Normal strength noted. ? Hands: Neurological: She has normal strength. N o sensory deficit. Skin: No rash noted. normal motor and sensory Good pulses ED Course She had a lot of debris from that antico agulant in it Ingested with buffered lido throughouly cleaned Wound explored in a bloodless corona No tendon or ligament laceration Laceration repair Performed by: MILLY PRESTON Authorized by: MILLY PRESTON Consent: Verbal consent obtained. Risks and benefits: risks, benefits and alternatives were discussed Consent given by: patient Location: right hand. Laceration length: 5 cm Local anesthetic: lidocaine 1% without e pinephrine Preparation: Patient was prepped and marylou ped in the usual sterile fashion. Amount of cleaning: extensive (per ER te ch) Skin closure: 5-0 nylon Number of sutures: 13 Suture technique: interrupted. Dressing: antibiotic ointment Patient tolerance: Patient tolerated the procedure well with no immediate complications. Assessments & Plan (with Medical Decisio n Making): ??61 year old with right hand laceration. ??It has bee n over 12 hrs. ??Wound needed cleaning and suturing. ??Discusse d risks and benefits. PLAN: ??stitches out in 7-10 days, ??Dis cussed wound care, risk of infection and will start Keflex 500 mg 3 times a day for 5 days for prophylactic. ??Please see discharge instructions . I have reviewed the nursing notes. I have reviewed the findings, diagnosis, plan and need for follow up with the patient. New Prescriptions CEPHALEXIN (KEFLEX) 500 MG CAPSULE ?Take 1 capsule by mouth 3 times daily for 5 days. HYDROCODONE-ACETAMINOPHEN (VICODIN) 5-5 00 MG PER TABLET ?Take 1-2 tablets by mouth every 6 hours as ne eded for pain. Final diagnoses: Laceration of right hand 03/11/2012 [facility] Procedure Note Milly Preston MD - 03/11/2012 3:01 AM CDT Images from the original note were not i ncluded. History Chief Complaint Patient presents with ? ? Laceration HPI Edith Stallings is a 61 year old female wh o presents with right hand laceration. She cut it on a tree root in [place] yesterday. It is her web space of thumb and index finger. She had a nurse in her group and they put some anticoagu lant stuff in it. Pain is a 2 out of 10. She denies any weakness or numbness. No other injury. TD is UTD I have reviewed the Medications, Allergi es, Past Medical and Surgical History, and Social History in the Trendabl system. Review of Systems Neg except for above. Physical Exam BP: 152/87 mmHg Pulse: 100 Resp: 20 Physical Exam Nursing note and vitals reviewed. Constitutional: She appears distressed. Musculoskeletal: Right hand: She exhibits normal range o f motion. normal sensation noted. Normal strength noted. Hands: Neurological: She has normal strength. N o sensory deficit. Skin: No rash noted. normal motor and sensory Good pulses ED Course She had a lot of debris from that antico agulant in it Ingested with buffered lido throughouly cleaned Wound explored in a bloodless corona No tendon or ligament laceration Laceration repair Performed by: MILLY PRESTON Authorized by: MILLY PRESTON Consent: Verbal consent obtained. Risks and benefits: risks, benefits and alternatives were discussed Consent given by: patient Location: right hand. Laceration length: 5 cm Local anesthetic: lidocaine 1% without e pinephrine Preparation: Patient was prepped and marylou ped in the usual sterile fashion. Amount of cleaning: extensive (per ER te ch) Skin closure: 5-0 nylon Number of sutures: 13 Suture technique: interrupted. Dressing: antibiotic ointment Patient tolerance: Patient tolerated the procedure well with no immediate complications. Assessments & Plan (with Medical Decisio n Making): 61 year old with right hand laceration. It has been over 12 hrs. Wound needed cleaning and suturing. Discussed risks and benefits. PLAN: stitches out in 7-10 days, Discuss ed wound care, risk of infection and will start Keflex 500 mg 3 times a day for 5 days for prophylactic. Please see discharge instructions . I have reviewed the nursing notes. I have reviewed the findings, diagnosis, plan and need for follow up with the patient. New Prescriptions CEPHALEXIN (KEFLEX) 500 MG CAPSULE Take 1 capsule by mouth 3 times daily for 5 days. HYDROCODONE-ACETAMINOPHEN (VICODIN) 5-5 00 MG PER TABLET Take 1-2 tablets by mouth every 6 hours as needed for pain. Final diagnoses: Laceration of right hand 03/11/2012 [facility] Milly Preston MD 03/11/12 0309 Milly Preston MD PROCEDURE/MINOR SURGICAL ORD ERABLES documented in this encounter Visit Diagnoses Diagnosis Laceration of right hand Open wound of hand except finger(s) tarun e, without mention of complication documented in this encounter Administered Medications Inactive Administered Medications - up to 3 most recent administrations Medication Order MAR Action Action Date Dose Rate Site cephALEXin (KEFLEX) capsule 500 mg Given 03/11/2012 2:12 AM CDT 500 mg STAT, 500 mg, Oral, ONCE, On 03/11/12 at 0200, For 1 dose HYDROcodone-acetaminophen 5-325 MG per Given 03/11/2012 2:14 AM CDT 2 tablets tablet 2 tablet 2 tablet, Oral, ONCE, On 03/11/12 at 0202, For 1 dose ibuprofen (ADVIL,MOTRIN) tablet 600 mg Given 03/11/2012 2:13 AM CDT 600 mg 600 mg, Oral, ONCE, On 03/11/12 at 0202, For 1 dose lidocaine BUFFERED 1 % solution 10 mL Given 03/11/2012 1:10 AM CDT 10 mLs 10 mL, Intradermal, ONCE, On 03/11/12 at 0122, For 1 dose documented in this encounter Active and Recently Administered Medications Times are shown in CDT. Scheduled Medication Order 03/09/2012 03/10/2012 03/11/2012 cephALEXin (KEFLEX) capsule 500 mg (COMPLETED) 211 (Given - Provider: Wendy Booker RN) 500 mg, Oral, ONCE, 03/11/12 at 0200, For 1 dose HYDROcodone-acetaminophen 5-325 MG per tablet 2 tablet (COMPLETE D) 213 (Given - Provider: Wendy Booker RN) 2 tablet, Oral, ONCE, 03/11/12 at 0202, For 1 dose ibuprofen (ADVIL,MOTRIN) tablet 600 mg (COMPLETED) 0213 (Given - Provider: Wendy Booker, RN) 600 mg, Oral, ONCE, 03/11/12 at 0202, For 1 dose lidocaine BUFFERED 1 % solution 10 mL (COMPLETED) 0110 (Given - Provider: Wendy Booker RN) 10 mL, Intradermal, ONCE, 03/11/12 at 0122, For 1 dose documented in this encounter Care Teams Biostatistics Manager Relationship Specialty Start Date End Date Sofia Landers PA-C PCP - General 05/10/06 Mikayla Allan MD PCP - Obstetrics/Gynecology 05/18/1004/27 [facility] [address] [place] [address] [id number] Sofia Landers PA-C PCP - Assigned PCP 12/05/10 10/09/18 [facility] [id number] [facility] [id number] documented as of this encounter
--- OUTSIDE RECORDS SUMMARY | 2022-07-05 17:51 | XMS_ITS | Encounter Summary ---
:1950 Author Organization [place] Address [address] [place] [id number] Care Team Providers Name Role Phone Sofia Landers PA-C Primary Care Provider Mikayla Allan MD Unavailable Sofia Landers PA-C Unavailable Reason for Visit Reason Comments Oncology Clinic Visit Encounter Details Date Type Department Care Team Description 11/16/2011 Oncology Visit [facility] Mikayla Allan Uterine cancer (H); Cancer Center Deanna Marin MD Malignant neoplasm of ovary (H) [facility] ONCOLOGY [address] [place] [phone] [facility] [phone] [place] [address] Social History Tobacco Use Types Packs/Day Years Used Date Smoking Tobacco: Never Alcohol Use Standard Drinks/Week Comments No 0 (1 standard drink = 0.6 oz pure alcoho l) Sex Assigned at Date Recorded Not on file documented as of this encounter Last Filed Vital Signs Vital Sign Reading Time Taken Comments Blood Pressure 143/83 11/16/2011 3:32 PM (from Extend ed CDT Vitals) Pulse 98 11/16/2011 3:32 PM (from Extend ed CDT Vitals) Temperature 36.8 ??C (98.3 ??F) 11/16/2011 3:28 PM CDT Respiratory Rate 18 11/16/2011 3:28 PM CDT Oxygen Saturation 100% 11/16/2011 3:28 PM CDT Inhaled Oxygen - - Concentration Weight 74.5 kg (164 lb 4.8 11/16/2011 3:28 PM oz) CDT Height - - Body Mass Index 31.04 04/18/2011 8:11 AM CDT documented in this encounter Progress Notes Mikayla Mendoza MD - 11/16/2011 3:37 PM CDT Follow Up Notes on Referred Patient Date: 11/16/2011 RE: Edith Stallings : 1950 TIANA: 11/16/2011 Edith is a 61 year old woman [...] Health Maintenance Due Topic Date Due ??? ADVANCE DIRECTIVE PLANNING Q5 YRS (NO INBASKET) 1968 Current Medications: Current outpatient prescriptions Medication Sig ??? amLODIPine (NORVASC) 10 MG tablet Take 1 tablet by mouth daily. ??? ALENdronate (FOSAMAX) 35 MG tablet Take 1 tablet [...] Not on file ??? Alcohol Use: No History Drug Use No Family History: Family History Problem Relation Age of Onset ??? C.A.D. Father [place], age 65, first event at 40 ??? Hypertension Mother ??? Genetic Daughter down's syndrome Physical Exam: BP 159/80 Pulse 103 Temp(Src) 98.3 ??F (36.8 ??C) (Oral) Resp 18 Wt 74.526 kg (164 lb 4.8 oz) SpO2 100% There is no height on file to calculate BMI. General Appearance: healthy and alert, no distress Cardiovascular: regular rate and rhythm, no gallops, rubs or murmurs Respiratory: lungs clear, no rales, rhonchi or wheezes, normal diaphragmatic excursion Musculoskeletal: extremities non tender and without edema Skin: no lesions or rashes Neurological: normal gait, no gross defects Psychiatric: appropriate mood and affect Gastrointestinal: abdomen soft, non-tender, non-distended, no organomegaly or masses Genitourinary: External genitalia and urethral meatus appears normal. Vagina is smooth without nodularity or masses. Cervix, uterus and adnexa are surgically absent. Bimanual exam reveal no masses, nodularity or fullness. Recto-vaginal exam confirms these findings. Assessment: Edith is a 61 year old woman with recently diagnosed Stage IA, grade 1, endometrioid adenocarcinoma of the endometrium. 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 She is here today for a surveillance visit. Plan: 1.) Exam is normal today. Patient will RTC in 3-4mths for her next surveillance visit. Mikayla Mendoza M.D., F.A.C.O.G. [facility] Department of Obstetrics, Gynecology and Women's Health Division of Gynecologic Oncology [phone] Patient Care Team: Sofia Landers as PCP - General Mikayla Mendoza as PCP - Obstetrics/Gynecology documented in this encounter Nursing Notes 11/16/2011 3:30 PM CDT >> Kanwal Michael LPN MonNov 16, 2011 3:32 PM Edith Stallings's goals for this visit include: follow up Patient requests these members of her care team be copied on today's visit information: n/a Initial There were no vitals taken for this visit. Estimated Body mass index is 30.17 kg/(m^2) as calculated from the following: Height as of 04/18/11: 5' 1(1.549 m). Weight as of 07/13/11: 159 lb 11.2 oz(72.439 kg).. BP completed using cuff size: regular [...] no headaches; no difficulty sleeping Last colonoscopy: 7 yrs ago Last mammogram: 1 yr ago Last dexascan:2 yrs Last thyroid screening: mar 2011 Last cholesterol screening: mar 2011 Last diabetes screening: mar 2011 Does the patient have an advanced directive? no If no, was information packet given? Has Kanwal Michael LPN documented in this encounter Plan of Treatment Not on filedocumented as of this encounter Visit Diagnoses Diagnosis Uterine cancer (H) Malignant neoplasm of uterus, part unspe cified Malignant neoplasm of ovary (H) Malignant neoplasm of ovary documented in this encounter Care Teams Residential Roofer Relationship Specialty Start Date End Date Sofia Landers PA-C PCP - General 05/10/06 Mikayla Allan MD PCP - Obstetrics/Gynecology 05/18/1004/27 [place] [facility] [address] [place] [address] [phone] Sofia Landers PA-C PCP - Assigned PCP 12/05/10 10/09/[phone] [place] [address] [place] [id number] documented as of this encounter
--- OUTSIDE RECORDS SUMMARY | 2022-07-05 17:51 | XMS_ITS | Encounter Summary ---
:1950 Author Organization [facility] Address [address] [place] [id number] Care Team Providers Name Role Phone Sofia Landers PA-C Primary Care Provider Mikayla Allan MD Unavailable Sofia Landers PA-C Unavailable Reason for Visit Reason Comments Chronic Disease Management HTN Encounter Details Date Type Department Care Team Description 12/10/2010 Allied Health/Nurse [facility] onic Disease Visit Clinic [facility] (HTN) [address] [place] [address] Social History Tobacco Use Types Packs/Day Years Used Date Smoking Tobacco: Never Alcohol Use Standard Drinks/Week Comments No 0 (1 standard drink = 0.6 oz pure alcoho l) Sex Assigned at Date Recorded Not on file documented as of this encounter Last Filed Vital Signs Vital Sign Reading Time Taken Comments Blood Pressure 148/92 12/10/2010 10:38 AM CDT L arm, r eg cuff Pulse 80 12/10/2010 10:38 AM CDT Temperature - - Respiratory Rate - - Oxygen Saturation - - Inhaled Oxygen Concentration - - Weight - - Height - - Body Mass Index - - documented in this encounter Patient Instructions Patient InstructionsAmelie Walker - 12/10/2010 11:41 AM CDT PATIENT INSTRUCTIONS 1. You will continue current medication regimen unchanged 2. FOLLOW UP: To be determined by provider - will send Snapdeal message with information when provider reviews. 3. Limit total daily sodium to 1500-2000mg per day Your BP Goal is: less than <130/80 consistently Today we used a regular cuff on your left arm. BP Readings from Last 3 Encounters: 12/10/10 148/92 11/25/10 176/102 11/19/10 160/90 Pulse Readings from Last 1 Encounters: 11/25/10 72 You will need baseline lab tests done within 12 months of beginning a new blood pressure medication and during/after medication adjustment is complete. Last Labs: Sodium Date Value Range Status 03/29/2010 138 133-144 (mmol/L) Final Potassium Date Value Range Status 07/19/2010 4.3 3.4-5.3 (mmol/L) Final Urea Nitrogen Date Value Range Status 03/29/2010 18 7-30 (mg/dL) Final Creatinine Date Value Range Status 03/29/2010 0.75 0.52-1.04 (mg/dL) Final New IDMS-traceable calibration beginning 12/06/07 GFR Estimate Date Value Range Status 03/29/2010 79 >60- (mL/min/1.7m2) Final Today we talked about... The wilson to effective blood pressure monitorin) Take your BP medication in the morning or as directed. 2) Sit in a chair with feet flat on the floor for 5-10 minutes before checking your blood pressure. 3) Use the same arm every time. 4) Use the same machine and appropriate cuff size. 5) Check your blood pressure at the same time of day. High Blood Pressure Over time, high blood pressure can damage the blood vessels and vital organs. This can lead to strokes, heart disease, and kidney disease. Treating high blood pressure decreases your chances of having heart and kidney problems. A healthy diet low in sodium and high in grains along with regular exercise have a direct effect on your blood pressure. Several kinds of medicines are used to treat high blood pressure. The medicines may be effective alone, or they may be used with other drugs. How do high blood pressure medicines work? Each type of medicine lowers blood pressure in a different way. Diuretics: also called water pills, rid the body of excess sodium (salt) and water. This means thereis less blood volume putting pressure on the vessel cox. Examples include: hydrochlorothiazide or furosemide (Lasix). Beta blockers: reduce the heart rate and the heart's output of blood. Slowing the heart down a bit allows it to fill more completely in between beats. Examples include: metoprolol, atenolol, and propranolol. Vasodilators, SABRINA inhibitors, ARBs, and calcium channel blockers: lower blood pressure by relaxing and opening up narrowed blood vessels allowing more room for blood to flow. Examples: -Calcium Channel Blockers: diltiazem, verapamil, nifedipine, and amlodipine . -SABRINA inhibitors (angiotensin-converting enzyme inhibitor): enalapril, captopril and lisinopril. -ARBs (angiotensin receptor blockers)- irbesartan, valsartan and losartan. -Vasodilators- nitroglycerin, isosorbide mononitrate, and hydralazine. What should I watch out for while taking high blood pressure medicines? When you take high blood pressure medicine, it is important to: Take the medicine regularly, exactly as prescribed. Do not change your dosage or stop taking the medicine without talking to your provider first. It can be dangerous to suddenly stop taking blood pressure medicine. Tell your provider about any side effects right away. You may feel dizzy or have headaches while taking these medicines. Older people may be more sensitive than younger people to the medicine's effects. It may take several weeks or months to find the best treatment for you. Make sure that you keep your follow-up appointments with your healthcare provider and let your provider know how you are tolerating your medicine. Check your blood pressure (or have it checked) as often as your healthcare provider advises. Ask your provider if you should have a home blood pressure monitor to check your blood pressure between visits. Does everyone need to take medication to control high blood pressure? No. Some patients with elevated BP readings are able to lower their blood pressure by modifying dietand increasing activity level. Your pharmacist is a great resource for questions regarding your medication's side effects and potential interactions. If you are having a side effect from your medication, please contact your primary provider. If you believe you are experiencing a life threatening reaction to your medication call 911 immediately. Diet Limiting your intake of salt (sodium) to 1,500-2,000mg per day will help lower your blood pressure. One great way to do that is using spices for flavor and reading labels to spot hidden sodium in processed and canned foods. For more information and some great recipe ideas you can visit MRS. CARBAJAL?? salt free seasoning at http://www.Kivun Hadash/?s_cid=c3a:google:brand:+dash (She even has a FACEBOOK page). We also talked about portion control and how adding more whole grains, fresh fruits and vegetables can help you lose weight which has a direct effect on lowering your blood pressure. Try taking the ???Portion Distortion Quiz? at http://ng9357.nhlbihin.net/portion/portion.cgi?action=question&number=1 it???s only 11 questions. Think of meat as a side dish rather than the main course by loading up on veggies and healthy grains. You???ll feel full sooner and longer. This is a great opportunity to try new vegetables and preparation methods. Have fun with this! Activity Physical activity not only helps control your blood pressure but also helps manage your weight, strengthen your heart and manage your stress level. Any activity you can add to your day is helpful. [place] [employer] has some good suggestions at http://www.americanheart.org/presenter.jhtml?ident ogjrw=1712709 Ideally you will work your way up to 30 minutes of moderate exercise - such as brisk walking - per day, at least 5 days a week. If you want to take three 10 minute walks, or two 15 minute brisk walks, per day that is ok. You???re working too hard if you get out of breath quickly and have to stop to catch your breath or short sentences feel like a strain. Warming up before and cooling down after exercising helps decrease your risk of injury and soreness.A good rule of thumb to remember is, ???Do slowly what you are about to do quickly.?? Don't forget to breathe! Holding your breath can increase your blood pressure. Find your rhythm! Amelie Walker RN documented in this encounter Progress Notes Amelie Walker - 12/10/2010 10:14 AM CDT Edith Yuan Stallings is being followed for Blood Pressure management. Copy of current RN HTN MGMT order or refer to Other Orders: Add blood pressure goal to problem list: <130/80 Patient is being referred to RN Hypertension Program for the following diagnoses: Hypertension RN will confirm Potassium, Creatinine, BUN (or BMP) have been done within the past 12 months. RN will order follow-up labs according to RN protocol. According to RN Protocol, start or titrate: lisinopril starting dose 30 mg may be titrated to 40mg- i increased this dosage today If blood pressure not at goal after current medication titrated, the following medication(s) may be prescribed and titrated. Huddle with provider- though would add norvasc 5 mg daily titrate to 10 mg If blood pressure not at goal after maximum dose reached, consult provider. If blood pressure at goal, follow up: with Hypertension Nurse in 6 mos. Contraindications and dosing considerations for current and recommended medications have been reviewed. Yes SUBJECTIVE: Pt states her is going to be moving to the [facility] part of the [facility]. 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 Patient is taking medication as prescribed Patient is tolerating medications well. Patient is not monitoring Blood Pressure at home. Last 3 home readings NA Complicating factors Positive for: None Symptoms discussed with provider: - N/A Negative for: Cough, Headache, Lightheadedness, Shortness of breath, Fatigue, Nausea, Sexual Dysfunction, New onset of swelling or edema, Weakness and New onset of Chest Pain OBJECTIVE: If medication to be titrated is a beta royal, is pulse 55 or greater? - N/A If no, provider consulted N/A Pulse Readings from Last 1 Encounters: 11/25/10 72 Today's BP completed using cuff size: regular on left side arm. Vital Signs 08/18/2010 11/19/2010 11/25/2010 12/10/2010 SYSTOLIC 153 160 176 148 DIASTOLIC 89 90 102 92[L arm, reg cuff[ PULSE 87 72 80 Potassium Date Value Range Status 07/19/2010 4.3 3.4-5.3 (mmol/L) Final Creatinine Date Value Range Status 03/29/2010 0.75 0.52-1.04 (mg/dL) Final New IDMS-traceable calibration beginning 12/06/07 Urea Nitrogen Date Value Range Status 03/29/2010 18 7-30 (mg/dL) Final GFR Estimate Date Value Range Status 03/29/2010 79 >60- (mL/min/1.7m2) Final If pt is taking a Thiazide Diuretic, SABRINA Inhibitor or ARB: A baseline potassium, creatinine, BUN, GFR has been done within past 12 mos: YES (Recheck Basic Metabolic panel 2-4 weeks after starting med and at the end of titration.) NURSING ASSESSMENT/PLAN: Hypertension blood pressure goal: <130/80. Pt is not at goal. Medication: continue current medication regimen unchanged for now, but will consult with provider. Current outpatient prescriptions Medication Sig ??? atorvastatin (LIPITOR) 20 MG tablet Take 1 tablet by mouth daily. ??? lisinopril (PRINIVIL,ZESTRIL) 40 MG tablet Take 1 tablet by mouth daily. ??? fish oil-omega-3 fatty acids (OMEGA 3) 1000 MG capsule Take 2 g by mouth daily. ??? HYDROCHLOROTHIAZIDE 25 MG PO TABS 1 TABLET DAILY ??? FOSAMAX 35 MG OR TABS 1 TABLET WEEKLY ON AN EMPTY STOMACH- will need dexa this fall/winter ??? ZACH LOW STRENGTH OR 1 TABLET DAILY ??? MULTI-VITAMIN OR 1 tablet daily Lab: BMP or CMP done today - No Education: written materials handout and demonstration Limit dietary sodium intake between 1500-2000mg every day Regular aerobic exercise Follow up: RN Hypertension program: to be determined To be determinted Discussed habit change regarding diet/weight loss and patient activation These MT interventions were used: Goal: start to increase activity level, Reflection- simple or complex, Empathy/Understanding and Open ended questions Education material provided and patient was given an opportunity to ask questions. Patient verbalized understanding of this plan and is agreeable. Professional Reference click here Amelie Walker RN documented in this encounter Plan of Treatment Not on filedocumented as of this encounter Visit Diagnoses Diagnosis Hypertension goal BP (blood pressure) < 130/80 - Primary Unspecified essential hypertension documented in this encounter Care Teams Conservation Of Resources Commissioner Relationship Specialty Start Date End Date Sofia Landers PA-C PCP - General 05/10/06 Mikayla Allan MD PCP - Obstetrics/Gynecology 05/18/1004/27 [facility] [address] [place] [address] Sofia Landers PA-C PCP - Assigned PCP 12/05/10 10/09/18 Saurabh [id number] [place] FRASER [id number] documented as of this encounter
--- OUTSIDE RECORDS SUMMARY | 2022-07-05 17:51 | XMS_ITS | Encounter Summary ---
:1950 Author Organization [facility] Address [address] [place] [address] Care Team Providers Name Role Phone Sofia Landers PA-C Primary Care Provider Mikayla Allan MD Unavailable Reason for Visit Reason Comments Lipids Hypertension Pre Visit Planning - Done Encounter Details Date Type Department Care Team Description 11/25/[address] [facility] Sofia Landers Hyperl ipidemia LDL goal <130 (Primary Dx); [facility] [address] [place] [address] [facility] [address] [address] [phone] [place] [address] Social History Tobacco Use Types Packs/Day Years Used Date Smoking Tobacco: Never Alcohol Use Standard Drinks/Week Comments No 0 (1 standard drink = 0.6 oz pure alcoho l) Sex Assigned at Date Recorded Not on file documented as of this encounter Last Filed Vital Signs Vital Sign Reading Time Taken Comments Blood Pressure 176/102 11/25/2010 12:10 PM CDT Pulse 72 11/25/2010 11:40 AM CDT Temperature 36.2 ??C (97.1 ??F) 11/25/2010 11:40 AM CDT Respiratory Rate 16 11/25/2010 11:40 AM CDT Oxygen Saturation - - Inhaled Oxygen Concentration - - Weight 73 kg (161 lb) 11/25/2010 11:40 AM CDT Height 152.4 cm (5') 11/25/2010 11:40 AM CDT Body Mass Index 31.44 11/25/2010 11:40 AM CDT documented in this encounter Progress Notes Sarah Ríos - 11/22/2010 8:36 AM CDT SUBJECTIVE: Edith Stallings is a 60 year old female is here for Ongoing Issue: Hypertension, Lipids Is on Lisinopril, HCTZ, simvastatin (treatment or meds) for this. Condition/problem is: Blood pressures are worse- see bp on chart Side effects of Medications? none Any difficulty taking medications or doing treatments as ordered? No Any lifestyle or habit changes related to this problem? No, but would like to start dieting and exercising Any other concerns? Discuss how to get blood pressure under control ROS: RESP:NEGATIVE for significant cough or SOB CV: NEGATIVE for chest pain, palpitations or peripheral edema EXAM: GENERAL APPEARANCE: healthy, alert and no distress PSYCH: Affect normal/bright. Mentation within normal limits. NECK: supple, nontender, no lymphadenopathy RESP: lungs clear to auscultation - no rales, rhonchi or wheezes CV: regular rates and rhythm, normal S1 S2, no murmur noted ASSESSMENT/PLAN: 272.4CK Hyperlipidemia LDL goal <130 (primary encounter diagnosis) Comment: pt wants to try lipitor again Plan: atorvastatin (LIPITOR) 20 MG tablet, Lipid panel reflex to direct LDL, ALT Labs recheck in 3 months with lab appt only 401.1 BENIGN HYPERTENSION Comment: increased dosage to 40 mg daily Plan: lisinopril (PRINIVIL,ZESTRIL) 40 MG tablet, RN HTN MGMT Will add norvasc 5 mg if not to goal documented in this encounter Nursing Notes 11/25/2010 11:30 AM CDT >> ANTOINE HUBER Yessica Nov 25, 2010 11:44 AM Patient is here today to discuss her blood pressure. Estimated Body mass index is 31.44 kg/(m^2) as calculated from the following: Height as of this encounter: 5' 0(1.524 m). Weight as of this encounter: 161 lb(73.029 kg). BP Readings from Last 1 Encounters: 11/25/10 : 148/82] BP cuff size: regular Do you feel safe in your environment? Yes Does the patient need any medication refills today? no documented in this encounter Plan of Treatment Not on filedocumented as of this encounter Visit Diagnoses Diagnosis Hyperlipidemia LDL goal <130 - Primary Other and unspecified hyperlipidemia BENIGN HYPERTENSION Essential hypertension, benign documented in this encounter Care Teams Director Of Product Design Relationship Specialty Start Date End Date Sofia Landers PA-C PCP - General 05/10/06 Mikayla Allan MD PCP - Obstetrics/Gynecology 05/18/1004/27 [facility] [address] [place] [address] documented as of this encounter
--- OUTSIDE RECORDS SUMMARY | 2022-07-05 17:51 | XMS_ITS | Encounter Summary ---
:1950 Author Organization [facility] Address [address] [place] [address] Care Team Providers Name Role Phone Sofia Landers PA-C Primary Care Provider Mikayla Allan MD Unavailable Sofia Landers PA-C Unavailable Reason for Visit Reason Onset Date Comments Refill Request 01/31/2011 fosamax Encounter Details Date Type Department Care Team Description 01/31/[address] 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 Diagnosis associated with this medication is not in patient's problem list and HIRO related to this diagnosis was 03/15. Letter sent. Mikayla Ferrera RN Telephone Encounter - Sarah Ríos - 01/31/2011 9:38 AM CDT Last refill per Epic: 11/02/09 Last refill per fax: 05/07/10 Date of HIRO related to diagnosis: 03/30/09 Labs: na Date faxed to clinic: 01/29/11 documented in this encounter Plan of Treatment Not on filedocumented as of this encounter Visit Diagnoses Diagnosis Osteopenia - Primary Disorder of bone and cartilage, unspecif ied documented in this encounter Care Teams Custodian Relationship Specialty Start Date End Date Sofia Landers PA-C PCP - General 05/10/06 Mikayla Allan MD PCP - Obstetrics/Gynecology 05/18/1004/27 [facility] [address] [place] [address] [id number] Sofia Landers PA-C PCP - Assigned PCP 12/05/10 10/09/18 Saurabh [id number] [place] [id number] documented as of this encounter
--- OUTSIDE RECORDS SUMMARY | 2022-07-05 17:51 | XMS_ITS | Encounter Summary ---
:1950 Author Organization [facility] Address [address] [place] [address] Care Team Providers Name Role Phone Sofia Landers PA-C Primary Care Provider Mikayla Allan MD Unavailable Sofia Landers PA-C Unavailable Reason for Visit Reason Comments Wound Check x 1 week, on right hand Encounter Details Date Type Department Care Team Description 03/21/[address] [facility] [place] [address] [phone] Social History Tobacco Use Types Packs/Day Years Used Date Smoking Tobacco: Never Alcohol Use Standard Drinks/Week Comments No 0 (1 standard drink = 0.6 oz pure alcoho l) Sex Assigned at Date Recorded Not on file documented as of this encounter Last Filed Vital Signs Vital Sign Reading Time Taken Comments Blood Pressure 150/92 03/21/2012 6:25 PM CDT Pulse 99 03/21/2012 6:25 PM CDT Temperature 36.6 ??C (97.8 ??F) 03/21/2012 6:25 PM CDT Respiratory Rate - - Oxygen Saturation 96% 03/21/2012 6:25 PM CDT Inhaled Oxygen Concentration - - Weight - - Height - - Body Mass Index - - documented in this encounter Progress Notes Christina Hernandez PA-C - 03/21/2012 6:22 PM CDT SUBJECTIVE: Edith Stallings is a 61 year old female who presents to the clinic today for a wound check on right hand. She injured her right hand up in the [place] on 03/11/12, injured on tree root in the webspace between thumb and index finger. She was seen in [place] ER that day and received 13 sutures. She completed the 5 day prophylactic antibx course. Sutures removed in clinic 2 days ago, steri- strips applied. She requests a wound check today. Small open area she is concerned about. No fever, redness or discharge. No pain. Has been keeping area covered during day with neosporin and bandaid. Airing out at night. During showers keeping covered with plastic bag. Is typing a lot at work and is worried may not heal fully d/t her use of R hand typing. Taking tylenol prn. Has not needed vicodin for pain. Tetanus UTD in 2006. Past Medical History Diagnosis Date ??? Other and unspecified hyperlipidemia Hyperlipidemia ??? Essential hypertension, benign Hypertension, Benign ??? Personal history of urinary calculi ??? Endometrial cancer ??? Ovarian cancer Current Outpatient Prescriptions Medication Sig ??? HYDROcodone-acetaminophen (VICODIN) 5-500 MG per tablet Take 1-2 tablets by mouth every 6 hours as needed for pain. ??? amLODIPine (NORVASC) 10 MG tablet Take [...] DAILY ??? MULTI-VITAMIN OR 1 tablet daily Allergies Allergen Reactions ??? Sulfa Drugs Rash History Smoking status ??? Never Smoker Smokeless tobacco ??? Not on file ROS: Review of systems negative except as stated above. EXAM: BP 150/92 Pulse 99 Temp(Src) 97.8 ??F (36.6 ??C) (Oral) SpO2 96% GENERAL: alert, no acute distress. SKIN: Examination of R hand Distribution: localized Location: webspace of R hand between thumb and index finger Incision site - dry, healing well, no discharge or erythema, small open area of suture line proximalto base of thumb. Full sensation and motion. ASSESSMENT: Wound check, R hand PLAN: Ressurance no infection present. Discussed importance of keeping area covered, wrapped well with antibiotic ointment until healed fully. Placed gauze dressing + antibiotic ointment on area today. Instructed to minimize motion of thumb (excessive typing), keep dry (no submersion in water, dishes), keepwrapped in plastic bag when showering and allow some time during evening at home to keep open to airfor a period of time. She will be seeing PCP next week. Be checked sooner if any redness, pain, fever or discharge presentfrom R hand incision site healing. Discussed BP elevated, has white coat HTN. Will recheck at PCP office. Christina Hernandez PA-C [facility] documented in this encounter Plan of Treatment Not on filedocumented as of this encounter Visit Diagnoses Diagnosis Healing laceration - Primary Unspecified accident documented in this encounter Care Teams Park Guard Relationship Specialty Start Date End Date Sofia Landers PA-C PCP - General 05/10/06 Mikayla Allan MD PCP - Obstetrics/Gynecology 05/18/1004/27 [facility] [address] [address] Sofia Landers PA-C PCP - Assigned PCP 12/05/10 10/09/18 Saurabh [id number] [facility] [place] [id number] documented as of this encounter
--- OUTSIDE RECORDS SUMMARY | 2022-07-05 17:51 | XMS_ITS | Encounter Summary ---
:1950 Author Organization [place] Address [address] [place] [address] Care Team Providers Name Role Phone Sofia Landers PA-C Primary Care Provider Mikayla Allan MD Unavailable Sofia Landers PA-C Unavailable Encounter Details Date Type Department Care Team Description 03/19/2012 Allied Health/Nurse [facility] for suture Visit Clinic [facility] (Primary Dx) [address] [place] [address] Social History Tobacco Use Types Packs/Day Years Used Date Smoking Tobacco: Never Alcohol Use Standard Drinks/Week Comments No 0 (1 standard drink = 0.6 oz pure alcoho l) Sex Assigned at Date Recorded Not on file documented as of this encounter Progress Notes Татьяна Bolton RN - 03/19/2012 8:54 AM CDT Edith Stallings presents to the clinic today for removal of sutures. The patient has had the sutures in place for 8 days. There has been no history of infection or drainage. O: 13 sutures are seen located on the left hand. The wound is healing well with no signs of infection. Tetanus status is up to date. A: Suture removal. Steri strips applied P: All sutures were easily removed today. Routine wound care discussed. The patient will follow up as needed. documented in this encounter Plan of Treatment Not on filedocumented as of this encounter Visit Diagnoses Diagnosis Visit for suture removal - Primary Encounter for removal of sutures documented in this encounter Care Teams Spray Painter Relationship Specialty Start Date End Date Sofia Landers PA-C PCP - General 05/10/06 Mikayla Allan MD PCP - Obstetrics/Gynecology 05/18/1004/27 [facility] [address] [place] [address] [phone] Sofia Landers PA-C PCP - Assigned PCP 12/05/10 10/09/18 Saurabh [id number] [place] [id number] documented as of this encounter
--- OUTSIDE RECORDS SUMMARY | 2022-07-05 17:51 | XMS_ITS | Encounter Summary ---
:1950 Author Organization [place] Address [address] [place] [address] Care Team Providers Name Role Phone Sofia Landers PA-C Primary Care Provider Mikayla Allan MD Unavailable Sofia Landers PA-C Unavailable Reason for Visit Reason Onset Date Comments Appointment 02/17/2011 due for RN HTN follo w up Encounter Details Date Type Department Care Team Description 02/17/2011 Telephone [facility] Sofia Landers Appoin tment (due for Clinic [place] RN HTN follow up) [address] [place] [address] [facility] [address] [place] [address] (Wo rk) Social History Tobacco Use Types Packs/Day Years Used Date Smoking Tobacco: Never Alcohol Use Standard Drinks/Week Comments No 0 (1 standard drink = 0.6 oz pure alcoho l) Sex Assigned at Date Recorded Not on file documented as of this encounter Miscellaneous Notes Telephone Encounter - Amelie Walker - 02/23/2011 3:04 PM CDT Pt scheduled for 02/25/11. Amelie Walker RN Telephone Encounter - Amelie Walker - 02/17/2011 2:03 PM CDT I have attempted to contact this patient by phone with the following results: no answer. Left message on answering machine to call the clinic back. Pt is overdue for HTN follow-up with RN. Schedule at pt's earliest convenience. Amelie Walker RN documented in this encounter Plan of Treatment Not on filedocumented as of this encounter Visit Diagnoses Not on filedocumented in this encounter Care Teams Certified Nursing Assistant Instructor Relationship Specialty Start Date End Date Sofia Landers PA-C PCP - General 05/10/06 Mikayla Allan MD PCP - Obstetrics/Gynecology 05/18/1004/27 [place] [facility] [address] [place] [address] [phone] Sofia Landers PA-C PCP - Assigned PCP 12/05/10 10/09/[id number] [place] [address] [place] [address] documented as of this encounter
--- OUTSIDE RECORDS SUMMARY | 2022-07-05 17:51 | XMS_ITS | Encounter Summary ---
:1950 Author Organization [place] Address [address] [place] [address] Care Team Providers Name Role Phone Sofia Landers PA-C Primary Care Provider Mikayla Allan MD Unavailable Sofia Landers PA-C Unavailable Encounter Details Date Type Department Care Team Description 03/27/2012 Hospital Encounter [facility] Fifi Landers PA-C [address] [place], [place] [address] [phone] Social History Tobacco Use Types Packs/Day Years [...] Associated Diagnosis Comme nts MA SCREENING Routine 03/27/2012 8:52 AM Results f or this DIGITAL BILATERAL CDT procedure are in the results section. documented in this encounter Results Mammo Screening digital (bilat) (03/27/2012 8:52 AM CDT) Anatomical Region Laterality Modality Breast Bilateral Other Specimen (Source) Anatomical Collection Method Collection Time Re ceived Time Location / / Volume Laterality 03/27/2012 8:52 AM CDT Impressions 03/27/2012 5:50 PM CDT SCREENING MAMMOGRAM, BILATERAL, DIGITAL w/ CAD ??- ?? Mar 27, 2012 8:52:00 AM ?? BREAST SYMPTOMS: ?No current breast symptoms were reported. COMPARISON: ??03/22/11, 08/02/07 ?? PARENCHYMAL PATTERN: There are scattered fibroglandular densities. COMMENTS: No findings of suspicion for m alignancy. IMPRESSION: BI-RADS 1, NEGATIVE. RECOMMENDATIONS: ??Routine annual mammog nabil. Sofia Landers PA-C IMG MAMMOGRAPHY ORDERABLES documented in this encounter Visit Diagnoses Not on filedocumented in this encounter Care Teams Airport Planner Relationship Specialty Start Date End Date Sofia Landers PA-C PCP - General 05/10/06 Mikayla Allan MD PCP - Obstetrics/Gynecology 05/18/1004/27 [place] [facility] [address] [place] [address] Sofia Landers PA-C PCP - Assigned PCP 12/05/10 10/09/18 Jessica [id number] [place] [address] documented as of this encounter
--- OUTSIDE RECORDS SUMMARY | 2022-07-05 17:51 | XMS_ITS | Encounter Summary ---
:1950 Author Organization [place] Address [address] [place] [address] Care Team Providers Name Role Phone Sofia Landers PA-C Primary Care Provider Mikayla Allan MD Unavailable Encounter Details Date Type Department Care Team Description 08/05/2010 Historic Results [facility] Cancer Mikayla Allan, [place] [id number] [place] [address] ONCOLOGY [place], [place] HEMATOLOGY [address] [place] [address] [address] [place] [phone] (Wo rk) Social History Tobacco Use Types Packs/Day Years Used Date Smoking Tobacco: Never Alcohol Use Standard Drinks/Week Comments No 0 (1 standard drink = 0.6 oz pure alcoho l) Sex Assigned at Date Recorded Not on file documented as of this encounter Plan of Treatment Not on filedocumented as of this encounter Procedures Procedure Name Priority Date/Time Associated Diagnosis Comme nts ABO/RH TYPE AND STAT 08/05/2010 7:13 AM Result s for this SCREEN [facility] [place] procedure are i n the results section. documented in this encounter Results ABO/Rh type and screen (08/05/2010 7:13 AM [facility] [place]) Analysis Performed At Patho logist Time Signature ABO A [facility] RH(D) Pos [facility] Antibody Neg [facility] Screen Specimen 08/08/2010 [facility] Expires Specimen Anatomical Collection Method Collection Time Receive d Time (Source) Location / / Volume Laterality 08/05/2010 7:13 AM 0 7:22 [place] [place] AM [facility] [place] Mikayla Allan MD LAB - BLOOD BANK TEST ORDER Performing Organization Address City/State/ZIP Code Phon e Number MISYS documented in this encounter Visit Diagnoses Not on filedocumented in this encounter Care Teams Upsetter Helper Relationship Specialty Start Date End Date Sofia Landers PA-C PCP - General 05/10/06 Mikayla Allan MD PCP - Obstetrics/Gynecology 05/18/1004/27 [place] [facility] [address] [place] [address] documented as of this encounter
--- OUTSIDE RECORDS SUMMARY | 2022-07-05 17:51 | XMS_ITS | Encounter Summary ---
:1950 Author Organization [place] Address [address] [place] [address] Care Team Providers Name Role Phone Sofia Landers PA-C Primary Care Provider Mikayla Allan MD Unavailable Reason for Visit Reason Comments Hypertension Encounter Details Date Type Department Care Team Description 11/19/2010 Allied Health/Nurse [facility] Hypertension Visit [place] [address] [place] [address] Social History Tobacco Use Types Packs/Day Years Used Date Smoking Tobacco: Never Alcohol Use Standard Drinks/Week Comments No 0 (1 standard drink = 0.6 oz pure alcoho l) Sex Assigned at Date Recorded Not on file documented as of this encounter Last Filed Vital Signs Vital Sign Reading Time Taken Comments Blood Pressure 160/90 11/19/2010 10:11 AM CDT Pulse - - Temperature - - Respiratory Rate - - Oxygen Saturation - - Inhaled Oxygen Concentration - - Weight - - Height - - Body Mass Index - - documented in this encounter Nursing Notes 11/19/2010 9:15 AM CDT >> JULI ROBERTSON MonNov 19, 2010 10:14 AM Pt is here for a blood pressure check. Pt had two elevated readings approx 10 min apart. Informed Amelie Jaramillo RN >> AMELIE HUGHES MonNov 19, 2010 9:20 AM Due to high blood pressure readings at visit, RN to assess. Pt reports no symptoms including: chest pain, shortness of breath, headache, vision changes or any other sxs. She states she feels very good and she is very aware of what to watch for. She agrees to make a follow up appt with Sofia Landers in the next couple weeks and to call with any further questions or concerns. Amelie Hughes RN documented in this encounter Plan of Treatment Not on filedocumented as of this encounter Visit Diagnoses Diagnosis BENIGN HYPERTENSION - Primary Essential hypertension, benign documented in this encounter Care Teams Book Sewer Relationship Specialty Start Date End Date Sofia Landers PA-C PCP - General 05/10/06 Mikayla Allan MD PCP - Obstetrics/Gynecology 05/18/1004/27 [place] [facility] [address] [place] [address] documented as of this encounter
--- OUTSIDE RECORDS SUMMARY | 2022-07-05 17:51 | XMS_ITS | Encounter Summary ---
:1950 Author Organization [place] Address [address] [place] [address] Care Team Providers Name Role Phone Sofia Landers PA-C Primary Care Provider Mikayla Allan MD Unavailable Sofia Landers PA-C Unavailable Reason for Visit Reason Comments Hypertension check Encounter Details Date Type Department Care Team Description 05/18/2011 Allied Health/Nurse [facility] Hyp ertension (check) Visit Clinic [address] [address] Social History Tobacco Use Types Packs/Day Years Used Date Smoking Tobacco: Never Alcohol Use Standard Drinks/Week Comments No 0 (1 standard drink = 0.6 oz pure alcoho l) Sex Assigned at Date Recorded Not on file documented as of this encounter Last Filed Vital Signs Vital Sign Reading Time Taken Comments Blood Pressure 142/82 05/18/2011 8:47 AM CDT Pulse - - Temperature - - Respiratory Rate - - Oxygen Saturation - - Inhaled Oxygen Concentration - - Weight - - Height - - Body Mass Index - - documented in this encounter Nursing Notes 05/18/2011 8:45 AM CDT >> GUERRERO DecemberMay 18, 2011 8:49 AM Patient presents with: Blood Pressure - check Advised pt to wait to recheck her BP in 5 min but stated that she had to leave to get to another apt. Estimated Body mass index is 30.61 kg/(m^2) as calculated from the following: Height as of 04/18/11: 5' 1(1.549 m). Weight as of 04/18/11: 162 lb(73.483 kg). BP Readings from Last 1 Encounters: 05/18/11 : 142/82] BP cuff size: regular Do you feel safe in your environment? Yes Does the patient need any medication refills today? no documented in this encounter Plan of Treatment Not on filedocumented as of this encounter Visit Diagnoses Diagnosis BENIGN HYPERTENSION - Primary Essential hypertension, benign documented in this encounter Care Teams Polish Maker Relationship Specialty Start Date End Date Sofia Landers PA-C PCP - General 05/10/06 Mikayla Allan MD PCP - Obstetrics/Gynecology 05/18/1004/27 [place] [facility] [address] [place] [phone] Sofia Landers PA-C PCP - Assigned PCP 12/05/10 10/09/18 Saurabh [id number] [facility] [place] LU[place]OPE[place] [id number] documented as of this encounter
--- OUTSIDE RECORDS SUMMARY | 2022-07-05 17:51 | XMS_ITS | Encounter Summary ---
:1950 Author Organization [place] Address [address] [place] [address] Care Team Providers Name Role Phone Mat Landers PA-C Primary Care Provider Mikayla Allan MD Unavailable Mat Landers PA-C Unavailable Reason for Visit Reason Comments Cancer Encounter Details Date Type Department Care Team Description 12/22/2010 Oncology Visit [facility] Mikayla Allan Uterine cancer (H); Cancer Center Deanna Marin MD Malignant neoplasm of ovary (H) [facility] ONCOLOGY [address] [place] [address] [facility] [phone] [place] [address] Social History Tobacco Use Types Packs/Day Years Used Date Smoking Tobacco: Never Alcohol Use Standard Drinks/Week Comments No 0 (1 standard drink = 0.6 oz pure alcoho l) Sex Assigned at Date Recorded Not on file documented as of this encounter Last Filed Vital Signs Vital Sign Reading Time Taken Comments Blood Pressure 164/80 12/22/2010 3:45 PM CDT Pulse 86 12/22/2010 3:45 PM CDT Temperature 36.9 ??C (98.4 ??F) 12/22/2010 3:45 PM CDT Respiratory Rate 18 12/22/2010 3:45 PM CDT Oxygen Saturation 96% 12/22/2010 3:45 PM CDT Inhaled Oxygen Concentration - - Weight 72 kg (158 lb 12.8 oz) 12/22/2010 3:45 PM CDT Height 154.9 cm (5' 1) 12/22/2010 3:45 PM CDT Body Mass Index 30 12/22/2010 3:45 PM CDT documented in this encounter Progress Notes Mikayla Mendoza - 01/03/2011 11:13 PM CDT Follow Up Notes on Referred Patient RE: Edith Stallings : 1950 TIAAN: 12/22/2010 Edith is a 60 year old woman with recently diagnosed Stage IA, grade 1, endometrioid adenocarcinoma of the endometrium. 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 She is here today for her first surveillance visit. In brief, Ms. Stallings presented [...] returned showing no evidence of disease. She returns today with no complaints or symptoms of concern. Review of Systems: See RN note for [...] with lymph node dissection ??? Laparoscopic appendectomy Current Medications: has a current medication list which includes atorvastatin, lisinopril, fish oil-omega-3 fatty acids,hydrochlorothiazide, fosamax, aspirin, and multiple vitamin. Allergies: Allergies Allergen Reactions ??? Sulfa Drugs Rash Social History: History Substance Use Topics ??? Smoking status: Never Smoker ??? Smokeless tobacco: Not on file ??? Alcohol Use: No History Drug Use No Family History: Family History Problem Relation Age of Onset ??? C.A.D. Father [place], age 65, first event at 40 ??? Hypertension Mother ??? Genetic Daughter down's syndrome Physical Exam: BP 164/80 Pulse 86 Temp 98.4 ??F (36.9 ??C) Resp 18 Ht 1.549 m (5' 1) Wt 72.031 kg (158 lb 12.8 oz) BMI 30.00 kg/m2 SpO2 96% Body mass index is 30.00 kg/(m^2). General Appearance: healthy and alert, no [...] Vagina is smooth without nodularity or masses. Bimanual exam reveal no masses, nodularity or fullness. Recto-vaginal exam confirms these findings. Assessment: Edith is a 60 year old woman with recently diagnosed Stage IA, grade 1, endometrioid adenocarcinoma of the endometrium. 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 She is here today for her first surveillance visit. Plan: 1.) She has no concerning symptoms and exam is normal. She will return in 3- 4mths for her next surveillance visit. 3.) Labs and/or tests ordered include: We discussed the pros/cons of CA125 in light of malignant tumor found in the dermoid. Decision was made to not get CA125's as part of surveillance. Mikayla Mendoza M.D., F.A.C.Jagdeep. [employer] Department of Obstetrics, Gynecology and Women's Health Division of Gynecologic Oncology [phone] documented in this encounter Nursing Notes 12/22/2010 3:30 PM CDT >> ARMANDO HAYES Wed December 22, 2010 3:51 PM Edith Stallings's goals for this visit include: f/u with Dr. Mendoza She requests these members of her care team be copied on today's visit information: MAT CHE PCP: MAT SAENZ, PA Referring Provider: No referring provider defined for this encounter. Patient presents with: Cancer Initial BP 164/80 Pulse 86 Temp 98.4 ??F (36.9 ??C) Resp 18 Ht 1.549 m (5' 1) Wt 72.031 kg (158 lb 12.8 oz) BMI 30.00 kg/m2 SpO2 96% Estimated Body mass index is 30.00 kg/(m^2) as calculated from the following: Height as of this encounter: 5' 1(1.549 m). Weight as of this encounter: 158 lb 12.8 oz(72.031 kg).. BP completed using cuff size: regular [...] no headaches; no difficulty sleeping Last colonoscopy: 2007 Last mammogram: 2009 Last dexascan:2008 Last thyroid screening: unsure Last cholesterol screenin Last diabetes screening: unsure Does the patient have an advanced directive? no If no, was information packet given? Has at home Armando Hayes RN documented in this encounter Plan of Treatment Not on filedocumented as of this encounter Visit Diagnoses Diagnosis Uterine cancer (H) Malignant neoplasm of uterus, part unspe cified Malignant neoplasm of ovary (H) Malignant neoplasm of ovary documented in this encounter Care Teams Toolmaker Grade Three Relationship Specialty Start Date End Date Mat Landers PA-C PCP - General 05/10/06 Mikayla Allan MD PCP - Obstetrics/Gynecology 05/18/1004/27 [place] [facility] [address] [place] [address] Mat Landers PA-C PCP - Assigned PCP 12/05/10 10/09/[id number] [facility] JO[place] LU[place]OPE[place] [address] documented as of this encounter
--- OUTSIDE RECORDS SUMMARY | 2022-07-05 17:51 | XMS_ITS | Encounter Summary ---
:1950 Author Organization [place] Address [address] [place] [address] Care Team Providers Name Role Phone Sofia Landers PA-C Primary Care Provider Mikayla Allan MD Unavailable Sofia Landers PA-C Unavailable Reason for Visit Reason Comments Chronic Disease Management HTN Encounter Details Date Type Department Care Team Description 02/25/2011 Office Visit [facility] Hyp ertension goal BP [place] (blood pressure) < 130/[id number] (Primary Dx) [place] [address] Social History Tobacco Use Types Packs/Day Years Used Date Smoking Tobacco: Never Alcohol Use Standard Drinks/Week Comments No 0 (1 standard drink = 0.6 oz pure alcoho l) Sex Assigned at Date Recorded Not on file documented as of this encounter Patient Instructions Patient InstructionsAmelie Walker - 02/25/2011 8:39 AM CDT documented in this encounter Progress Notes Татьяна Bolton RN - 02/25/2011 7:41 AM CDT Edith Stallings is being followed for Blood Pressure [...] According to RN Protocol, start or titrate: documented in this encounter Plan of Treatment Not on filedocumented as of this encounter Visit Diagnoses Diagnosis Hypertension goal BP (blood pressure) < 130/80 - Primary Unspecified essential hypertension documented in this encounter Care Teams Fire Extinguisher Mechanic Relationship Specialty Start Date End Date Sofia Landers PA-C PCP - General 05/10/06 Mikayla Allan MD PCP - Obstetrics/Gynecology 05/18/1004/27 [place] [facility] [address] [place] [phone] Sofia Landers PA-C PCP - Assigned PCP 12/05/10 10/09/18 Saurabh [address] [facility] JO[place] LU[place] [address] documented as of this encounter
--- OUTSIDE RECORDS SUMMARY | 2022-07-05 17:51 | XMS_ITS | Encounter Summary ---
:1950 Author Organization [place] Address [address] [place] [address] Care Team Providers Name Role Phone Sofia Landers PA-C Primary Care Provider Mikayla Allan MD Unavailable Reason for Visit Reason Onset Date Comments Counseling 08/09/2010 post op Encounter Details Date Type Department Care Team Description 08/09/2010 Telephone [facility] Mikayla Allan, [place] unseling (post op ) Cancer Center Deanna DE [facility] ONCOLOGY [id number] [place] [address] [address] [facility] [phone] [place] [phone] (Wo rk) Social History Tobacco Use Types Packs/Day Years Used Date Smoking Tobacco: Never Alcohol Use Standard Drinks/Week Comments No 0 (1 standard drink = 0.6 oz pure alcoho l) Sex Assigned at Date Recorded Not on file documented as of this encounter Miscellaneous Notes Telephone Encounter - Giuliana Hayes - 08/09/2010 12:09 PM CST Left message on pt home phone requesting call back post surgery update. Giuliana Hayes RN L ENGINEERING PROCESS WORKER documented in this encounter Plan of Treatment Not on filedocumented as of this encounter Visit Diagnoses Not on filedocumented in this encounter Care Teams Senior Living Sales Counselor Relationship Specialty Start Date End Date Sofia Landers PA-C PCP - General 05/10/06 Mikayla Allan MD PCP - Obstetrics/Gynecology 05/18/1004/27 [place] [facility] [address] [place] [phone] documented as of this encounter
--- OUTSIDE RECORDS SUMMARY | 2022-07-05 17:51 | XMS_ITS | Encounter Summary ---
:1950 Author Organization [place] Address [address] [place] [address] Care Team Providers Name Role Phone Sofia Landers PA-C Primary Care Provider Mikayla Allan MD Unavailable Sofia Landers PA-C Unavailable Encounter Details Date Type Department Care Team Description 03/07/2011 Hospital Encounter [facility] Fifi Landers PA-C [id number] [place] [address] [place], [place] [address] [phone] Social History Tobacco Use Types Packs/Day Years [...] daily. MULTI-VITAMIN OR 1 tablet daily 0 ALENdronate (FOSAMAX) 35 MG Take 1 tablet by 12 tablet 0 04/18/2011 tabletIndications: Osteopenia mouth every 7 days. amlodipine (NORVASC) 5 MG Take 1 tablet by 30 tablet 0 02/0503/25/2011 tabletIndications: mouth daily. Hypertension goal BP (blood pressure) < 130/80, Essential hypertension, benign atorvastatin (LIPITOR) 20 MG Take 1 tablet by 90 tablet 3 0 11/25/2010 04/18/2011 tabletIndications: mouth daily. Hyperlipidemia LDL goal <130 HYDROCHLOROTHIAZIDE 25 MG PO 1 TABLET DAILY 90 Tab 3 04/18/2011 TABSIndications: Essential hypertension, benign lisinopril (PRINIVIL,ZESTRIL) Take 1 tablet by 90 tablet 3 11/25/2010 04/18/2011 40 MG tabletIndications: mouth daily. Essential hypertension, benign documented as of this encounter Plan of Treatment Not on filedocumented as of this encounter Visit Diagnoses Not on filedocumented in this encounter Care Teams Sand Blaster Relationship Specialty Start Date End Date Sofia Landers PA-C PCP - General 05/10/06 Mikayla Allan MD PCP - Obstetrics/Gynecology 05/18/1004/27 [place] [facility] [address] [place] [phone] Sofia Landers PA-C PCP - Assigned PCP 12/05/10 10/09/18 [place] [id number] JO[place] LU[place]AS[place] [id number] documented as of this encounter
--- OUTSIDE RECORDS SUMMARY | 2022-07-05 17:51 | XMS_ITS | Encounter Summary ---
:1950 Author Organization [place] Address [address] [place] [address] Care Team Providers Name Role Phone Sofia Landers PA-C Primary Care Provider Mikayla Allan MD Unavailable Sofia Landers PA-C Unavailable Reason for Visit Reason Comments Chronic Disease Management HTN Encounter Details Date Type Department Care Team Description 03/01/2011 Office Visit [facility] Hyp ertension goal BP (blood pressure) < 130/80; [place] BENIGN HYPERTENSION [address] [place] [address] Social History Tobacco Use Types Packs/Day Years Used Date Smoking Tobacco: Never Alcohol Use Standard Drinks/Week Comments No 0 (1 standard drink = 0.6 oz pure alcoho l) Sex Assigned at Date Recorded Not on file documented as of this encounter Last Filed Vital Signs Vital Sign Reading Time Taken Comments Blood Pressure 157/91 03/01/2011 10:03 AM CDT reg cuff ; L arm Pulse 88 03/01/2011 10:03 AM CDT Temperature - - Respiratory Rate - - Oxygen Saturation - - Inhaled Oxygen Concentration - - Weight 72.6 kg (160 lb) 03/01/2011 10:03 AM CDT Height - - Body Mass Index 30.23 12/22/2010 3:45 PM CDT documented in this encounter Patient Instructions Patient InstructionsAmelie Walker 03/01/2011 10:19 AM CDT PATIENT INSTRUCTIONS 1. You will begin: Norvasc 5mg daily 2. FOLLOW UP: Next Provider visit: Schedule physical Next Nurse Only visit (RN HTN Program): 03/25/11 Next Lab visit: 1 week fasting (nothing to eat or drink except water for 10 hours) labs 3. Limit total daily sodium to 1500-2000mg per day Your BP Goal is: less than <130/80 consistently Today we used a regular cuff on your left arm. BP Readings from Last 3 Encounters: 03/01/11 157/91 12/22/10 164/80 12/10/10 148/92 Pulse Readings from Last 1 Encounters: 03/01/11 88 Today we talked about... Taking home blood pressures You will need baseline lab tests done [...] Range Status 03/29/2010 79 >60- (mL/min/1.7m2) Final Your pharmacist is a great resource for questions regarding your medication's side effects and potential interactions. If you are having a side effect from your medication, please contact your primary provider. If you believe you are experiencing a life threatening reaction to your medication call 911 immediately. Amelie Walker RN documented in this encounter Progress Notes Amelie Walker - 03/01/2011 8:37 AM CDT Edith Stallings is being followed [...] recommended medications have been reviewed. Yes SUBJECTIVE: Patient is taking medication as prescribed Patient is tolerating medications well. No problems Patient is not monitoring Blood Pressure at home. Last 3 home readings Complicating factors Positive for: None Symptoms discussed [...] N/A Pulse Readings from Last 1 Encounters: 03/01/11 88 Today's BP completed using cuff size: regular on left side arm. BP Readings from Last 3 Encounters: 03/01/11 157/91 12/22/10 164/80 12/10/10 148/92 Potassium Date Value Range Status 07/19/2010 4.3 [...] <130/80. Pt is not at goal. Medication: begin: Norvasc 5mg daily. Current outpatient prescriptions Medication Sig ??? amlodipine (NORVASC) 5 MG tablet Take 1 tablet by mouth [...] MG PO TABS 1 TABLET DAILY ??? ZACH LOW STRENGTH OR 1 TABLET DAILY ??? MULTI-VITAMIN OR 1 tablet daily Lab: BMP or CMP done today - No; will come in for fasting labs next week. Education: general discussion/verbal explanation Limit dietary sodium intake between 1500-2000mg every day Regular aerobic exercise Follow up: RN Hypertension program: 2-3 weeks; pt scheduled for 03/25/11 Next Provider visit: Due for physical- pt will schedule today Next Lab visit: 1 week fasting (nothing to eat or drink except water for 10 hours) labs; will schedule for next Monday03/07/11 Discussed habit change regarding diet/weight loss, patient activation and home blood pressure monitoring These SC interventions were used: Goal: start taking home blood pressures, Reflection- simple or complex, Empathy/Understanding, Permission to raise concern or advise and Change talk Education material provided and patient was given an opportunity to ask questions. Patient verbalized understanding of this plan and is agreeable. Professional Reference click here Amelie Walker RN documented in this encounter Plan of Treatment Not on filedocumented as of this encounter Visit Diagnoses Diagnosis Hypertension goal BP (blood pressure) < 130/80 Unspecified essential hypertension BENIGN HYPERTENSION Essential hypertension, benign documented in this encounter Care Teams Serging Machine Operator Relationship Specialty Start Date End Date Sofia Landers PA-C PCP - General 05/10/06 Mikayla Allan MD PCP - Obstetrics/Gynecology 05/18/1004/27 [facility] [address] [place] [address] Sofia Landers PA-C PCP - Assigned PCP 12/05/10 10/09/18 Saurabh [address] [place] [id number] documented as of this encounter
--- OUTSIDE RECORDS SUMMARY | 2022-07-05 17:51 | XMS_ITS | Encounter Summary ---
:1950 Author Organization [place] Address [address] [place] [address] Care Team Providers Name Role Phone Sofia Landers PA-C Primary Care Provider Mikayla Allan MD Unavailable Reason for Visit Reason Onset Date Comments Chronic Care Conference Provider Overview 10/19/2010 Encounter Details Date Type Department Care Team Description 10/19/2010 Telephone [facility] Sofia Landers Chron[facility] [place] MONCADA Conference Provider [address] [place] [address] [facility] [phone] [place] [address] (Wo rk) Social History Tobacco Use Types Packs/Day Years Used Date Smoking Tobacco: Never Alcohol Use Standard Drinks/Week Comments No 0 (1 standard drink = 0.6 oz pure alcoho l) Sex Assigned at Date Recorded Not on file documented as of this encounter Miscellaneous Notes Telephone Encounter - Sarah Ríos - 10/19/2010 2:20 PM CDT Letter sent Telephone Encounter - Dhara Allred - 10/19/2010 1:20 PM CDT Met in consultation for: Hypertension and Lipids Parameters Addressed: B/P management and LDL Recommended follow-up: Lab only appt and bp ck with float nurse Considerations: Future Labs lipid send letter to come in for fasting bloodwork and visit with float nurse for bp ck documented in this encounter Plan of Treatment Not on filedocumented as of this encounter Visit Diagnoses Diagnosis Hyperlipidemia LDL goal <130 - Primary Other and unspecified hyperlipidemia documented in this encounter Care Teams Collection Team Lead Relationship Specialty Start Date End Date Sofia Landers PA-C PCP - General 05/10/06 Mikayla Allan MD PCP - Obstetrics/Gynecology 05/18/1004/27 [facility] [address] [place] [address] documented as of this encounter
--- OUTSIDE RECORDS SUMMARY | 2022-07-05 17:51 | XMS_ITS | Encounter Summary ---
:1950 Author Organization [place] Address [address] [place] [address] Care Team Providers Name Role Phone Sofia Landers PA-C Primary Care Provider Mikayla Allan MD Unavailable Sofia Landers PA-C Unavailable Reason for Visit Reason Onset Date Comments Chronic Care Conference Provider Overview 12/13/2011 Encounter Details Date Type Department Care Team Description 12/13/[address] [facility] Sofia Landers Chroni [facility] Oumou MONCADA Conference Provider [address] [place] [address] [facility] [phone] [place] [address] (Wo rk) Social History Tobacco Use Types Packs/Day Years Used Date Smoking Tobacco: Never Alcohol Use Standard Drinks/Week Comments No 0 (1 standard drink = 0.6 oz pure alcoho l) Sex Assigned at Date Recorded Not on file documented as of this encounter Miscellaneous Notes Telephone Encounter - Sarah Ríos - 12/14/2011 11:09 AM CDT Letter sent to patient. Sarah Ríos CMA Telephone Encounter - Sofia Landers PA-C - 12/13/2011 1:15 PM CDT Met in consultation for: Hypertension Parameters Addressed: B/P management Recommended follow-up: PCP Considerations: htn recheck with FUN HOUSE ATTENDANT Future appt/Call to schedule--see above Electronically signed by Sofia Landers PA-C documented in this encounter Plan of Treatment Not on filedocumented as of this encounter Visit Diagnoses Not on filedocumented in this encounter Care Teams Loss Prevention Investigator Relationship Specialty Start Date End Date Sofia Landers PA-C PCP - General 05/10/06 Mikayla Allan MD PCP - Obstetrics/Gynecology 05/18/1004/27 [facility] [address] [place] [address] Sofia Landers PA-C PCP - Assigned PCP 12/05/10 10/09/18 Saurabh [address] [facility] [place] [address] documented as of this encounter
--- OUTSIDE RECORDS SUMMARY | 2022-07-05 17:51 | XMS_ITS | Encounter Summary ---
:1950 Author Organization [place] Address [address] [place] [address] Care Team Providers Name Role Phone Sofia Landers PA-C Primary Care Provider Mikayla Allan MD Unavailable Sofia Landers PA-C Unavailable Encounter Details Date Type Department Care Team Description 03/07/2011 Orders Only [facility] Hyp erlipidemia LDL goal <130; [facility] Hypertension goal BP (blood pressure) < 130/80 [id number] [place] [address] Social History Tobacco Use [...] Diagnosis Comme nts LIPID REFLEX TO Routine 03/07/2011 8:48 AM Hyperlipidemia LDL goal Results for this DIRECT LDL PANEL CDT <130 procedure a re in the results section. ALT Routine 03/07/2011 8:48 AM Hyperlipidemia LDL goa l Results for this CDT <130 procedure are i n the results section. BASIC METABOLIC Routine 03/07/2011 8:48 AM Hypertension goal B P Results for this PANEL CDT (blood pressure) < procedure are in 130/80 the results section. documented in this encounter Results (ABNORMAL) Basic metabolic panel (03/07/2011 8:48 AM CDT) athologist Signature Sodium 139 133 - 144 [place] mmol/L [facility] Potassium 4.0 3.4 - 5.3 [place] mmol/L [facility] Chloride 103 94 - 109 [place] mmol/L [facility] Carbon Dioxide 31 20 - 32 [place] mmol/L [facility] Anion Gap 4.9 (L) 6 - 17 [place] mmol/L [facility] Glucose 86 60 - 99 [place] mg/dL [facility] Comment: Fasting specimen Urea Nitrogen 20 7 - 30 mg/dL [facility] Creatinine 0.69 0.52 - 1.04 mg/dL [facility] GFR Estimate 86 >60 mL/min/1.7m2 [facility] GFR Estimate If Black >90 >60 mL/min/1.7m2 [facility] Calcium 9.4 8.5 - 10.4 mg/dL [facility] Specimen Anatomical Collection Method Collection Time Receive d Time (Source) Location / / Volume Laterality Blood specimen 03/07/2011 8:48 AM 011 8:49 (specimen) CDT AM CDT Sofia Landers PA-C LAB - BLOOD ORDERABLES Performing Organization Address City/State/ZIP Code Phon e Number [address] [place] [phone] [facility] ALT (03/07/2011 8:48 AM CDT) athologist Signature ALT 37 0 - 50 U/L [facility] Specimen Anatomical Collection Method Collection Time Receive d Time (Source) Location / / Volume Laterality Blood specimen 03/07/2011 8:48 AM 011 8:49 (specimen) CDT AM CDT Sofia Landers PA-C LAB - BLOOD ORDERABLES Performing Organization Address City/State/ZIP Code Phon e Number [address] [place] [address] [facility] (ABNORMAL) Lipid panel reflex to direct LDL (03/07/2011 8:48 AM CDT) P athologist Signature Cholesterol 167 0 - 200 [place] mg/dL [facility] Comment: LDL Cholesterol is the primary guide to therapy. The NCEP recommends further evaluation of: patients with cholesterol greater than 200 mg/dL if additional risk facto rs are present, cholesterol greater than 240 mg/dL, triglycerides greater than 1 50 mg/dL, or HDL less than 40 mg/dL. Triglycerides 148 0 - 150 mg/dL [facility] Comment: Fasting specimen HDL Cholesterol 39 (L) 50 - 110 mg/dL [facility] LDL Cholesterol Calculated 99 0 - 129 mg/dL [facility] Comment: LDL Cholesterol is the primary guide to therapy: LDL-cholesterol goal in high risk patients is <100 mg/dL and in very high risk patients is <70 mg/dL. VLDL-Cholesterol 30 0 - 30 mg/dL [facility] Cholesterol/HDL Ratio 4.0 0.0 - 5.0 [facility] Specimen Anatomical Collection Method Collection Time Receive d Time (Source) Location / / Volume Laterality Blood specimen 03/07/2011 8:48 AM 011 8:49 (specimen) CDT AM CDT Sofia Landers PA-C LAB - BLOOD ORDERABLES Performing Organization Address City/State/ZIP Code Phon e Number [address] [place] [phone] [facility] documented in this encounter Visit Diagnoses Diagnosis Hyperlipidemia LDL goal <130 Other and unspecified hyperlipidemia Hypertension goal BP (blood pressure) < 130/80 Unspecified essential hypertension documented in this encounter Care Teams Quality Assurance Monitor Relationship Specialty Start Date End Date Sofia Landers PA-C PCP - General 05/10/06 Mikayla Allan MD PCP - Obstetrics/Gynecology 05/18/1004/27 [facility] [address] [place] [phone] Sofia Landers PA-C PCP - Assigned PCP 12/05/10 10/09/18 Saurabh [id number] [place] [id number] documented as of this encounter
--- OUTSIDE RECORDS SUMMARY | 2022-07-05 17:51 | XMS_ITS | Encounter Summary ---
:1950 Author Organization [place] Address [address] [place] [address] Care Team Providers Name Role Phone Sofia Landers PA-C Primary Care Provider Mikayla Allan MD Unavailable Sofia Landers PA-C Unavailable Reason for Visit Reason Comments Other follow up Encounter Details Date Type Department Care Team Description 07/13/2011 Oncology Visit [facility] Mikayla Allan Uterine cancer (H); [facility] Deanna Marin MD Malignant neoplasm of ovary (H) [facility] ONCOLOGY [address] [place] [phone] [facility] [phone] [place] [address] Social History Tobacco Use Types Packs/Day Years Used Date Smoking Tobacco: Never Alcohol Use Standard Drinks/Week Comments No 0 (1 standard drink = 0.6 oz pure alcoho l) Sex Assigned at Date Recorded Not on file documented as of this encounter Last Filed Vital Signs Vital Sign Reading Time Taken Comments Blood Pressure 146/89 07/13/2011 4:04 PM BILLING ADMINISTRATOR Pulse 97 07/13/2011 4:04 PM BILLING ADMINISTRATOR Temperature 36.8 ??C (98.3 ??F) 07/13/2011 4:04 PM BILLING ADMINISTRATOR Respiratory Rate 20 07/13/2011 4:04 PM BILLING ADMINISTRATOR Oxygen Saturation 99% 07/13/2011 4:04 PM BILLING ADMINISTRATOR Inhaled Oxygen Concentration - - Weight 72.4 kg (159 lb 11.2 oz) 07/13/2011 4:04 PM BILLING ADMINISTRATOR Height - - Body Mass Index 30.18 04/18/2011 8:11 AM CDT documented in this encounter Progress Notes Mikayla Mendoza - 07/29/2011 2:06 PM CST Follow Up Notes on Referred Patient RE: Edith Stallings : 1950 TIANA: 07/13/2011 Edith is a 60 year old woman [...] Relation Age of Onset ??? C.A.D. Father [place], age 65, first event at 40 ??? Hypertension Mother ??? Genetic Daughter down's syndrome Physical Exam: BP 146/89 Pulse 97 Temp(Src) 98.3 ??F (36.8 ??C) (Oral) Resp 20 Wt 72.439 kg (159 lb 11.2 oz) SpO2 99% There is no height on [...] today for a surveillance visit. Plan: 1.) RTC in 3-4mths for next surveillance visit. 2.) Labs and/or tests ordered include: We have elected not to follow CA125, as this is not a clear marker for her incidental type of ovarian tumor. Mikayla Mendoza M.D., F.A.C.O.G. [facility] Department of Obstetrics, Gynecology and Women's Health Division of Gynecologic Oncology [phone] ING ADMINISTRATOR documented in this encounter Nursing Notes 07/13/2011 3:30 PM CST >> GABBY CASTILLO, [place] Wed Jul 13, 2011 4:05 PM Edith Stallings's goals for this visit include: return visit, no concerns. Referring Provider: No referring provider defined for this encounter. Patient presents with: Other - follow up Initial There were no vitals taken for this visit. Estimated Body mass index is 30.61 kg/(m^2) as calculated from the following: Height as of 04/18/11: 5' 1(1.549 m). Weight as of 04/18/11: 162 lb(73.483 kg).. BP completed using cuff size: regular [...] no headaches; no difficulty sleeping Last colonoscopy: within last 4 years Last mammogram: this year Last dexascan:2 years ago Last thyroid screening: none Last cholesterol screening: within last year Last diabetes screening: within last year. Does the patient have an advanced directive? no If no, was information packet given? No Gabby Castillo LPN documented in this encounter Plan of Treatment Not on filedocumented as of this encounter Visit Diagnoses Diagnosis Uterine cancer (H) Malignant neoplasm of uterus, part unspe cified Malignant neoplasm of ovary (H) Malignant neoplasm of ovary documented in this encounter Care Teams Manager Export Relationship Specialty Start Date End Date Sofia Landers PA-C PCP - General 05/10/06 Mikayla Allan MD PCP - Obstetrics/Gynecology 05/18/1004/27 [facility] [address] [place] [phone] Sofia Landers PA-C PCP - Assigned PCP 12/05/10 10/09/18 Saurabh [address] [facility] [place] [address] documented as of this encounter
--- OUTSIDE RECORDS SUMMARY | 2022-07-05 17:51 | XMS_ITS | Encounter Summary ---
:1950 Author Organization [place] Address [address] [place] [address] Care Team Providers Name Role Phone Sofia Landers PA-C Primary Care Provider Mikayla Allan MD Unavailable Encounter Details Date Type Department Care Team Description 08/10/2010 Office Visit-P INTERFACE P DEPT Mikayla Allan MD [facility] [address] [address] (Wo rk) Social History Tobacco Use Types Packs/Day Years Used Date Smoking Tobacco: Never Alcohol Use Standard Drinks/Week Comments No 0 (1 standard drink = 0.6 oz pure alcoho l) Sex Assigned at Date Recorded Not on file documented as of this encounter Progress Notes Mikayla Mendoza - 08/10/2010 3:27 PM CST Retail Operations Manager: Mikayla Mendoza Status: Final - Signature Encounter: 10 Aug 2010 Type: Chart Note I called Ms. Stallings and left a brief message letting her know the results from her procedure were good and that we would discuss at her upcoming appointment. Electronically signed by:Mikayla Mendoza M.D. Aug 10 2010 3:28PM UPHOLSTERER LIMOUSINE AND HEARSE LSTERER LIMOUSINE AND HEARSE documented in this encounter Plan of Treatment Not on filedocumented as of this encounter Visit Diagnoses Not on filedocumented in this encounter Care Teams Binding Cementer French Cord Relationship Specialty Start Date End Date Sofia Landers PA-C PCP - General 05/10/06 Mikayla Allan MD PCP - Obstetrics/Gynecology 05/18/1004/27 [facility] [address] [place] [address] documented as of this encounter
--- OUTSIDE RECORDS SUMMARY | 2022-07-05 17:51 | XMS_ITS | Encounter Summary ---
:1950 Author Organization [facility] Address [address] [place] [address] Care Team Providers Name Role Phone Sofia Landers PA-C Primary Care Provider Mikayla Allan MD Unavailable Sofia Landers PA-C Unavailable Reason for Visit Reason Onset Date Comments Hypertension 12/14/2010 RN HTN follow up tano n Encounter Details Date Type Department Care Team Description 12/14/2010 Telephone [facility] Sofia Landers Hypert ension (RN HTN Clinic Oumou MONCADA follow up plan) [address] [place] [address] [facility] [address] [place] [address] (Wo rk) Social History Tobacco Use Types Packs/Day Years Used Date Smoking Tobacco: Never Alcohol Use Standard Drinks/Week Comments No 0 (1 standard drink = 0.6 oz pure alcoho l) Sex Assigned at Date Recorded Not on file documented as of this encounter Miscellaneous Notes Telephone Encounter - Amelie Walker - 12/15/2010 10:56 AM CDT Sending pt MyChart message as this is her preferred route of communication. Amelie Walker RN Telephone Encounter - Sofia Landers - 12/14/2010 8:29 AM CDT In review of the RN HTN visit, lets have her recheck with RN in 4 weeks to see if bp is at goal if not then add norvasc 5 mg daily and then recheck in 2 weeks Sofia Landers PA-C documented in this encounter Plan of Treatment Not on filedocumented as of this encounter Visit Diagnoses Not on filedocumented in this encounter Care Teams Cognos Analyst Relationship Specialty Start Date End Date Sofia Landers PA-C PCP - General 05/10/06 Mikayla Allan MD PCP - Obstetrics/Gynecology 05/18/1004/27 [facility] [address] [place] [phone] Sofia Landers PA-C PCP - Assigned PCP 12/05/10 10/09/18 Saurabh [address] [facility] [place] [address] documented as of this encounter
--- OUTSIDE RECORDS SUMMARY | 2022-07-05 17:51 | XMS_ITS | Encounter Summary ---
:1950 Author Organization [place] Address [address] [place] [address] Care Team Providers Name Role Phone Sofia Landers PA-C Primary Care Provider Mikayla Allan MD Unavailable Sofia Landers PA-C Unavailable Reason for Visit Reason Comments Physical Encounter Details Date Type Department Care Team Description 04/18/2011 Office Visit [facility] Sofia Landers, Hypert ension goal BP (blood pressure) < 130/80 (Primary Dx); Clinic O[facility]ou MONCADA Osteopenia; [address] Saurabh Essential hypertension, benign; [place] LU[place] [address] [address] Routine gen eral medical examination at a health care facility; [id number] Need for prophylactic vaccination and in oculation against influenza; [phone] [place] [address] Vacc for viral hepatitis [phone] (Wo rk) Social History Tobacco Use Types Packs/Day Years Used Date Smoking Tobacco: Never Alcohol Use Standard Drinks/Week Comments No 0 (1 standard drink = 0.6 oz pure alcoho l) Sex Assigned at Date Recorded Not on file documented as of this encounter Last Filed Vital Signs Vital Sign Reading Time Taken Comments Blood Pressure 140/80 04/18/2011 11:39 AM CDT Pulse 80 04/18/2011 8:11 AM CDT Temperature - - Respiratory Rate 16 04/18/2011 8:11 AM CDT Oxygen Saturation - - Inhaled Oxygen Concentration - - Weight 73.5 kg (162 lb) 04/18/2011 8:11 AM CDT Height 154.9 cm (5' 1) 04/18/2011 8:11 AM CDT Body Mass Index 30.61 04/18/2011 8:11 AM CDT documented in this encounter Progress Notes Gabby Robertson - 04/18/2011 8:19 AM CDT CC: Edith Stallings is an 60 year old woman who presents for preventive health visit. Besides routine health maintenance, she would like to discuss Just would like to inform that she hada pap done March . She has been on norvasc 10 mg per day for approx 2 weeks now. She is feeling well her initial edema she noted has improved once again. She was not SOB during this time Healthy Habits: Do you get at least three servings of calcium containing foods daily (dairy, green leafy vegetables,etc.)? yes Outside of work or daily activities, how many days per week do you exercise for 30 minutes or longer? 1 day Dietary Guidelines for Americans, 2010 USDA's MyPlate Estimated Body mass index is 30.61 kg/(m^2) as calculated from the following: Height as of this encounter: 5' 1(1.549 m). Weight as of this encounter: 162 lb(73.483 kg). Have you had an eye exam in the past two years? yes Do you see a dentist twice per year? yes Staff Signature Gabby Robertson CMA PHQ-2 Over the last two weeks- Have you been bothered by little interest or pleasure in doing things? No Over the last two weeks- Have you been feeling down, depressed, or hopeless? No Abuse: Current or Past(Physical, Sexual or Emotional)- No Do you feel safe in your environment - Yes History Substance Use Topics ??? Smoking status: Never Smoker ??? Smokeless tobacco: Not on file ??? Alcohol Use: No The patient does not drink >3 drinks per day nor >7 drinks per week. Reviewed orders with patient. Reviewed health maintenance and updated orders accordingly - Yes Staff Signature Gabby Robertson CMA' History of abnormal Pap smear: No Last 3 Pap Results: PAP (no units) Date Value 04/06/2011 NIL 03/30/2010 NIL 03/30/2009 NIL All Histories reviewed and updated in [facility]. ROS: C: NEGATIVE for fever, chills, [...] urinary or vaginal symptoms. No vaginal bleeding. Had dx of ovarian cancer and is doing well She sees her onc Q 3 months M: NEGATIVE for significant arthralgias or myalgia N: NEGATIVE for weakness, dizziness or paresthesias P: NEGATIVE for changes in mood or affect OBJECTIVE: BP 140/80 Pulse 80 Resp 16 Ht 5' 1 (1.549 m) Wt 162 lb (73.483 kg) BMI 30.61 kg/m2 GENERAL APPEARANCE: healthy, alert and no distress [...] masses and bowel sounds normal (female): deferred just saw her onc in march, she did pap and pelvic for pt MS: no musculoskeletal defects are noted and gait is age appropriate without ataxia SKIN: no suspicious lesions or rashes NEURO: Normal strength and tone, sensory exam grossly normal, mentation intact and speech normal PSYCH: mentation appears normal and affect normal/bright COUNSELING: regular exercise weight management healthy diet/nutrition vision screening Obesity Action Plan: Current exercise routine: walking. Established an exercise regimen with the patient. Diet regimen was discussed. self-directed dieting ATP III Guidelines FRAX Risk Assessment ICSI Preventive Guidelines ASSESSMENT/PLAN: 401.9BT Hypertension goal BP (blood pressure) < 130/80 (primary encounter diagnosis) Comment: will continue current meds Plan: amLODIPine (NORVASC) 10 MG tablet Float nurse bp check in 2 weeks 733.90X Osteopenia Comment: Plan: ALENdronate (FOSAMAX) 35 MG tablet 272.4CK Hyperlipidemia LDL goal <130 Comment: labs are normal Plan: atorvastatin (LIPITOR) 20 MG tablet Recheck in 1 year 401.1 BENIGN HYPERTENSION Comment: as above Plan: lisinopril (PRINIVIL,ZESTRIL) 40 MG tablet 401.1 Essential hypertension, benign Comment: Plan: hydrochlorothiazide (HYDRODIURIL) 25 MG tablet As above V70.0 Routine general medical examination at a health care facility Comment: Plan: no pap/pelvic as this has just been done V04.81 Need for prophylactic vaccination and inoculation against influenza Comment: Plan: SEASONAL FLU VACCINE 3+ YEARS, IM [68268] V05.3 Vacc for viral hepatitis Comment: Plan: HEPATITIS A VACCINE, ADULT [38136] Electronically signed by Sofia Landers PA-C Injectable Influenza Immunization Documentation 1. Has the patient received the information for the injectable influenza vaccine? YES 2. Is the patient 6 months of age or older? YES 3. Does the patient have any of the following contraindications? Severe allergy to eggs? No Severe allergic reaction to previous influenza vaccines? No Allergy to contact lens solution/thimerosol? No History of Guillain-Weaubleau syndrome? No Undergoing chemotherapy or radiation therapy? (vaccine should be given at least 2 weeks prior or 3 weeks after) No Currently have moderate or severe illness? No 4. The vaccine has been administered and the patient was instructed to wait 15 minutes before leaving the building in the event of an allergic reaction: YES Vaccination given by Gabby Robertson CMA documented in this encounter Nursing Notes 04/18/2011 8:15 AM CDT >> GABBY ROBERTSON MonApr 18, 2011 9:18 AM Prior to injection verified patient identity using patient's name and date of . >> GABBY ROBERTSON MonApr 18, 2011 8:49 AM Screening Questionnaire for Adult Immunization Are you [...] positive for at least one answer. Notified , medication allergy Sulfa. Screening performed by Gabby Robertson on 04/18/2011 at 8:47 AM. >> GABBY ROBERTSON Mon Apr 18, 2011 8:19 AM Estimated Body mass index is 30.61 kg/(m^2) as calculated from the following: Height as of this encounter: 5' 1(1.549 m). Weight as of this encounter: 162 lb(73.483 kg). BP Readings from Last 1 Encounters: 04/18/11 : 140/80] BP cuff size: regular Do you feel safe in your environment? Yes Does the patient need any medication refills today? yes documented in this encounter Plan of Treatment Not on filedocumented as of this encounter Visit Diagnoses Diagnosis Hypertension goal BP (blood pressure) < 130/80 - Primary Unspecified essential hypertension Osteopenia Disorder of bone and cartilage, unspecif ied Essential hypertension, benign Routine general medical examination at a health care facility Need for prophylactic vaccination and in oculation against influenza Need for prophylactic vaccination and in oculation against viral hepatitis documented in this encounter Care Teams Designer Writer Relationship Specialty Start Date End Date Sofia Landers PA-C PCP - General 05/10/06 Mikayla Allan MD PCP - Obstetrics/Gynecology 05/18/1004/27 [facility] [address] [place] [id number] Sofia Landers PA-C PCP - Assigned PCP 12/05/10 10/09/18 Saurabh [address] JOSE LUIS [place] [id number] documented as of this encounter
--- OUTSIDE RECORDS SUMMARY | 2022-07-05 17:51 | XMS_ITS | Encounter Summary ---
:1950 Author Organization [place] Address [address] [place] [address] Care Team Providers Name Role Phone Mat Landers PA-C Primary Care Provider Mikayla Allan MD Unavailable Mat Landers PA-C Unavailable Reason for Visit Reason Comments Oncology Clinic Visit Encounter Details Date Type Department Care Team Description 04/06/[address] [facility] Mikayla Allan Uterine cancer (H); Cancer Center Deanna Mairn MD Malignant neoplasm of ovary (H) [facility] ONCOLOGY [address] [place] [phone] [facility] [phone] [place] [address] Social History Tobacco Use Types Packs/Day Years Used Date Smoking Tobacco: Never Alcohol Use Standard Drinks/Week Comments No 0 (1 standard drink = 0.6 oz pure alcoho l) Sex Assigned at Date Recorded Not on file documented as of this encounter Last Filed Vital Signs Vital Sign Reading Time Taken Comments Blood Pressure 143/82 04/06/2011 3:11 PM CDT Pulse 84 04/06/2011 3:11 PM CDT Temperature 36.7 ??C (98 ??F) 04/06/2011 3:11 PM CDT Respiratory Rate 18 04/06/2011 3:11 PM CDT Oxygen Saturation 100% 04/06/2011 3:11 PM CDT Inhaled Oxygen Concentration - - Weight - - Height - - Body Mass Index - - documented in this encounter Progress Notes Mikayla Mendoza - 04/17/2011 8:11 PM CDT Quick Note: Yes. Giuliana Hayes RN - 04/06/2011 3:12 PM CDT Edith Yuan Chandrakant's goals for this visit include: follow up with Dr. Mendoza She requests these members of her care team be copied on today's visit information: PCP: MAT SAENZ PA Referring Provider: No referring provider defined for this encounter. Chief Complaint Patient presents with ??? Oncology Clinic Visit Initial BP 143/82 Pulse 84 Temp 98 ??F (36.7 ??C) Resp 18 SpO2 100% Estimated Body mass index is 30.42 kg/(m^2) as calculated from the following: Height as of 12/22/10: 5' 1(1.549 m). Weight as of 03/25/11: 161 lb(73.029 kg).. BP completed using cuff size: regular Pt offers no complaints today. Feeling well. Giuliana Hayes RN Mikayla Mendoza - 04/06/2011 3:02 PM CDT Follow Up Notes on Referred Patient Date: 04/06/2011 RE: Edith Anaya : 1950 TIANA: 04/06/[address] Buck, Edith is a 60 year old woman with recently diagnosed Stage IA, grade 1, endometrioid adenocarcinoma of the endometrium. 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 She is here today for her first surveillance visit. In brief, Ms. Anaya presented [...] has a current medication list which includes amlodipine, alendronate, atorvastatin, lisinopril, [id number]-[id number]-0 fatty acids, hydrochlorothiazide, aspirin, and multiple vitamin. Allergies: Allergies Allergen Reactions ??? Sulfa Drugs Rash Social History: History Substance Use Topics ??? Smoking status: Never Smoker ??? Smokeless tobacco: Not on file ??? Alcohol Use: No History Drug Use No Family History: Family History Problem Relation Age of Onset ??? C.A.D. Father [place], age 65, first event at 40 ??? Hypertension Mother ??? Genetic Daughter down's syndrome Physical Exam: There were no vitals taken for this visit. There is no height or weight on file to calculate BMI. General [...] Recto-vaginal exam confirms these findings. Pap was collected today. Assessment: Edith is a 60 year old woman with recently diagnosed Stage IA, grade 1, endometrioid adenocarcinoma of the endometrium. 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 She is here today for her a surveillance visit. Plan: 1.) RTC in 3-4mths. 2.) Follow up on pap smear. 3.) We discussed the pro/cons of checking CA125 in light of her incidental finding of her ovarian GItumor and decision was made to not make this part of her surveillance. Mikayla Mendoza M.D., F.A.C.O.G. Solid Waste Landfill Technician Department of Obstetrics, Gynecology and Women's Health Division of Gynecologic Oncology [phone] documented in this encounter Plan of Treatment Not on filedocumented as of this encounter Procedures Procedure Name Priority Date/Time Associated Comments Diagnosis PAP IMAGED THIN Routine 04/06/2011 3:53 PM Uterine cancer (H) Results for this LAYER, DIAGNOSTIC CDT procedure are in the results section. documented in this encounter Results PAP imaged thin layer, diagnostic (04/06/2011 3:53 PM CDT) Component Value Ref Test Analysis Performed At [facility] Method Time Signature PAP NIL COPATH Copath Report COPATH Patient Name: EDITH ANAYA MR#: [id number] Specimen #: [id number] Collected: 04/06/2011 Received: 04/07/2011 Reported: 04/08/2011 16:03 Ordering Phy(s): MIKAYLA MENDOZA SPECIMEN/STAIN PROCESS: Pap Imaged thin layer prep diagnostic (SurePath, FocalPoint with guided screening) ? Pap-Cyto x 1, Reflex HPV x 1 SOURCE: Vaginal ---- Pap Imaged thin layer prep diagnostic (SurePath, FocalPoint with guided screening) SPECIMEN ADEQUACY: Satisfactory for evaluation. -Transformation zone component absent. CYTOLOGIC INTERPRETATION: Negative for Intraepithelial Lesion or Malignancy Electronically signed out by: KRISTI Chakraborty ??(ASCP) Processed and screened at [facility] CLINICAL HISTORY: Post Menopausal, Previous normal pap Date of Last Pap: 03/30/10 Coil Finisher Cancer:: Uterine cancer, Papanicolaou Test Limitations: ??Cervical cytology is a scre ening test with limited sensitivity; regular screening is critical for cancer prevention; Pap tests are primarily effective for the diagnosis/prevention of squamous cell carcinoma, not adenoca rcinomas or other cancers. TESTING LAB LOCATION: [facility], [address] ??[phone] COLLECTION SITE: Client: ??[facility] Location: [facility] (B) Specimen (Source) Anatomical Collection Method Collection Time Re ceived Time Location / / Volume Laterality Cytologic 04/06/2011 3:53 04/07/2011 material PM CDT 10:24 AM CDT (specimen) Mikayla Allan MD LAB - OPTIME CLINICAL SPECIM EN Performing Organization Address City/State/ZIP Code Phon e Number COPATH documented in this encounter Visit Diagnoses Diagnosis Uterine cancer (H) Malignant neoplasm of uterus, part unspe cified Malignant neoplasm of ovary (H) Malignant neoplasm of ovary documented in this encounter Care Teams Timber Management Professor Relationship Specialty Start Date End Date Mat Landers PA-C PCP - General 05/10/06 Mikayla Allan MD PCP - Obstetrics/Gynecology 05/18/1004/27 [place] [facility] [address] [address] Mat Landers PA-C PCP - Assigned PCP 12/05/10 10/09/18 Saurabh [address] JOSE LUIS [place] [id number] documented as of this encounter
--- OUTSIDE RECORDS SUMMARY | 2022-07-05 17:51 | XMS_ITS | Encounter Summary ---
:1950 Author Organization [place] Address [address] [place] [address] Care Team Providers Name Role Phone Sofia Landers PA-C Primary Care Provider Mikayla Allan MD Unavailable Encounter Details Date Type Department Care Team Description 11/19/2010 Hospital Encounter [facility] Fifi Landers PA-C [address] [place] [phone] Social History Tobacco Use Types Packs/Day Years [...] daily. MULTI-VITAMIN OR 1 tablet daily 0 FOSAMAX 35 MG OR 1 TABLET WEEKLY 12 Tab 0 11/02/2009 TABSIndications: Osteopenia ON AN EMPTY STOMACH- will need dexa this fall/winter HYDROCHLOROTHIAZIDE 25 MG PO 1 TABLET DAILY 90 Tab 3 04/18/2011 TABSIndications: Essential hypertension, benign lisinopril (PRINIVIL,ZESTRIL) Take 1 tablet by 90 tablet 1 07/19/2010 11/25/2010 30 MG tabletIndications: mouth daily. Essential hypertension, benign SIMVASTATIN 20 MG PO 1 TABLET AT 90 Tab 0 03/29/2010 TABSIndications: Other and BEDTIME unspecified hyperlipidemia documented as of this encounter Plan of Treatment Not on filedocumented as of this encounter Visit Diagnoses Not on filedocumented in this encounter Care Teams Nursing Resident Relationship Specialty Start Date End Date Sofia Landers PA-C PCP - General 05/10/06 Mikayla Allan MD PCP - Obstetrics/Gynecology 05/18/1004/27 [place] [facility] [address] [place] [phone] documented as of this encounter
--- OUTSIDE RECORDS SUMMARY | 2022-07-05 17:51 | XMS_ITS | Encounter Summary ---
:1950 Author Organization [place] Address [address] [place] [address] Care Team Providers Name Role Phone Sofia Landers PA-C Primary Care Provider Mikayla Allan MD Unavailable Sofia Landers PA-C Unavailable Reason for Visit Reason Comments Chronic Disease Management HTN Encounter Details Date Type Department Care Team Description 03/25/2011 Office Visit [facility] Hyp ertension goal BP Coello (blood pressure) < 130/[address] (Primary Dx) [place] [phone] Social History Tobacco Use Types Packs/Day Years Used Date Smoking Tobacco: Never Alcohol Use Standard Drinks/Week Comments No 0 (1 standard drink = 0.6 oz pure alcoho l) Sex Assigned at Date Recorded Not on file documented as of this encounter Last Filed Vital Signs Vital Sign Reading Time Taken Comments Blood Pressure 140/85 03/25/2011 8:53 AM CDT Pulse 91 03/25/2011 8:53 AM CDT Temperature - - Respiratory Rate - - Oxygen Saturation - - Inhaled Oxygen Concentration - - Weight 73 kg (161 lb) 03/25/2011 8:53 AM CDT Height - - Body Mass Index 30.42 12/22/2010 3:45 PM CDT documented in this encounter Patient Instructions Patient InstructionsAmelie Walker 03/25/2011 9:05 AM CDT PATIENT INSTRUCTIONS 1. You will dosage change: Norvasc 10mg 2. FOLLOW UP: Next Provider visit: Follow up with Sofia 04/18/11 3. Limit total daily sodium to 1500-2000mg per day Your BP Goal is: less than <130/80 consistently Today we used a regular cuff on your left arm. BP Readings from Last 3 Encounters: 03/25/11 140/85 03/01/11 157/91 12/22/10 164/80 Pulse Readings from Last 1 Encounters: 03/25/11 91 Today we talked about... Monitoring home BP. You will need baseline lab tests done within 12 months of beginning a new blood pressure medication and during/after medication adjustment is complete. Last Labs: Sodium Date Value Range Status 03/07/2011 139 133-144 (mmol/L) Final Potassium Date Value Range Status 03/07/2011 4.0 3.4-5.3 (mmol/L) Final Urea Nitrogen Date Value Range Status 03/07/2011 20 7-30 (mg/dL) Final Creatinine Date Value Range Status 03/07/2011 0.69 0.52-1.04 (mg/dL) Final GFR Estimate Date Value Range Status 03/07/2011 86 >60- (mL/min/1.7m2) Final Your pharmacist is a great resource for questions regarding your medication's side effects and potential interactions. If you are having a side effect from your medication, please contact your primary provider. If you believe you are experiencing a life threatening reaction to your medication call 911 immediately. Amelie Walker RN documented in this encounter Progress Notes Amelie Walker - 03/25/2011 8:14 AM CDT Edith Stallings is being followed [...] recommended medications have been reviewed. Yes SUBJECTIVE: Bought BP machine at [employer] She has not started using it, but plans to start. She states she gets uptight when coming to the clinic for a BP check and would like to see what her BP readings are at home. Patient is taking medication as prescribed Patient [...] 12/10/10 148/92 Potassium Date Value Range Status 03/07/2011 4.0 3.4-5.3 (mmol/L) Final Creatinine Date Value Range Status 03/07/2011 0.69 0.52-1.04 (mg/dL) Final Urea Nitrogen Date Value Range Status 03/07/2011 20 7-30 (mg/dL) Final GFR Estimate Date Value Range Status 03/07/2011 86 >60- (mL/min/1.7m2) Final If pt is taking a Thiazide Diuretic, SABRINA Inhibitor or ARB: A baseline potassium, creatinine, BUN, GFR has been done within past 12 mos: YES (Recheck Basic Metabolic panel 2-4 weeks after starting med and at the end of titration.) NURSING ASSESSMENT/PLAN: Hypertension blood pressure goal: <130/80. Pt is not at goal. Medication: dosage change: Norvasc 10mg. Current outpatient prescriptions Medication Sig ??? amlodipine [...] or CMP done today - No Education: general discussion/verbal explanation Limit dietary sodium intake between 1500-2000mg every day Regular aerobic exercise Follow up: Next Provider visit: 04/18/11 for annual physical Discussed habit change regarding disease management/lifestyle changes continue low salt diet and patient activation These [place] interventions were used: Goal: monitor home BP's and bring to clinic visit, Empathy/Understanding and Permission to raise concern or advise Education material provided and patient was given an opportunity to ask questions. Patient verbalized understanding of this plan and is agreeable. Professional Reference click here Amelie Walker RN documented in this encounter Plan of Treatment Not on filedocumented as of this encounter Visit Diagnoses Diagnosis Hypertension goal BP (blood pressure) < 130/80 - Primary Unspecified essential hypertension documented in this encounter Care Teams Biofuels Plant Manager Relationship Specialty Start Date End Date Sofia Landers PA-C PCP - General 05/10/06 Mikayla Allan MD PCP - Obstetrics/Gynecology 05/18/1004/27 [facility] [address] [place] [address] Sofia Landers PA-C PCP - Assigned PCP 12/05/10 10/09/18 Saurabh [address] [facility] JOSE LUIS UNGER [id number] documented as of this encounter
--- OUTSIDE RECORDS SUMMARY | 2022-07-05 17:51 | XMS_ITS | Encounter Summary ---
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 Care [facility] patient Encounter Details Date Type Department Care Team Description 02/15/2011 Telephone [facility] Sofia Landers [facility] MONCADA INTRODUCTION (Care [address] [place] Coordination JOSE LUIS Coello [address] [facility] [id number] JOSE LUIS LOPEZ [phone] (Wo rk) Social History Tobacco Use Types Packs/Day Years Used Date Smoking Tobacco: Never Alcohol Use Standard Drinks/Week Comments No 0 (1 standard drink = 0.6 oz pure alcoho l) Sex Assigned at Date Recorded Not on file documented as of this encounter Miscellaneous Notes Telephone Encounter - Diann Manzano - 03/15/2011 9:53 AM CDT Have attempted to contact patient 3 times unsuccessfully. Unable to Contact letter has been sent. Please let me know what further action you would suggest. Plan: Closing this this encounter. No further contacts scheduled. Lupe Manzano RN, BSN, PHN Natural Remedy Consultant Telephone Encounter - Diann Manzano - 03/04/2011 10:31 AM CDT Care Coordination initial assessment Referral Source: patient Clinical Data: Pt has minimal clinical history. Endometrial cancer treated 07/16. Last fu 01/03/2011.Meds Fosamax, Lipitor, Lisinopril. Outreach to pt attempted x 3 . Left message on voice mail with call back information and request that pt return call. Sent [facility] With [facility] brochure. Plan: Will attempt to contact pt in 7 business day and await response to message. Lupe Manzano RN, BSN, PHN Natural Remedy Consultant Telephone Encounter - Diann Manzano - 02/23/2011 3:50 PM CDT Care Coordination intial assessment Referral Source: Pt Pt returned call and Left message with Clinic RN. Scheduled appt at clinic in one week. Plan: Will attempt to contact at next scheduled contact Lupe Manzano RN, BSN, PHN Natural Remedy Consultant Telephone Encounter - Diann Manzano - 02/22/2011 9:58 AM CDT Care Coordination initial assessment Referral Source: patient Clinical Data: Pt has minimal clinical history. Endometrial cancer treated 07/16. Last fu 01/03/2011.Meds Fosamax, Lipitor, Lisinopril. Outreach to pt attempted x 2 . Left message on voice mail with call back information and request that pt return call. Plan: Will attempt to contact pt in 5 business day and await response to message. Lupe Manzano RN, BSN, PHN Natural Remedy Consultant Telephone Encounter - Diann Manzano - 02/15/2011 3:25 PM CDT Care Coordination initial assessment Referral Source: patient Clinical Data: Pt has minimal clinical history. Endometrial cancer treated 07/16. Last fu 01/03/2011.Meds Fosamax, Lipitor, Lisinopril. Outreach to pt attempted x 1. Left message on voice mail with call back information and request thatpt return call. Plan: Will attempt to contact pt in 5 business day and await response to message. Lupe aMnzano RN, BSN, PHN Natural Remedy Consultant documented in this encounter Plan of Treatment Not on filedocumented as of this encounter Visit Diagnoses Not on filedocumented in this encounter Care Teams Public Opinion Survey Taker Relationship Specialty Start Date End Date Sofia Landers PA-C PCP - General 05/10/06 Mikayla Allan MD PCP - Obstetrics/Gynecology 05/18/1004/27 [facility] [address] [place] [id number] Sofia Landers PA-C PCP - Assigned PCP 12/05/10 10/09/18 Saurabh [id number] [facility] JOSE LUIS LOPEZ [id number] documented as of this encounter
--- OUTSIDE RECORDS SUMMARY | 2022-07-05 17:52 | XMS_ITS | Encounter Summary ---
:1950 Author Organization [place] Address [address] [place] [address] Care Team Providers Name Role Phone Sofia Landers PA-C Primary Care Provider Mikayla Allan MD Unavailable Encounter Details Date Type Department Care Team Description 04/30/2010 Historic Results [facility] Arline Aldridge MD, Melissa DE Building [facility] 1st Floor, Clinic [address] [facility] [address] [facility] [address] [place], [place] [address] [place] [address] [phone] (Wo rk) Social History Tobacco Use Types Packs/Day Years Used Date Smoking Tobacco: Never Alcohol Use Standard Drinks/Week Comments No 0 (1 standard drink = 0.6 oz pure alcoho l) Sex Assigned at Date Recorded Not on file documented as of this encounter Plan of Treatment Not on filedocumented as of this encounter Procedures Procedure Name Priority Date/Time Associated Diagnosis Comme nts CBC WITH PLATELETS Routine 04/30/2010 8:11 AM Res ults for this CDT procedure are i n the results section. documented in this encounter Results CBC with platelets (04/30/2010 8:11 AM CDT) P athologist Signature MCV 92 78 - 100 fl MISYS MCH 29.6 26.5 - 33.0 MISYS pg MCHC 32.2 31.5 - 36.5 MISYS g/dL RDW 14.4 10.0 - 15.0 MISYS % WBC 10.1 4.0 - 11.0 MISYS 10e9/L RBC Count 3.99 3.8 - 5.2 MISYS 10e12/L Hemoglobin 11.8 11.7 - 15.7 MISYS g/dL Hematocrit 36.6 35.0 - 47.0 MISYS % Platelet Count 266 150 - 450 MIS[facility] 10e9/L Specimen (Source) Anatomical Collection Method Collection Time Re ceived Time Location / / Volume Laterality 04/30/2010 8:11 AM 0 CDT Arline Khan MD, LAB - BLOOD ORDERABLES Performing Organization Address City/State/ZIP Code Phon e Number MISYS documented in this encounter Visit Diagnoses Not on filedocumented in this encounter Care Teams Hot Mill Tin Roller Relationship Specialty Start Date End Date Sofia Landers PA-C PCP - General 05/10/06 Mikayla Allan MD PCP - Obstetrics/Gynecology 05/18/1004/27 [place] [facility] [address] [place] [id number] documented as of this encounter
--- OUTSIDE RECORDS SUMMARY | 2022-07-05 17:52 | XMS_ITS | Encounter Summary ---
:1950 Author Organization [place] Address [address] [place] [address] Care Team Providers Name Role Phone Sofia Landers PA-C Primary Care Provider Mikayla Allan MD Unavailable Encounter Details Date Type Department Care Team Description 04/30/2010 Historic Notes INTERFACED REPORT Jose Armando Urbano MD [facility] [address] [place], [place] [address] (Wo rk) Social History Tobacco Use Types Packs/Day Years Used Date Smoking Tobacco: Never Alcohol Use Standard Drinks/Week Comments No 0 (1 standard drink = 0.6 oz pure alcoho l) Sex Assigned at Date Recorded Not on file documented as of this encounter Progress Notes Jaden Duran MD - 10/22/2010 7:25 PM CDT ATTENDING PHYSICIAN - Attending Patient has been seen and evaluated by me. Examination: Discussed with the team and agree with the findings and plan in this note. - Attending Pager #: [phone] Interval History - Interval History: Tachycardic overnight 107-115. T 100.0. Otherwise feeling well this AM. Pain well-controlled overnight. Has not used IS, but will try this today. Physical Exam - General: NAD, A&O x3 - Head: AT/NC - Eyes: EOMI - Lungs: crackles at L base, otherwise clear - Cardiovascular: tachy, regular rhythm - Abdominal/Rectal: soft, nt, + hypoactive BS, nd Dressings-c/d/i. Mild bruising inferior to central port site - Lymphatics: nt, no edema, SCDs in place - Skin: no rashes/ lesions - Neuro: MS grossly intact - Additional Findings: I's/O's- 625/225 all urine SM 24- 2775/750- 650 urine & 100 EBL VS 1. Vital Signs Adult Med Surg 03:45 - Temperature degrees 37.7 C - Temperature degrees 100 F - Temperature Site Oral - Heart Rate Heart Rate 115 beats/min - Heart Rate Heart Rate Pulse oximetry Method Method - BP Cuff Systolic BP 102 mmHg - BP Cuff Diastolic BP 56 mmHg - BP Cuff Mean BP mmHg 71 - BP Site Arm, upper right - BP Blood Pressure Electronic Mode - BP Cuff Size Adult - Resp, Pulse Ox Resp 18 Rate - Resp, Pulse Ox Pulse 97 Oximetry SpO2 % - Resp, Pulse Ox Oxygen Room air Delivery Patient on Assessment and Plan - Assessment/Plan: 59 yo POD#1 s/p TLH/BSO/PPALND for grade 1 endometrial adenocarcinoma 1. Dz- Await final pathology 2. FEN- IVF, ADAT 3. CV/Pulm- no acute issues. h/o HTN/HLD- on home meds. Wean Oxygen this AM. 4. Heme- Pre-op Hgb 13.7--> AM p. EBL-100 ml. 5. GI- ADAT. Antiemetics prn. 6. - Nichols- adequate UOP. will d/c today. 7. Psych/neuro- no issues. 8. ID- AF, no si/sxs of infection 9. Pain - transition to PO meds this AM. 10. Dispo- to home today, pending pain well controlled and rufina regular diet.F/u with Dr. Mendoza in 2-4 weeks for post-op visit and pathology review. Signatures MIKAYLA MENDOZA)[Signed 08:19] Authored: ATTENDING PHYSICIAN, Interval History JADEN DURAN)[Signed 04:28] Authored: Interval History, Physical Exam, VS, Assessment and Plan SOCORRO SWAIN)[Signed 06:56] Authored: Interval History, Physical Exam, Assessment and Plan Jaden Duran MD - 10/22/2010 7:25 PM CDT Interval History - Interval History: Feels well, pain well controlled. Pleased with the efficient manner of surgery and her experience here. Tolerating Ice chips. No n/v. Physical Exam - General: NAD, A&O *3 - Head: AT/NC - Eyes: EOMI - Nose/Mouth/Throat: Patent - Lungs: CTAB - Cardiovascular: RRR - Abdominal/Rectal: soft, nt, + hypoactive BS, nd Dressings-c/d/i. Mild bruising inferior to central port site - : Nichols in place - Lymphatics: nt, no edema - Skin: no rashes/ lesions - Neuro: MS grossly intact Assessment and Plan - Assessment/Plan: 59 yo POD#0 s/p TLH/BSO/PPALND for grade 1 endometrial adenocarcinoma 1. Dz- Await final pathology 2. FEN- IVF, ADAT 3. CV/Pulm- no acute issues. h/o HTN/HLD- on home meds. Wean Oxygen 4. Heme- Pre-op Hgb 13.7--> AM p. EBL-100 ml. 5. GI- ADAT. Antiemetics prn. 6. - Nichols- adequate UOP. will d/c in AM. 7. Psych/neuro- no issues. 8. ID- AF, no si/sxs of infection 9. Dispo- to home in AM, pending pain well controlled and rufina regular diet. Signatures JADEN DURAN ()[Signed 00:49] Authored: Interval History, Physical Exam, Assessment and Plan documented in this encounter Plan of Treatment Not on filedocumented as of this encounter Visit Diagnoses Not on filedocumented in this encounter Care Teams Boxing Inspector Relationship Specialty Start Date End Date Sofia Landers PA-C PCP - General 05/10/06 Mikayla Allan MD PCP - Obstetrics/Gynecology 05/18/1004/27 [facility] [address] [place] [phone] documented as of this encounter
--- OUTSIDE RECORDS SUMMARY | 2022-07-05 17:52 | XMS_ITS | Encounter Summary ---
:1950 Author Organization [place] Address [address] [place] [address] Care Team Providers Name Role Phone Mat Mccray PA-C Primary Care Provider Mikayla Allan MD Unavailable Reason for Visit Reason Comments Cancer endometrial ca Encounter Details Date Type Department Care Team Description 06/16/2010 [facility] Deanna Marin MD Ovarian epithelial cancer (H) [facility] ONCOLOGY [address] [place] [phone] [facility] [phone] [place] [address] Social History Tobacco Use Types Packs/Day Years Used Date Smoking Tobacco: Never Alcohol Use Standard Drinks/Week Comments No 0 (1 standard drink = 0.6 oz pure alcoho l) Sex Assigned at Date Recorded Not on file documented as of this encounter Last Filed Vital Signs Vital Sign Reading Time Taken Comments Blood Pressure 150/104 06/16/2010 12:27 PM TRACE EVIDENCE TECHNICIAN Pulse 83 06/16/2010 12:27 PM TRACE EVIDENCE TECHNICIAN Temperature 37 ??C (98.6 ??F) 06/16/2010 12:27 PM TRACE EVIDENCE TECHNICIAN Respiratory Rate 20 06/16/2010 12:27 PM TRACE EVIDENCE TECHNICIAN Oxygen Saturation 100% 06/16/2010 12:27 PM TRACE EVIDENCE TECHNICIAN Inhaled Oxygen Concentration - - Weight 72.8 kg (160 lb 9.6 oz) 06/16/2010 12:27 PM TRACE EVIDENCE TECHNICIAN Height - - Body Mass Index 31.37 04/21/2010 1:49 PM CDT documented in this encounter Progress Notes Reji Mikayla Jazmin - 07/13/2010 4:45 PM CST Edith is a 59 year old woman with newly diagnosed Stage IA, grade 1, endometrioid adenocarcinoma of the endometrium.?? 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 She is here today for to discuss completion of staging for her ovarian cancer. In brief, Ms. Stallings presented for evaluation after having onset of postmenopausal bleeding.?? She first had an attempted EMBx in clinic, but this came back showing scant cervical tissue only.?? She hadan ultrasound done which found the uterus to measure 9cm in maximum dimension with an EMS = 1.5cm.??The ovaries appeared essentially normal, with a stable left approximate 2cm dermoid cyst which is stable from prior CT scan done in 2006. On 04/29/2010 she was taken to the OR and underwent a total laparoscopic hysterectomy with BSO and lymph node dissection.??At her postop visit we discussed the fact that due to her early stage and lack of risk factors, that I did not recommend she undergo adjuvant therapy for her endometrial cancer. Due to her incidental GI tumor found in her ovary I sent her to Medical Oncology for second opinion. Edith met with Dr. Olvera who recommended appendectomy to rule out this as a primary site of the cancer which could have metastasized to the ovary. ROS: See RN note for full ROS [...] ALL/Meds: Current outpatient prescriptions Medication Sig ??? fish oil-omega-3 fatty acids (OMEGA 3) 1000 MG capsule Take 2 g by mouth daily. ??? HYDROCHLOROTHIAZIDE 25 MG PO TABS 1 TABLET DAILY ??? LISINOPRIL 20 MG PO TABS 1 TABLET DAILY ??? SIMVASTATIN 20 MG PO TABS 1 TABLET AT BEDTIME ??? FOSAMAX 35 MG OR TABS 1 TABLET WEEKLY ON AN EMPTY STOMACH- will need dexa this fall/winter ??? ZACH LOW STRENGTH OR 1 TABLET DAILY ??? MULTI-VITAMIN OR 1 tablet daily FM: Family History Problem Relation Age of Onset ??? C.A.D. Father RICARDO, age 65, first event at 40 ??? Hypertension Mother ??? Genetic Daughter down's syndrome PE: BP 150/104 Pulse 83 Temp(Src) 98.6 ??F (37 ??C) (Oral) Resp 20 Wt 72.848 kg (160 lb 9.6 oz) SpO2 100% There is no height on file to calculate BMI. Constitutional: healthy, alert and no distress. No general exam done today. Assessment/Plan: Edith is a 59 year old woman with newly diagnosed Stage IA, grade 1, endometrioid adenocarcinoma of the endometrium.?? 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 She is here today for to discuss co mpletion of staging for her ovarian cancer. A total of 20min was spent in counseling the patient and her on the options of surveillance vs appendectomy with completion of staging if it is an ovarian cancer (omentectomy). Ms. Stallings elected to proceed with surgery. Will will try and do this laparoscopically at [facility] in the next approximatemonth's time. Further treatment planning will be done after her pathology report is back. Mikayla Mendoza M.D. Boat Buffer Plastic Department of Obstetrics and Gynecology Division of Gynecologic Oncology [facility] E EVIDENCE TECHNICIAN documented in this encounter Nursing Notes 06/16/2010 12:00 PM CST >> GABBY CASTILLO Wed Jun 16, 2010 12:35 PM Edith Stallings's goals for this visit include: discuss appendix removal. She requests these members of her care team be copied on today's visit information: PCP: MAT MCCRAY PA, PA Referring Provider: No referring provider defined for this encounter. Patient presents with: Cancer - endometrial ca Initial Temp(Src) 98.6 ??F (37 ??C) (Oral) Wt 72.848 kg (160 lb 9.6 oz) Estimated Body mass index is 31.37 kg/(m^2) as calculated from the following: Height as of 04/21/10: 5' 0(1.524 m). Weight as of this encounter: 160 lb 9.6 oz(72.848 kg).. BP completed using cuff size: regular [...] noticeable swellings or lumps Endocrine yes - mild hot flashes Neurological no tremor; no numbness and tingling; no headaches; no difficulty sleeping Last colonoscopy: 3 years ago Last mammogram: March 2010 Last dexascan:1 year ago Last thyroid screening: unsure Last cholesterol screening: March 2010 Last diabetes screening: March 2010 Does the patient have an advanced directive? no If no, was information packet given? No Gabby Castillo LPN documented in this encounter Plan of Treatment Not on filedocumented as of this encounter Visit Diagnoses Diagnosis Uterine cancer (H) Malignant neoplasm of uterus, part unspe cified Ovarian epithelial cancer (H) Malignant neoplasm of ovary documented in this encounter Care Teams Asparagus Cutter Relationship Specialty Start Date End Date Mat Mccray PA-C PCP - General 05/10/06 Mikayla Allan MD PCP - Obstetrics/Gynecology 05/18/1004/27 [place] [facility] [address] [place] [address] documented as of this encounter
--- OUTSIDE RECORDS SUMMARY | 2022-07-05 17:52 | XMS_ITS | Encounter Summary ---
:1950 Author Organization [place] Address [address] [place] [address]. [place] [address] Care Team Providers Name Role Phone Sofia Landers PA-C Primary Care Provider Mikayla Allan MD Unavailable Reason for Visit Reason Comments Other here for test results Encounter Details Date Type Department Care Team Description 05/12/2010 Oncology Visit [place] [employer] ARTILLERY SENIOR SERGEANT Mikayla Allan Uterine ca ncer (H); Oncology MD Tania Ovarian epithelial cancer (H) [address] [address] [facility] ONCOLOGY [place], [place] HEMATOLOGY [address] [id number] Social History Tobacco Use Types Packs/Day Years Used Date Smoking Tobacco: Never Alcohol Use Standard Drinks/Week Comments No 0 (1 standard drink = 0.6 oz pure alcoho l) Sex Assigned at Date Recorded Not on file documented as of this encounter Last Filed Vital Signs Vital Sign Reading Time Taken Comments Blood Pressure 149/97 05/12/2010 3:07 PM CDT Pulse 92 05/12/2010 3:07 PM CDT Temperature 37.4 ??C (99.3 ??F) 05/12/2010 3:07 PM CDT Respiratory Rate 20 05/12/2010 3:07 PM CDT Oxygen Saturation 92% 05/12/2010 3:07 PM CDT Inhaled Oxygen Concentration - - Weight 72.5 kg (159 lb 12.8 oz) 05/12/2010 3:07 PM CDT Height - - Body Mass Index 31.21 04/21/2010 1:49 PM CDT documented in this encounter Progress Notes Mikayla Mendoza - 05/19/2010 12:56 AM CDT Edith is a 59 year old woman with newly diagnosed Stage IA, grade 1, endometrioid adenocarcinoma of the endometrium. 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 She is here today for her postop visit and to discuss t reatment recommendations. In brief, Ms. Stallings presented for evaluation [...] hysterectomy with BSO and lymph node dissection. There were no complications and she was discharged to home on POD#1. ROS: Skin: negative Eyes: negative Ears/Nose/Throat: negative Respiratory: negative Cardiovascular: negative Gastrointestinal: negative Genitourinary: negative Musculoskeletal: negative Neurologic: negative Psychiatric: negative Hematologic/Lymphatic/Immunologic: negative Endocrine: negative MH: Past Medical History Diagnosis Date ??? Other and unspecified hyperlipidemia Hyperlipidemia ??? Essential hypertension, benign Hypertension, Benign ??? Personal history of urinary calculi SH: Past Surgical History Procedure Date ??? C[facility]oscopy 11/28/06 [facility] ??? Colonoscopy 05/23/2007 repeat in 10 years [...] STOMACH- will need dexa this fall/winter ??? ESTROVEN OR 1 tablet daily ??? ZACH LOW STRENGTH OR 1 TABLET DAILY ??? MULTI-VITAMIN OR 1 tablet daily FM: Family History Problem Relation Age of Onset ??? C.A.D. Father RICARDO, age 65, first event at 40 ??? Hypertension Mother ??? Genetic Daughter down's syndrome PE: BP 149/97 Pulse 92 Temp(Src) 99.3 ??F (37.4 ??C) (Oral) Resp 20 Wt 159 lb 12.8 oz (72.485 kg) SpO2 92% There is no height on file to calculate BMI. Constitutional: healthy, alert and no distress. Gastrointestinal: Abdomen soft, non-tender. Port site incisions are healing well. There is no sign of infection. : deferred. Musculoskeletal: extremities non-tender and without edema. Skin: no suspicious lesions or rashes. Psychiatric: mentation appears normal. and affect normal/bright. Assessment/Plan: Edith is a 59 year old woman with newly diagnosed Stage IA, grade 1, endometrioid adenocarcinoma of the endometrium. 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 She is here today for her postop visit and to discuss treatment recommendations. A total of 40min was spent in counseling the patient and discussing treatment options. In regards to her uterine cancer. Based on her stage, grade and other risk factors, I do not recommend that she undergo any additional therapy. In regards to her intestinal malignancy found in her ovarian dermoid, She did not have complete staging for an ovarian cancer: Namely appendectomy and omentectomy. However, due to its low grade and intestinal nature, I have asked that she be seen by medical oncology to get their opinion in the management and surveillance of this finding. We will follow up after this consultation and determine what, if anything, needs to be done at this time. Mikayla Mendoza M.D. Regional Sales Associate Department of Obstetrics and Gynecology Division of Gynecologic Oncology [facility] documented in this encounter Plan of Treatment Not on filedocumented as of this encounter Visit Diagnoses Diagnosis Uterine cancer (H) Malignant neoplasm of uterus, part unspe cified Ovarian epithelial cancer (H) Malignant neoplasm of ovary documented in this encounter Care Teams Salon Shampoo Assistant Relationship Specialty Start Date End Date Sofia Landers PA-C PCP - General 05/10/06 Mikayla Allan MD PCP - Obstetrics/Gynecology 05/18/1004/27 [place] [facility] [address] [place] [id number] documented as of this encounter
--- OUTSIDE RECORDS SUMMARY | 2022-07-05 17:52 | XMS_ITS | Encounter Summary ---
:1950 Author Organization [place] Address [address] [place] [address] Care Team Providers Name Role Phone Sofia Landers PA-C Primary Care Provider Mikayla Allan MD Unavailable Encounter Details Date Type Department Care Team Description 05/14/2010 Medical Correspondence [facility] Scanning, Letter to Patient Clinic Deanna Ashby MD from [facility], [address] [place] [address] [address] [facility] [phone] Social History Tobacco Use Types Packs/Day Years Used Date Smoking Tobacco: Never Alcohol Use Standard Drinks/Week Comments No 0 (1 standard drink = 0.6 oz pure alcoho l) Sex Assigned at Date Recorded Not on file documented as of this encounter Plan of Treatment Not on filedocumented as of this encounter Visit Diagnoses Not on filedocumented in this encounter Care Teams Porcelain Buildup Assistant Relationship Specialty Start Date End Date Sofia Landers PA-C PCP - General 05/10/06 Mikayla Allan MD PCP - Obstetrics/Gynecology 05/18/1004/27 [place] [facility] [address] [place] [phone] documented as of this encounter
--- OUTSIDE RECORDS SUMMARY | 2022-07-05 17:52 | XMS_ITS | Encounter Summary ---
:1950 Author Organization [place] Address [address] [place] [address]. [place] [address] Care Team Providers Name Role Phone Sofia Landers PA-C Primary Care Provider Mikayla Allan MD Unavailable Encounter Details Date Type Department Care Team Description 04/30/2010 Historic Notes INTERFACED REPORT Keiry Trevino, DO [address] [place], [place] [address] (Wo rk) Social History Tobacco Use Types Packs/Day Years Used Date Smoking Tobacco: Never Alcohol Use Standard Drinks/Week Comments No 0 (1 standard drink = 0.6 oz pure alcoho l) Sex Assigned at Date Recorded Not on file documented as of this encounter Progress Notes Hernandez Trevino - 10/22/2010 7:22 PM CDT [facility] [address]; [place] [id number]; [phone]. 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 nothing per vagina for 6 weeks no lifting greater than 10 lbs for the next 6 weeks - Call your physician increased drainage, increased pain, increased if you experience any swelling of the following: - Report temp if 100.4 degrees F greater than: - Who patient should primary care provider call ( include phone number if not primary care provider): - Who patient should [facility] call: - Phone: [phone] - Who patient should call: - Phone: [phone] HOME CARE ORDERS - IS HOME CARE no RECOMMENDED? OUTPATIENT THERAPY ORDERS - IS OUTPATIENT THERAPY No RECOMMENDED Supplies and Equipment - Supplies sent/ordered no - Equipment no sent/ordered - Other services no arranged Allergies ?? Sulfa;Rash Medications and Prescriptions - Discharge refer to discharge presciption list Presciptions - Medications and prescriptions sent to pharmacy prescriptions FOLLOW UP APPOINTMENTS - PHYSICIAN/CLINICIAN Mikayla Mendoza NAME - REASON FOR FOLLOW-UP post op and treatment options - WHEN TO SEE in 2-3 weeks PHYSICIAN/CLINICIAN - Phone Appointments on [place] and/or [facility] (with [facility] or [facility] provider or service). Call [phone] if you haven't heard regarding these appointments within 7 days of discharge Discharge Planning - Date of admission: - Date/Time of 19:00 discharge: - Discharge from: [facility] - Patient care unit: - Patient care unit [phone] phone number: - Patient phone number [phone] after discharge: - Method of discharge: ambulatory - Transportation: private - Accompanied by: Spouse - Discharge discharge instructions reviewed with information: pt/family/sign. other STATEMENT OF APPROVAL & DISCHARGE ORDER - Statement of I agree with all the recommendations detailed in Approval: this document. - Discharge to:: home Signatures SARI WISEMAN (KLAUS)[Signed 17:15] Authored: Supplies and Equipment, Allergies, Medications and Prescriptions, Discharge Planning Hernandez Trevino)[Signed 16:07] Authored: [facility], DISCHARGING PHYSICIAN, ORDERS AND INSTRUCTIONS, HOME CARE ORDERS, OUTPATIENT THERAPY ORDERS, FOLLOW UP APPOINTMENTS, STATEMENT OF APPROVAL & DISCHARGE ORDER documented in this encounter Plan of Treatment Not on filedocumented as of this encounter Visit Diagnoses Not on filedocumented in this encounter Care Teams Yarn Handler Relationship Specialty Start Date End Date Sofia Landers PA-C PCP - General 05/10/06 Mikayla Allan MD PCP - Obstetrics/Gynecology 05/18/1004/27 [facility] [address] [place] [address] documented as of this encounter
--- OUTSIDE RECORDS SUMMARY | 2022-07-05 17:52 | XMS_ITS | Encounter Summary ---
:1950 Author Organization [facility] Address [address] [place] [address] Care Team Providers Name Role Phone Sofia Landers PA-C Primary Care Provider Mikayla Allan MD Unavailable Encounter Details Date Type Department Care Team Description 08/05/2010 Hospital Pathology [facility] [place] [facility] [address] [place] [phone] (Wo rk) Social History Tobacco Use Types Packs/Day Years Used Date Smoking Tobacco: Never Alcohol Use Standard Drinks/Week Comments No 0 (1 standard drink = 0.6 oz pure alcoho l) Sex Assigned at Date Recorded Not on file documented as of this encounter Plan of Treatment Not on filedocumented as of this encounter Procedures Procedure Name Priority Date/Time Associated Diagnosis [facility] SURGICAL PATHOLOGY Routine 08/05/2010 8:35 AM Res ults for this EXAM SPIRAL TUBE WINDER HELPER procedure are i n the results section. documented in this encounter Results Surgical pathology exam (08/05/2010 8:35 AM SPIRAL TUBE WINDER HELPER) Component Value Ref Test Analysis Performed At [facility] Range Method Time Signature Copath Report Patient Name: EDITH ANAYA MR#: [id number] Specimen #: [id number] Collected: 08/05/2010 Received: 08/05/2010 Reported: 08/09/2010 17:07 Ordering Phy(s): MIKAYLA CASIANO SPECIMEN(S): A: Appendix B: Omental biopsy FINAL DIAGNOSIS: A. ??Appendix, appendectomy: ? - Obliteration of appendiceal lumen at tip; small fec alith present. ? - Negative for significant inflammation and neoplasia . B. ??Omentum, biopsy: ? - Fibroadipose tissue with no diagnostic alteration. ? - Negative for malignancy. I have personally reviewed all specimens and or slides, incl uding the listed special stains, and used them with my medical judgeme nt to determine the final diagnosis. Electronically signed out by: Graham Easton M.D., [facility] CLINICAL HISTORY: 59-year-old female. GROSS: Two specimens are received, each labeled with the patient's name and hospital number. A. ?Specimen A is designated appen mikey. ??The specimen consists of one pink/pizarro appendix measuring 4.3 cm in length with an average external diameter of 0.3 cm. ??The serosal surfaces are smoo th and glistening. ??The attached periappendiceal fat measures 5.5 cm in length by 2.5 x 1.2 cm. ??The periappendiceal fat is grossly unrema rkable. ??The surgical margin consists of a running staple line measuring 1.5 cm in length. ??The specimen is serially cross sectioned revealing a luminal diameter measuring 0.15 cm proximally and a pinpoint lumen d istally. ??No fecaliths or obstructions are grossly identified. ??Represen tative sections are submitted. ??The tip of the appendix is longitu dinally sectioned and is grossly unremarkable. B. ?Specimen B is designated omental biopsy. ??The specimen consists of a portion of yellow lobulated omental tissue salvador suring 18.5 x 6.5 x 0.5 cm. ??The specimen is serially cross sectioned r evealing delicate lobulated omental tissue with no areas of gross abn ormalities. Infant Childcare Provider sections are submitted in three cassettes. Summary of Sections: A - appendix. B1-B3 - omental biopsy. (Jar 2) (LETTY Barker/mm 08/05/10) MICROSCOPIC: Microscopic examination is performed. TESTING LAB LOCATION: [facility] [address] [place], [place] ?? [address] COLLECTION SITE: Client: [facility] Location: U (B) Specimen Anatomical Collection Method Collection Time Receive d Time (Source) Location / / Volume Laterality 08/05/2010 8:35 AM 0 9:15 SPIRAL TUBE WINDER HELPER AM SPIRAL TUBE WINDER HELPER Mikayla Allan MD LAB - BEAKER AP Performing Organization Address City/State/ZIP Code Phon e Number COPATH documented in this encounter Visit Diagnoses Not on filedocumented in this encounter Care Teams Customer Experience Analyst Relationship Specialty Start Date End Date Sofia Landers PA-C PCP - General 05/10/06 Mikayla Allan MD PCP - Obstetrics/Gynecology 05/18/1004/27 [facility] [address] [place] [address] documented as of this encounter
--- OUTSIDE RECORDS SUMMARY | 2022-07-05 17:52 | XMS_ITS | Encounter Summary ---
:1950 Author Organization [facility] Address [address] [place] [address] Care Team Providers Name Role Phone Sofia Landers PA-C Primary Care Provider Mikayla Allan MD Unavailable Reason for Visit Reason Onset Date Comments Appointment 07/22/2010 post op Encounter Details Date Type Department Care Team Description 07/22/2010 Telephone [facility] Mikayla Allan Ap pointment (post op) [facility] Deanna [facility] ONCOLOGY [id number] [place] [address] [address] [facility] [phone] [place], [place] [address] (Wo rk) Social History Tobacco Use Types Packs/Day Years Used Date Smoking Tobacco: Never Alcohol Use Standard Drinks/Week Comments No 0 (1 standard drink = 0.6 oz pure alcoho l) Sex Assigned at Date Recorded Not on file documented as of this encounter Miscellaneous Notes Telephone Encounter - Giuliana Hayes - 07/22/2010 3:57 PM CST Left message on pt home phone explaining that appointment time on 08/18/10 had to be moved to 1000. Call back number given. Giuliana Hayes RN NISTR[address] [address] JUSTICE documented in this encounter Plan of Treatment Not on filedocumented as of this encounter Visit Diagnoses Not on filedocumented in this encounter Care Teams Bumper Operator Relationship Specialty Start Date End Date [place], Sofia, PA-C PCP - General 05/10/06 Mikayla Allan MD PCP - Obstetrics/Gynecology 05/18/1004/27 [facility] [address] [place] [address] documented as of this encounter
--- OUTSIDE RECORDS SUMMARY | 2022-07-05 17:52 | XMS_ITS | Encounter Summary ---
:1950 Author Organization [facility] Address [address] [place] [address] Care Team Providers Name Role Phone Sofia Landers PA-C Primary Care Provider Encounter Details Date Type Department Care Team Description 04/30/2010 Discharge Summary [facility] Mikayla Allan (Mid Level Game Designer) [facility] MD Tania Results [place] [facility] [address] [place] [phone] (Wo rk) Social History Tobacco Use Types Packs/Day Years Used Date Smoking Tobacco: Never Alcohol Use Standard Drinks/Week Comments No 0 (1 standard drink = 0.6 oz pure alcoho l) Sex Assigned at Date Recorded Not on file documented as of this encounter Progress Notes Hernandez Trevino - 06/04/2010 1:14 PM CDT FINAL ADMITTING DIAGNOSES: 1. 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 2. Left ovarian cyst. 3. Hypertension. 4. Hyperlipidemia. DISCHARGE DIAGNOSES: 1. 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 2. Left ovarian cyst. 3. Hypertension. 4. Hyperlipidemia. PROCEDURES: 1. Total laparoscopic hysterectomy, bilateral salpingo-oophorectomy, pelvic and periaortic lymph node dissection, cystoscopy and washings. 2. General anesthesia. 3. IV fluids. 4. IV and p.o. medications. COMPLICATIONS: None apparent. HISTORY OF PRESENT ILLNESS: Mrs. Edith Anaya presented for evaluation after having onset of postmenopausal bleeding. She had attempted endometrial biopsy in clinic, but this came back showing scant cervical tissue only. She had an ultrasound done which found the uterus to measure 9 cm in maximal dimension with an endometrial stripe of 1.5 cm. The ovaries appeared essentially normal with a stable left approximately 2 cm dermoid cyst, which is stable from prior CT scan done in 2006. REVIEW OF SYSTEMS: A 12-point review of systems is negative. PAST MEDICAL HISTORY: 1. Hyperlipidemia. 2. Hypertension. 3. Urinary calculi. PAST SURGICAL HISTORY: 1. Cystoscopy. 2. Colonoscopy. 3. Hysteroscopy. 4. Hysteroscopy, D&C and removal of a portion of endocervical polyp. MEDICATIONS: 1. Hydrochlorothiazide. 2. Lisinopril. 3. Simvastatin. 4. Fosamax. 5. Supplements. 6. Multiple vitamins. 7. Aspirin. ALLERGIC REACTIONS: Sulfa drugs and patient gets a rash. SOCIAL HISTORY: The patient denies tobacco, alcohol and any drug use. PHYSICAL EXAMINATION: GENERAL APPEARANCE: No apparent distress. HEENT: No thyromegaly, no palpable nodes or masses. CARDIOVASCULAR: Regular rate and rhythm. No gallops, rubs or murmurs. RESPIRATORY: Clear to auscultation bilaterally. MUSCULOSKELETAL: Grossly intact. SKIN: No lesions or rashes. NEUROLOGICAL: Normal gait. No gross defects. PSYCHIATRIC: Appropriate mood and affect. NEUROLOGICAL: Normal cervical, supracervical and inguinal lymph nodes. GASTROINTESTINAL: Abdomen soft, nontender, nondistended. No organomegaly, no masses. GENITOURINARY:External genitalia and urethral meatus appears normal. Vagina smooth without nodularity or masses. Cervix appears normal without lesions. Bimanual exam revealed no masses, nodularity or fullness. Rectovaginal exam confirms these findings. LABORATORY ON ADMISSION: Potassium 3.8. Labs at discharge, hemoglobin 11.8. HOSPITAL COURSE: PROBLEM #1: 1. Disease. The patient underwent TLH-BSO, lymph node dissection for grade 1 endometrial adenocarcinoma, final pathology pending. The patient has followup with Dr. Mendoza in 2-3 weeks to review final pathology and discuss treatment planning. PROBLEM #2: Fluid, electrolytes and nutrition. IV fluids were started at the time of surgery and the patient was n.p.o. at that time. Postoperatively, her fluids were discontinued when she was tolerating a regular diet. The patient had no electrolyte abnormalities throughout her hospital stay. PROBLEM #3: Pain. The patient's pain was initially managed postoperatively with IV pain medications. By postoperative day #1, she was tolerating a regular diet and was transitioned to oral pain medications. At the time of discharge, her pain was well controlled on oral medications that she dischargedwith those medications for further pain control. PROBLEM #4: GI. As previously stated, the patient was n.p.o. prior to her procedure. Her diet was advanced to clear liquids following surgery on postoperative day #0. She tolerated that without difficulty and she was advanced to a regular diet on postoperative day #1. She was discharged with stool sof teners and having minimal problems with nausea. PROBLEM #5: . Nichols catheter was placed at the time of the procedure. Once the patient was ambulatory, this was discontinued which occurred on postoperative day #0. From that point, she was voiding without difficulty and continued to do so until the time of discharge. PROBLEM #6: Cardiovascular. The patient has a history of hypertension and hyperlipidemia was her home medications mentioned above, were started on postoperative day #1 when she was tolerating a regular diet and she did not have any acute issues with regards to her cardiovascular status. The patient has no history of any respiratory abnormalities or disorders. She was originally placed on oxygen supplementation after her procedure. By postoperative day #1, she was no longer requiring supplementation. She was given incentive spirometer and encouraged to cough and deep breathe every hour postoperatively starting on postoperative day #0 and she remained stable at the time of discharge. PROBLEM #7: Infectious disease. The patient was afebrile at the time of admission and she was afebrile at the time of discharge for a total length of at least 48 hours. She did not exhibit any signs or symptoms of infection during her hospital stay. PROBLEM #8: Endocrine. The patient has no history of endocrinologic abnormalities. She had no acuteissues with regards to her endocrine status throughout her hospital stay and continued to remain stable at the time of discharge. PROBLEM #9: Heme. Preoperatively, her hemoglobin was 13.7. Postoperatively, her hemoglobin was 11.8. She was not showing any signs or symptoms of bleeding and she was discharged in stable condition. Problem #10: Prophylaxis. TEDs and pneumoboots were placed on the patient's legs at the time of herprocedure. The patient tolerated these treatments well without difficulty. DISCHARGE INSTRUCTIONS: 1. The patient will return to clinic with Dr. Mendoza in approximately 2-3 weeks for postoperative visit and to discuss pathology results and future treatment planning. 2. The patient was instructed tocall with any further questions or concerns including a temperature greater than 100.4 degrees Fahrenheit. Pain not controlled by medications. Persistent nausea or vomiting, redness or drainage at her incision sites or vaginal bleeding greater than 1 pad per hour for 2 consecutive hours. 3. The patient was also instructed to perform pelvic rest for the next 6 weeks to include no douching, tampons or intercourse, to avoid heavy lifting greater than 10 pounds for the next 6 weeks as well as to avoid not driving while on narcotic pain medications. DISCHARGE MEDICATIONS: The patient was instructed to continue taking all of her original home medications and she was also discharged with the following medications: Senokot-S, [place] 5/325. Electronically signed on 06/04/2010 13:13 by MIKAYLA MENDOZA MD As dictated by HERNANDEZ TREVINO MD [place]: Name: EDITH ANAYA MRN: [id number] Account: [id number] : 1950 Admit Date: Discharge Date: 04/30/2010 Document: [id number] cc: Sofia Landers PA-C documented in this encounter Plan of Treatment Not on filedocumented as of this encounter Visit Diagnoses Not on filedocumented in this encounter Care Teams Regional Commercial Sales Manager Relationship Specialty Start Date End Date Sofia Landers PA-C PCP - General 05/10/06 documented as of this encounter
--- OUTSIDE RECORDS SUMMARY | 2022-07-05 17:52 | XMS_ITS | Encounter Summary ---
:1950 Author Organization [facility] Address [address] [place] [address]. [place] [address] Care Team Providers Name Role Phone Sofia Landers PA-C Primary Care Provider Mikayla Allan MD Unavailable Encounter Details Date Type Department Care Team Description 04/29/2010 Historic Notes INTERFACED REPORT Interface, Transcript onMD Social History Tobacco Use Types Packs/Day Years Used Date Smoking Tobacco: Never Alcohol Use Standard Drinks/Week Comments No 0 (1 standard drink = 0.6 oz pure alcoho l) Sex Assigned at Date Recorded Not on file documented as of this encounter Progress Notes Interface, Equal Opportunity Counselor - 10/22/2010 7:25 PM CDT Progress Note - :: 59 year old patient admitted from PACU at approx. 2230. Had a TLH, BSO, LND, and cystoscopy for uterine cancer. Sedated but easily arousable. AVSS. 5 lap sites all dry and intact. Nichols to SD. Dil MOLDER PUNCH at 0.1mg IDS. Instructed in PACU and reinforced [id number]. Rates pain a 2 at this time. Resting comfortably. Signatures SARI TIJERINA (RN)[Signed 23:00] Authored: Progress Note documented in this encounter Plan of Treatment Not on filedocumented as of this encounter Visit Diagnoses Not on filedocumented in this encounter Care Teams Clockmaker Apprentice Relationship Specialty Start Date End Date Sofia Landers PA-C PCP - General 10/4/06 Mikayla Allan MD PCP - Obstetrics/Gynecology 05/18/1004/27 [facility] [address] [place] [address] documented as of this encounter
--- OUTSIDE RECORDS SUMMARY | 2022-07-05 17:52 | XMS_ITS | Encounter Summary ---
:1950 Author Organization [facility] Address [address] [place] [address] Care Team Providers Name Role Phone Sofia Landers PA-C Primary Care Provider Mikayla Allan MD Unavailable Encounter Details Date Type Department Care Team Description 07/19/[address] [facility] Fifi Landers PA-C [address] [place] [id number] [phone] Social History Tobacco Use Types Packs/Day Years [...] on filedocumented in this encounter Care Teams Embedded Systems Engineer Relationship Specialty Start Date End Date Sofia Landers PA-C PCP - General 05/10/06 Mikayla Allan MD PCP - Obstetrics/Gynecology 05/18/1004/27 [facility] [address] [place] [address] documented as of this encounter
--- OUTSIDE RECORDS SUMMARY | 2022-07-05 17:52 | XMS_ITS | Encounter Summary ---
:1950 Author Organization [place] [facility] Address [address] [place] [address] Care Team Providers Name Role Phone Sofia Landers PA-C Primary Care Provider Mikayla Allan MD Unavailable Sofia Landers PA-C Unavailable Encounter Details Date Type Department Care Team Description 04/30/2010 Historic Mail Messenger INTERFACED REPORT InterfaceRobi MD Social History Tobacco Use Types Packs/Day Years Used Date Smoking Tobacco: Never Alcohol Use Standard Drinks/Week Comments No 0 (1 standard drink = 0.6 oz pure alcoho l) Sex Assigned at Date Recorded Not on file documented as of this encounter Plan of Treatment Not on filedocumented as of this encounter Visit Diagnoses Not on filedocumented in this encounter Care Teams Firer Locomotive Crane Relationship Specialty Start Date End Date Sofia Landers PA-C PCP - General 05/10/06 Mikayla Allan MD PCP - Obstetrics/Gynecology 05/18/1004/27 [facility] [address] [place] [phone] Sofia Landers PA-C PCP - Assigned PCP 12/05/10 10/09/18 Saurabh [address] [facility] [address] documented as of this encounter
--- OUTSIDE RECORDS SUMMARY | 2022-07-05 17:52 | XMS_ITS | Encounter Summary ---
:1950 Author Organization [facility] Address [address] [place] [address] Care Team Providers Name Role Phone Sofia Landers PA-C Primary Care Provider Mikayla Allan MD Unavailable Encounter Details Date Type Department Care Team Description 06/17/2010 Telephone [facility] Cancer Mikayla Allan MD [facility] ONCOLOGY HEMATOLOGY [address] [place] [address] [place] [phone] [place] [address] (Wo rk) Social History Tobacco Use Types Packs/Day Years Used Date Smoking Tobacco: Never Alcohol Use Standard Drinks/Week Comments No 0 (1 standard drink = 0.6 oz pure alcoho l) Sex Assigned at Date Recorded Not on file documented as of this encounter Miscellaneous Notes Telephone Encounter - Radha Espinosa - 06/17/2010 5:01 PM CST Pt returned phone call from earlier today. Informed that surgery is scheduled for 08/05/10 at 7:30. Pt informed that she needs to arrive @ 5:30 a.m. Pt pleased with choice of date and verbalized understanding. Pt also informed that she would be hearing more from [facility] before 08/05/10. Thank you. [facility] Coordinator [employer] SCIENC[employer] DEPARTMENT CHAIR Telephone Encounter - Radha Espinosa - 06/17/2010 9:03 AM CST Delayed encounter: Called pt 06/16/10 @ 2:25:31 to inform her of the date and time of surgery with Dr Mendoza at [facility]. (Surgery currently scheduled on 08/05/10 @ 7:30 a.m.. Pt needs to check in @ 5:30a.m. Scheduled by [facility] @ [phone].) Unable to speak to pt directly. Left msg to call Radha in Dr Mendoza's clinic @ [phone] for above information. Second call made to pt at 8:55 today. Left another msg to return my call for information. Thank you. Rad[facility] Coordinator. TH SCIENCES DEPARTMENT CHAIR documented in this encounter Plan of Treatment Not on filedocumented as of this encounter Visit Diagnoses Not on filedocumented in this encounter Care Teams Account Strategist Relationship Specialty Start Date End Date Sofia Landers PA-C PCP - General 05/10/06 Mikayla Allan MD PCP - Obstetrics/Gynecology 05/18/1004/27 [facility] [address] [place] [address] documented as of this encounter
--- OUTSIDE RECORDS SUMMARY | 2022-07-05 17:52 | XMS_ITS | Encounter Summary ---
:1950 Author Organization [facility] Address [address] [place] [id number] Care Team Providers Name Role Phone Sofia Landers PA-C Primary Care Provider Mikayla Allan MD Unavailable Encounter Details Date Type Department Care Team Description 07/21/2010 Telephone [facility] Cancer Mikayla Allan MD [facility] ONCOLOGY HEMATOLOGY [id number] [place] [address] [place] [address] [phone] [place] [address] (Wo rk) Social History Tobacco Use Types Packs/Day Years Used Date Smoking Tobacco: Never Alcohol Use Standard Drinks/Week Comments No 0 (1 standard drink = 0.6 oz pure alcoho l) Sex Assigned at Date Recorded Not on file documented as of this encounter Miscellaneous Notes Telephone Encounter - Radha Espinosa - 07/21/2010 11:20 AM CST VM msg left on pt home phone informing her that her 3 mo f/u appt for 08/25/10 @ 3:30 was moved up to 08/18/10 @ 1:30 as her post op visit. Pt given call center phone number with questions. Thank you. [facility] Coordinator BOTOMY TECH documented in this encounter Plan of Treatment Not on filedocumented as of this encounter Visit Diagnoses Not on filedocumented in this encounter Care Teams Metals Sales Representative Relationship Specialty Start Date End Date Sofia Landers PA-C PCP - General 05/10/06 Mikayla Allan MD PCP - Obstetrics/Gynecology 05/18/1004/27 [place] [facility] [address] [place] [address] documented as of this encounter
--- OUTSIDE RECORDS SUMMARY | 2022-07-05 17:52 | XMS_ITS | Encounter Summary ---
:1950 Author Organization [facility] Address [address] [place] [address] Care Team Providers Name Role Phone Sofia Landers PA-C Primary Care Provider Mikayla Allan MD Unavailable Reason for Visit Reason Comments Pre-Op Exam Encounter Details Date Type Department Care Team Description 07/19/2010 Office Visit [facility] Sofia Landers, Preop general physical exam (Primary Dx); Clinic O[facility]ou MONCADA Appendix disease; [address] Saurabh Uterine cancer (H); [place] [address] [address] [phone] [address] [phone] [place] LOPEZ [phone] (Wo rk) Social History Tobacco Use Types Packs/Day Years Used Date Smoking Tobacco: Never Alcohol Use Standard Drinks/Week Comments No 0 (1 standard drink = 0.6 oz pure alcoho l) Sex Assigned at Date Recorded Not on file documented as of this encounter Last Filed Vital Signs Vital Sign Reading Time Taken Comments Blood Pressure 132/82 07/19/2010 4:07 PM LIVESTOCK JUDGING COACH Pulse 80 07/19/2010 3:17 PM LIVESTOCK JUDGING COACH Temperature 36.2 ??C (97.1 ??F) 07/19/2010 3:17 PM LIVESTOCK JUDGING COACH Respiratory Rate 20 07/19/2010 3:17 PM LIVESTOCK JUDGING COACH Oxygen Saturation - - Inhaled Oxygen Concentration - - Weight 73.9 kg (163 lb) 07/19/2010 3:17 PM LIVESTOCK JUDGING COACH Height - - Body Mass Index 31.83 04/21/2010 1:49 PM CDT documented in this encounter Progress Notes Antoine Valero - 07/19/2010 3:26 PM CST [facility] [address] [facility] [id number] PRE-OP EVALUATION: Today's date: 07/19/2010 Edith Stallings (: 1950) presents for pre-operative evaluation assessment as requested by Dr. Vazquez. She requires evaluation and anesthesia risk assessment prior to undergoing surgery/procedurefor treatment of appendix removal laparscopically. Date of Surgery/ Procedure: 08/05/10 Time of Surgery/ Procedure: 6:30 Hospital/Surgical Facility: [facility] Should be available on [facility] Primary Physician: Sofia Landers PA-C Type of Anesthesia Anticipated: General History of anesthesia complications: NONE History of abnormal bleeding: NONE History of blood transfusions: YES. Complications: childbirth Patient has a Health Care Directive or Living Will: NO PREOP QUESTIONNAIRE 1- NO - Do you ever have any pain or discomfort in your chest? 2- NO - Have you ever had a severe pain across the front of your chest lasting for half an hour or more? 3- YES - Do you have swelling in your feet or ankles at times? Towards the end of the day may noticea fullness in legs 4- NO - Are you troubled by shortness of breath when: walking on the level/ up a slight hill/ at night? 5- NO - Does your chest ever sound wheezy or whistling? 6- NO - Do you currently have a cold, bronchitis or other respiratory infection? 7- NO - Have you had a cold, bronchitis or other respiratory infection within the last 2 weeks? 8- NO - Do you usually have a cough? 9- NO - Do you sometimes get pains in the calves of your legs when you walk? 10-NO - Do you or anyone in your family have previous history of blood clots? 11-NO - Do you or does anyone in your family have serious bleeding problem such as prolonged bleeding following surgeries or cuts? 12-NO - Have you ever had problems with anemia or been told to take iron pills? 13-NO - Have you had any abnormal blood loss such as black, tarry or bloody stools, or abnormal vaginal bleeding? 14-NO - Have you or any of your relatives ever had problems with anesthesia? 15-NO - Do you snore or stop breathing at night? 16-NO - Do you have any prosthetic heart valves or joints? 17-NO - Is there any chance that you may be ? HPI: HYPERTENSION - Patient has longstanding history of mod-severe HTN , currently denies any symptoms referable to elevated blood pressure. Specifically denies chest pain, palpitations, dyspnea, orthopnea,PND or peripheral edema. Blood pressure readings have not been in normal range recently. Current medication regimen is as listed below. Patient denies any side effects of medication. . HYPERLIPIDEMIA - Patient has a long history of significant Hyperlipidemia requiring medication for treatment with recent fair control. Patient reports no problems or side effects with the medication. . Patient Active Problem List Diagnoses Date Noted ? ? HYPERLIPIDEMIA LDL GOAL <130 [272.4CK] 06/06/2010 ??? Uterine Cancer [179A] 04/21/2010 ??? Postmenopausal Bleeding [627.1] 03/08/2010 ??? HYPERLIPIDEMIA NEC/NOS [272.4] 05/10/2006 ??? BENIGN HYPERTENSION [401.1] 05/10/2006 ??? SYMPTOMATIC FEMALE CLIMACTERIC STATE [627.2] 05/10/2006 Past Medical History Diagnosis Date ??? Other and unspecified hyperlipidemia Hyperlipidemia ??? Essential hypertension, benign Hypertension, Benign ??? Personal history of urinary calculi Past Surgical History Procedure Date ??? Cystoscopy 11/28/06 [facility] ??? Colonoscopy 05/23/2007 repeat in 10 years ??? Hysteroscopy 03/30/10 Hysteroscopy, D&C, removal of portion of endocervical polyp. Current outpatient prescriptions Medication Sig ??? fish [...] DAILY ??? MULTI-VITAMIN OR 1 tablet daily OTC products: no recent use of OTC ASA, NSAIDS or Steroids and herbals and vitamins - is on fish oiltabs though will d/c them Allergies Allergen Reactions ??? Sulfa Drugs Rash Latex Allergy: NO History Substance Use Topics ??? Tobacco Use: Never ??? Alcohol Use: No History Drug Use Not on file REVIEW OF SYSTEMS: C: NEGATIVE for fever, chills, change in [...] NEGATIVE for changes in mood or affect EXAM: BP 138/90 Pulse 80 Temp(Src) 97.1 ??F (36.2 ??C) (Oral) Resp 20 Wt 163 lb (73.936 kg) GENERAL APPEARANCE: healthy, alert and no distress EYES: EOMI,- PERRL HENT: ear canals and TM's normal and nose and mouth without ulcers or lesions NECK: no adenopathy, no asymmetry, masses, or scars and thyroid normal to palpation RESP: lungs clear to auscultation - no rales, rhonchi or wheezes CV: regular rates and rhythm, normal S1 S2, no S3 or S4 and no murmur, click or rub - ABDOMEN: soft, nontender, no HSM or masses and bowel sounds normal MS: extremities normal- no gross deformities noted, no evidence of inflammation in joints, FROM in all extremities. SKIN: no suspicious lesions or rashes NEURO: Normal strength and tone, sensory exam grossly normal, mentation intact and speech normal PSYCH: mentation appears normal. and affect normal/bright DIAGNOSTICS: Preop Testing EKG: Not indicated because last EKG is UTD last EKG was normal on 04-29-2010, see attached Labs: see attached IMPRESSION: Reason for surgery/procedure: there may be some cancer cells in appendix/ appendectomy Diagnosis/reason for consult: anesthesia clearance, elevated BP The proposed surgical procedure is considered LOW risk. For above listed surgery and anesthesia: Patient is at MODERATE risk for surgery/procedure and perioperative/procedure complications. RECOMMENDATIONS: --Approval given to proceed with proposed procedure, without further diagnostic evaluation. --Patient has cardiovascular risk factors Recommendations: Beta blockers considered, but not recommended due to low risk surgery --Patient is to take all scheduled medications on the day of surgery will hold lisinopril 24 hour prior to surgery due to intraoperative hypotension Increased dosage of lisinopril to 30 mg will have nurse bp recheck in 2-4 weeks once she has recovered Signed Electronically by: Sofia Landers PA-C Copy of this evaluation report is provided to requesting physician. Preop Guidelines STOCK JUDGING COACH documented in this encounter Nursing Notes 07/19/2010 3:15 PM CST >> ANTOINE VALERO Mon Jul 19, 2010 3:26 PM Patient is here today for her pre-op and also discuss her b/p. Estimated Body mass index is 31.83 kg/(m^2) as calculated from the following: Height as of 10: 5' 0(1.524 m). Weight as of this encounter: 163 lb(73.936 kg). BP Readings from Last 1 Encounters: 07/19/2010 : 138/90] BP cuff size: regular Do you feel safe in your environment? Yes Does the patient need any medication refills today? yes documented in this encounter Plan of Treatment Not on filedocumented as of this encounter Procedures Procedure Name Priority Date/Time Associated Diagnosis Comme nts POTASSIUM Routine 07/19/2010 3:59 PM Preop general Results for this LIVESTOCK JUDGING COACH physical exam procedure are in the results section. CBC WITH PLATELETS Routine 07/19/2010 3:59 PM Preop general Re sults for this LIVESTOCK JUDGING COACH physical exam procedure are in the results section. documented in this encounter Results Potassium (07/19/2010 3:59 PM LIVESTOCK JUDGING COACH) P athologist Signature Potassium 4.3 3.4 - 5.3 [place] mmol/L [facility] Specimen Anatomical Collection Method Collection Time Receive d Time (Source) Location / / Volume Laterality Blood specimen 07/19/2010 3:59 PM 010 4:01 (specimen) LIVESTOCK JUDGING COACH PM LIVESTOCK JUDGING COACH Sofia Landers PA-C LAB - BLOOD ORDERABLES Performing Organization Address City/State/ZIP Code Phon e Number [place] [id number] [facility] [place] [address] [facility] CBC with platelets (07/19/2010 3:59 PM LIVESTOCK JUDGING COACH) P athologist Signature WBC 5.7 4.0 - 11.0 [place] 10e9/L [facility] RBC Count 4.64 3.8 - 5.2 [place] 10e12/L [facility] Hemoglobin 13.9 11.7 - [place] 15.7 g/dL [facility] Hematocrit 42.0 35.0 - [place] 47.0 % [facility] MCV 91 78 - 100 [place] fl [facility] MCH 30.0 26.5 - [place] 33.0 pg [facility] MCHC 33.1 31.5 - [place] 36.5 g/dL [facility] RDW 13.3 10.0 - [place] 15.0 % [facility] Platelet Count 323 150 - 450 [place] 10e9/L [facility] Specimen Anatomical Collection Method Collection Time Receive d Time (Source) Location / / Volume Laterality Blood specimen 07/19/2010 3:59 PM 010 4:01 (specimen) LIVESTOCK JUDGING COACH PM LIVESTOCK JUDGING COACH Sofia Landers PA-C LAB - BLOOD ORDERABLES Performing Organization Address City/State/ZIP Code Phon e Number [facility] [id number] [place], [place] [address] [facility] documented in this encounter Visit Diagnoses Diagnosis Preop general physical exam - Primary Other specified pre-operative examinatio n Appendix disease Other and unspecified diseases of append ix Uterine cancer (H) Malignant neoplasm of uterus, part unspe cified BENIGN HYPERTENSION Essential hypertension, benign documented in this encounter Care Teams Master Electrician Relationship Specialty Start Date End Date Sofia Landers PA-C PCP - General 05/10/06 Mikayla Allan MD PCP - Obstetrics/Gynecology 05/18/1004/27 [place] [facility] [address] [place] [address] documented as of this encounter
--- OUTSIDE RECORDS SUMMARY | 2022-07-05 17:52 | XMS_ITS | Encounter Summary ---
:1950 Author Organization [facility] Address [address] [place] [address]. [place] [address] Care Team Providers Name Role Phone Mat Landers PA-C Primary Care Provider Mikayla Allan MD Unavailable Reason for Visit Reason Comments Cancer Oncology consultation Encounter Details Date Type Department Care Team Description 05/19/2010 Oncology Visit [facility], Mackenzie D, Uter ine cancer (H); Oncology MD [facility] NEC[facility]NOS[facility] [address] [facility]; [place], [place] ONCOLOGY Goblet cell carcinoid [id number] [id number] Social History Tobacco Use Types Packs/Day Years Used Date Smoking Tobacco: Never Alcohol Use Standard Drinks/Week Comments No 0 (1 standard drink = 0.6 oz pure alcoho l) Sex Assigned at Date Recorded Not on file documented as of this encounter Last Filed Vital Signs Vital Sign Reading Time Taken Comments Blood Pressure 145/92 05/19/2010 3:10 PM CDT Pulse 95 05/19/2010 3:10 PM CDT Temperature 36.8 ??C (98.2 ??F) 05/19/2010 3:10 PM CDT Respiratory Rate 18 05/19/2010 3:10 PM CDT Oxygen Saturation 99% 05/19/2010 3:10 PM CDT Inhaled Oxygen Concentration - - Weight 72.7 kg (160 lb 4.8 oz) 05/19/2010 3:10 PM CDT Height - - Body Mass Index 31.31 04/21/2010 1:49 PM CDT documented in this encounter Progress Notes Mackenzie Klein D - 05/26/2010 1:28 PM CDT FINAL ONCOLOGY CONSULTATION REFERRING PROVIDER: Mikayla Mendoza MD REASON FOR CONSULTATION: I am evaluating Ms. Edith Anaya in clinic at [facility] at the request of Dr. 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 HISTORY OF PRESENT ILLNESS: Ms. Anaya is a very pleasant 59-year-old female from [place], [place], who was referred to Dr. Mendoza with a diagnosis of grade 1 endometrial cancer in April. She had presented with postmenopausal bleeding. Ultrasound of the uterus done measured the uterus at 9 cm with an endometrial stripe at 1.5 cm. The ovaries appeared essentially normal with a stable left approximately 2 cm dermoid cyst, which was stable since CT in 2006. For her endometrial cancer, she was taken to the OR on 04/29/[address] Mendoza. She underwent a total laparoscopic hysterectomy, bilateral salpingo- oophorectomy, pelvic and periaortic lymph node dissection, cystoscopy and washings. Her pathology report was as follows: Her uterus, fallopian tube and ovary and the right salpingo-oophorectomy specimen revealed: In the uterus: Endometrioid adenocarcinoma, FIGO grade 1. Tumor invadedto a depth of 0.2 cm, 1.2 cm myometrium. There was no lymphovascular invasion present. The tumor wasconfined to the endometrium without involvement of the lower uterine segment of the endocervix. The margins were negative. The right ovary was no evidence of any malignancy. 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 The tumor size was 6.5 x 5.7 x 3.5 cm. The estimated percentage of adenocarcinomatous component was 70%. The ovarian surface was free of the tumor. She has had no pathological diagnosis. The comment was made that the ovarian tumor originated in a mature teratoma and had a close resemblance to tumors that originate in the appendix, referred to as crypt cell carcinoma or goblet cell carcinoid. The histological appearance was quite different from the common mucinous adenocarcinoma of the ovary. Because of this incidental finding of the intestinal type of ovarian cancer, she has been referred to me for further evaluation. Ms. Anaya herself has never had any problems with her appendix in the past. She did have a colonoscopy in 2006 at [facility] and no abnormalities were noted. The scope was passed all the way to the appendiceal orifice. She is recovering very well from her current surgery. REVIEW OF SYSTEMS: Essentially negative except for some mild hot flashes occasionally. She was taking Estroven prior to her surgery, which she has now discontinued. PAST MEDICAL HISTORY: 1. Hypertension. 2. Hyperlipidemia. 3. History of kidney stones. 4. As in HPI, grade 1 endometrial cancer. PAST SURGICAL HISTORY: 1. Cystoscopy in 2006. 2. HPI. FAMILY HISTORY: Significant for coronary artery disease, otherwise noncontributory. SOCIAL HISTORY: The patient is and lives in [place], [place]. She has 2 sons and 1 daughter. Her daughter has Down syndrome. Denies any alcohol or smoking history. 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 PHYSICAL EXAMINATION: VITAL SIGNS: Blood pressure 140/92, pulse 95, temperature 98.2, respiratory rate 18, weight 160 pounds. GENERAL: Pleasant, alert and oriented 59-year-old female accompanied by her , in no acutedistress. HEENT: Atraumatic, normocephalic. Pupils equally round and reactive to light. No scleral icterus or pallor noted. No oral lesions noted. NECK: Supple. No cervical or supraclavicular adenopathy palpable. LUNGS: Clear to auscultation bilaterally. CARDIOVASCULAR: Normal. ABDOMEN: Soft, nontender, with active bowel sounds. No organomegaly. Well- healed laparoscopy scar is noted. EXTREMITIES: No evidence of any clubbing, cyanosis or edema. NEUROLOGIC: Grossly intact. LABORATORY DATA: Reviewed, unremarkable. PATHOLOGY: As mentioned above. 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 I had an extensive discussion with Ms. Anaya and her regarding the finding of her ovarian cancer in the setting of mature teratoma. I told them most likely this is a primary tumor arising in the ovary. In the setting of metastatic disease usually it is bilateral ovarian involvement, but on her pathology the right ovary was normal. I told her, nevertheless we need to rule out any primary appendiceal cancer and she should undergo appendectomy and a possible omental biopsy in the next 4-6 weeks. I have discussed this plan with . Dr. Mendoza will see her in clinic in about 4 weeks and plan her surgery. After that, I will see her in followup about 2 weeks after her surgery. All of Ms. Anaya's and her 's questions were answered to the best of their satisfaction. I would like to thank Dr. Mendoza for her kind referral of this very pleasant female to my clinic today. Electronically signed on 05/26/2010 13:27 by MACKENZIE KLEIN MD MT: [id number] Name: EDITH ANAYA MRN: [id number] Account: [id number] : 1950 Visit Date: 05/19/2010 Document: [id number] cc: Mikayla Buck MD Mackenzie Klein - 05/19/2010 4:13 PM CDT This office note has been dictated. documented in this encounter Nursing Notes 05/19/2010 3:00 PM CDT >> SHYANNE HAQUE Wed May 19, 2010 3:17 PM Edith Anaya's goals for this visit include: Oncology consultation She requests these members of her care team be copied on today's visit information: Dr. Mendoza PCP: MAT SAENZ, [place] Referring Provider: Reji Degroot MD [id number] [place] [address] Patient presents with: Cancer - Oncology consultation Initial BP 145/92 Pulse 95 Temp 98.2 ??F (36.8 ??C) Resp 18 Wt 160 lb 4.8 oz (72.712 kg) SpO2 99% Estimated Body mass index is 31.31 kg/(m^2) as calculated from the following: Height as of 04/21/10: 5' 0(1.524 m). Weight as of this encounter: 160 lb 4.8 oz(72.712 kg).. BP completed using cuff size: regular Review Of Systems Skin: negative Eyes: negative Ears/Nose/Throat: negative Respiratory: No shortness of breath, dyspnea on exertion, cough, or hemoptysis Cardiovascular: positive for hx of HTn Gastrointestinal: negative Genitourinary: negative Musculoskeletal: negative Neurologic: negative Psychiatric: negative Hematologic/Lymphatic/Immunologic: negative Endocrine: positive for hot flashes at night Assessment negative for fever, night sweats, and weight loss If no, please refer to above review of systems Shyanne HaqueRN documented in this encounter Plan of Treatment Not on filedocumented as of this encounter Visit Diagnoses Diagnosis Uterine cancer (H) Malignant neoplasm of uterus, part unspe cified HYPERLIPIDEMIA NEC/NOS Other and unspecified hyperlipidemia BENIGN HYPERTENSION Essential hypertension, benign Goblet cell carcinoid (H) Other malignant neoplasm without specifi cation of site documented in this encounter Care Teams Resource Conservation Specialist Relationship Specialty Start Date End Date Mat Landers PA-C PCP - General 05/10/06 Mikayla Allan MD PCP - Obstetrics/Gynecology 05/18/1004/27 [place] [facility] [address] [place] [id number] documented as of this encounter
--- OUTSIDE RECORDS SUMMARY | 2022-07-05 17:52 | XMS_ITS | Encounter Summary ---
:1950 Author Organization [facility] Address [address] [place] [address] Care Team Providers Name Role Phone Sofia Landers PA-C Primary Care Provider Mikayla Allan MD Unavailable Encounter Details Date Type Department Care Team Description 04/30/2010 Historic Notes INTERFACED REPORT Interface, Transcript onMD Social History Tobacco Use Types Packs/Day Years Used Date Smoking Tobacco: Never Alcohol Use Standard Drinks/Week Comments No 0 (1 standard drink = 0.6 oz pure alcoho l) Sex Assigned at Date Recorded Not on file documented as of this encounter Progress Notes Interface, Counter Help - 10/22/2010 7:25 PM CDT Notification - Notified Person:: MD - Notified Persons Dr. Katiuska Hadley Name: - Notification Time:: 04:11 - Notification Talked with Physician Interaction:: - Purpose of HR 115, T 100 notification:: - Orders received?: No Signatures ADAMA HUTCHISON (RN)[Signed 06:23] Authored: Notification Interface, Counter Help - 10/22/2010 7:22 PM CDT Progress Note - :: Post-Op Note D: Pt. VSS, awake and alert no nausea on Reg diet. LIVESTOCK SHOWMAN Dc'ed , pain controlled on po pain meds. Nichols DC'ed @ 0950, pt. voided 200 @ 1400. Pt. amb. in the lea x 2 with assist of 1. In the chair x 2 as well. Lap sites x [address] dry. Abd soft, hypo BS. - flatus. Discharge teaching started. A: Pt. doing very well post-op P: Con't with post-op cares as ordered, enc. activity and independence. Signatures MIRIAN WADDELL (RN)[Signed 14:40] Authored: Progress Note documented in this encounter Plan of Treatment Not on filedocumented as of this encounter Visit Diagnoses Not on filedocumented in this encounter Care Teams Machine Rebuilder Relationship Specialty Start Date End Date Sofia Landers PA-C PCP - General 05/10/06 Mikayla Allan MD PCP - Obstetrics/Gynecology 05/18/1004/27 [facility] [address] [place] [address] documented as of this encounter
--- OUTSIDE RECORDS SUMMARY | 2022-07-05 17:52 | XMS_ITS | Encounter Summary ---
:1950 Author Organization [place] Address [address] [place] [address] Care Team Providers Name Role Phone Sofia Landers PA-C Primary Care Provider Mikayla Allan MD Unavailable Encounter Details Date Type Department Care Team Description 08/05/2010 Operative Report [facility] Damon Roach DO (Welding Tester) [address] [id number] Social History Tobacco Use Types Packs/Day Years Used Date Smoking Tobacco: Never Alcohol Use Standard Drinks/Week Comments No 0 (1 standard drink = 0.6 oz pure alcoho l) Sex Assigned at Date Recorded Not on file documented as of this encounter Progress Notes Tuyet Roach - 09/09/2010 4:32 PM INSULATION HOSEMAN FINAL PREOPERATIVE DIAGNOSES: 1. Endometrial adenocarcinoma. 2. Incidentally found ovarian cancer at the time of surgery for endometrial cancer. POSTOPERATIVE DIAGNOSES: 1. Endometrial adenocarcinoma. 2. Incidentally found ovarian cancer at the time of surgery for endometrial cancer. PROCEDURES: 1. Laparoscopic appendectomy. 2. Omental biopsy. ESTIMATED BLOOD LOSS: 50 mL. COMPLICATIONS: None. ANESTHESIA: General. SURGEON: Mikayla Mendoza MD AUDIO PRODUCTION MANAGER: Tuyet Roach MD INTRAVENOUS FLUIDS: 2000 mL. URINE OUTPUT: Clear. FINDINGS: 1. A surgically absent uterus, bilateral tubes and ovaries. 2. Adhesion in the midline of the omentum to the anterior abdominal wall. 3. Normal-appearing appendix, normal-appearing omentum, normal-appearing diaphragms, liver edge andgallbladder. INDICATIONS: Ms. Edith Anaya is a 49-year-old patient who on 04/29/2010 was taken to the OR and underwent laparoscopic hysterectomy, bilateral salpingo- oophorectomy and lymph node dissection. 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 She met with Dr. Hernandez who recommended an appendectomy to rule out appendix as the primary site. DESCRIPTION OF PROCEDURE: After risks, benefits and alternatives to the procedure were discussed with the patient, she was brought to the operating room on 08/05/2010, where she was placed under general anesthesia. She was positioned in the dorsal lithotomy position. She was prepped and draped in normal sterile fashion. A 10-mm incision was made. The fascia was identified, grasped, elevated and sharply entered into the peritoneal cavity. A Camila trocar was then placed. It was noted that there was an adhesion in the middle of the midline of the omentum. This was taken down sharply after placement of 2 ports 5 mm in the right and left lower quadrants under direct visualization. The LigaSure device was then used to come across the periappendiceal fat and artery, a TALYA stapler was used to come across the appendix which was then removed in an EndoCatch bag. The omentum was identified, it was pulleddown near the pelvis. The LigaSure device was used to taken omental biopsy. Hemostasis was noted at the end of this procedure. The fascia was closed using 0 Vicryl that had been placed on each edge of the fascia upon entering the abdomen at the 10-mm port site. The skin was closed using 4-0 Vicryl andthe patient tolerated the procedure well. All lap, needle and sponge counts correct x3. Dr. Mendoza was present for the entire procedure. Electronically signed on 09/09/2010 16:32 by MIKAYLA MENDOZA MD As dictated by TUYET ROACH MD MT: [id number] Name: EDITH ANAYA MRN: [id number] Account: [id number] : 1950 Procedure Date: 08/05/2010 Document: [id number] cc: Sofia Ladners PA-C LATION HOSEMAN documented in this encounter Plan of Treatment Not on filedocumented as of this encounter Visit Diagnoses Not on filedocumented in this encounter Care Teams [employer] Media Specialist Relationship Specialty Start Date End Date Sofia Landers PA-C PCP - General 05/10/06 Mikayla Allan MD PCP - Obstetrics/Gynecology 05/18/1004/27 [facility] [address] [place] [id number] documented as of this encounter
--- OUTSIDE RECORDS SUMMARY | 2022-07-05 17:53 | XMS_ITS | Encounter Summary ---
:1950 Author Organization [place] Address [address] [place] [address] Care Team Providers Name Role Phone Sofia Landers PA-C Primary Care Provider Reason for Visit Reason Comments Flu Shot Encounter Details Date Type Department Care Team Description 06/12/2007 Allied Health/Nurse [facility] Flu Shot Visit Clinic [id number] [place] [address] Social History Tobacco Use Types Packs/Day Years Used Date Smoking Tobacco: Never Alcohol Use Standard Drinks/Week Comments No 0 (1 standard drink = 0.6 oz pure alcoho l) Sex Assigned at Date Recorded Not on file documented as of this encounter Progress Notes Sarah Ríos - 06/15/2007 4:09 PM CST Edith Stallings 1. Is the person to be vaccinated sick today? No 2. Does the person to be vaccinated have an allergy to eggs? No 3. Has the person to be vaccinated ever had a serious reaction to any influenza vaccine in the past? No STOP here for injectable vaccine. Proceed for internasal. 4. Is the person being vaccinated younger than 2 or older than 49 years of age? Not Applicable 5. Is the person to be vaccinated or attempting to become ? Not Applicable 6. Does the person to be vaccinated have a long-term health problem with heart disease, lung disease, asthma, COPD, kidney disease, metabolic disease (e.g. diabetis or liver disease) anemia, or other blood disorders? Not Applicable 7. Does the person to be vaccinated have a weakened immune system because of HIV/AIDS, cancer or cancer treatment, or steroid therapy? Not Applicable 8. Is the person being vaccinated between the ages of 5 and 17 years and requiring ongoing aspirin therapy? Not Applicable 9. Has the person to be vaccinated ever had Gillain-[place]' Syndrome? Not Applicable 10. Does the person to be vaccinated live with or expect to have close contact with a person whose immune system is severly compromised or work with bone marrow transplant or chemotherapy patients? NotApplicable Immunization given by: PARKER FALK Date immunization given: 06/12/07 FEST/ORDER ORGANIZER PRINT ORDERS documented in this encounter Plan of Treatment Not on filedocumented as of this encounter Visit Diagnoses Diagnosis Need for prophylactic vaccination and in oculation against influenza - Primary documented in this encounter Care Teams Harpooner Relationship Specialty Start Date End Date Sofia Landers PA-C PCP - General 05/10/06 documented as of this encounter
--- OUTSIDE RECORDS SUMMARY | 2022-07-05 17:53 | XMS_ITS | Encounter Summary ---
:1950 Author Organization [place] Address [address] [place] [address] Care Team Providers Name Role Phone Sofia Landers PA-C Primary Care Provider Encounter Details Date Type Department Care Team Description 03/30/2010 Operative Report HOSP RESULTS [facility] Azeb Levin (Pc Installation Engineer) [address] Jazmin MD [facility] [address] SERVICES [phone] [address] [place] [address] (Wo rk) Social History Tobacco Use Types Packs/Day Years Used Date Smoking Tobacco: Never Alcohol Use Standard Drinks/Week Comments No 0 (1 standard drink = 0.6 oz pure alcoho l) Sex Assigned at Date Recorded Not on file documented as of this encounter Progress Notes Azeb Levin - 03/30/2010 2:04 PM CDT PRELIMINARY PREOPERATIVE DIAGNOSES: 1. Postmenopausal bleeding. 2. Thickened endometrial stripe. POSTOPERATIVE DIAGNOSES: 1. Postmenopausal bleeding. 2. Thickened endometrial stripe. 3. Endocervical polyp. PROCEDURE: Pap smear, hysteroscopy, D&C, removal of portion of endocervical polyp. ANESTHESIA: General endotracheal anesthesia. ESTIMATED BLOOD LOSS: Less than 5 cc. IV FLUIDS: 600 cc crystalloid. SPECIMENS: 1. Endometrial curettings. 2. Endocervical polyp. 3. Pap smear. COMPLICATIONS: None apparent. FINDINGS: On exam under anesthesia, uterus is mobile, anteverted and normal in size and texture. The cervix had an endocervical polyp within it that appeared benign. Brown, thick mucus-like fluid was obtained with the first pass of the endometrial biopsy Pipelle. Pinkish tissue was obtained with the second 2 passes as well as with the D&C. Hysteroscopy reveals a normal-appearing endometrial cavity. However, the endometrial biopsy had already been done so there was some irregularity of the lining from that having been done. No masses or lesions noted. DESCRIPTION OF PROCEDURE: Edith Anaya was taken to the operating room where general endotracheal anesthesia was placed. She was placed in the dorsal lithotomy position and a Pap smear was obtained. She was then prepped and draped in the normal sterile fashion with her legs in Yellofin stirrups. Speculum was placed in the vagina and the cervix was visualized. Tenaculum placed on the anterior lip of the cervix and an endometrial biopsy Pipelle was passed through the cervix to the fundus. Therewas an either endocervical polyp or fibroid in the canal and that was on the patient's right side making the cervical canal somewhat tortuous. However, I was able to pass biopsy Pipelle through easily.The first pass with the endometrial biopsy Pipelle removed the tubing completely full of brown, thick mucus. This was handed off to be sent to pathology. The next 2 passes were pinkish tissue and thesewere also handed off to be sent to pathology. Because the lining of the uterus had been 1.5 cm thickened and I obtained minimal tissue, I did place the hysteroscope to see if there was a polyp or anything else within the uterine cavity and I could not appreciate any abnormality or any polyp or any other structure that would make the lining look thick on ultrasound. The hysteroscope was then removed and cervix dilated to 8 mm with Hegar dilators. Dilation was easy as long as I stayed toward that left side. Sharp curetting was obtained and all sides of the uterus felt gritty. Tissue was all handed off to be sent to pathology. There was noted to be either endocervical polyp or fibroid as noted above. Because she was having some postmenopausal bleeding and I thought this could possibly be the cause, I did attempt to remove this structure. However, I was only able to get some slight pieces of it off as it seemed to have a very thick stalk on the right side. Silver nitrate was used for hemostasis where I had taken the biopsyand the portion of tissue actually was placed aside to be sent to pathology. Following this, the tenaculum was removed from the anterior lip of the cervix and that site noted to be hemostatic. The speculum was then removed. The procedure was completed. Sponge, lap and counts were reported as correct. She will discharge home. She is asked to call for fevers, heavy vaginal bleeding, or any other concerns. MEDICATIONS: 1. Vicodin. 2. Ibuprofen. FOLLOWUP: I will call her with pathology results as soon as it is available. I will see her in clinic in 2 weeks. AZEB LEVIN MD MT: [id number] Name: EDITH ANAYA MRN: [id number] Account: [id number] : 1950 Procedure Date: 03/30/2010 Document: [id number] documented in this encounter Plan of Treatment Not on filedocumented as of this encounter Visit Diagnoses Not on filedocumented in this encounter Care Teams Manager Paper Relationship Specialty Start Date End Date Sofia Landers PA-C PCP - General 05/10/06 documented as of this encounter
--- OUTSIDE RECORDS SUMMARY | 2022-07-05 17:53 | XMS_ITS | Encounter Summary ---
:1950 Author Organization [place] Address [address] [place] [address] Care Team Providers Name Role Phone Sofia Landers PA-C Primary Care Provider Reason for Visit Reason Comments Abnormal Bleeding Problem vaginal Encounter Details Date Type Department Care Team Description 03/05/2010 Office Visit [facility] Azeb Levin Post menopausal Bleeding UNIVERSITY ADMINISTRATIVE ASSISTANT MD Jazmin (Primary Dx) [address] [place] [address] Social History Tobacco Use Types Packs/Day Years Used Date Smoking Tobacco: Never Alcohol Use Standard Drinks/Week Comments No 0 (1 standard drink = 0.6 oz pure alcoho l) Sex Assigned at Date Recorded Not on file documented as of this encounter Last Filed Vital Signs Vital Sign Reading Time Taken Comments Blood Pressure 150/90 03/05/2010 11:21 AM CDT Pulse 80 03/05/2010 11:21 AM CDT Temperature - - Respiratory Rate - - Oxygen Saturation - - Inhaled Oxygen Concentration - - Weight 73.9 kg (163 lb) 03/05/2010 11:21 AM CDT Height - - Body Mass Index 28.2 03/30/2009 8:42 AM CDT documented in this encounter Progress Notes Azeb Levin - 03/08/2010 4:08 PM CDT HPI: Edith is a 59 yo female who presents today with an episode of post- menopausal bleeding. She hasjust had some spotting, no heavy bleeding. No abdominal pain. No unusual discharge. No urinary symptoms. Past Medical History Diagnosis Date ??? Other and Unspecified Hyperlipidemia Hyperlipidemia ??? Essential Hypertension, Benign Hypertension, Benign ??? Personal History of Urinary Calculi Past Surgical History Procedure Date ??? Cystoscopy 11/28/06 [place] ??? Colonoscopy 05/23/2007 repeat in 10 years Current outpatient prescriptions:FOSAMAX 35 MG OR TABS, 1 TABLET WEEKLY ON AN EMPTY STOMACH- will need dexa this fall/winter, Disp: 12 Tab, Rfl: prn; ESTROVEN OR, 1 tablet daily, Disp: , Rfl: ; HYDROCHLOROTHIAZIDE 25 MG OR TABS, 1 TABLET DAILY, Disp: 90, Rfl: 3; LISINOPRIL 20 MG OR TABS, 1 TABLET DAILY, Disp: 90, Rfl: 3; SIMVASTATIN 20 MG OR TABS, 1 TABLET AT BEDTIME, Disp: 90, Rfl: prn; ZACH LOW STRENGTH OR, 1 TABLET DAILY, Disp: , Rfl: MULTI-VITAMIN OR, 1 tablet daily, Disp: , Rfl: Family History Problem Relation Age of Onset ??? C.A.D. Father [place], age 65, first event at 40 ??? Hypertension Mother History Substance Use Topics ??? Tobacco Use: Never ??? Alcohol Use: No PE: BP 150/90 Pulse 80 Wt 163 lb (73.936 kg) Gen: alert, well-appearing pleasant female in no apparent distress Abd: soft, NT, ND, no masses Pelvic: External genitalia normal, bartholin and skene glands normal, urethra normal. Speculum inserted and cervix visualized and normal in appearance. On bimanual exam, uterus feels normal in size andmobile. Exam somewhat limited secondary to body habitus. Endometrial biopsy completed. A: Post-menopausal bleeding P: F/U endometrial biopsy results Pelvic ultrasound to evaluate uterus Plan pending results of above. Electronically signed by: Azeb Levin M.D. 03/05/2010 Procedure: Endometrial biopsy Indication: post-menopausal bleeding Discussed risk of bleeding, infection, uterine perforation, cramping pain. Pt agreed to proceed withprocedure after all questions answered. Speculum placed and cervix visualized. Cervix cleansed with betadine x 3. Tenaculum placed on anterior lip of the cervix. Endometrial biopsy pipelle passed through cervix and uterus sounded only to 5 cm. Biopsy specimen collected with one pass with return of very scant tissue. Therefore, pipelle passed again with extra tension to try to straighten the angle of the cervix. However, still only sounded to 5 cm and very scant tissue collected. Specimen placed in a labeled container and set aside to be sent to pathology. Tenaculum removed from the cervix and sites hemostatic. No bleeding noted from cervical os. Patient tolerated the procedure well. There were no apparent complications and bleeding was minimal. She is instructed to use no tampons and have no intercourse for the next 5 days. Electronically signed by: Azeb Levin M.D. 03/05/2010 documented in this encounter Nursing Notes 03/05/2010 11:20 AM CDT >> AALIYAH WELSH MonMar 05, 2010 11:34 AM Estimated Body mass index is 28.20 kg/(m^2) as calculated from the following: Height as of 09: 5' 3.75(1.619 m). Weight as of this encounter: 163 lb(73.936 kg). BP Readings from Last 1 Encounters: 03/05/2010 : 150/90] BP cuff size: large Do you feel safe in your environment? Yes Does the patient need any medication refills today? No Edith is present today as she had some post erica. Bleeding yesterday. She will have an EB today. documented in this encounter Plan of Treatment Not on filedocumented as of this encounter Procedures Procedure Name Priority Date/Time Associated Diagnosis Comme nts HC US PELVIC NON-OB, Routine 03/05/2010 2:24 Postmenopausal Re sults for this COMPLETE PM CDT bleeding procedure are i n the results section. HC ENDOMETRIAL Routine 03/05/2010 11:51 Postmenopausal BIOPSY W/O CERVICAL AM CDT Bleeding DILATION CL AFF SURGICAL Routine 03/05/2010 12:00 Postmenopausal Result s for this PATHOLOGY AM CDT Bleeding procedure are i n the results section. documented in this encounter Results SONO PELVIS COMPLETE (03/05/2010 2:24 PM CDT) Anatomical Region Laterality Modality Other Specimen (Source) Anatomical Collection Method Collection Time Re ceived Time Location / / Volume Laterality 03/05/2010 2:24 PM CDT Impressions 03/06/2010 12:57 PM CDT ULTRASOUND PELVIS WITH TRANSVAGINAL IMAG ING ??03/05/2010 2:24 PM HISTORY: ??Abnormal vaginal bleeding. COMPARISON: ??11/12/2006 - CT abdomen and pelvis. TECHNIQUE: ??Endovaginal imaging was als o performed to better evaluate the endometrial cavity. FINDINGS: ??The uterus is anteflexed salvador suring 9.3 x 4.1 x 5.2 cm in long axis, short axis and transverse dim ensions, respectively. No myometrial masses. The endometrial strip e measures 1.5 cm in thickness. The right and left ovaries me asure 2.1 x 2.0 x 1.6 cm and 5.5 x 5.3 x 4.1 cm, respectively. A 2.4 x 2.2 x 1.3 cm cyst is present within the left ovary. The report from [facility] CT scan describes a dermoid cyst within the left ovary. No adnexal masses. No free fluid in the pelvis. IMPRESSION: 1. The endometrial thickness is 1.5 cm. This is abnormally thickened for a postmenopausal female with vaginal bleeding. Endometrial biopsy could be considered. 2. Relative enlargement of the left ovar y, which contains a 2 cm cystic structure. Based upon the ultraso und appearance, a left ovarian neoplasm is possible. The report from [facility] comparison CT scan dated 11/12/2006 describes a dermoid cyst within the left ovary, making this the most likely diagnosis. Azeb Levin MD SPECIAL IMAGING STUDIES SURGICAL PATHOLOGY (03/05/2010 12:00 AM CDT) Component Value Ref Test Analysis Performed At [facility] Range Method Time Signature Copath Report Patient Name: EDITH ANAYA MR#: [id number] Specimen #: [id number] Collected: 03/05/2010 Received: 03/08/2010 Reported: 03/09/2010 07:57 Ordering Phy(s): AZEB LEVIN SPECIMEN(S): Endometrial biopsy FINAL DIAGNOSIS: Uterus, endometrial biopsy: ?- Scant cervical glandular and squamous epithelium with no evidence of dysplasia or malignancy (see comment) COMMENT: There is a small fragment of dilated gland from cervical/low er uterine segment, surrounded by fibrous stroma. ??This may represent a fragment of a polyp. ??The specimen is not adequate for the histologic e valuation of the endometrium. ??If endometrial pathology is of clinical c oncern, re-biopsy may be recommended if clinically deemed appropriat e. Electronically signed out by: Lucas Villatoro M.D., PhD CLINICAL HISTORY: 59-year-old female. ??Postmenopausal bleeding. GROSS: One specimen is received labeled with the patient's name and medical record number. The specimen is designated endometrial biopsy. ??The speci men consists of mucus and scant fragments of pizarro tissue measuring in aggr egate 0.7 cm in greatest dimension. ??The contents of the container were filtered and entirely submitted in one cassette. ??Fina Villatoro M.D./agnieszka MICROSCOPIC: Microscopic evaluation was performed. TESTING LAB LOCATION: [address] [address] [place] Phone: ??[phone] COLLECTION SITE: Client: [facility] Location: EROB (P) Specimen (Source) Anatomical Collection Method Collection Time Re ceived Time Location / / Volume Laterality 03/05/2010 03/08/2010 8:00 AM CDT Azeb Levin MD LABORATORY Performing Organization Address City/State/ZIP Code Phon e Number COPATH documented in this encounter Visit Diagnoses Diagnosis Postmenopausal bleeding - Primary documented in this encounter Care Teams Industrial Cafeteria Manager Relationship Specialty Start Date End Date Sofia Landers PA-C PCP - General 05/10/06 documented as of this encounter
--- OUTSIDE RECORDS SUMMARY | 2022-07-05 17:53 | XMS_ITS | Encounter Summary ---
:1950 Author Organization [facility] Address [address] [place] [address] Care Team Providers Name Role Phone Sofia Landers PA-C Primary Care Provider Reason for Visit Reason Comments Physical pP Encounter Details Date Type Department Care Team Description 04/28/2008 Office Visit [facility] Sofia Landers Well Woman Exam with Routine Gynecological Exam (Primary Dx); [facility] ANTWAN Other and Unspecified Hyperlipidemia; [id number] [place] Essential Hypertension, Benign; [place] [id number] [facility] Osteopenia [phone] [place] [id number] (Wo rk) Social History Tobacco Use Types Packs/Day Years Used Date Smoking Tobacco: Never Alcohol Use Standard Drinks/Week Comments No 0 (1 standard drink = 0.6 oz pure alcoho l) Sex Assigned at Date Recorded Not on file documented as of this encounter Last Filed Vital Signs Vital Sign Reading Time Taken Comments Blood Pressure 112/80 04/28/2008 8:30 AM CDT Pulse 80 04/28/2008 8:30 AM CDT Temperature 36.1 ??C (96.9 ??F) 04/28/2008 8:30 AM CDT Respiratory Rate 20 04/28/2008 8:30 AM CDT Oxygen Saturation - - Inhaled Oxygen Concentration - - Weight 72.1 kg (159 lb) 04/28/2008 8:30 AM CDT Height 152.4 cm (5') 04/28/2008 8:30 AM CDT Body Mass Index 31.05 04/28/2008 8:30 AM CDT documented in this encounter Progress Notes Antoine Valero - 04/28/2008 8:39 AM CDT SUBJECTIVE: Edith Stallings is a 57 year old female presenting for annual pap and physical exam. Patient questionnaire is completed and reviewed in detail with the patient. Current medical concerns: 1- she woke today with URI symptoms- PND, cough, ?low grade temps, slight cough though feels more like she is clearing throat. No SOB noted. Also, about 5-6 months ago she noticed some left shoulder pain. It was worst at night, she sleeps with her left arm over her head and also noted pain with lifting her heavy work bag. Denies any injury.Also had pain when reaching back to put shirt on. Her pain is a little better would like this checked today Last PAP: 05/13 Abnormal Paps? no Self Breast Exams? Most of time Last Mammogram: 07/13 Abnormal breast findings? no Menarche at what age? 10 Menstrual Cycle: Frequency Duration Associated symptoms Contraception: Estrogen Replacement: Family history of: Breast Cancer? Cervical Cancer? Endometrial Cancer? Ovarian Cancer? Colon Cancer? Other Cancer? Past Medical History Diagnosis Date ??? HYPERLIPIDEMIA NEC/NOS Hyperlipidemia ??? BENIGN HYPERTENSION Hypertension, Benign ??? PERS HX URINARY CALCULI Past Surgical History Procedure Date ??? Cystoscopy 11/28/06 [facility] ??? Colonoscopy 05/23/2007 repeat in 10 years Family History Problem Relation ??? C.A.D. Father CT, age 65, first event at 38 ??? Hypertension Mother History Social History ??? Marital Status: Spouse Name: N/A Number of Children: N/A ??? Years of Education: N/A Occupational History ??? Not on file. Social History Main Topics ??? Tobacco Use: Never ??? Alcohol Use: No ??? Drug Use: Not on file ??? Sexually Active: Not on file Other Topics Concern ??? Not on file Social History Narrative ??? No narrative on file Current outpatient prescriptions Medication Sig ??? LIPITOR 10 MG OR TABS 1 TABLET DAILY ??? HYDROCHLOROTHIAZIDE 25 MG OR TABS 1 TABLET DAILY ??? LISINOPRIL 20 MG OR TABS 1 TABLET DAILY ??? ZACH LOW STRENGTH OR 1 TABLET DAILY ??? MULTI-VITAMIN OR 1 tablet daily Allergies Allergen Reactions ??? Sulfa Drugs Rash REVIEW OF SYSTEMS: Skin: negative Eyes: glasses Ears/Nose/Throat: as above Respiratory: cough Cardiovascular: negative Gastrointestinal: negative Genitourinary: negative Musculoskeletal: as above Neurologic: negative Psychiatric: negative Hematologic/Lymphatic/Immunologic: negative Endocrine: negative PHYSICAL EXAM: BP 112/80 Pulse 80 Temp (Src) 96.9 ??F (36.1 ??C) (Oral) Resp 20 Ht 5' (1.524 m) Wt 159 lb(72.122 kg) LMP Postmenopausal GENERAL APPEARANCE: healthy, alert and no distress [...] palpable axillary masses or adenopathy CV: regular rates and rhythm, normal S1 S2, no S3 or S4 and no murmur, click or rub - ABDOMEN: soft, nontender, no HSM or masses and bowel sounds normal : normal cervix, adnexae, and uterus without masses or discharge and rectal exam normal without masses No pap today- all previous normal, last year was normal MS: extremities normal- no gross deformities noted, no evidence of inflammation in joints, FROM in all extremities. 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 and affect normal/bright LYMPHATICS: No axillary, cervical, inguinal, or supraclavicular nodes ASSESSMENT/PLAN: 1. Routine Medical Exam-Discussed diet, exercise, seat belt and sunscreen use. Discussed diet, exercise, seat belt and sunscreen use. 2. Right subacromial bursitis- ice, ibuprofen, rest, consider PT/injection if not getting better 3. URI- symptomatic treatment, f/u with worsening 4. HTN- well controlled continue current meds 5. Hypercholesterolemia- titrate meds prn according to lab results documented in this encounter Nursing Notes 04/28/2008 8:30 AM CDT >> ANTOINE Romo Apr 28, 2008 8:39 AM Patient is here today for her physcial and pap. Body mass index is 31.05 kg/(m^2). BP cuff size: regular Last 1 Encounter BP Readings: Date: BP: 04/28/2008 112/80] Do you feel safe in your environment? Yes Does the patient need any medication refills today? yes documented in this encounter Plan of Treatment Not on filedocumented as of this encounter Procedures Procedure Name Priority Date/Time Associated Diagnosis Comme nts HCL BASIC METABOLIC Routine 04/28/2008 9:17 AM Essential Re sults for this PANEL CDT Hypertension, Benign procedu re are in the results section. HCL ALT Routine 04/28/2008 9:17 AM Essential Results f or this CDT Hypertension, Benign procedu re are in the results section. CL AFF A.M.A. LIPID Routine 04/28/2008 9:17 AM Essential Re sults for this PANEL CDT Hypertension, Benign procedu re are in the results section. documented in this encounter Results A.M.A. BASIC METABOLIC PANEL (04/28/2008 9:17 AM CDT) P athologist Signature Sodium 142 133 - 144 [place] mmol/L [facility] Potassium 4.4 3.4 - 5.3 [place] mmol/L [facility] Chloride 103 94 - 109 [place] mmol/L [facility] Carbon Dioxide 29 20 - 32 [place] mmol/L [facility] Anion Gap 9.6 6 - 17 [place] mmol/L [facility] Glucose 86 60 - 99 [place] mg/dL [facility] Urea Nitrogen 17 7 - 30 [place] mg/dL [facility] 0.75 0.52 [facility] 1.[facility]/dL [facility] Comment: New IDMS-traceable calibration beginning 12/06/07 GFR Estimate 79 >60 mL/min/1.7m2 [facility] GFR Estimate If Black >90 >60 mL/min/1.7m2 [place] [facility] Calcium 9.7 8.5 - 10.4 mg/dL [facility] Specimen Anatomical Collection Method Collection Time Receive d Time (Source) Location / / Volume Laterality 04/28/2008 9:17 AM 8 9:18 CDT AM CDT Sofia Landers PA-C LABORATORY Performing Organization Address City/State/ZIP Code Phon e Number M [address] [place] [address] [facility] ALANINE AMINO (ALT) (SGPT) (04/28/2008 9:17 AM CDT) athologist Signature ALT 30 0 - 50 U/L [facility] Specimen Anatomical Collection Method Collection Time Receive d Time (Source) Location / / Volume Laterality 04/28/2008 9:17 AM 8 9:18 CDT AM CDT Sofia Landers PA-C LABORATORY Performing Organization Address City/State/ZIP Code Phon e Number [address] [place], [place] [address] [facility] (ABNORMAL) A.M.A. LIPID PANEL (04/28/2008 9:17 AM CDT) athologist Signature Cholesterol 185 0 - 200 [place] mg/dL [facility] Comment: LDL Cholesterol is the primary guide to therapy: LDL-cholesterol goal in high risk patients is <100 mg/dL and in very high risk patients is <70 mg/dL. The NCEP recommends further evaluation of: patients with cholesterol <200 mg/dL if additional risk factors are present, cholesterol >240 mg/dL, triglycerides >150 mg/dL, or HDL <40 mg/dL. Triglycerides 97 0 - 150 mg/dL [facility] HDL Cholesterol 44 (L) 50 - 110 mg/dL [facility] LDL Cholesterol Calculated 122 0 - 129 mg/dL [facility] VLDL-Cholesterol 19 0 - 30 mg/dL [facility] Cholesterol/HDL Ratio 4.0 0.0 - 5.0 [facility] Specimen Anatomical Collection Method Collection Time Receive d Time (Source) Location / / Volume Laterality 04/28/2008 9:17 AM 8 9:18 CDT AM CDT Sofia Landers PA-C LABORATORY Performing Organization Address City/State/ZIP Code Phon e Number M [place] [phone] [facility] [address] [place], [place] [address] [facility] documented in this encounter Visit Diagnoses Diagnosis Well woman exam with routine gynecologic al exam - Primary Routine gynecological examination Other and unspecified hyperlipidemia Essential hypertension, benign Osteopenia Disorder of bone and cartilage, unspecif ied documented in this encounter Care Teams Linux Systems Administrator Relationship Specialty Start Date End Date Sofia Landers PA-C PCP - General 05/10/06 documented as of this encounter
--- OUTSIDE RECORDS SUMMARY | 2022-07-05 17:53 | XMS_ITS | Encounter Summary ---
:1950 Author Organization [facility] Address [address] [place] [id number] Care Team Providers Name Role Phone Sofia Landers PA-C Primary Care Provider Encounter Details Date Type Department Care Team Description 04/29/2010 Operative Report [facility] Mikayla Allan (Generator Assembler) [facility] MD Tania Results [facility] [address] [place] [address] [phone] (Wo rk) Social History Tobacco Use Types Packs/Day Years Used Date Smoking Tobacco: Never Alcohol Use Standard Drinks/Week Comments No 0 (1 standard drink = 0.6 oz pure alcoho l) Sex Assigned at Date Recorded Not on file documented as of this encounter Progress Notes George Khan MD - 06/04/2010 1:13 PM CDT FINAL PREOPERATIVE DIAGNOSIS: Grade 1 endometrioid adenocarcinoma of endometrium, left ovarian cyst. POSTOPERATIVE DIAGNOSIS: Grade 1 endometrioid adenocarcinoma of endometrium, left ovarian cyst. PROCEDURE: Total laparoscopic hysterectomy, bilateral salpingo-oophorectomy, pelvic and periaortic lymph node dissection, cystoscopy and washings. SURGEON: Mikayla Mendoza MD SHOTWELD OPERATOR: Robert Espinoza MD, motor coach operator/onc fellow. SECOND SHOTWELD OPERATOR: George Khan MD, resident year 4. ANESTHESIA: General endotracheal. ESTIMATED BLOOD LOSS: 100 mL. INTRAVENOUS FLUID REPLACEMENT: 2300. URINE OUTPUT: 500 mL. SPECIMENS: Pelvic and periaortic lymph node, uterus with cervix, both fallopian tubes and both ovaries. COMPLICATIONS: None. FINDINGS: A 5-cm left ovarian cyst, benign in appearance. Normal-appearing cervix, tubes and ovaries. DESCRIPTION OF PROCEDURE: The patient was taken to the operating room where she was prepped and draped in the usual sterile fashion in the dorsal lithotomy position. A Nichols catheter was placed. Sterile speculum was placed in the vagina. A single-tooth tenaculum was placed on the anterior cervix. Thecervix was serially dilated. A 0 Vicryl stitch was placed in the anterior lip of the cervix. The KOHcup and uterine manipulator were advanced over this and secured into the uterus. Attention was then turned about to the patient's abdomen. A 12- mm stab incision was made in the umbilicus. The fascia was identified and entered sharply and the Betancourt trocar/port site was placed under direct visualization. The laparoscope was then inserted in the patient's abdomen. The abdomen was surveyed. The abdomen was then insufflated with CO2 gas. Three additional ports were placed. A 12-mm port site was placed on the left as well as a 5 mm on the left and a 5 mm on the right. The first part of the technique wasthe lymph node dissection. Prior to the lymph node dissection, the left ovarian cyst was removed, itwas benign in appearance. A window was made in the peritoneum lateral to the IP ligament. The peritoneum was opened and the ureter was identified. A window was made in the peritoneum superior to the ureter. The IP ligament was transected and ligated using the LigaSure. The ovarian cyst was then dissected out and the utero-ovarian ligament was transected and ligated using the LigaSure. The left ovary was then placed in an EndoCatch bag and kept in the abdomen. Attention was then turned to the lymph node dissection on the left. The periaortic lymphadenectomies were performed on either side the borders of the dissection where the aorta, the third portion of the duodenum, the ureter and the aortic bifurcation. Bilateral pelvic lymphadenectomies were also performed. The borders of the dissection wherethe superior vesicle artery medially, the genitofemoral nerve laterally and the deep circumflex iliac vein caudally and the aortic bifurcation cranially. Surgicel was placed in the periaortic lymphadenectomy bed. Attention was then turned to the remainder of the hysterectomy. The IP ligament was isolated on the right. The ureter was first identified and a window was created in the peritoneum superiorto the ureter which had vermiculated under surveillance. The IP ligament was transected and ligated using the LigaSure on the right. The uterine arteries then on either side were skeletonized using theLigaSure and a bladder flap was created using the LigaSure. Uterine arteries were clamped and ligated using the LigaSure. The CHER cup was identified by palpation and the hook cautery was used to dissect around the CHER cup. Once the uterus was amputated, the CHER and all instruments and the uterus were removed through the vagina. The bag containing the ovary was then also removed through the vagina. All specimens were sent to pathology. Abdominal pelvic washings had been obtained at the start of the procedure and sent for cytology. A occluder and sterile sponge were then placed in the vagina to maintain pneumoperitoneum. The vaginal cuff was closed using the EndoStitch using 0 Vicryl x3 in a figure-of-X fashion and tie knot. Theabdomen was irrigated. The vaginal cuff was inspected and noted to be hemostatic. All instruments and sponges were then removed from the vagina. The 12 mm port site on the left was then closed using the Connor-Mathieu and 0 Vicryl. The umbilical incision which was 12 mm, the fascia was closed with a figure-of-X suture using 0 Vicryl. The skin at all port sites was then closed using 4-0 Vicryl. Cystoscopy was performed and bilateral ureteral reflux was noted from either side with the aid of indigo carmine. The Nichols was then reinserted after the cystoscopy was complete. The patient tolerated the procedure well. Sponge, lap and needle counts were correct x2. Dr. Mendoza was present for the entire procedure. Electronically signed on 06/04/2010 13:12 by MIKAYLA MENDOZA MD As dictated by GEORGE KHAN MD MT: [email or web address] Name: EDITH ANAYA Account: [id number] : 1950 Procedure Date: 04/29/2010 Document: [id number] cc: Sofia Landers PA-C documented in this encounter Plan of Treatment Not on filedocumented as of this encounter Visit Diagnoses Not on filedocumented in this encounter Care Teams Linen Checker Relationship Specialty Start Date End Date Sofia Landers PA-C PCP - General 05/10/06 documented as of this encounter
--- OUTSIDE RECORDS SUMMARY | 2022-07-05 17:53 | XMS_ITS | Encounter Summary ---
:1950 Author Organization [facility] Address [address] [place] [address] Care Team Providers Name Role Phone Mat Mccray PA-C Primary Care Provider Reason for Referral Therapeutic Procedure Only (Routine) - Closed Specialty Diagnoses / Procedures Referred By Contact Refer red To Contact Gastroenterology Diagnoses Other and unspecified hyperlipidemia Mat Mccray PA-C [place] [address] [place] [address] Referral ID Status Reason Start Date Expiration Date Visits Requ ested Visits Authorized [id number] Closed 05/02/2007 08/06/2011 1 1 Reason for Visit Reason Comments Physical pap Encounter Details Date Type Department Care Team Description 05/02/2007 Office Visit [facility] Mat Mccray, HYPER LIPIDEMIA NEC/NOS (Primary Dx); [facility] ANTWAN BENIGN HYPERTENSION; [address] Saurabh ROUTINE MEDICAL EXAM; [place] [phone] [id number] [facility] MELLITUS; [phone] VACCINE DIS COMBINATIONS NEC [place] [id number] Social History Tobacco Use Types Packs/Day Years Used Date Smoking Tobacco: Never Alcohol Use Standard Drinks/Week Comments No 0 (1 standard drink = 0.6 oz pure alcoho l) Sex Assigned at Date Recorded Not on file documented as of this encounter Last Filed Vital Signs Vital Sign Reading Time Taken Comments Blood Pressure 118/84 05/02/2007 8:00 AM CDT Pulse 72 05/02/2007 8:00 AM CDT Temperature 36.2 ??C (97.1 ??F) 05/02/2007 8:00 AM CDT Respiratory Rate 20 05/02/2007 8:00 AM CDT Oxygen Saturation - - Inhaled Oxygen Concentration - - Weight 73 kg (161 lb) 05/02/2007 8:00 AM CDT Height 153.7 cm (5' 0.5) 05/02/2007 8:00 AM CDT Body Mass Index 30.93 05/02/2007 8:00 AM CDT documented in this encounter Progress Notes Antoine Valero - 05/02/2007 8:10 AM CDT SUBJECTIVE: Edith Anaya is a 56 year old female presenting for annual pap and physical exam. Patient questionnaire is completed and reviewed in detail with the patient. Current medical concerns: skin tags on forehead they do not bother her just would like them checked,would like her flu shot today if possible. Last PAP: 05/12 Abnormal Paps? no Self Breast Exams? yes Last Mammogram: 07/12 Abnormal breast findings? no Menarche at what age? 9 Menstrual Cycle: Frequency Duration Associated symptoms Contraception: Estrogen Replacement: never Family history of: Breast Cancer? no Cervical Cancer? no Endometrial Cancer? no Ovarian Cancer? no Colon Cancer? no Other Cancer? no Past Medical History Diagnosis Date ??? HYPERLIPIDEMIA NEC/NOS Hyperlipidemia ??? BENIGN HYPERTENSION Hypertension, Benign ??? PERS HX URINARY CALCULI Past Surgical History Procedure Date ??? No history of surgery ??? Cystoscopy 11/28/06 [facility] Family History Problem Relation ??? C.A.D. Father [facility], age 65, first event at 38 ??? [...] MG OR TABS 1 TABLET DAILY ??? PERCOCET 5-325 MG OR TABS 1-2 TABLETS EVERY 6 HOURS NEEDED FOR PAIN ??? ZACH LOW STRENGTH OR 1 TABLET DAILY ??? MULTI-VITAMIN OR 1 tablet daily ??? HYDROCHLOROTHIAZIDE 25 MG OR TABS 1 TABLET DAILY ??? LISINOPRIL 20 MG OR TABS 1 TABLET DAILY Allergies Allergen Reactions ??? Sulfa Drugs Rash REVIEW OF SYSTEMS: Skin: as above Eyes: glasses Ears/Nose/Throat: negative Respiratory: negative Cardiovascular: negative Gastrointestinal: negative Genitourinary: negative Musculoskeletal: negative Neurologic: negative Psychiatric: negative Hematologic/Lymphatic/Immunologic: negative Endocrine: negative PHYSICAL EXAM: BP 118/84 Pulse 72 Temp (Src) 97.1 (Oral) Resp 20 Ht 5' .5 (1.54m) Wt 161 lbs (73.0kg) LMP Postmenopausal GENERAL APPEARANCE: healthy, alert and no distress EYES: EOMI, fundi benign- PERRL HENT: ear canals and TM's normal [...] discharge and rectal exam normal without masses MS: extremities normal- no gross deformities noted, no evidence of inflammation in joints, FROM in all extremities. SKIN: flesh colored round nevi on forehead NEURO: Normal strength and tone, sensory exam grossly normal, mentation intact and speech normal PSYCH: mentation appears normal. and affect normal/bright ASSESSMENT/PLAN: 1. Routine Medical Exam- Discussed diet, exercise, seat belt and sunscreen use. 2. HTN- stable, continue current meds 3. Hyperlipidemia- will titrae meds as needed after get lab results, improve diet and exercise 4. Benign nevi- observe f/u prn documented in this encounter Nursing Notes 05/02/2007 8:00 AM CDT >> ANTOINE VALERO 05/02/2007 8:10 am Patient is here today for her physcial and pap. She also states that she is fasting this morning. Body mass index is 30.91 kg/(m^2). BP cuff size: regular Last 1 BP Readings: Date: BP: 05/02/2007 118/84] Do you feel safe in your environment? Yes Does the patient need any medication refills today? yes documented in this encounter Plan of Treatment Not on filedocumented as of this encounter Procedures Procedure Name Priority Date/Time Associated Diagnosis Comme nts HC VENOUS Routine 05/02/2007 9:01 AM Hyperlipidemi a Nec/Nos COLLECTION CDT Screening-Diabetes Mellitus HCL GLUCOSE Routine 05/02/2007 8:50 AM Screening-Diabetes Res ults for this CDT Mellitus procedure are i n the results section. HCL ALT Routine 05/02/2007 8:50 AM Hyperlipidemia Nec/Nos Results for this CDT procedure are i n the results section. HCL AST Routine 05/02/2007 8:50 AM Hyperlipidemia Nec/Nos Results for this CDT procedure are i n the results section. CL AFF A.M.A. LIPID Routine 05/02/2007 8:50 AM Hyperlipidemia Nec/Nos Results for this PANEL CDT procedure are i n the results section. HCL PAP THIN LAYER Routine 05/02/2007 12:00 Routine Medical Ex am Results for this SCREEN AM CDT procedure are i n the results section. documented in this encounter Results AST (05/02/2007 8:50 AM CDT) P athologist Signature AST 35 0 - 45 U/L [facility] Specimen Anatomical Collection Method Collection Time Receive d Time (Source) Location / / Volume Laterality 05/02/2007 8:50 AM 7 8:51 CDT AM CDT Mat Mccray PA-C LABORATORY Performing Organization Address City/State/ZIP Code Phon e Number M [facility] [address] [place], [place] [address] [facility] ALANINE AMINO (ALT) (SGPT) (05/02/2007 8:50 AM CDT) athologist Signature ALT 45 0 - 50 U/L [facility] Specimen Anatomical Collection Method Collection Time Receive d Time (Source) Location / / Volume Laterality 05/02/2007 8:50 AM 7 8:51 CDT AM CDT Mat SAENZ-Dania LABORATORY Performing Organization Address City/State/ZIP Code [address] [place], [place] [address] [facility] GLUCOSE (05/02/2007 8:50 AM CDT) athologist Signature Glucose 85 60 - 99 [place] mg/dL [facility] Specimen Anatomical Collection Method Collection Time Receive d Time (Source) Location / / Volume Laterality 05/02/2007 8:50 AM 7 8:51 CDT AM CDT Mat Mccray PA-C LABORATORY Performing Organization Address City/State/ZIP Code [facility] Jacqueline [address] [place] [address] [facility] (ABNORMAL) A.M.A. LIPID PANEL (05/02/2007 8:50 AM CDT) athologist Signature Cholesterol 185 0 - 200 [place] mg/dL [facility] Comment: LDL Cholesterol is the primary guide to therapy: LDL-cholesterol goal in high risk patients is <100 mg/dL and in very high risk patients is <70 mg/dL. The NCEP recommends further evaluation of: patients with cholesterol <200 mg/dL if additional risk factors are present, cholesterol >240 mg/dL, triglycerides >150 mg/dL, or HDL <40 mg/dL. Triglycerides 125 0 - 150 mg/dL [facility] HDL Cholesterol 41 (L) 50 - 110 mg/dL [facility] LDL Cholesterol Calculated 119 0 - 129 mg/dL [facility] VLDL-Cholesterol 25 0 - 30 mg/dL [facility] Cholesterol/HDL Ratio 4.0 0.0 - 5.0 [facility] Specimen Anatomical Collection Method Collection Time Receive d Time (Source) Location / / Volume Laterality 05/02/2007 8:50 AM 7 8:51 CDT AM CDT Mat Mccray PA-C LABORATORY Performing Organization Address City/State/ZIP Code Phon e Number M [facility] [address] [place] [address] [facility] A THIN LAYER PAP SCREEN (05/02/2007 12:00 AM CDT) Component Value Ref Test Analysis Performed At [facility] Range Method Time Signature PAP NIL COPATH Copath Report COPATH Patient Name: EDITH ANAYA MR#: [id number] Specimen #: [id number] Collected: 05/02/2007 Received: 05/02/2007 Reported: 05/03/2007 15:07 Ordering Phy(s): MAT MCCRAY SPECIMEN/STAIN PROCESS: Pap thin layer prep screening (Sure[facility]) ? Pap-Cyto x 1, Reflex HPV x 1 SOURCE: Cervical, endocervical ---- Pap thin layer prep screening (SurePath) SPECIMEN ADEQUACY: Satisfactory for evaluation. -Transformation zone component present. CYTOLOGIC INTERPRETATION: Negative for Intraepithelial Lesion or Malignancy Electronically signed out by: KRISTI Solo (ASCP) Processed and screened at [facility] CLINICAL HISTORY: Post Menopausal, Previous normal pap Date of Last Pap: 05/10/06, TESTING LAB LOCATION: [facility], [address] ??[phone] COLLECTION SITE: Client: ??Critical access hospital Location: [facility] (P) Specimen (Source) Anatomical Collection Method Collection Time Re ceived Time Location / / Volume Laterality 05/02/2007 05/02/2007 2:19 PM CDT Mat Mccray PA-C LABORATORY Performing Organization Address City/State/ZIP Code Phon e Number [place] documented in this encounter Visit Diagnoses Diagnosis Other and unspecified hyperlipidemia - P rimary Essential hypertension, benign Routine general medical examination at a health care facility Screening for diabetes mellitus Need for prophylactic vaccination and in oculation against other combinations of diseases documented in this encounter Care Teams Car Seat Upholsterer Relationship Specialty Start Date End Date Mat Mccray PA-C PCP - General 05/10/06 documented as of this encounter
--- OUTSIDE RECORDS SUMMARY | 2022-07-05 17:53 | XMS_ITS | Encounter Summary ---
:1950 Author Organization [facility] Address [address] [place] [address]. [place] [address] Care Team Providers Name Role Phone Sofia Landers PA-C Primary Care Provider Encounter Details Date Type Department Care Team Description 02/27/2007 Hospital Laboratory [facility] [address] [place] [address] (Wo rk) Social History Tobacco Use Types Packs/Day Years Used Date Smoking Tobacco: Never Alcohol Use Standard Drinks/Week Comments No 0 (1 standard drink = 0.6 oz pure alcoho l) Sex Assigned at Date Recorded Not on file documented as of this encounter Plan of Treatment Not on filedocumented as of this encounter Procedures Procedure Name Priority Date/Time Associated Diagnosis Comme nts UROSAT STONE FORMER Routine 02/27/2007 8:32 AM Re sults for this CDT procedure are i n the results section. documented in this encounter Results Hospital - UROSAT STONE FORMERR (02/27/2007 8:32 AM CDT) P athologist Signature Calcium Urine 149 mg/[address] [place] [facility] Urine Oxalate 32 mg/24 h [facility] Urine Citrate 442 mg/24 h [facility] Urine Magnesium 84 mg/24 h [facility] Urine Uric Acid 338 mg/24 h [facility] pH Urine Kidney 6.10 [facility] Urine Total 1.52 L/24 h [place] Volume [facility] Sodium Urine 128 meq/24 h [place] Kidney Stone [facility] Urine 703 mg/24 h [place] Phosphorous [facility] Potassium Urine 60 meq/24h [place] [facility] Creatinine Urine 752 mg/24h [facility] Comment: Assayed at [facility], [place] [address] Specimen Anatomical Collection Method Collection Time Receive d Time (Source) Location / / Volume Laterality 02/27/2007 8:32 AM 7 8:33 CDT AM CDT Narrative This result has an attachment that is no t available. Kamar Mckeon MD LABORATORY Performing Organization Address City/State/ZIP Code Phon e Number [facility] [address] [place], [place] [address] [facility] documented in this encounter Visit Diagnoses Not on filedocumented in this encounter Care Teams Engineer Automated Equipment Relationship Specialty Start Date End Date Sofia Landers PA-C PCP - General 05/10/06 documented as of this encounter
--- OUTSIDE RECORDS SUMMARY | 2022-07-05 17:53 | XMS_ITS | Encounter Summary ---
:1950 Author Organization [facility] Address [address] [place] [address] Care Team Providers Name Role Phone Sofia Landers PA-C Primary Care Provider Mikayla Allan MD Unavailable Sofia Landers PA-C Unavailable Sofia Landers PA-C Unavailable Reason for Visit Reason Onset Date Comments Refill Request 11/02/2009 fosamax Encounter Details Date Type Department Care Team Description 11/02/2009 Refill [facility] Cooper Landers PA-C Refill Request [facility] Saurabh (fosamax) [phone] [address] [place] [address] [place] [address] [phone] (Wo rk) Social History Tobacco Use Types Packs/Day Years Used Date Smoking Tobacco: Never Alcohol Use Standard Drinks/Week Comments No 0 (1 standard drink = 0.6 oz pure alcoho l) Sex Assigned at Date Recorded Not on file documented as of this encounter Miscellaneous Notes Telephone Encounter - Tuyet Fournier - 11/02/2009 10:08 AM CDT Forwarding to PCP for review. Note patient request to change to three month supply.......Tuyet Fournier RN Telephone Encounter - Sofia Jimenes - 11/02/2009 9:31 AM CDT Pt is requesting #12 for a 3 month supply last refill per epic- 03/30/09 last refill per fax-10/30/09 last office visit-03/30/09 labs- no date fax came-10/30/09 documented in this encounter Plan of Treatment Not on filedocumented as of this encounter Visit Diagnoses Diagnosis Osteopenia - Primary Disorder of bone and cartilage, unspecif ied documented in this encounter Care Teams Dust Control Engineer Relationship Specialty Start Date End Date Sofia Landers PA-C PCP - General 05/10/06 Mikayla Allan MD PCP - Obstetrics/Gynecology 05/18/1004/27 [facility] [address] [place] [address] Sofia Landers PA-C PCP - Assigned PCP 12/05/10 10/09/18 [place] [address] [facility] [place], [place] [address] Sofia Landers PA-C Assigned PCP 05/10/12 04/17/21 S[place] [address] [facility] [place], [place] [address] documented as of this encounter
--- OUTSIDE RECORDS SUMMARY | 2022-07-05 17:53 | XMS_ITS | Encounter Summary ---
:1950 Author Organization [facility] Address [address] [place] [address] Care Team Providers Name Role Phone Sofia Landers PA-C Primary Care Provider Encounter Details Date Type Department Care Team Description 08/02/2007 Hospital Radiology HOSP RESULTS Tyrell Pavon PA-C [place] [address] [place] [address] (Wo rk) Social History Tobacco Use Types Packs/Day Years Used Date Smoking Tobacco: Never Alcohol Use Standard Drinks/Week Comments No 0 (1 standard drink = 0.6 oz pure alcoho l) Sex Assigned at Date Recorded Not on file documented as of this encounter Plan of Treatment Not on filedocumented as of this encounter Procedures Procedure Name Priority Date/Time Associated Diagnosis Comme [facility] MAMMOGRAM, Routine 08/02/2007 3:27 PM Results for this SCREENING BILATERAL STAFF TECHNOLOGIST procedur e are in the results section. documented in this encounter Results Hospital - MAMMOGRAM, SCREENING (08/02/2007 3:27 PM STAFF TECHNOLOGIST) Anatomical Region Laterality Modality Other Specimen (Source) Anatomical Collection Method Collection Time Re ceived Time Location / / Volume Laterality 08/02/2007 3:27 PM STAFF TECHNOLOGIST Impressions 08/03/2007 3:55 PM STAFF TECHNOLOGIST SCREENING MAMMOGRAM ? CLINICAL HISTORY: ??56-year-old, no comp laints. ? FINDINGS: ??Two views of both breasts we re obtained. ??Comparison made to study of 05/26/2005 and 07/26/2006. ? ?There is a mild amount of residual breast density. ??The parenchym al pattern is similar to the previous study. ??There are no suspiciou s groups of clustered microcalcifications or dominant masses. ??There is a stable intramammary lymph node noted in the lef t breast. ? IMPRESSION: ??Stable mammogram. ??No rad iographic evidence of malignancy. ? Bi-Rads Category 1 ?Negative ?? Services provided by [employer]. Sofia Landers PA-C SPECIAL IMAGING STUDIES documented in this encounter Visit Diagnoses Not on filedocumented in this encounter Care Teams Silk Printer Relationship Specialty Start Date End Date Sofia Landers PA-C PCP - General 05/10/06 documented as of this encounter
--- OUTSIDE RECORDS SUMMARY | 2022-07-05 17:53 | XMS_ITS | Encounter Summary ---
:1950 Author Organization [place] Address [address] [place] [address] Care Team Providers Name Role Phone Mat Mccray PA-C Primary Care Provider Reason for Visit Reason Comments Physical possbile pap Encounter Details Date Type Department Care Team Description 03/30/2009 Office Visit [facility] Mat Mccray Well Woman Exam with Routine Gynecological Exam (Primary Dx); [facility] ANTWAN Essential Hypertension, Benign; [address] [place] Osteopenia; [place] [id number] [facility] HYPERLIPIDEMIA NEC/NOS; [phone] Screening Mammogram JOSE LUIS LOPEZ [id number] Social History Tobacco Use Types Packs/Day Years Used Date Smoking Tobacco: Never Alcohol Use Standard Drinks/Week Comments No 0 (1 standard drink = 0.6 oz pure alcoho l) Sex Assigned at Date Recorded Not on file documented as of this encounter Last Filed Vital Signs Vital Sign Reading Time Taken Comments Blood Pressure 118/76 03/30/2009 8:42 AM CDT Pulse 64 03/30/2009 8:42 AM CDT Temperature 36.8 ??C (98.3 ??F) 03/30/2009 8:42 AM CDT Respiratory Rate 16 03/30/2009 8:42 AM CDT Oxygen Saturation - - Inhaled Oxygen Concentration - - Weight 74.8 kg (165 lb) 03/30/2009 8:42 AM CDT Height 161.9 cm (5' 3.75) 03/30/2009 8:42 AM CDT Body Mass Index 28.54 03/30/2009 8:42 AM CDT documented in this encounter Progress Notes Antoine Valero - 03/30/2009 8:49 AM CDT SUBJECTIVE:Edith Anaya is a 58 year old female presenting for annual pap and physical exam. Patient questionnaire is completed and reviewed in detail with the patient. Current medical concerns: her insurance will no longer cover Lipitor. What options does she have. Bone density result possible medication. Last PAP: 04/13 Abnormal Paps? no Self Breast Exams? sometimes Last Mammogram: 07/14 Abnormal breast findings? no Menarche at what age? 9 Menstrual Cycle: Frequency Duration Associated symptoms Contraception: Estrogen Replacement: Herbal Family history of: Breast Cancer? Cervical Cancer? Endometrial Cancer? Ovarian Cancer? Colon Cancer? Other Cancer? Past Medical History Diagnosis Date ??? Other and Unspecified Hyperlipidemia Hyperlipidemia ??? Essential Hypertension, Benign Hypertension, Benign ??? Personal History of Urinary Calculi Past Surgical History Procedure Date ??? [facility] ??? Colonoscopy 05/23/2007 repeat in 10 years Family History Problem Relation ??? C.A.D. Father [place], age 65, first event at 38 ??? [...] file Current outpatient prescriptions Medication Sig ??? ESTROVEN OR 1 tablet daily ??? LIPITOR 10 MG OR TABS 1 TABLET DAILY ??? HYDROCHLOROTHIAZIDE 25 MG OR TABS 1 TABLET DAILY ??? LISINOPRIL 20 MG OR TABS 1 TABLET DAILY ??? ZACH LOW STRENGTH OR 1 TABLET DAILY ??? MULTI-VITAMIN OR 1 tablet daily Allergies Allergen Reactions ??? Sulfa Drugs Rash REVIEW OF SYSTEMS: Skin: negative Eyes: glasses Ears/Nose/Throat: negative Respiratory: negative Cardiovascular: negative, HTN well controlled Gastrointestinal: negative Genitourinary: negative, she gets a dryness to the perirectal area that she treats with vaseline, noitching or burning, has a slight amount of blood prn Musculoskeletal: negative, osteopenia Neurologic: negative Psychiatric: negative Hematologic/Lymphatic/Immunologic: negative Endocrine: negative PHYSICAL EXAM: BP 118/76 Pulse 64 Temp (Src) 98.3 ??F (36.8 ??C) (Oral) Resp 16 Ht 5' 3.75 (1.619 m) Wt 165 lb (74.844 kg) LMP Postmenopausal GENERAL APPEARANCE: healthy, alert [...] discharge and rectal exam normal without masses GU_female: rectal thinning of skin, slight hypopigemntation of tissue between vagina and rectum, nomasses noted, no telangesctasias or recent bleeding noted MS: extremities normal- no gross deformities noted, [...] exercise, seat belt and sunscreen use. 2. Hyperlipidemia- will await labs and titrate prn, lipitor will no longer be covered will change tozocor 3. HTN wellcontrolled continue current meds rechec in 6 months 4. Osteopenia- will start fosamax, will have pt take calcium and vit d as well we do weight bearing exericises, discussed use of fosamax, how to take it and common SE and warning signs documented in this encounter Nursing Notes 03/30/2009 8:30 AM CDT >> ANTOINE VALERO Mon Mar 30, 2009 8:49 AM Patient is here today for her physcial and pap. Body mass index is 28.54 kg/(m^2). BP cuff size: large Last 1 Encounter BP Readings: Date: BP: 03/30/2009 118/76] Do you feel safe in your environment? Yes Does the patient need any medication refills today? yes documented in this encounter Plan of Treatment Not on filedocumented as of this encounter Procedures Procedure Name Priority Date/Time Associated Diagnosis Comme nts HCL BASIC Routine 03/30/2009 9:43 AM Essential Hypertension , Results for this METABOLIC PANEL CDT Benign procedure ar e in the results section. HCL ALT Routine 03/30/2009 9:43 AM Osteopenia Results f or this CDT procedure are i n the results section. CL AFF A.M.A. Routine 03/30/2009 9:43 AM HYPERLIPIDEMIA NEC/NO S Results for this LIPID PANEL CDT procedure are i n the results section. HCL PAP THIN LAYER Routine 03/30/2009 12:00 Well Woman Exam wi th Results for this SCREEN AM CDT Routine Gynecological proced ure are in Exam the results section. documented in this encounter Results (ABNORMAL) A.M.A. BASIC METABOLIC PANEL (03/30/2009 9:43 AM CDT) P athologist Signature Sodium 140 133 - 144 [place] mmol/L [facility] Potassium 4.3 3.4 - 5.3 [place] mmol/L [facility] Chloride 103 94 - 109 [place] mmol/L [facility] Carbon Dioxide 32 20 - 32 [place] mmol/L [facility] Anion Gap 4.4 (L) 6 - 17 [place] mmol/L [facility] Glucose 88 60 - 99 [place] mg/dL [facility] Comment: Fasting specimen Urea Nitrogen 18 7 - 30 mg/dL [facility] Creatinine 0.66 0.52 - 1.04 mg/dL [facility] Comment: New IDMS-traceable calibration beginning 12/06/07 GFR Estimate >90 >60 mL/min/1.7m2 [facility] GFR Estimate If Black >90 >60 mL/min/1.7m2 [facility] Calcium 9.6 8.5 - 10.4 mg/dL [facility] Specimen Anatomical Collection Method Collection Time Receive d Time (Source) Location / / Volume Laterality 03/30/2009 9:43 AM 9 9:44 CDT AM CDT Mat Mccray PA-C LABORATORY Performing Organization Address City/State/ZIP Code Phon e Number [address] [place] [address] [facility] ALANINE AMINO (ALT) (SGPT) (03/30/2009 9:43 AM CDT) athologist Signature ALT 40 0 - 50 U/L [facility] Specimen Anatomical Collection Method Collection Time Receive d Time (Source) Location / / Volume Laterality 03/30/2009 9:43 AM 9 9:44 CDT AM CDT Mat Mccray PA-C LABORATORY Performing Organization Address City/State/ZIP Code Phon e Number [address] [place], [place] [address] [facility] (ABNORMAL) A.M.A. LIPID PANEL (03/30/2009 9:43 AM CDT) athologist Signature Cholesterol 179 0 - 200 [place] mg/dL [facility] Comment: LDL Cholesterol is the primary guide to therapy: LDL-cholesterol goal in high risk patients is <100 mg/dL and in very high risk patients is <70 mg/dL. The NCEP recommends further evaluation of: patients with cholesterol <200 mg/dL if additional risk factors are present, cholesterol >240 mg/dL, triglycerides >150 mg/dL, or HDL <40 mg/dL. Triglycerides 162 (H) 0 - 150 mg/dL [facility] Comment: Fasting specimen HDL Cholesterol 38 (L) 50 - 110 mg/dL [facility] LDL Cholesterol Calculated 108 0 - 129 mg/dL [facility] VLDL-Cholesterol 32 (H) 0 - 30 mg/dL [facility] Cholesterol/HDL Ratio 5.0 0.0 - 5.0 [facility] Specimen Anatomical Collection Method Collection Time Receive d Time (Source) Location / / Volume Laterality 03/30/2009 9:43 AM 9 9:44 CDT AM CDT Mat Mccray PA-C LABORATORY Performing Organization Address City/State/ZIP Code Phon e Number M [facility] [address] [facility] [place] [address] [facility] A THIN LAYER PAP SCREEN (03/30/2009 12:00 AM CDT) Component Value Ref Test Analysis Performed At [facility] Method Time Signature PAP NIL COPATH Copath Report COPATH Patient Name: EDITH ANAYA MR#: [id number] Specimen #: [id number] Collected: 03/30/2009 Received: 03/30/2009 Reported: 03/31/2009 15:55 Ordering Phy(s): MAT MCCRAY SPECIMEN/STAIN PROCESS: Pap thin layer prep screening ([facility]) ? Pap-Cyto x 1, Reflex HPV x 1 SOURCE: cervical, vaginal ---- Pap thin layer prep screening ([facility]) SPECIMEN ADEQUACY: Satisfactory for evaluation. -Transformation zone component absent. CYTOLOGIC INTERPRETATION: Negative for Intraepithelial Lesion or Malignancy Electronically signed out by: KRISTI Jenkins (ASCP) Processed and screened at [facility] CLINICAL HISTORY: Post Menopausal, Previous normal pap Date of Last Pap: 05-02-07, TESTING LAB LOCATION: [facility], [address] [place] [address] ??[id number] COLLECTION SITE: Client: ??[facility] Location: [facility] (P) Specimen (Source) Anatomical Collection Method Collection Time Re ceived Time Location / / Volume Laterality 03/30/2009 03/30/2009 2:19 PM CDT Mat Mccray PA-C LABORATORY Performing Organization Address City/State/ZIP Code Phon e Number [place] documented in this encounter Visit Diagnoses Diagnosis Well woman exam with routine gynecologic al exam - Primary Routine gynecological examination Essential hypertension, benign Osteopenia Disorder of bone and cartilage, unspecif ied HYPERLIPIDEMIA NEC/NOS Other and unspecified hyperlipidemia Screening mammogram Other screening mammogram documented in this encounter Care Teams Squeegee Operator Relationship Specialty Start Date End Date Mat Mccray PA-C PCP - General 05/10/06 documented as of this encounter
--- OUTSIDE RECORDS SUMMARY | 2022-07-05 17:53 | XMS_ITS | Encounter Summary ---
:1950 Author Organization [place] Address [address] [place] [address] Care Team Providers Name Role Phone Sofia Landers PA-C Primary Care Provider Reason for Visit Reason Onset Date Comments Schedule Surgery 03/15/2010 Scheduled for 03/30 Encounter Details Date Type Department Care Team Description 03/15/2010 Telephone [facility] Natalie Buck S chedule Surgery DISTRICT ADVISER (Scheduled for 03/30) [address] [place], [place] [id number] (Wo rk) Social History Tobacco Use Types Packs/Day Years Used Date Smoking Tobacco: Never Alcohol Use Standard Drinks/Week Comments No 0 (1 standard drink = 0.6 oz pure alcoho l) Sex Assigned at Date Recorded Not on file documented as of this encounter Miscellaneous Notes Telephone Encounter - Yuliya Mina - 03/15/2010 3:22 PM CDT Patient was informed of surgery date Friday 03/30, arrival time 0730, no bowel prep, Before Surgery Patient Instruction Booklet and surgery instruction for Same Day was mailed to patient. documented in this encounter Plan of Treatment Not on filedocumented as of this encounter Visit Diagnoses Not on filedocumented in this encounter Care Teams Sky Cap Relationship Specialty Start Date End Date Sofia Landers PA-C PCP - General 05/10/06 documented as of this encounter
--- OUTSIDE RECORDS SUMMARY | 2022-07-05 17:53 | XMS_ITS | Encounter Summary ---
:1950 Author Organization [place] Address [address] [place] [address] Care Team Providers Name Role Phone Sofia Landers PA-C Primary Care Provider Encounter Details Date Type Department Care Team Description 11/24/2006 Medical [place] Kamar Mckeon CONSULTATION - Correspondence [facility] MD [facility] [address] [place] [address] [place] [phone] Social History Tobacco Use Types Packs/Day Years Used Date Smoking Tobacco: Never Alcohol Use Standard Drinks/Week Comments No 0 (1 standard drink = 0.6 oz pure alcoho l) Sex Assigned at Date Recorded Not on file documented as of this encounter Plan of Treatment Not on filedocumented as of this encounter Visit Diagnoses Not on filedocumented in this encounter Care Teams Boy'S Adviser Relationship Specialty Start Date End Date Sofia Landers PA-C PCP - General 05/10/06 documented as of this encounter
--- OUTSIDE RECORDS SUMMARY | 2022-07-05 17:53 | XMS_ITS | Encounter Summary ---
:1950 Author Organization [place] Address [address] [place] [address] Care Team Providers Name Role Phone Sofia Landers PA-C Primary Care Provider Encounter Details Date Type Department Care Team Description 01/22/2007 Hospital Radiology HOSP RESULTS Win Anderson MD [facility] [address] [facility] [address] [place] [phone] (Wo rk) Social History Tobacco Use Types Packs/Day Years Used Date Smoking Tobacco: Never Alcohol Use Standard Drinks/Week Comments No 0 (1 standard drink = 0.6 oz pure alcoho l) Sex Assigned at Date Recorded Not on file documented as of this encounter Plan of Treatment Not on filedocumented as of this encounter Procedures Procedure Name Priority Date/Time Associated Diagnosis Comme [facility] X-RAY ABDOMEN Routine 01/22/2007 11:35 AM Resu lts for this AP, PLUS OBLIQ & CDT procedure a re in [place] the results section. documented in this encounter Results Hospital - X-RAY ABDOMEN 1+ VW (01/22/2007 11:35 AM CDT) Anatomical Region Laterality Modality Other Specimen (Source) Anatomical Collection Method Collection Time Re ceived Time Location / / Volume Laterality 01/22/2007 11:35 AM CDT Impressions 01/22/2007 2:32 PM CDT KUB ?? 01/22/07 ?? CLINICAL HISTORY: Kidney stone ?? FINDINGS: ??One view of the abdomen was obtained. ??Comparison is made with the CT scan done 11/12/2006. ??Ther e is stool in the colon, which partially obscures the kidneys. ??There are no definite calcifications seen in the kidneys or along the course of the ureters. ??There are phleboliths noted in pelvis. Kamra Mckeon MD GENERAL IMAGING documented in this encounter Visit Diagnoses Not on filedocumented in this encounter Care Teams Nursing Clerk Relationship Specialty Start Date End Date Sofia Landers PA-C PCP - General 05/10/06 documented as of this encounter
--- OUTSIDE RECORDS SUMMARY | 2022-07-05 17:53 | XMS_ITS | Encounter Summary ---
:1950 Author Organization [place] Address [address] [place] [address] Care Team Providers Name Role Phone Sofia Landers PA-C Primary Care Provider Encounter Details Date Type Department Care Team Description 03/09/2010 Telephone [facility] PRODUCT SAFETY MANAGER Refugio elam, Natalie Wu MD [address] [place] [address] (Wo rk) Social History Tobacco Use Types Packs/Day Years Used Date Smoking Tobacco: Never Alcohol Use Standard Drinks/Week Comments No 0 (1 standard drink = 0.6 oz pure alcoho l) Sex Assigned at Date Recorded Not on file documented as of this encounter Plan of Treatment Not on filedocumented as of this encounter Visit Diagnoses Not on filedocumented in this encounter Care Teams Piping Design Specialist Relationship Specialty Start Date End Date Sofia Landers PA-C PCP - General 05/10/06 documented as of this encounter
--- OUTSIDE RECORDS SUMMARY | 2022-07-05 17:53 | XMS_ITS | Encounter Summary ---
:1950 Author Organization [place] Address [facility] [place] [address] Care Team Providers Name Role Phone Sofia Landers PA-C Primary Care Provider Encounter Details Date Type Department Care Team Description 01/22/2007 Hospital Laboratory [facility] [address] [facility] [address] [place] [address] (Wo rk) Social History [...] Priority Date/Time Associated Diagnosis Comme nts HCL KIDNEY STONE Routine 01/22/2007 12:17 PM Resu lts for this ANALYSIS CDT procedure are i n the results section. documented in this encounter Results Hospital - KIDNEY STONE ANALYSIS (01/22/2007 12:17 PM CDT) [facility] Method Time Signature Stone SEE NOTE [place] Composition (Note) [facility] Calculi composed primarily of: HOSPITAL LAB calcium oxalate monohydrate (whewellite). Stone Mass 4 [facility] Comment: Unit: mg (Note) TEST INFORMATION: Calculi (Stone) analys is Human and/or animal calculi are the prod ucts of physiological processes that yield cryst alline compounds in a matrix of biological compounds and blood. The clinically significant crystalline compo nents identified in calculi samples are documented on the sample report. Matrix components are not reported. Performed by [employer], [address] [place] [address], [place] [address] [email or web address], ??Joel Gutierrez MD - Lab. Director Specimen Anatomical Collection Method Collection Time Receive d Time (Source) Location / / Volume Laterality 01/22/2007 12:17 01/22/2007 PM CDT 12:18 PM CDT Kamar Mckeon MD LABORATORY Performing Organization Address City/State/ZIP Code Phon e Number M [facility] [address] [facility] [address] [place], [place] [phone] [facility] documented in this encounter Visit Diagnoses Not on filedocumented in this encounter Care Teams Photolettering Machine Operator Relationship Specialty Start Date End Date Sofia Landers PA-C PCP - General 05/10/06 documented as of this encounter
--- OUTSIDE RECORDS SUMMARY | 2022-07-05 17:53 | XMS_ITS | Encounter Summary ---
:1950 Author Organization [place] Address [address] [place] [address] Care Team Providers Name Role Phone Sofia Landers PA-C Primary Care Provider Encounter Details Date Type Department Care Team Description 08/05/2008 Orders Only [facility] Cooper Landers PA-C Osteopenia [phone] [place] [address] [place] [address] [phone] (Wo rk) Social History Tobacco Use Types Packs/Day Years Used Date Smoking Tobacco: Never Alcohol Use Standard Drinks/Week Comments No 0 (1 standard drink = 0.6 oz pure alcoho l) Sex Assigned at Date Recorded Not on file documented as of this encounter Plan of Treatment Not on filedocumented as of this encounter Procedures Procedure Name Priority Date/Time Associated Diagnosis Comme [facility] DEXA BONE Routine 08/05/2008 9:21 AM Osteopenia Results f or this DENSITY, >=1 SITE, GLASS WOOL BLANKET MACHINE FEEDER procedure are in AXIAL SKELETON the results section. documented in this encounter Results DEXA,BONE DENSITY,AXIAL SKELETON (08/05/2008 9:21 AM GLASS WOOL BLANKET MACHINE FEEDER) Anatomical Region Laterality Modality Other Specimen (Source) Anatomical Collection Method Collection Time Re ceived Time Location / / Volume Laterality 08/05/2008 9:21 AM GLASS WOOL BLANKET MACHINE FEEDER Impressions 08/06/2008 8:51 AM GLASS WOOL BLANKET MACHINE FEEDER HISTORY: Postmenopausal 57-year-old whit e female; screening for osteoporosis. ?? An evaluation of your patient was perfor med using the Circular bone densitometer. ??The results of the study expressed as bone mineral density (BMD) are as follow s: AP SPINE sBMD patient (g/cm2) . .(L1 to L4) ?1.03 Z-Score (age matched s BMD) ?-0.4 T-Score (relative to peak s BMD ?-1.3 TOTAL LEFT HIP sBMD patient (g/cm2) (proximal femur) ?? 1.03 Z-Score (age matched) ?0.9 T-Score (relative to peak sBMD ? 0.2 ?? LEFT FEMORAL NECK sBMD patient (g/cm2) ?0.88 Z-Score (age matched s BMD) ?-0.2 T-Score (relative to peak s BMD ?-1.1 ?? TOTAL RIGHT HIP sBMD patient (g/cm2) (proximal femur) ?? 0.95 Z-Score (age matched) ?0.22 T-Score (relative to peak sBMD ? -0.5 ?? RIGHT FEMORAL NECK sBMD patient (g/cm2) ?0. 80 Z-Score (age matched s BMD) ?-0.7 T-Score (relative to peak s BMD ?-1.7 ? DEFINITIO N OF TERMS AND VALUES ? Terms: sBMD: ??Standardized Bone Mineral Densit y (g/cm2) T#: ?Standard deviation of the patie nt's bone mineral density ? from that of a young adult person. Z#: ?Standard deviation of patient's BMD from that of an age ? matched patient. Values according to the World Health Org anization: Normal range: ??+ / - 1 standard deviati on. Osteoporosis: ??sBMD of 2.5 standard dev iations below that of a young adult (i.e. T#-2.5) in a patient without pre-existing fractures or 1.5 standard deviations below that of a young adult (i.e. T#-1.5) for a patient with pre-existing fractures. Osteopenia: ??Values failing between -1 standard deviation and those values where osteoporosis is threshold i s reached. Diagrams of the results are enclosed. IMPRESSION: ??Bone mineral density consi stent with osteopenia based on the femoral necks and L1-L4. Sofia Landers PA-C SPECIAL IMAGING STUDIES documented in this encounter Visit Diagnoses Diagnosis Osteopenia Disorder of bone and cartilage, unspecif ied documented in this encounter Care Teams Electric Bath Attendant Relationship Specialty Start Date End Date Sofia Landers PA-C PCP - General 05/10/06 documented as of this encounter
--- OUTSIDE RECORDS SUMMARY | 2022-07-05 17:53 | XMS_ITS | Encounter Summary ---
:1950 Author Organization [facility] Address [address] [place] [address] Care Team Providers Name Role Phone Sofia Landers PA-C Primary Care Provider Mikayla Allan MD Unavailable Encounter Details Date Type Department Care Team Description 04/29/2010 Hospital Pathology [facility] [place] [facility] [place] [facility] [address] [place] [phone] (Wo rk) Social History Tobacco [...] [facility] SURGICAL PATHOLOGY Routine 04/29/2010 7:16 PM Res ults for this EXAM CDT procedure are i n the results section. documented in this encounter Results Surgical pathology exam (04/29/2010 7:16 PM CDT) Component Value Ref Test Analysis Performed Pathologis t Range Method Time At Signature Copath Patient Name: EDITH ANAYA Report MR#: [id number] Specimen #: [id number] Collected: 04/29/2010 Received: 04/30/2010 Reported: 05/03/2010 16:23 Ordering Phy(s): MIKAYLA CASIANO ORIGINAL REPORT FOLLOWS ADDENDUM ADDENDUM TO ORIGINAL REPORT Status: Signed Out Date Ordered:05/05/2010 Date Complete:05/26/2010 Date Reported:05/26/2010 14:24 Signed Out By: Lebron Isabel M.D., ??[facility] INTERPRETATION: ADDENDUM: Summary of Sections: New Gross F7-F17 - additional left fallopian tube and ovary. (Teodoro Rboison ??05/04/2010) ORIGINAL REPORT: SPECIMEN(S): A: Right jerome-aortic lymph nodes B: Left jerome-aortic lymph nodes C: Left pelvic lymph nodes D: Right pelvic lymph nodes E: Uterus, cervix, right tube and ovary F: Fallopian tube and ovary, left FINAL DIAGNOSIS: A-D. ??Lymph nodes, right periaortic (3), left periaortic (2), left pelvic (9), and right pelvic (7): ? - No evidence of malignancy. (0/21) E. ??Uterus, fallopian tube and ovary, hysterectomy and righ t salpingo-oophorectomy: ? - Uterus: ?- Endometrial endometrioid adenocarcinoma, FI GO grade I. ? - Tumor invades myometrium to a maximal depth of 0.2 cm ? of a 1.2 cm myometrium. ? - No lymphovascular invasion present. ? - Tumor confined to endometrium without involvement of lower uterine ?segment of endocervix. ? - Surgical margins free of tumor. ? - Parametria: ?- No evidence of malignancy. ? - Ovary: ?- No evidence of malignancy. ? - Fallopian tube: ?- No evidence of malignancy. F. ??Ovary and fallopian tube, left salpingo-oophorectomy: ? - Ovary: ?- Adenocarcinoma, well-differentiated, intest inal type, arising in a mature teratoma. ? - Tumor size: 6.5 x 5.7 x 3.5 ? - Estimated percentage of adenocarcinomatous component: 70%. ? - Ovarian surface free of tumor. ? - Fallopian tube: ?- No pathologic diagnosis. COMMENT: The ovarian tumor originates in a mature teratoma and has a close resemblance to tumors that originate in the appendix referre d to as crypt cell carcinoma or goblet cell carcinoid. ??The histolo gic appearance is quite different from the common mucinous adeno carcinoma of the ovary. I have personally reviewed all specimens and or slides, incl uding the listed special stains, and used them with my medical judgeme nt to determine the final diagnosis. Electronically signed out by: Lebron Isabel M.D., ??[facility] CLINICAL HISTORY: 59-year-old female with endometrial carcinoma.. GROSS: Six specimens are received, each labeled with the patient' s name and hospital identification number. A. ?Specimen A is designated right periaortic lymph nodes. The specimen consists of several irregular shaped fragments of yellow lobulated fibrofatty tissue with probable embedded lymph nod es measuring in aggregate 2.4 x 1.2 x 0.5 cm. ??The aggregate of fibrofat ty tissue fragments is entirely submitted as A. ??(Jar 0) B. ?Specimen B is designate d left periaortic lymph nodes. ??The specimen consists of several irregular shaped fragments of y ellow lobulated fibrofatty tissue and probable embedded lymph node s measuring in aggregate 2.4 x 1.7 x 0.8 cm. ??The aggregate is entirely submitted in two cassettes as B1-B2. ??(Jar 0) C. ?Specimen C is designated left pelvic lymph nodes. ??The specimen consists of multiple irregular shaped fragments of yellow lobulated fibrofatty tissue with embedded lymph nodes measur ing in aggregate 3.5 x 2.5 x 0.7 cm. ??The aggregate is entirely pacheco bmitted in two cassettes as C1-C2. ??(Jar 0) D. ?Specimen D is designated right pelvic ly mph nodes. ??The specimen consists of multiple irregular shaped fragments of yellow lobulated fibrofatty tissue and embedded lymph nodes measuri ng in aggregate 3.7 x 2.5 x 0.8 cm. ??The aggregate is entirely pacheco bmitted in two cassettes as D1-D2. ??(Jar 0) E. ?Specimen E is designated cervix, uterus, r ight fallopian tube and ovary. ??The specimen consists of a hysterectomy s pecimen composed of the cervix, uterus, right fallopian tube and ova ry. ??The cervix measures 3.1 x 2.1 cm with a 1.5 cm cervical os. ??Ec tocervical mucosa is pink-pizarro and smooth. ??Red tinged mucus protrudes from the slit-like cervical os. ??There is scant amount of parametria l tissue. The uterus measures 7.5 x 4.5 x 3.7 cm. ??Serosal surfaces a re smooth and shiny. ??There is one small subserosal nodule in the left fu ndic region measuring 0.7 cm in greatest dimension. ??The surgical jagjit ns are inked black. ??The cervix and uterus are bisected into anterior an d posterior halves revealing a distorted endocervical canal secondary to cordon-white mucus filled Nabothian cysts located within the cervical str max and submucosa. ??The endocervical canal measures 2.3 cm in lengt h, and 0.8 cm in maximum external diameter. ??The endometrial cavity measu res 3.7 x 2.6 x 0.8 cm. ??The endometrium is bright red. ??Focal thickenin g of the endometrium is noted in the posterior fundic region. ??This area measures 1.7 x 1.4 x 0.4 cm. ??The wall thickness at the level of the mucosal thickening is 2.0 cm. ??The myometrium is pink-pizarro. ??There is a small intramural myoma located within the left side wall measuring 1.1 cm in diameter. ??Further sectioning reveals a small anterior midl ine 0.4 cm subserosal myoma. ??An intramural anterior midline fundic my max measuring 0.8 cm in diameter is identified. ??The subserosal nodule no carmencita in the left fundic region is a small 0.4 cm diameter myoma. ??The r ight fallopian tube measures 4.0 cm in length with a maximum exte rnal diameter of 0.9 cm near the fimbriated end. ??The fimbriated portion measures 1.4 x 0.9 x 0.4 cm. ??There is moderate hyperemia w ithin the paratubal soft tissues. ??The yellow-pizarro right ovary measure s 2.5 x 1.8 x 0.8 cm and exhibits a convoluted outer surface. ??On cut sec tion, the ovary displays a yellow-pizarro cortex and unremarkable cordon-pizarro stroma. Sampling Expert sections are submitted in 13 cassettes. ??(Ja r 1) F. ?Specimen F is designated left fallopian tu be and ovary. The specimen consists of a cystic ovary measuring 6.5 x 5.7 x 3.5 weighing 65 grams. ??The outer surfaces show a faintly lobul ated smooth shiny appearance. ??The left fallopian tube is not grossly i dentified. On cut surface the ovary exhibits a gelatinous giselle appeara nce with islands of solid pink-pizarro tissue. ??The giselle gelatinous por tion of the specimen is faintly lobulated. ??Some small cysts are encoun tered measuring up to 1.3 cm in greatest dimension. ??These cysts are smooth lined and contain clear yellow fluid. ??Sampling Expert secti ons are submitted in six cassettes. ??(Jar 1) Summary of Sections: A - right periaortic lymph nodes. B1-B2 - left periaortic lymph nodes. C1-C2 - left pelvic lymph nodes. D1-D2 - right pelvic lymph nodes. E1 - right parametrium. E2 - left parametrium. E3 - cervix and endocervix anterior. E4 - endocervix and lower uterine segment anterior. E5 - endomyometrium full thickness anterior with small subse zakia myoma. E6 - endomyometrium full thickness left side wall with myoma . E7 - midline fundic myoma. E8 - cervix and endocervix posterior. E9 - endocervix and lower uterine segment posterior. E10-E11 - endomyometrium full thickness with area of thicken ed endometrium. E12 - left fundic subserosal myoma. E13 - right ovary and fallopian tube. F1-F6 - left ovary. (LETTY Adams/rima ??04/30/2010) MICROSCOPIC: Microscopic examination is performed. TESTING LAB LOCATION: [facility], [address] ?? [id number] COLLECTION SITE: Client: [facility] Location: [facility] [place] (B) Specimen Anatomical Collection Method Collection Time Receive d Time (Source) Location / / Volume Laterality 04/29/2010 7:16 PM 0 8:24 CDT AM CDT Mikayla Allan MD LAB - [facility] Performing Organization Address City/State/ZIP Code Phon e Number COPATH documented in this encounter Visit Diagnoses Not on filedocumented in this encounter Care Teams Jackhammer Operator Relationship Specialty Start Date End Date Sofia Landers PA-C PCP - General 05/10/06 Mikayla Allan MD PCP - Obstetrics/Gynecology 05/18/1004/27 [place] [facility] [address] [place] [address] documented as of this encounter
--- OUTSIDE RECORDS SUMMARY | 2022-07-05 17:53 | XMS_ITS | Encounter Summary ---
:1950 Author Organization [facility] Address [address] [place] [address] Care Team Providers Name Role Phone Sofia Landers PA-C Primary Care Provider Encounter Details Date Type Department Care Team Description 04/29/2010 Hospital Pathology [facility] [place], [facility] Results [place] [facility] [address] [place] [phone] (Wo rk) Social History Tobacco [...] Name Priority Date/Time Associated Diagnosis Comme nts CL AFF SURGICAL Routine 04/29/2010 7:16 PM Result s for this PATHOLOGY CDT procedure are i n the results section. documented in this encounter Results Hospital - SURGICAL PATHOLOGY (04/29/2010 7:16 PM CDT) Component Value Ref Test Analysis Performed Pathologis t Range Method Time At Signature Copath Patient Name: EDITH ANAYA ASHLEIGH Report MR#: [id number] Specimen #: [id number] Collected: 04/29/2010 Received: 04/30/2010 Reported: 05/03/2010 16:23 Ordering Phy(s): MIKAYLA CASIANO SPECIMEN(S): A: Right jerome-aortic lymph nodes B: [...] a yellow-pizarro cortex and unremarkable cordon-pizarro stroma. Catering And Events Manager sections are submitted in 13 cassettes. ??(Ashu r 1) F. ?Specimen F is designated [...] smooth lined and contain clear yellow fluid. ??Catering And Events Manager secti ons are submitted in six cassettes. [...] Microscopic examination is performed. TESTING LAB LOCATION: [facility], [address] ?? [id number] COLLECTION SITE: Client: [facility] [place] Location: [facility] [place] (B) Specimen Anatomical Collection Method Collection Time Receive d Time (Source) Location / / Volume Laterality 04/29/2010 7:16 PM 0 8:24 CDT AM CDT Mikayla Allan MD LABORATORY Performing Organization Address City/State/ZIP Code Phon e Number COPATH documented in this encounter Visit Diagnoses Not on filedocumented in this encounter Care Teams Diesel Engine Inspector Relationship Specialty Start Date End Date Sofia Landers PA-C PCP - General 05/10/06 documented as of this encounter
--- OUTSIDE RECORDS SUMMARY | 2022-07-05 17:53 | XMS_ITS | Encounter Summary ---
:1950 Author Organization [facility] Address [address] [place] [address]. 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 Mikayla Allan Uterine Ca ncer (H) Oncology MD Tania (Primary Dx) [address] [place] [address] ONCOLOGY [place], [place] HEMATOLOGY [address] [address] Social History Tobacco Use Types Packs/Day Years Used Date Smoking Tobacco: Never Alcohol Use Standard Drinks/Week Comments No 0 (1 standard drink = 0.6 oz pure alcoho l) Sex Assigned at Date Recorded Not on file documented as of this encounter Last Filed Vital Signs Vital Sign Reading Time Taken Comments Blood Pressure 165/106 04/21/2010 1:49 PM CDT Pulse 91 04/21/2010 1:49 PM CDT Temperature - - Respiratory Rate - - Oxygen Saturation - - Inhaled Oxygen Concentration - - Weight 74.2 kg (163 lb 9.6 oz) 04/21/2010 1:49 PM CDT Height 152.4 cm (5') 04/21/2010 1:49 PM CDT Body Mass Index 31.95 04/21/2010 1:49 PM CDT documented in this encounter Progress Notes Mikayla Mendoza - 04/28/2010 3:19 PM CDT Consult Notes on Referred Patient Date: 04/21/2010 RE: Edith Stallings : 1950 TIANA: 04/21/[address] Buck: I had the pleasure of seeing your patient Edith Stallings here at the [facility] on 04/21/2010. As you know she is a very pleasant 59 year old woman with a recent diagnosis of a grade 1, endometrioid adenocarcinoma of the endometrium in a background of atypical hyperplasia. She also had a cervical biopsy and pap smear, showing a polyp and no evidence of dysplasia. Given these findings shewas subsequently sent to the [facility] for new patient consultation. Ms. Stallings presented for evaluation after having onset of postmenopausal bleeding. She first had an attempted EMBx in clinic, but this came back showing scant cervical tissue only. She had an ultrasounddone which found the uterus to measure 9cm in maximum dimension with an EMS = 1.5cm. The ovaries appeared essentially normal, with a stable left approximate 2cm dermoid cyst which is stable from prior CT scan done in 2006. Review of Systems: Systemic no weight changes; [...] bowel habits; no blood in stool Genitourinary Abnormal vaginal bleeding as noted above; no urinary frequency; no urinary urgency; no dysuria; no pain; no abnormal vaginal discharge Breast no breast discharge; no breast changes; [...] Personal History of Urinary Calculi Past Surgical History: Past Surgical History Procedure Date ??? Cystoscopy 11/28/06 [place] ??? Colonoscopy 05/23/2007 repeat in 10 years ??? Hysteroscopy 03/30/10 Hysteroscopy, D&C, removal of portion of endocervical polyp. Health Maintenance: Last Pap Smear: Last month Result: normal She has not had a history of abnormal Pap smears. Last Mammogram: Last month Result: normal She has not had a history of abnormal mammograms. Last Colonoscopy: 2007 Result: normal Last DEXA Scan: 2007 Result: on Fosamax Last Diabetes Screening; 03/2010 at 77 Last Thyroid Screening: unknown Last Cholest Screenin03/2010 with Total Chol = 224, Trig = 193, HDL = 37 and LDL 149 Current Medications: has a current medication list which includes hydrochlorothiazide, lisinopril, simvastatin, fosamax, nutritional supplements, multiple vitamin, and aspirin. Allergies: Allergies Allergen Reactions ??? Sulfa Drugs Rash Social History: History Substance Use Topics ??? Tobacco Use: Never ??? Alcohol Use: No History Drug Use Not on file Family History: The patient's family history is notable for no cancers. Family History Problem Relation Age of Onset ??? C.A.D. Father [place], age 65, first event at 40 ??? Hypertension Mother Physical Exam: BP 165/106 Pulse 91 Ht 5' (1.524 m) Wt 163 lb 9.6 oz (74.208 kg) Body mass index is 31.95 kg/(m^2). General Appearance: healthy and alert, no [...] is smooth without nodularity or masses. Cervix appears normal and without lesions. Bimanual exam reveal no masses, nodularity or fullness. Recto-vaginal exam confirms these findings. Assessment: Edith Stallings is a 59 year old woman with a new diagnosis of a grade 1, endometrioid adenocarcinoma. A total of 60 minutes was spent with the patient, 55 minutes of which were spent in counseling the patient and/or treatment planning. Plan: 1.) We discussed her diagnosis and the recommendation for surgery, to include: removal of the uterus, cervix, fallopian tubes, ovaries and lymph node sampling. I think that she would be a good laparoscopic candidate. She understands that there is an approximate 15% chance of having to make an incisionto complete the surgery. The final pathology will determine whether or not additional treatment willbe needed. Fortunately, most cases are found at an early stage. 2.) Genetic risk factors were assessed and the patient does not meet the qualifications for a referral. 3.) Labs and/or tests ordered include: CXR and EKG. 4.) Health maintenance issues addressed today include: None addressed today. 5.) Pre-op teaching was completed today. Risks of surgery were discussed to include: bleeding, transfusion, infection, unintentional injury to surrounding organs/structures. Thank you for allowing us to participate in the care of your patient. Sincerely, Mikayla Mendoza MD Rotary Surface Grinder Department of Concrete Smoother and Women???s [facility] Division of Gynecologic Oncology [facility] documented in this encounter Nursing Notes 04/21/2010 2:00 PM CDT >> PATRICIA Fowler Apr 21, 2010 1:51 PM Patient presents with: Consult - Ref by Dr Buck Initial BP 165/106 Pulse 91 Ht 5' (1.524 m) Wt 163 lb 9.6 oz (74.208 kg) Estimated Body mass index is 31.95 kg/(m^2) as calculated from the following: Height as of this encounter: 5' 0(1.524 m). Weight as of this encounter: 163 lb 9.6 oz(74.208 kg).. BP completed using cuff size: regular Patricia Salinas MA 04/21/2010 documented in this encounter Plan of Treatment Not on filedocumented as of this encounter Procedures Procedure Name Priority Date/Time Associated Diagnosis Comme nts HC CHEST TWO VIEWS, Routine 04/21/2010 3:47 PM Uterine cancer (H) Results for this FRONT/LAT CDT procedure are i n the results section. ZZC Routine 04/21/2010 Uterine Cancer (H) ELECTROCARDIOGRAM, COMP W/READ documented in this encounter Results CHEST X-RAY 2 VW (04/21/2010 3:47 PM CDT) Anatomical Region Laterality Modality Other Specimen (Source) Anatomical Collection Method Collection Time Re ceived Time Location / / Volume Laterality 04/21/2010 3:47 PM CDT Impressions 04/21/2010 4:05 PM CDT EXAMINATION: Chest 2 views DATE: 04/21/2010 HISTORY: Uterine cancer. FINDINGS: Frontal and lateral views of t he chest are obtained without prior for comparison. The lungs are marcella r. There is no infiltrate, pleural effusion or pneumothorax. The he art size mediastinal contour are normal. IMPRESSION: 1. No acute chest radiographic abnormali ty. Mikayla Allan MD GENERAL IMAGING ELECTROCARDIOGRAM, COMP W/READ (04/21/2010) Narrative This result has an attachment that is no t available. Mikayla Allan MD EKG TECHNICAL documented in this encounter Visit Diagnoses Diagnosis Uterine cancer (H) - Primary Malignant neoplasm of uterus, part unspe cified documented in this encounter Care Teams Piece Maker Relationship Specialty Start Date End Date Sofia Landers PA-C PCP - General 05/10/06 documented as of this encounter
--- OUTSIDE RECORDS SUMMARY | 2022-07-05 17:53 | XMS_ITS | Encounter Summary ---
:1950 Author Organization [facility] Address [address] [place] [address] Care Team Providers Name Role Phone Sofia Landers PA-C Primary Care Provider Reason for Visit Reason Onset Date Comments Refill Request 03/08/2007 Encounter Details Date Type Department Care Team Description 03/08/2007 Refill [facility] Cooper Landers PA-C Refill Request [facility] [address] [address] [place] [address] [place] [address] [phone] (Wo rk) Social History Tobacco Use Types Packs/Day Years Used Date Smoking Tobacco: Never Alcohol Use Standard Drinks/Week Comments No 0 (1 standard drink = 0.6 oz pure alcoho l) Sex Assigned at Date Recorded Not on file documented as of this encounter Miscellaneous Notes Telephone Encounter - Lashonda Valero - 03/12/2007 2:24 PM CDT Left message for patient that she needs to be seen before anymore refills. Telephone Encounter - Sofia Landers - 03/12/2007 11:33 AM CDT Rx sent, needs to be seen before any more refills. 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 LDL not within range on RN Refill protocol Erma Bolton RN Telephone Encounter - Shila Caballero - 03/08/2007 11:35 AM CDT Last refill per Epic: 05/10/06 Last refill per fax: 10/02/06 Future Epic appointment: NA Labs: Lab Test 05/10/06 CHOL 179 HDL 45* LDL 106 TRIG 143 CHOLHDLRATIO 4.0 AST 40 05/10/2006 ALT 49 05/10/2006 documented in this encounter Plan of Treatment Not on filedocumented as of this encounter Visit Diagnoses Diagnosis Other and unspecified hyperlipidemia - P rimary documented in this encounter Care Teams Notching Press Operator Relationship Specialty Start Date End Date Sofia Landers PA-C PCP - General 05/10/06 documented as of this encounter
--- OUTSIDE RECORDS SUMMARY | 2022-07-05 17:53 | XMS_ITS | Encounter Summary ---
:1950 Author Organization [place] Address [address] [place] [address] Care Team Providers Name Role Phone Sofia Landers PA-C Primary Care Provider Mikayla Allan MD Unavailable Encounter Details Date Type Department Care Team Description 04/29/2010 Historic Results [facility] Cancer Mikayla Allan, [place] [address] [place] [address] ONCOLOGY [place], [place] HEMATOLOGY [phone] [place] [address] [address] [place] [phone] (Wo rk) Social History Tobacco Use Types Packs/Day Years Used Date Smoking Tobacco: Never Alcohol Use Standard Drinks/Week Comments No 0 (1 standard drink = 0.6 oz pure alcoho l) Sex Assigned at Date Recorded Not on file documented as of this encounter Plan of Treatment Not on filedocumented as of this encounter Procedures Procedure Name Priority Date/Time Associated Diagnosis Comme nts GRAM STAIN Routine 04/29/2010 7:13 PM Results f or this CDT procedure are i n the results section. FLUID CULTURE Routine 04/29/2010 7:13 PM Results for this AEROBIC BACTERIAL CDT procedure are in the results section. POTASSIUM STAT 04/29/2010 2:14 PM Results f or this CDT procedure are i n the results section. ABO/RH TYPE AND STAT 04/29/2010 2:14 PM Result s for this SCREEN CDT procedure are i n the results section. documented in this encounter Results fluid culture (04/29/2010 7:13 PM CDT) Patholo gist Method Time Signature Specimen Fluid MISYS Description PELVIC WASHING Culture Micro No growth MISYS Micro Report FINAL MISYS Status 05/05/2010 Specimen Anatomical Collection Method Collection Time Receive d Time (Source) Location / / Volume Laterality 04/29/2010 7:13 PM 0 9:34 CDT PM CDT Mikayla Allan MD LAB - MICRO GENERAL ORDERABL ES Performing Organization Address [facility] Phon e Number MISYS Gram stain (04/29/2010 7:13 PM CDT) Patholo gist Method Time Signature Specimen Fluid PELVIC MISYS Description WASHING Gram Stain No organisms MISYS seen Comment: Few WBC'S seen Gram stain and culture performed on conc entrated specimen Micro Report Status FINAL 04/29/2010 MIS YS Specimen Anatomical Collection Method Collection Time Receive d Time (Source) Location / / Volume Laterality 04/29/2010 7:13 PM 0 9:34 CDT PM CDT Mikayla Allan MD LAB - MICRO GENERAL ORDERABL ES Performing Organization Address [facility] Phon e Number MISYS Potassium (04/29/2010 2:14 PM CDT) P athologist Signature Potassium 3.8 3.4 - 5.3 MISYS mmol/L Specimen Anatomical Collection Method Collection Time Receive d Time (Source) Location / / Volume Laterality 04/29/2010 2:14 PM 0 2:18 CDT PM CDT Mikayla Allan MD LAB - BLOOD ORDERABLES Performing Organization Address [facility] Phon e Number MISYS ABO/Rh type and screen (04/29/2010 2:14 PM CDT) Analysis Performed At Patho logist Time Signature ABO A MISYS RH(D) Pos MISYS Antibody Neg MISYS Screen Specimen 05/02/2010 MISYS Expires Specimen Anatomical Collection Method Collection Time Receive d Time (Source) Location / / Volume Laterality 04/29/2010 2:14 PM 0 2:18 CDT PM CDT Mikayla Allan MD LAB - BLOOD BANK TEST ORDER Performing Organization Address City/State/ZIP Code Phon e Number MISYS documented in this encounter Visit Diagnoses Not on filedocumented in this encounter Care Teams Criminology Professor Relationship Specialty Start Date End Date Sofia Landers PA-C PCP - General 05/10/06 Mikayla Allan MD PCP - Obstetrics/Gynecology 05/18/1004/27 [place] [facility] [address] [place] [address] documented as of this encounter
--- OUTSIDE RECORDS SUMMARY | 2022-07-05 17:53 | XMS_ITS | Encounter Summary ---
:1950 Author Organization [place] Address [address] [place] [address] Care Team Providers Name Role Phone Sofia Landers PA-C Primary Care Provider Reason for Visit Reason Onset Date Comments Lab Result Notice 03/31/2010 Encounter Details Date Type Department Care Team Description 03/31/2010 Telephone [facility] Natalie Buck L ab Result Notice DIRECTOR OF ACQUISITION MARKETING MD GERALD ESPINO [facility] [address] [place] [address] [address] [place] [phone] (Wo rk) Social History Tobacco Use Types Packs/Day Years Used Date Smoking Tobacco: Never Alcohol Use Standard Drinks/Week Comments No 0 (1 standard drink = 0.6 oz pure alcoho l) Sex Assigned at Date Recorded Not on file documented as of this encounter Miscellaneous Notes Telephone Encounter - Natalie Buck - 03/31/2010 4:19 PM CDT Spoke with dEith and discussed diagnosis of endometrial endometrioid adenocarcinoma, FIGO grade 1. Recommended referral to [facility] for further evaluation and treatment. All questions answered. Natalie Buck MD documented in this encounter Plan of Treatment Not on filedocumented as of this encounter Visit Diagnoses Not on filedocumented in this encounter Care Teams Teacher Of The Deaf Relationship Specialty Start Date End Date Sofia Landers PA-C PCP - General 05/10/06 documented as of this encounter
--- OUTSIDE RECORDS SUMMARY | 2022-07-05 17:53 | XMS_ITS | Encounter Summary ---
:1950 Author Organization [facility] Address [address] [place] [address] Care Team Providers Name Role Phone Sofia Landers PA-C Primary Care Provider Encounter Details Date Type Department Care Team Description 05/23/2007 Orders Only [facility] Sofia Landers, HYPER LIPIDEMIA NEC/NOS [facility] [address] [place] [address] [facility] [phone] [place], [place] [phone] (Wo rk) Social History Tobacco Use Types Packs/Day Years Used Date Smoking Tobacco: Never Alcohol Use Standard Drinks/Week Comments No 0 (1 standard drink = 0.6 oz pure alcoho l) Sex Assigned at Date Recorded Not on file documented as of this encounter Plan of Treatment Not on filedocumented as of this encounter Procedures Procedure Name Priority Date/Time Associated Diagnosis Comme [facility] COLONOSCOPY W/WO Routine 05/23/2007 Hyperlipidemia Nec/ Nos Results for this BRUSH/WASH procedure are i n the results section . documented in this encounter Results Colonoscopy [[id number]] (05/23/2007) Narrative This result has an attachment that is no t available. Sofia Landers PA-C PROCEDURES documented in this encounter Visit Diagnoses Diagnosis Other and unspecified hyperlipidemia documented in this encounter Care Teams Cnc Maintenance Technician Relationship Specialty Start Date End Date Sofia Landers PA-C PCP - General 05/10/06 documented as of this encounter
--- OUTSIDE RECORDS SUMMARY | 2022-07-05 17:53 | XMS_ITS | Encounter Summary ---
:1950 Author Organization [facility] Address [address] [place] [address] Care Team Providers Name Role Phone Sofia Landers PA-C Primary Care Provider Encounter Details Date Type Department Care Team Description 11/28/2006 Operative Report [facility] UROLOGY Kamar Orellana, (Garden Worker) UROLOGY [facility] [address] [place] [address] [address] [place] [phone] (Wo rk) Social History Tobacco Use Types Packs/Day Years Used Date Smoking Tobacco: Never Alcohol Use Standard Drinks/Week Comments No 0 (1 standard drink = 0.6 oz pure alcoho l) Sex Assigned at Date Recorded Not on file documented as of this encounter Progress Notes Kamar Orellana - 01/24/2007 7:01 AM CDT FINAL PREOPERATIVE DIAGNOSIS: Right ureteropelvic junction stone. POSTOPERATIVE DIAGNOSIS: Right ureteropelvic junction stone. PROCEDURE: Cystoscopy, right ureteral catheter with stone push back and right extracorporeal shock wave lithotripsy. OPERATIVE NOTE: Informed consent was obtained from Edith Anaya. She was brought to the operating room and given general anesthesia, placed in the lithotomy position and sterile prep and drape were applied. Cystoscope was introduced into the bladder and revealed no unusual findings. The ureteral catheter was advanced up the right ureter until the stone was encountered and under fluoroscopy, the stonewas flushed back into the right renal pelvis. Ureteral catheter was left in place and then the patient was repositioned with the stone over the F2 point of the lithotriptor and a total of 2400 shocks were delivered to the stone. Spot films taken during the procedure showed excellent fragmentation. Theureteral catheter was removed at the termination of the procedure. She tolerated the procedure well and there were no complications. She will be discharged home from the recovery room and should followup with me in one month's time for KUB and she will bring in stone fragments to clinic at that time. Electronically signed on 01/24/2007 07:00 by KAMAR ORELLANA MD MT: [email or web address] Name: EDITH ANAYA MRN: [id number] Account: [id number] : 1950 Procedure Date: 11/28/2006 Document: [id number] cc: Sofia Landers PA-C documented in this encounter Plan of Treatment Not on filedocumented as of this encounter Visit Diagnoses Not on filedocumented in this encounter Care Teams Twister Doffer Relationship Specialty Start Date End Date Sofia Landers PA-C PCP - General 05/10/06 documented as of this encounter
--- OUTSIDE RECORDS SUMMARY | 2022-07-05 17:53 | XMS_ITS | Encounter Summary ---
:1950 Author Organization [place] Address [address] [place] [address] Care Team Providers Name Role Phone Sofia Landers PA-C Primary Care Provider Reason for Visit Reason Comments Pre-Op Exam Encounter Details Date Type Department Care Team Description 03/29/2010 Office Visit [facility] Sofia Landers, Preop General Physical Exam (Primary Dx); [facility]TW[facility] Essential Hypertension, Benign; [address] [place] HYPERLIPIDEMIA NEC/NOS; [place] [id number] [facility] Pre-Op Testing; [phone] Postmenopausal Bleeding [place] [id number] Social History Tobacco Use Types Packs/Day Years Used Date Smoking Tobacco: Never Alcohol Use Standard Drinks/Week Comments No 0 (1 standard drink = 0.6 oz pure alcoho l) Sex Assigned at Date Recorded Not on file documented as of this encounter Last Filed Vital Signs Vital Sign Reading Time Taken Comments Blood Pressure 118/72 03/29/2010 9:58 AM CDT Pulse 68 03/29/2010 9:58 AM CDT Temperature 36.1 ??C (96.9 ??F) 03/29/2010 9:58 AM CDT Respiratory Rate 16 03/29/2010 9:58 AM CDT Oxygen Saturation - - Inhaled Oxygen Concentration - - Weight 74.8 kg (165 lb) 03/29/2010 9:58 AM CDT Height 151.1 cm (4' 11.5) 03/29/2010 9:58 AM CDT Body Mass Index 32.77 03/29/2010 9:58 AM CDT documented in this encounter Progress Notes Antoine Valero - 03/29/2010 10:05 AM CDT [facility] [address] [facility] [address] PRE-OP EVALUATION: Today's date: 03/29/2010 Edith Stallings (: 1950) presents for pre-operative evaluation assessment as requested by Dr. Buck. She requires evaluation and anesthesia risk assessment prior to undergoing surgery/procedure for treatment of spotting once . Proposed procedure: D&C Date of Surgery/ Procedure: 03/30/10 Time of Surgery/ Procedure: 7:30 Hospital/Surgical Facility: [facility] Primary Physician: Sofia Landers PA-C Type of Anesthesia Anticipated: General History of anesthesia complications: NONE History of abnormal bleeding: NONE History of blood transfusions: YES. After giving with first child Patient has a Health Care Directive or Living Will: NO PREOP QUESTIONNAIRE 1- NO - Do you ever have any pain or discomfort in your chest? 2- NO - Have you ever had a severe pain across the front of your chest lasting for half an hour or more? 3- NO - Do you have swelling in your feet or ankles at times? 4- NO - Are you troubled by [...] chance that you may be ? HPI: Postmenopausal female with one episode of vaginal spotting. EMB was attempted though Dr Buck wasnot able to complete. The decision to do d and c was then made. Her HTN and hyperlipidemia are well controlled Patient Active Problem List Diagnoses Date Noted ??? Postmenopausal Bleeding [627.1] 03/08/2010 ??? HYPERLIPIDEMIA NEC/NOS [272.4] 05/10/2006 ??? BENIGN HYPERTENSION [401.1] 05/10/2006 ??? SYMPTOMATIC FEMALE CLIMACTERIC STATE [627.2] 05/10/2006 Past Medical History Diagnosis Date ??? Other and Unspecified Hyperlipidemia Hyperlipidemia ??? Essential Hypertension, Benign Hypertension, Benign ??? Personal History of Urinary Calculi Past Surgical History Procedure Date ??? Cystoscopy 11/28/06 [facility] ??? Colonoscopy 05/23/2007 repeat in 10 years Current outpatient prescriptions Medication Sig ??? FOSAMAX 35 MG OR TABS 1 TABLET WEEKLY ON AN EMPTY STOMACH- will need dexa this fall/winter ??? ESTROVEN OR 1 tablet daily ??? HYDROCHLOROTHIAZIDE 25 MG OR TABS 1 TABLET DAILY ??? LISINOPRIL 20 MG OR TABS 1 TABLET DAILY ??? SIMVASTATIN 20 MG OR TABS 1 TABLET AT BEDTIME ??? ZACH LOW STRENGTH OR 1 TABLET DAILY ??? MULTI-VITAMIN OR 1 tablet daily OTC products: no recent use of OTC ASA, NSAIDS or Steroids and no use of herbal medications or othersupplements other than estroven Allergies Allergen Reactions ??? Sulfa Drugs Rash [...] skin/hair changes H: NEGATIVE for bleeding problems HEME/ALLERGY/IMMUNE: vaginal spotting as above P: NEGATIVE for changes in mood or affect EXAM: BP 118/72 Pulse 68 Temp(Src) 96.9 ??F (36.1 ??C) (Oral) Resp 16 Ht 4' 11.5 (1.511 m) Wt 165 lb (74.844 kg) GENERAL APPEARANCE: healthy, alert and no [...] and affect normal/bright DIAGNOSTICS: Preop Testing EKG: appears normal, NSR, normal axis, normal intervals, no acute ST/T changes c/w ischemia, no LVH by voltage criteria, there are no prior tracings available Labs: pending IMPRESSION: Reason for surgery/procedure: postmenopausal spotting/ D and C Diagnosis/reason for consult: anesthesia clearance, HTN and hyperlipidemia The proposed surgical procedure is considered LOW risk. For above listed surgery and anesthesia: Patient is at MODERATE risk for surgery/procedure and perioperative/procedure complications. RECOMMENDATIONS: --Approval given to proceed with proposed procedure, without further diagnostic evaluation. --Patient is currently taking antiplatelet or anticoagulant meds- ASA though she has stopped her asafor approx 10 days now Recommendation(s):Discontinue ASA 10 days prior to procedure to reduce bleeding risk --Patient is to take all scheduled medications on the day of surgery except she was told to not takeher lisinopril for 24 hours before surgery Signed Electronically by: Sofia Landers PA-C Copy of this evaluation report is provided to requesting physician. Preop Guidelines documented in this encounter Nursing Notes 03/29/2010 10:15 AM CDT >> ANTOINE Romo Mar 29, 2010 10:05 AM Patient is here today for her pre-op. Estimated Body mass index is 32.77 kg/(m^2) as calculated fromthe following: Height as of this encounter: 4' 11.5(1.511 m). Weight as of this encounter: 165 lb(74.844 kg). BP Readings from Last 1 Encounters: 03/05/2010 : 150/90] BP cuff size: regular Do you feel safe in your environment? Yes Does the patient need any medication refills today? yes documented in this encounter Plan of Treatment Not on filedocumented as of this encounter Procedures Procedure Name Priority Date/Time Associated Diagnosis Comme nts CL AFF CBC WITH Routine 03/29/2010 10:44 Pre-Op Testing Result s for this PLATELETS, DIFF AM CDT procedure ar e in the results section. HCL BASIC Routine 03/29/2010 10:44 Pre-Op Testing Results f or this METABOLIC PANEL AM CDT procedure ar e in the results section. HCL ALT Routine 03/29/2010 10:44 HYPERLIPIDEMIA NEC/NOS R esults for this AM CDT procedure are i n the results section. CL AFF A.M.A. Routine 03/29/2010 10:44 HYPERLIPIDEMIA NEC/NOS Results for this LIPID PANEL AM CDT procedure are i n the results section. ZZC Routine 03/29/2010 Pre-Op Testing ELECTROCARDIOGRAM, COMP W/READ documented in this encounter Results CBC WITH PLATELETS, DIFF (03/29/2010 10:44 AM CDT) [facility] Method Time Signature WBC 5.3 4.0 - [facility] 11.0 [place] 10e9/L [facility] RBC Count 4.49 3.8 - 5.2 [facility] 10e12/L [facility] Hemoglobin 13.7 11.7 - [facility] 15.7 g/dL [facility] Hematocrit 41.0 35.0 - [place] 47.0 % [facility] MCV 91 78 - 100 [place] fl [facility] MCH 30.5 26.5 - [place] 33.0 pg [facility] MCHC 33.4 31.5 - [place] 36.5 g/dL [facility] RDW 14.7 10.0 - [place] 15.0 % [facility] Platelet Count 326 150 - 450 [place] 10e9/L [facility] Diff Method Automated [place] Method [facility] % Lymphocytes 41 20 - 48 % [facility] % Monocytes 7 0 - 12 % [facility] % Granulocytes 52 40 - 75 % [facility] Absolute 2.2 0.8 - 5.3 [place] Lymphocytes 10e9/L [facility] Absolute 0.3 0.0 - 1.3 [place] Monocytes 10e9/L [facility] Absolute 2.8 1.6 - 8.3 [place] Granulocytes 10e9/L [facility] Specimen Anatomical Collection Method Collection Time Receive d Time (Source) Location / / Volume Laterality 03/29/2010 10:44 03/29/2010 AM CDT 10:47 AM CDT Sofia Landers PA-C LABORATORY Performing Organization Address City/State/ZIP Code Phon e Number [facility] [facility] [address] [place] [address] [facility] (ABNORMAL) A.M.A. LIPID PANEL (03/29/2010 10:44 AM CDT) athologist Signature Cholesterol 224 (H) 0 - 200 [place] mg/dL [facility] Comment: LDL Cholesterol is the primary guide to therapy. The NCEP recommends further evaluation of: patients with cholesterol <200 mg/dL if additional risk factors are present, cholesterol >240 mg/dL, triglycerides >150 mg/dL, or HDL <40 mg/dL. Triglycerides 193 (H) 0 - 150 mg/dL [facility] HDL Cholesterol 37 (L) 50 - 110 mg/dL [facility] LDL Cholesterol Calculated 149 (H) 0 - 129 mg/dL [facility] Comment: LDL Cholesterol is the primary guide to therapy: LDL-cholesterol goal in high risk patients is <100 mg/dL and in very high risk patients is <70 mg/dL. VLDL-Cholesterol 39 (H) 0 - 30 mg/dL [facility] Cholesterol/HDL Ratio 6.0 (H) 0.0 - 5.0 [facility] Specimen Anatomical Collection Method Collection Time Receive d Time (Source) Location / / Volume Laterality 03/29/2010 10:44 03/29/2010 AM CDT 10:47 AM CDT Sofia Landers PA-C LABORATORY Performing Organization Address City/State/ZIP Code [address] [place], [place] [address] [facility] ALANINE AMINO (ALT) (SGPT) (03/29/2010 10:44 AM CDT) athologist Signature ALT 37 0 - 50 U/L [facility] Specimen Anatomical Collection Method Collection Time Receive d Time (Source) Location / / Volume Laterality 03/29/2010 10:44 03/29/2010 AM CDT 10:47 AM CDT Sofia Landers PA-C LABORATORY Performing Organization Address City/State/ZIP Code [address] [place] [address] [facility] A.M.A. BASIC METABOLIC PANEL (03/29/2010 10:44 AM CDT) athologist Signature Sodium 138 133 - 144 [place] mmol/L [facility] Potassium 4.5 3.4 - 5.3 [place] mmol/L [facility] Chloride 101 94 - 109 [place] mmol/L [facility] Carbon Dioxide 30 20 - 32 [place] mmol/L [facility] Anion Gap 7 6 - 17 [place] mmol/L [facility] Glucose 79 60 - 99 [place] mg/dL [facility] Urea Nitrogen 18 7 - 30 [place] mg/dL [facility] Creatinine 0.75 0.52 [facility] 1.04 mg/dL [facility] Comment: New IDMS-traceable calibration beginning 12/06/07 GFR Estimate 79 >60 mL/min/1.7m2 [facility] GFR Estimate If Black >90 >60 mL/min/1.7m2 [facility] Calcium 9.4 8.5 - 10.4 mg/dL [facility] Specimen Anatomical Collection Method Collection Time Receive d Time (Source) Location / / Volume Laterality 03/29/2010 10:44 03/29/2010 AM CDT 10:47 AM CDT Sofia Landers PA-C LABORATORY Performing Organization Address City/State/ZIP Code Phon e Number M [facility] [address] [address] [facility] ELECTROCARDIOGRAM, COMP W/READ (03/29/2010) Narrative This result has an attachment that is no t available. Sofia Landers PA-C EKG TECHNICAL Performing Organization Address City/[facility]/ZIP Code Phon e Number NL RADIOLOGY documented in this encounter Visit Diagnoses Diagnosis Preop general physical exam - Primary Other specified pre-operative examinatio n Essential hypertension, benign HYPERLIPIDEMIA NEC/NOS Other and unspecified hyperlipidemia Pre-op testing Preoperative examination, unspecified Postmenopausal bleeding documented in this encounter Care Teams Cake Tester Relationship Specialty Start Date End Date Sofia Landers PA-C PCP - General 05/10/06 documented as of this encounter
--- OUTSIDE RECORDS SUMMARY | 2022-07-05 17:53 | XMS_ITS | Encounter Summary ---
:1950 Author Organization [place] Address [address] [place] [address] Care Team Providers Name Role Phone Sofia Landers PA-C Primary Care Provider Encounter Details Date Type Department Care Team Description 01/22/2007 Office Visit [facility] Kamar Mckeon S pecialist No Charges [facility] [address] [place] [address] [place] [phone] (Wo rk) Social History Tobacco Use [...] on filedocumented in this encounter Care Teams Plate Colorer Relationship Specialty Start Date End Date Sofia Landers PA-C PCP - General 05/10/06 documented as of this encounter
--- OUTSIDE RECORDS SUMMARY | 2022-07-05 17:53 | XMS_ITS | Encounter Summary ---
:1950 Author Organization [place] Address [address] [place] [address] Care Team Providers Name Role Phone Sofia Landers PA-C Primary Care Provider Encounter Details Date Type Department Care Team Description 03/29/2010 Results Only HOSP RESULTS [facility] Cooper Landers PA-C [place] [address] [facility] [place] [address] (Wo rk) Social History Tobacco Use Types Packs/Day Years Used Date Smoking Tobacco: Never Alcohol Use Standard Drinks/Week Comments No 0 (1 standard drink = 0.6 oz pure alcoho l) Sex Assigned at Date Recorded Not on file documented as of this encounter Plan of Treatment Not on filedocumented as of this encounter Procedures Procedure Name Priority Date/Time Associated Diagnosis Comme [facility] MAMMO SCREEN Routine 03/29/2010 12:59 PM Resul ts for this BILATATERAL, INCL CDT procedure are in CAD WHEN PERF the results section. documented in this encounter Results SCREENING MAMMOGRAPHY DIGITAL (BILAT) (03/29/2010 12:59 PM CDT) Anatomical Region Laterality Modality Other Specimen (Source) Anatomical Collection Method Collection Time Re ceived Time Location / / Volume Laterality 03/29/2010 12:59 PM CDT Impressions 03/30/2010 8:43 AM CDT SCREENING MAMMOGRAM, BILATERAL, DIGITAL w/ CAD ??- ?? Mar 29, 2010 12:59:00 PM ?? BREAST SYMPTOMS: None given. ?? COMPARISON: ??08/05/08, 07/26/06 ?? PARENCHYMAL PATTERN: Heterogeneously den se. COMMENTS: No findings of suspicion for m alignancy. IMPRESSION: BI-RADS 1, NEGATIVE. RECOMMENDATIONS: ??Routine annual mammog nabil. Sofia Landers PA-C SPECIAL IMAGING STUDIES documented in this encounter Visit Diagnoses Not on filedocumented in this encounter Care Teams Crossing Watchman Relationship Specialty Start Date End Date Sofia Landers PA-C PCP - General 05/10/06 documented as of this encounter
--- OUTSIDE RECORDS SUMMARY | 2022-07-05 17:53 | XMS_ITS | Encounter Summary ---
:1950 Author Organization [place] Address [address] [place] [address] Care Team Providers Name Role Phone Sofia Landers PA-C Primary Care Provider Encounter Details Date Type Department Care Team Description 02/09/2007 Hospital Laboratory [facility] [address] [facility] [address] [place] [address] (Wo rk) Social History [...] Procedure Name Priority Date/Time Associated Comments Diagnosis UROSAT STONE FORMER Routine 02/09/2007 3:23 PM Re sults for this CDT procedure are i n the results section. HCL CREATININE, 24 Routine 02/09/2007 1:43 PM Res ults for this HOUR CDT procedure are i n the results section. HCL CALCIUM Routine 02/09/2007 1:43 PM Results f or this URINE-TIMED CDT procedure are i n the results section. HCL SODIUM URINE Routine 02/09/2007 1:43 PM Resul ts for this CDT procedure are i n the results section. HCL URIC ACID URINE Routine 02/09/2007 1:43 PM Re sults for this CDT procedure are i n the results section. HCL UREA NITROGEN Routine 02/09/2007 1:43 PM Resu lts for this (BUN) CDT procedure are i n the results section. HCL ELECTROLYTE PANEL Routine 02/09/2007 1:43 PM Results for this CDT procedure are i n the results section. HCL URIC ACID Routine 02/09/2007 1:43 PM Results for this CDT procedure are i n the results section. CL AFF PARATHORMONE Routine 02/09/2007 1:43 PM Re sults for this (INTACT) CDT procedure are i n the results section. HCL OXALATE, 24 HR Routine 02/09/2007 1:43 PM Res ults for this URINE CDT procedure are i n the results section. HCL CREATININE Routine 02/09/2007 1:43 PM Results for this CDT procedure are i n the results section. HCL CITRATE URINE Routine 02/09/2007 1:43 PM Resu lts for this CDT procedure are i n the results section. HCL CALCIUM Routine 02/09/2007 1:43 PM Results f or this CDT procedure are i n the results section. documented in this encounter Results Hospital - UROSAT STONE FORMERR (02/09/2007 3:23 PM CDT) [facility] Method Time Signature Calcium Urine (Removed) mg/24 h [facility] Stone Canceled, Test credited [place] REJECTED BY [facility] L AB Urine Oxalate (Removed) mg/24 h [facility] Canceled, Test credited [place] REJECTED BY [facility] L AB Urine Citrate (Removed) mg/24 h [facility] Canceled, Test credited [place] RE[facility] Urine Magnesium (Removed) mg/24 h [facility] Canceled, Test credited [place] REJECT[facility] Urine Uric Acid (Removed) mg/24 h [facility] Canceled, Test credited [place] REJECT[facility] pH Urine Kidney (Removed) [facility] Stone Canceled, Test credited [place] REJECTED [facility] Urine Total (Removed) L/24 h [facility] Volume Canceled, Test credited [place] REJECTED BY [facility] Sodium Urine (Removed) meq/24 h [facility] Kidney Stone Canceled, Test credited [place] REJECTED BY [facility] L [facility] Urine (Removed) mg/24 h [facility] Phosphorous Canceled, Test credited [place] REJECTED BY [facility] Potassium Urine (Removed) meq/24h [place] [facility] Stone Canceled, Test credited [place] REJECTED BY [facility] Creatinine (Removed) mg/24h [place] Urine Kidney Canceled, Test credited [place] Stone REJECTED BY [facility] L AB Specimen Anatomical Collection Method Collection Time Receive d Time (Source) Location / / Volume Laterality 02/09/2007 3:23 PM 7 3:24 CDT PM CDT Kamar Mckeon MD LABORATORY Performing Organization Address City/State/ZIP Code Phon e Number [address] [place] [address] [facility] - URIC ACID, 24 HR URINE (02/09/2007 1:43 PM CDT) [facility] gist Method Time Signature Uric Acid (Removed) mg/dL [place] Urine Test canceled - Lab radiology orderly error [facility] NAMED [facility] LAB Uric Acid (Removed) 0.25 - [place] Urine Test canceled - Lab radiology orderly error 0.75 g/24 [facility] LAB Uric Acid (Removed) g/g Cr [place] Urine Test canceled - Lab radiology orderly error [facility] NAMED [facility] LAB Specimen Anatomical Collection Method Collection Time Receive d Time (Source) Location / / Volume Laterality 02/09/2007 1:43 PM 7 1:44 CDT PM CDT Kamar Mckeon MD LABORATORY Performing Organization Address City/State/ZIP Code Phon e Number [address] [place] [address] [facility] - CALCIUM URINE-TIMED (02/09/2007 1:43 PM CDT) [facility] gist Method Time Signature Calcium Urine (Removed) mg/dL [place] mg/dL Test canceled - Lab radiology orderly error [facility] NAM[facility] LAB Calcium Urine (Removed) 0.10 - [facility] g/24 h Test canceled - Lab radiology orderly error 0.30 g/24 [facility] LAB Calcium Urine (Removed) g/g Cr [facility] g/g Cr Test canceled - Lab radiology orderly error [facility] NAMED [facility] LAB Specimen Anatomical Collection Method Collection Time Receive d Time (Source) Location / / Volume Laterality 02/09/2007 1:43 PM 7 1:44 CDT PM CDT Kamar Mckeon MD LABORATORY Performing Organization Address City/State/ZIP Code Phon e Number M [address] [place], [place] [address] [facility] - OXALATE, 24 HR URINE (02/09/2007 1:43 PM CDT) [facility] Method Time Signature Oxalate 24 Test [place] Hr/Random canceled [facility] Urine Lab order HOSPITAL LAB entry error Oxalate 24 Hr Test [place] canceled [facility] Lab order HOSPITAL LAB entry error Specimen Anatomical Collection Method Collection Time Receive d Time (Source) Location / / Volume Laterality 02/09/2007 1:43 PM 7 1:44 CDT PM CDT Kamar Mckeon MD LABORATORY Performing Organization Address City/State/ZIP Code Phon e Number M [address] [place] [address] [facility] - CITRATE, 24 HR URINE (02/09/2007 1:43 PM CDT) [facility] Method [place] Signature Citric Acid Test [place] Random Urine canceled [facility] LAB entry error Citric Acid Test [place] 24H/Random canceled [facility] Urine Lab order HOSPITAL LAB entry error Specimen Anatomical Collection Method Collection Time Receive d Time (Source) Location / / Volume Laterality 02/09/2007 1:43 PM 7 1:44 CDT PM CDT Kamar Mckeon MD LABORATORY Performing Organization Address City/State/ZIP Code Phon e Number M [address] [place] [address] [facility] - SODIUM URINE, TIMED (02/09/2007 1:43 PM CDT) [facility] Method [place] Signature Sodium Urine Canceled, mmol/L [place] mmol/L Test [facility] LAB Sodium Urine Canceled, 40 - 220 [place] mmol/24 h Test mmol/24 h [facility] LAB Specimen Anatomical Collection Method Collection Time Receive d Time (Source) Location / / Volume Laterality 02/09/2007 1:43 PM 7 1:44 CDT PM CDT Kamar Mckeon MD LABORATORY Performing Organization Address City/State/ZIP Code Phon e Number M [address] [place], [place] [address] [facility] Hospital - CREATININE, 24 HOUR (02/09/2007 1:43 PM CDT) Patholo gist Method Time Signature Creatinine Canceled, mg/dL [place] Urine Test [facility] LAB Creatinine Canceled, 0.80 - [place] Urine Timed Test 1.80 [facility] LAB Volume in mL Canceled, mL [facility] LAB Duration in Canceled, h [place] hours Test [facility] LAB Specimen Anatomical Collection Method Collection Time Receive d Time (Source) Location / / Volume Laterality 02/09/2007 1:43 PM 7 1:44 CDT PM CDT Kamar Mckeon MD LABORATORY Performing Organization Address City/State/ZIP Code Phon e Number M [address] [place], [place] [address] [facility] Hospital - URIC ACID (02/09/2007 1:43 PM CDT) P athologist Signature Uric Acid 6.8 2.5 - 7.5 [place] mg/dL [facility] NAM[facility] LAB Specimen Anatomical Collection Method Collection Time Receive d Time (Source) Location / / Volume Laterality 02/09/2007 1:43 PM 7 1:44 CDT PM CDT Kamar Mckeon MD LABORATORY Performing Organization Address City/State/ZIP Code Phon e Number M [address] [place] [address] [facility] LAB (ABNORMAL) Hospital - PARATHORMONE (INTACT) (02/09/2007 1:43 PM CDT) Analysis Performed At Patho logist Time Signature Parathyroid 79 (H) 12 - 72 [facility] Hormone Intact pg/mL [facility] LABS Specimen Anatomical Collection Method Collection Time Receive d Time (Source) Location / / Volume Laterality 02/09/2007 1:43 PM 7 1:44 CDT PM CDT Kamar Mckeon MD LABORATORY Performing Organization Address City/State/ZIP Code Phon e Number [address] [address] [facility]S Hospital - CREATININE (02/09/2007 1:43 PM CDT) athologist Signature Creatinine 0.87 0.60 - [facility] 1.30 mg/dL [facility] NAM[facility] LAB GFR Estimate 71 >60 [facility] mL/min/1.7 [facility] m2 [facility] LAB GFR Estimate If 86 >60 [facility] Black mL/min/1.[address] LAB Specimen Anatomical Collection Method Collection Time Receive d Time (Source) Location / / Volume Laterality 02/09/2007 1:43 PM 7 1:44 CDT PM CDT Kamar Mckeon MD LABORATORY Performing Organization Address City/State/ZIP Code Phon e Number [address] [place] [address] [facility] Hospital - CALCIUM (02/09/2007 1:43 PM CDT) athologist Signature Calcium 9.6 8.5 - 10.4 [facility] mg/dL [facility] NAMED [facility] LAB Specimen Anatomical Collection Method Collection Time Receive d Time (Source) Location / / Volume Laterality 02/09/2007 1:43 PM 7 1:44 CDT PM CDT Kamar Mckeon MD LABORATORY Performing Organization Address City/State/ZIP Code Phon e Number [address] [place] [address] [facility] Hospital - UREA NITROGEN (BUN) (02/09/2007 1:43 PM CDT) athologist Signature Urea Nitrogen 20 7 - 30 [facility] mg/dL [facility] NAMED [facility] LAB Specimen Anatomical Collection Method Collection Time Receive d Time (Source) Location / / Volume Laterality 02/09/2007 1:43 PM 7 1:44 CDT PM CDT Kamar Mckeon MD LABORATORY Performing Organization Address City/State/ZIP Code Phon e Number M [address] [place] [address] [facility] LAB Hospital - A.M.A. ELECTROLYTE PANEL (02/09/2007 1:43 PM CDT) athologist Signature Sodium 140 133 - 144 [place] mmol/L [facility] NAM[facility] LAB Potassium 4.2 3.4 - 5.3 [place] mmol/L [facility] NAM[facility] LAB Chloride 102 94 - 109 [place] mmol/L [facility] NAMED [facility] LAB Carbon Dioxide 30 20 - 32 [place] mmol/L [facility] NAMED [facility] LAB Anion Gap 8 6 - 17 [place] mmol/L [facility] NAMED [facility] LAB Comment: CORRECTED ON 02/09 AT 1908: PRE VIOUSLY REPORTED 8.5 Specimen Anatomical Collection Method Collection Time Receive d Time (Source) Location / / Volume Laterality 02/09/2007 1:43 PM 7 1:44 CDT PM CDT Kamar Mckeon MD LABORATORY Performing Organization Address City/State/ZIP Code Phon e Number M [address] [place] [address] [facility] LAB documented in this encounter Visit Diagnoses Not on filedocumented in this encounter Care Teams Greenskeeper Supervisor Relationship Specialty Start Date End Date Sofia Landers PA-C PCP - General 05/10/06 documented as of this encounter
--- OUTSIDE RECORDS SUMMARY | 2022-07-05 17:53 | XMS_ITS | Encounter Summary ---
:1950 Author Organization [place] Address [address] [place] [address] Care Team Providers Name Role Phone Sofia Landers PA-C Primary Care Provider Encounter Details Date Type Department Care Team Description 03/30/2010 Hospital Pathology [facility] Dc Levin, [facility] MD [facility] [address] [facility] [place] [address] GERALD ESPINO [place] [phone] (Wo rk) Social History Tobacco Use Types Packs/Day Years Used Date Smoking Tobacco: Never Alcohol Use Standard Drinks/Week Comments No 0 (1 standard drink = 0.6 oz pure alcoho l) Sex Assigned at Date Recorded Not on file documented as of this encounter Plan of Treatment Not on filedocumented as of this encounter Procedures Procedure Name Priority Date/Time Associated Diagnosis Comme nts HCL PAP THIN LAYER Routine 03/30/2010 12:00 AM Christen ortiz for this SCREEN CDT procedure are i n the results section. documented in this encounter Results [facility] - A THIN LAYER PAP SCREEN (03/30/2010 12:00 AM CDT) Component Value Ref Test Analysis Performed At [facility] Range Method Time Signature PAP NIL COPATH Copath Report COPATH Patient Name: EDITH ANAYA MR#: [id number] Specimen #: [id number] Collected: 03/30/2010 Received: 03/31/2010 Reported: 04/01/2010 15:41 Ordering Phy(s): AZEB LEVIN SPECIMEN/STAIN PROCESS: Pap thin layer prep screening ([facility]) ? Pap-Cyto x 1, Reflex HPV x 1 SOURCE: Cervical ---- Pap thin layer prep screening ([facility]) SPECIMEN ADEQUACY: Satisfactory for evaluation. -Transformation zone component present. CYTOLOGIC INTERPRETATION: Negative for Intraepithelial Lesion or Malignancy Electronically signed out by: KRISTI Badillo (ASCP) [facility] CLINICAL HISTORY: Irregular Bleeding, Papanicolaou Test Limitations: ??Cervical cytology is a scre ening test with limited sensitivity; regular screening is critical for cancer prevention; Pap tests are primarily effective for the diagnosis/prevention of squamous cell carcinoma, not adenoca rcinomas or other cancers. TESTING LAB LOCATION: [facility], [address] [place] [address] ??[id number] COLLECTION SITE: Client: ??Critical access hospital Location: SDS (P) Specimen (Source) Anatomical Collection Method Collection Time Re ceived Time Location / / Volume Laterality 03/30/2010 03/31/2010 9:59 AM CDT Azeb Levin MD LABORATORY Performing Organization Address City/State/ZIP Code Phon e Number [place] documented in this encounter Visit Diagnoses Not on filedocumented in this encounter Care Teams Datapower Consultant Relationship Specialty Start Date End Date Sofia Landers PA-C PCP - General 05/10/06 documented as of this encounter
--- OUTSIDE RECORDS SUMMARY | 2022-07-05 17:53 | XMS_ITS | Encounter Summary ---
:1950 Author Organization [place] Address [address] [place] [address] Care Team Providers Name Role Phone Sofia Landers PA-C Primary Care Provider Encounter Details Date Type Department Care Team Description 03/30/2010 Hospital Pathology [facility] Dc Levin, [facility] MD [facility] [address] [facility] [place] [address] GERALD ESPINO [place] [phone] (Wo rk) Social History Tobacco Use Types [...] Diagnosis Comme nts CL AFF SURGICAL Routine 03/30/2010 12:00 AM Resul ts for this PATHOLOGY CDT procedure are i n the results section. documented in this encounter Results Hospital - SURGICAL PATHOLOGY (03/30/2010 12:00 AM CDT) Component Value Ref Test Analysis Performed At [facility] Range Method Time Signature Copath Report Patient Name: EDITH ANAYA MR#: [id number] Specimen #: [id number] Collected: 03/30/2010 Received: 03/30/2010 Reported: 03/31/2010 15:51 Ordering Phy(s): AZEB LEVIN SPECIMEN(S): A: Endometrial curettings B: Cervical polyp FINAL DIAGNOSIS: A. ??Uterus, endometrial curettings: ?- Endometrial endometrioid adenocarcinoma, FIGO gra de I ? - Background of atypical complex hyperplasia B. ??Cervix, polyp, excision: ? - Cervical polyp ? - Cervical glandular and squamous epithelium with no evidence of dysplasia or malignancy COMMENT: The diagnosis was discussed with Dr. Levin on 03/31/2010 at 3:45 PM Electronically signed out by: Lucas Villatoro M.D., PhD CLINICAL HISTORY: 59-year-old female. ??Postmenopausal bleeding. GROSS: Two specimens are received, each labeled with the patient's name and hospital number. A. ?Specimen A is designated endometrial curet tings. ??The specimen consists of mucus and multiple fragments of hemorrh agic pink tissue measuring in aggregate 3.0 cm in greatest dimension. ??Entirely submitted in two cassettes. B. ?Specimen B is designated cervical polyp. ??The specimen consists of multiple fragments of pizarro tissue measuring in ag gregate 0.6 cm in greatest dimension. ??The contents of the container we re filtered and entirely submitted in one cassette. ??Fina Villatoro M.D./yamel sherman MICROSCOPIC: Microscopic evaluation was performed. TESTING LAB LOCATION: [address] [address] [place] Phone: ??[phone] COLLECTION SITE: Client: [facility] Location: SDS (P) Specimen (Source) Anatomical Collection Method Collection Time Re ceived Time Location / / Volume Laterality 03/30/2010 03/30/2010 2:14 PM CDT Azeb Levin MD LABORATORY Performing Organization Address City/State/ZIP Code Phon e Number [place] documented in this encounter Visit Diagnoses Not on filedocumented in this encounter Care Teams Supervisor [place] Relationship Specialty Start Date End Date Sofia Landers PA-C PCP - General 05/10/06 documented as of this encounter
--- OUTSIDE RECORDS SUMMARY | 2022-07-05 17:54 | XMS_ITS | Encounter Summary ---
:1950 Author Organization [place] Address [address] [place] [address] Care Team Providers Name Role Phone Sofia Landers PA-C Primary Care Provider Reason for Visit Reason Comments Abstract Encounter Details Date Type Department Care Team Description 11/12/2006 Abstract [facility] her, Chacho Jaramillo MD [address] [place] [address] (Wo rk) Social History Tobacco Use Types Packs/Day Years Used Date Smoking Tobacco: Never Alcohol Use Standard Drinks/Week Comments No 0 (1 standard drink = 0.6 oz pure alcoho l) Sex Assigned at Date Recorded Not on file documented as of this encounter Plan of Treatment Not on filedocumented as of this encounter Visit Diagnoses Not on filedocumented in this encounter Care Teams Cio Relationship Specialty Start Date End Date Sofia Landers PA-C PCP - General 05/10/06 documented as of this encounter
--- OUTSIDE RECORDS SUMMARY | 2022-07-05 17:54 | XMS_ITS | Encounter Summary ---
:1950 Author Organization [place] Address [address] [place] [address]. [place] [address] Care Team Providers Name Role Phone Sofia Landers PA-C Primary Care Provider Reason for Visit Reason Comments Abstract TRANSFERRED RECORDS FROM [facility] Encounter Details Date Type Department Care Team Description 05/18/2006 Abstract [facility] Abstract, Pr ovider OFFICE NOT[facility] Clinic [address] [place] [address] Social History Tobacco Use Types Packs/Day Years Used Date Smoking Tobacco: Never Alcohol Use Standard Drinks/Week Comments No 0 (1 standard drink = 0.6 oz pure alcoho l) Sex Assigned at Date Recorded Not on file documented as of this encounter Progress Notes Shazia Brock - 05/18/2006 11:54 AM CDT Transferred Records [facility] Date of Visit Assessment 06/03/05 ................. Well-woman exam. 05/08/04 ................. Well woman exam. Hypertension. 05/06/03 .................. Health maintenance. 04/05/02 .................. Health maintenance. 03/30/01 .................. Adult female health maintenance, perimenopausal. Hypertension. Rule out UTI. Neck/shoulder strain. 01/02/01 .................. UTI. 10/21/00 .................. Early right acute otitis media. Sinusitis. Probable viral syndrome. 03/31/00 .................. Pap smear. 03/17/00 .................. Normal flex sig to 60cm. 01/24/00 .................. Perimenopausal female health maintenance. Hypertension. Pain, right hip. documented in this encounter Plan of Treatment Not on filedocumented as of this encounter Visit Diagnoses Not on filedocumented in this encounter Care Teams Plating Department Helper Relationship Specialty Start Date End Date Sofia Landers PA-C PCP - General 05/10/06 documented as of this encounter
--- OUTSIDE RECORDS SUMMARY | 2022-07-05 17:54 | XMS_ITS | Encounter Summary ---
:1950 Author Organization [place] Address [address] [place] [address] Care Team Providers Name Role Phone Sofia Landers PA-C Primary Care Provider Reason for Visit Reason Onset Date Comments Results 08/02/2006 Encounter Details Date Type Department Care Team Description 08/02/2006 Telephone [facility] Cooper Landers PA-C Results [place] [address] [place] [address] [place] [address] [phone] (Wo rk) Social History Tobacco Use Types Packs/Day Years Used Date Smoking Tobacco: Never Alcohol Use Standard Drinks/Week Comments No 0 (1 standard drink = 0.6 oz pure alcoho l) Sex Assigned at Date Recorded Not on file documented as of this encounter Miscellaneous Notes Telephone Encounter - Stewart Cardoso - 08/03/2006 8:25 AM CST Pt informed of below. K HOLDER Telephone Encounter - Stewart Cardoso - 08/02/2006 9:09 AM CST Left message for pt to call. Stewart Cardoso CMA K HOLDER Telephone Encounter - Stewart Cardoso - 08/02/2006 9:09 AM CST Result Notes message copied by STEWART CARDOSO on 08/02/2006 at 9:09 AM ------ Message from: ТАТЬЯНА JOVEL Created: 08/02/2006 at 8:04 AM Please notify pt. Thanks, Erma Jovel, RN Notes recorded by Bennett Stock on 07/28/2006 at 6:29 PM Shows osteopenia, but not osteoporosis. Continue current meds. Notes recorded by Татьяна Jovel on 07/28/2006 at 9:38 AM Please review in Sofia Landers PA-C absence Erma Jovel RN K HOLDER documented in this encounter Plan of Treatment Not on filedocumented as of this encounter Visit Diagnoses Not on filedocumented in this encounter Care Teams Senior It Specialist Relationship Specialty Start Date End Date Sofia Landers PA-C PCP - General 05/10/06 documented as of this encounter
--- OUTSIDE RECORDS SUMMARY | 2022-07-05 17:54 | XMS_ITS | Encounter Summary ---
:1950 Author Organization [place] Address [address] [place] [address] Care Team Providers Name Role Phone Sofia Landers PA-C Primary Care Provider Encounter Details Date Type Department Care Team Description 11/12/2006 Admission H&P [facility] London Barr MD (Railroad Firer/Fireman) [id number] [place] [address] [phone] Social History Tobacco Use Types Packs/Day Years Used Date Smoking Tobacco: Never Alcohol Use Standard Drinks/Week Comments No 0 (1 standard drink = 0.6 oz pure alcoho l) Sex Assigned at Date Recorded Not on file documented as of this encounter Progress Notes Chacho Barr - 11/12/2006 9:52 AM CDT PRELIMINARY CHIEF COMPLAINT: Left-sided flank pain. HISTORY OF PRESENT ILLNESS: Edith Anaya is a 56-year-old female with history of renal calculi who had a sudden onset of left-sided flank pain at approximately 0300 this morning. She stayed home with the pain for approximately an hour when she just could not tolerate it anymore and woke her desiraeo is a surgical supervisor at the local [employer], and had him drive her into the Emergency Room. She states that this is the most severe pain she has had from a kidney stone. Her previous episode was not nearly as bad. She was brought into the Emergency Room and treated with IV fluids and Toradol with excellent relief of her pain. A CT scan did reveal 2 stones on the left; a 6-7 mm stone at the UVJ Thisone is asymptomatic. The 4 mm stone on the left in the proximal ureter is the symptomatic stone. Shehas no complaints of significant discomfort at the present time. No other complaints at this time. PAST MEDICAL HISTORY: Remarkable for hypertension and multiple episodes of kidney stones. Her most recent being last April. MEDICATIONS: 1. Lipitor 10 mg daily. 2. Hydrochlorothiazide 25 mg daily. 3. Lisinopril 20 mg daily. 4. Low dose aspirin daily. 5. Multivitamin daily. ALLERGIES: Sulfa. SOCIAL HISTORY: The patient is to the Muslim surgical supervisor in [place]. She does not smoke cigarettes or use alcohol. FAMILY HISTORY: Noncontributory to this admission. REVIEW OF SYSTEMS: Remarkable for the left flank pain, otherwise has some bloody urine. Otherwise, the remainder of the review of systems is unremarkable. PHYSICAL EXAMINATION: VITAL SIGNS: Stable. The patient is afebrile. The patient's blood pressure is elevated at 177/99. Repeat blood pressure checks have come back to more normotensive range. HEENT: Unremarkable. LUNGS: Clear. HEART: S1, S2. ABDOMEN: Soft. Patient does have a very slight left CVA tenderness with percussion. No CVA tenderness on the right. GENITORECTAL: Exam was not done. BREASTS: Exam not done. NEURO: Grossly intact. EXTREMITIES: Peripheral pulses were normal. No evidence of edema. Urine remarkable for greater than 100 RBCs. Sodium 141, potassium 3.5, chloride 104, CO2 of 27, glucose 138, BUN 27, creatinine 0.86, white count 8900, hemoglobin 14.6. CT scan did show a 4 mm stone in the left proximal ureter with moderate hydronephrosis. There is also a 6-7 mm stone in the right proximal ureter at the UPJ. ASSESSMENT: Renal calculi. PLAN: The patient will be admitted to the floor for pain control. We will strain her urine. Hopefully, she will pass these stones. CHACHO BARR MD MT: da Name: EDITH ANAYA Account: [id number] : 1950 Admitted: [id number] Document: [id number] documented in this encounter Plan of Treatment Not on filedocumented as of this encounter Visit Diagnoses Not on filedocumented in this encounter Care Teams Passenger Attendant Relationship Specialty Start Date End Date Sofia Landers PA-C PCP - General 05/10/06 documented as of this encounter
--- OUTSIDE RECORDS SUMMARY | 2022-07-05 17:54 | XMS_ITS | Encounter Summary ---
:1950 Author Organization [place] Address [address] [place] [address] Care Team Providers Name Role Phone Sofia Landers PA-C Primary Care Provider Encounter Details Date Type Department Care Team Description 11/12/2006 Discharge Summary [facility] Mile Barr MD (Japanese Interpreter) [address] [place] [id number] [place] [address] [phone] Social History Tobacco Use Types Packs/Day Years Used Date Smoking Tobacco: Never Alcohol Use Standard Drinks/Week Comments No 0 (1 standard drink = 0.6 oz pure alcoho l) Sex Assigned at Date Recorded Not on file documented as of this encounter Progress Notes Chacho Barr - 11/16/2006 10:14 PM CDT PRELIMINARY I was contacted by the nursing staff in regards to the fact that Edith Anaya wanted to be discharged from the hospital. She had been admitted that morning for kidney stones and pain control. She states that she has had no pain since her hospital admission. The nursing staff felt that she was in stable condition for discharge. I did not see the patient prior to discharge. Her condition was consideredto be stable, as per the nursing staff. DISCHARGE INSTRUCTIONS: She was discharged to home on a high fiber diet with normal activity. DISCHARGE MEDICATIONS: Pain medications for her discharge were Percocet for pain control and her Lipitor 10 mg daily, hydrochlorothiazide 25 mg daily, lisinopril 20 mg daily, low dose aspirin and a multivitamin q. day. The Percocet dosage was 5/325. The number was prescribed by Dr. Bacon, 1-2 tabs q. 4-6 p.r.n. FOLLOWUP: She was told to follow up with Dr. Mckeon the following day but there was some question whether she might be going to [place] for a trip since she was pain free. CHACHO BARR MD MT: amandat Name: EDITH ANAYA MRN: [id number] Account: [id number] : 1950 Admit Date: Discharge Date: 11/12/2006 Document: [id number] documented in this encounter Plan of Treatment Not on filedocumented as of this encounter Visit Diagnoses Not on filedocumented in this encounter Care Teams Strength And Conditioning Coach Relationship Specialty Start Date End Date Sofia Landers PA-C PCP - General 05/10/06 documented as of this encounter
--- OUTSIDE RECORDS SUMMARY | 2022-07-05 17:54 | XMS_ITS | Encounter Summary ---
:1950 Author Organization [place] Address [address] [place] [address] Care Team Providers Name Role Phone Unavailable Primary Care Provider Unavailable Encounter Details Date Type Department Care Team Description 09/17/2005 Hospital Radiology [facility] Ananda Davis MD [address] [place] [address] [phone] (Wo rk) Social History Tobacco Use Types Packs/Day Years Used Date Smoking Tobacco: Never Assessed Sex Assigned at Date Recorded Not on file documented as of this encounter Plan of Treatment Not on filedocumented as of this encounter Procedures Procedure Name Priority Date/Time Associated Diagnosis Comme nts X-RAY ABDOMEN AP Routine 09/17/2005 9:40 PM Re sults for this VIEW (KUB) POWER HAMMER OPERATOR procedure are i n the results section. documented in this encounter Results Hospital - X-RAY ABDOMEN 1 VW (09/17/2005 9:40 PM POWER HAMMER OPERATOR) Anatomical Region Laterality Modality Other Specimen (Source) Anatomical Collection Method Collection Time Re ceived Time Location / / Volume Laterality 09/17/2005 9:40 PM POWER HAMMER OPERATOR Impressions 09/19/2005 2:33 PM POWER HAMMER OPERATOR ABDOMEN, 1 VIEW ?09/17/2005 ?? CLINICAL HISTORY: ?? Flank pain ?? FINDINGS: ??One view of the abdomen was obtained. ??There is a nonobstructive bowel gas pattern. ??Ther e are 2 calcifications seen in the right pelvis. ??One of these could b e a ureteral stone. ??There is also a calcification seen adjacent to th e right L4 transverse process measuring 0.5 cm. This could also be a u reteral stone. ??There are no other definite stones seen along the cou rse of the ureters. ? IMPRESSION: ??Calcifications seen adjace nt to the right L4 transverse process measuring 0.5 cm, which could be a ureteral stone. ??There are also 2 calcifications seen in the right pelvis, with the largest one measuring 0.7 x 0.3 and a smaller one me asuring 0.6 x 0.3 cm. ??These also could be ureteral stones versus a p hlebolith. Wilfredo Davis MD GENERAL IMAGING documented in this encounter Visit Diagnoses Not on filedocumented in this encounter
--- OUTSIDE RECORDS SUMMARY | 2022-07-05 17:54 | XMS_ITS | Encounter Summary ---
:1950 Author Organization [facility] Address [address] [place] [address] Care Team Providers Name Role Phone Mat Mccray PA-C Primary Care Provider Reason for Visit Reason Comments Physical pap Encounter Details Date Type Department Care Team Description 05/10/2006 Office Visit [facility] Mat Mccray ROUTI NE MEDICAL EXAM (Primary Dx); [facility] ANTWAN HYPERLIPIDEMIA NEC/NOS; [address] [place] [facility]; [place], [place] [id number] [facility] STATE [phone] [place] [address] Social History Tobacco Use Types Packs/Day Years Used Date Smoking Tobacco: Never Alcohol Use Standard Drinks/Week Comments No 0 (1 standard drink = 0.6 oz pure alcoho l) Sex Assigned at Date Recorded Not on file documented as of this encounter Last Filed Vital Signs Vital Sign Reading Time Taken Comments Blood Pressure 112/80 05/10/2006 8:30 AM CDT Pulse 68 05/10/2006 8:30 AM CDT Temperature 36.4 ??C (97.5 ??F) 05/10/2006 8:30 AM CDT Respiratory Rate 16 05/10/2006 8:30 AM CDT Oxygen Saturation - - Inhaled Oxygen Concentration - - Weight 71.7 kg (158 lb) 05/10/2006 8:30 AM CDT Height 154.9 cm (5' 1) 05/10/2006 8:30 AM CDT Body Mass Index 29.85 05/10/2006 8:30 AM CDT documented in this encounter Progress Notes Nanda Samayoa - 05/10/2006 9:50 AM CDT Addended by: NANDA SAMAYOA on: 05/10/2006 9:50:42 AM Modules accepted: Orders Antoine Valero - 05/10/2006 8:55 AM CDT SUBJECTIVE: Edith Anaya is a 55 year old female presenting for annual pap and physical exam. Patient questionnaire is completed and reviewed in detail with the patient. Current medical concerns: Refill on meds-no SE from meds, doing well, no CP, SOB or pedal edema . Pt has had a flex sig 5 or 6 year ago , which was normal wondering when she needs another test done. Last PAP: 06/11 Abnormal Paps? no Self Breast Exams? yes Last Mammogram: 06/11 Abnormal breast findings? no Menarche at what age? 9 Menstrual Cycle: Frequency Duration Associated symptoms Contraception: Estrogen Replacement: never Family history of: Breast Cancer? no Cervical Cancer? no Endometrial Cancer? no Ovarian Cancer? no Colon Cancer? no Other Cancer? none Past Medical History Diagnosis Date ??? HYPERLIPIDEMIA NEC/NOS Hyperlipidemia ??? BENIGN HYPERTENSION Hypertension, Benign Past Surgical History Procedure Date ??? No history of surgery Family History Problem Relation ??? C.A.D. Father [place], age 65, first event at 40 ??? [...] file Current outpatient prescriptions Medication Sig ??? ZACH LOW STRENGTH OR 1 TABLET DAILY ??? MULTI-VITAMIN OR 1 tablet daily ??? ESTROVEN OR None Entered ??? LIPITOR 10 MG OR TABS 1 TABLET DAILY ??? HYDROCHLOROTHIAZIDE 25 MG OR TABS 1 TABLET DAILY ??? LISINOPRIL 20 MG OR TABS 1 TABLET DAILY Allergies Allergen Reactions ??? Sulfa Drugs Rash REVIEW OF SYSTEMS: Skin: negative Eyes: negative Ears/Nose/Throat: negative Respiratory: negative Cardiovascular: negative Gastrointestinal: negative Genitourinary: negative Musculoskeletal: neck pain-1 week ago while curling her hair had an intense muscle spasm, now resolved Neurologic: negative Psychiatric: negative Hematologic/Lymphatic/Immunologic: negative Endocrine: negative PHYSICAL EXAM: BP 112/80 Pulse 68 Temp (Src) 97.5 (Oral) Resp 16 Ht 5' 1 (1.55m) Wt 158 lbs (71.7kg) LMP Postmenopausal GENERAL APPEARANCE: healthy, alert and [...] and affect normal/bright ASSESSMENT/PLAN: 1. Routine Medical Exam-Discussed diet, exercise, seat belt and sunscreen use. Colonoscopy this summer, mammo and dexa scan ordered, pap pending 2. Htn- well controlled, continue current meds 3. Hyperlipidemia- labs pending will titrate as needed documented in this encounter Nursing Notes 05/10/2006 8:30 AM CDT >> ANTOINE VALERO 05/10/2006 8:55 am This is a new patient to our clinic today. She is here for her physcial and pap; she is fasting. Sheis requesting some refills on her meds. Body mass index is 29.87 kg/(m^2). BP cuff size: regular Do you feel safe in your environment? Yes Check if medication refills are needed documented in this encounter Plan of Treatment Not on filedocumented as of this encounter Procedures Procedure Name Priority Date/Time Associated Diagnosis Comme nts HC VENOUS COLLECTION Routine 05/10/2006 9:50 Hyperlipide marissa Nec/Nos AM CDT Benign Hypertens ion Routine Medical Exam Symptomatic Female Climacteric State HCL COMPREHENSIVE Routine 05/10/2006 9:46 Benign Hyperte nsion Results for this METABOLIC PANEL AM CDT Hyperlipidemia N ec/Nos procedure are in Routine Medical Exam the results Symptomatic Female section. Climacteric State CL AFF A.M.A. LIPID Routine 05/10/2006 9:46 Hyperlipidem ia Nec/Nos Results for this PANEL AM CDT Routine Medical Exam procedure are in Benign Hypertension the resu lts section. HCL PAP THIN LAYER Routine 05/10/2006 12:00 Routine Medical Ex am Results for this SCREEN AM CDT procedure are i n the results section. documented in this encounter Results A.M.A. COMPREHENSIVE MET.PANEL (05/10/2006 9:46 AM CDT) P athologist Signature Sodium 141 133 - 144 [facility] mmol/L [facility] Potassium 3.8 3.4 - 5.3 [facility] mmol/L [facility] Chloride 102 94 - 109 [facility] mmol/L [facility] Carbon Dioxide 30 20 - 32 [facility] mmol/L [facility] Anion Gap 9.2 6 - 17 [facility] mmol/L [facility] Glucose 87 60 - 110 [facility] mg/dL [facility] Urea Nitrogen 19 7 - 30 [facility] mg/dL [facility] Creatinine 0.71 0.60 - [facility] 1.30 mg/dL [facility] GFR Estimate >90 >60 [facility] mL/min/1.[address] LAB GFR Estimate If >90 >60 [facility] Black mL/min/1.[address] LAB Calcium 9.4 8.5 - 10.4 [facility] mg/dL [facility] Bilirubin Total 0.4 0.2 - 1.3 [facility] mg/dL [facility] Albumin 4.4 3.2 - 4.5 [place] g/dL [facility] Protein Total 8.0 6.0 - 8.2 [place] g/dL [facility] Alkaline 87 40 - 150 [place] Phosphatase U/L [facility] ALT 49 0 - 50 U/L [facility] AST 40 0 - 45 U/L [facility] Specimen Anatomical Collection Method Collection Time Receive d Time (Source) Location / / Volume Laterality 05/10/2006 9:46 AM 6 9:48 CDT AM CDT Mat SAENZ-C LABORATORY Performing Organization Address City/State/ZIP Code Phon e Number [place] [id number] [facility] [place] [id number] [facility] (ABNORMAL) A.M.A. LIPID PANEL (05/10/2006 9:46 AM CDT) athologist Signature Cholesterol 179 0 - 200 [place] mg/dL [facility] Comment: LDL Cholesterol is the primary guide to therapy: LDL-cholesterol goal in high risk patients is <100 mg/dL and in very high risk patients is <70 mg/dL. The NCEP recommends further evaluation of: patients with cholesterol <200 mg/dL if additional risk factors are present, cholesterol >240 mg/dL, triglycerides >150 mg/dL, or HDL <40 mg/dL. Triglycerides 143 0 - 150 mg/dL [facility] HDL Cholesterol 45 (L) 50 - 110 mg/dL [facility] LDL Cholesterol Calculated 106 0 - 129 mg/dL [facility] VLDL-Cholesterol 29 0 - 30 mg/dL [facility] Cholesterol/HDL Ratio 4.0 0.0 - 5.0 [facility] Specimen Anatomical Collection Method Collection Time Receive d Time (Source) Location / / Volume Laterality 05/10/2006 9:46 AM 6 9:48 CDT AM CDT Mat [facility] LABORATORY Performing Organization Address City/State/ZIP Code Phon e Number M [facility] [address] [facility] [place] [address] [facility] A THIN LAYER PAP SCREEN (05/10/2006 12:00 AM CDT) Component Value Ref Test Analysis Performed At [facility] Range Method Time Signature PAP NIL COPATH Copath Report COPATH Patient Name: EDITH ANYAA MR#: [id number] Specimen #: [id number] Collected: 05/10/2006 Received: 05/10/2006 Reported: 05/11/2006 11:54 Ordering Phy(s): MAT MCCRAY SPECIMEN/STAIN PROCESS: Pap thin layer prep screening ([facility]) ? Pap-Cyto x 1, Reflex HPV x 1 SOURCE: Cervical, endocervical ---- Pap thin layer prep screening ([facility]) SPECIMEN ADEQUACY: Satisfactory for evaluation. -Transformation zone component absent. CYTOLOGIC INTERPRETATION: Negative for Intraepithelial Lesion or Malignancy Electronically signed out by: LISA Ovalle (ASCP) Processed and screened at [facility] CLINICAL HISTORY: Post Menopausal, TESTING LAB LOCATION: [facility], [address] [place] [address] ??[id number] COLLECTION SITE: Client: ??[facility] Location: [facility] (P) Specimen (Source) Anatomical Collection Method Collection Time Re ceived Time Location / / Volume Laterality 05/10/2006 05/10/2006 2:49 PM CDT Mat Mccray PA-C LABORATORY Performing Organization Address City/State/ZIP Code Phon e Number [place] documented in this encounter Visit Diagnoses Diagnosis Routine general medical examination at a health care facility - Primary Other and unspecified hyperlipidemia Essential hypertension, benign Symptomatic menopausal or female climact bharat states documented in this encounter Care Teams Joy Operator Relationship Specialty Start Date End Date Mat Mccray PA-C PCP - General 05/10/06 documented as of this encounter
--- OUTSIDE RECORDS SUMMARY | 2022-07-05 17:54 | XMS_ITS | Encounter Summary ---
:1950 Author Organization [place] Address [address] [place] [address] Care Team Providers Name Role Phone Sofia Landers PA-C Primary Care Provider Encounter Details Date Type Department Care Team Description 11/12/2006 Hospital Laboratory [facility] Abstract, Provi cassie [facility] Social History Tobacco Use Types Packs/Day Years Used Date Smoking Tobacco: Never Alcohol Use Standard Drinks/Week Comments No 0 (1 standard drink = 0.6 oz pure alcoho l) Sex Assigned at Date Recorded Not on file documented as of this encounter Plan of Treatment Not on filedocumented as of this encounter Procedures Procedure Name Priority Date/Time Associated Diagnosis Comme nts HCL UA MICRO IF Routine 11/12/2006 5:15 AM Result s for this POSITIVE CDT procedure are i n the results section. CL AFF MICRO Routine 11/12/2006 5:15 AM Results f or this EXAM-URINE CDT procedure are i n the results section. CL AFF CBC WITH Routine 11/12/2006 5:12 AM Result s for this PLATELETS, DIFF CDT procedure ar e in the results section. HCL BASIC METABOLIC Routine 11/12/2006 5:12 AM Re sults for this PANEL CDT procedure are i n the results section. documented in this encounter Results (ABNORMAL) Hospital - MICRO EXAM-URINE (11/12/2006 5:15 AM CDT) P athologist Signature WBC Urine O - 2 0 - 2 /HPF [facility] RBC Urine >100 (A) 0 - 2 /HPF [facility] Squamous EPI Few FEW /LPF [facility] Bacteria Urine Few (A) NEG /HPF [facility] Specimen Anatomical Collection Method Collection Time Receive d Time (Source) Location / / Volume Laterality 11/12/2006 5:15 AM 7 5:17 CDT AM CDT Provider Abstract LABORATORY Performing Organization Address City/State/ZIP Code Phon e Number M [facility] [address] [facility] [place] [address] [facility] (ABNORMAL) Hospital - UA MICRO IF POSITIVE (11/12/2006 5:15 AM CDT) Patholo gist Method Time Signature Color Urine Yellow [facility] Appearance Urine Cloudy [facility] Glucose Urine Negative NEG mg/dL [facility] Bilirubin Urine Negative NEG [facility] Ketones Urine Negative NEG mg/dL [facility] Specific [place] >1.030 1.003 - [place] Urine 1.035 [facility] Blood Urine Large (A) NEG [facility] pH Urine 5.5 5.0 - 7.0 [place] pH [facility] Protein Albumin Trace (A) NEG mg/dL [facility] Urobilinogen 0.2 0.2 - 1.0 [place] Urine EU/dL [facility] Nitrite Urine Negative NEG [facility] Leukocyte Negative NEG [place] Esterase Urine [facility] Source Midstream [facility] Specimen Anatomical Collection Method Collection Time Receive d Time (Source) Location / / Volume Laterality 11/12/2006 5:15 AM 7 5:17 CDT AM CDT Provider Abstract LABORATORY Performing Organization Address City/State/ZIP Code Phon e Number M [facility] [address] [facility] [place] [address] [facility] (ABNORMAL) Hospital - A.M.A. BASIC METABOLIC PANEL (11/12/2006 5:12 AM CDT) P athologist Signature Sodium 141 133 - 144 [place] mmol/L [facility] Potassium 3.5 3.4 - 5.3 [place] mmol/L [facility] Chloride 104 94 - 109 [place] mmol/L [facility] Carbon Dioxide 27 20 - 32 [place] mmol/L [facility] Anion Gap 10.3 6 - 17 [place] mmol/L [facility] Glucose 138 (H) 60 - 110 [place] mg/dL [facility] Urea Nitrogen 27 7 - 30 [place] mg/dL [facility] Creatinine 0.86 0.60 - [place] 1.30 mg/dL [facility] GFR Estimate 72 >60 [place] mL/min/1.[address] LAB GFR Estimate If 87 >60 [place] Black mL/min/1.[address] LAB Calcium 9.5 8.5 - 10.4 [place] mg/dL [facility] Specimen Anatomical Collection Method Collection Time Receive d Time (Source) Location / / Volume Laterality 11/12/2006 5:12 AM 7 8:22 CDT AM CDT Provider Abstract LABORATORY Performing Organization Address City/State/ZIP Code Phon e Number [place] [id number] [facility] [place] [address] CENTER [facility] Hospital - CBC WITH PLATELETS, DIFF (11/12/2006 5:12 AM CDT) [facility] gist Method Time Signature WBC 8.9 4.0 - [place] 11.0 [facility] 10e9/L [facility] RBC Count 4.91 3.8 - 5.2 [place] 10e12/L [facility] Hemoglobin 14.6 11.7 - [place] 15.7 g/dL [facility] Hematocrit 43.4 35.0 - [facility] 47.0 % [facility] MCV 88 78 - 100 [facility] MCH 29.8 26.5 - [place] 33.0 pg [facility] MCHC 33.7 31.5 - [place] 36.5 g/dL [facility] RDW 12.0 10.0 - [place] 15.0 % [facility] Platelet Count 371 150 - 450 [place] 10e9/L [facility] Diff Method Automated [facility] % Neutrophils 47 40 - 75 % [facility] % Lymphocytes 38 20 - 48 % [facility] % Monocytes 11 0 - 12 % [facility] % Eosinophils 3 0 - 6 % [facility] % Basophils 1 0 - 2 % [facility] Absolute 4.2 1.6 - 8.3 [place] Neutrophil 10e9/L [facility] Absolute 3.4 0.8 - 5.3 [place] Lymphocytes 10e9/L [facility] Absolute 1.0 0.0 - 1.3 [place] Monocytes 10e9/L [facility] Absolute 0.3 0.0 - 0.7 [place] Eosinophils 10e9/L [facility] Absolute 0.1 0.0 - 0.2 [place] Basophils 10e9/L [facility] Specimen Anatomical Collection Method Collection Time Receive d Time (Source) Location / / Volume Laterality 11/12/2006 5:12 AM 7 8:22 CDT AM CDT Provider Abstract LABORATORY Performing Organization Address City/State/ZIP Code Phon e Number [address] [place] [address] [facility] documented in this encounter Visit Diagnoses Not on filedocumented in this encounter Care Teams Grades 1 6 Tutor Relationship Specialty Start Date End Date Sofia Landers PA-C PCP - General 05/10/06 documented as of this encounter
--- OUTSIDE RECORDS SUMMARY | 2022-07-05 17:54 | XMS_ITS | Encounter Summary ---
:1950 Author Organization [place] Address [address] [place] [address] Care Team Providers Name Role Phone Sofia Landers PA-C Primary Care Provider Encounter Details Date Type Department Care Team Description 07/26/2006 Orders Only [facility] Sofia Landers SYMPT OMATIC FEMALE CLIMACTERIC STATE; [facility] ANTWAN ROUTINE MEDICAL EXAM; [id number] [employer] [address] HYPERLIPIDEMIA NEC/[place] [address] [facility] [phone] [place], [place] [address] (Wo rk) Social History Tobacco Use Types Packs/Day Years Used Date Smoking Tobacco: Never Alcohol Use Standard Drinks/Week Comments No 0 (1 standard drink = 0.6 oz pure alcoho l) Sex Assigned at Date Recorded Not on file documented as of this encounter Plan of Treatment Not on filedocumented as of this encounter Procedures Procedure Name Priority Date/Time Associated Diagnosis Comme nts C MAMMOGRAM, Routine 07/26/2006 9:52 AM Routine general medica l Results for this SCREENING PRUNER examination at a health proc edure are in care facility the results section. C DEXA, BONE Routine 07/26/2006 9:43 AM Symptomatic menopausal Results for this DENSITY, AXIAL PRUNER or female climacteric proc edure are in [place] states the results Routine general medical sect ion. examination at a health care facility Other and unspecified hyperlipidemia documented in this encounter Results MAMMOGRAM, SCREENING (07/26/2006 9:52 AM PRUNER) Anatomical Region Laterality Modality Other Specimen (Source) Anatomical Collection Method Collection Time Re ceived Time Location / / Volume Laterality 07/26/2006 9:52 AM PRUNER Impressions 07/27/2006 11:35 AM PRUNER SCREENING MAMMOGRAM ? CLINICAL HISTORY: ??55-year-old, no comp laints. ? FINDINGS: ??Two views of both breasts we re obtained. Comparison made to outside studies done 05/24/2004 and 1 from [facility] in [place], [place]. ? There is a mild amount of residual breas t density. ??The parenchymal pattern is similar to the previous study . ??There are no suspicious groups of clustered microcalcifications or dominant masses. ? IMPRESSION: ??Stable mammogram. ??No rad iographic evidence of malignancy. ? Bi-Rads Category 1 ?Negative ?? Services provided by [facility]. Sofia Landers PA-C SPECIAL IMAGING STUDIES DEXA, BONE DENSITY, AXIAL [place] (07/26/2006 9:43 AM PRUNER) Anatomical Region Laterality Modality Other Specimen (Source) Anatomical Collection Method Collection Time Re ceived Time Location / / Volume Laterality 07/26/2006 9:43 AM PRUNER Impressions 07/27/2006 10:28 AM PRUNER HISTORY: ??55 -year-old, screening for o steoporosis, baseline study An evaluation of your patient was perfor med in our mobile unit using the [employer] Eclipse model DPX bone densi tometer. ??The results of the study expressed as bone mineral density (BMD) are as follows: AP SPINE sBMD patient (mg/cm2) . .(L2 to L4) ?904 Z-Score (age matched s BMD) ?-1.17 T-Score (relative to peak s BMD ?-1.61 LEFT HIP sBMD patient (mg/cm2) (proximal femur) ? ?911 Z-Score (age matched) ?0.43 T-Score (relative to peak sBMD ? -0.37 ? DEFINITIO N OF TERMS AND VALUES ? Terms: sBMD: ??Standardized Bone Mineral Densit y (mg/cm2) T#: ?Standard deviation of the patie nt's [...] results are enclosed. IMPRESSION: ??Bone mineral density in th e lumbar spine consistent with osteopenia. ??In the left hip the bone m ineral density is within normal limits. Narrative This result has an attachment that is no t available. Sofia Landers PA-C SPECIAL IMAGING STUDIES documented in this encounter Visit Diagnoses Diagnosis Symptomatic menopausal or female climact bharat states Routine general medical examination at a health care facility Other and unspecified hyperlipidemia documented in this encounter Care Teams Waterproof Material Folder Relationship Specialty Start Date End Date Sofia Landers PA-C PCP - General 05/10/06 documented as of this encounter
--- OUTSIDE RECORDS SUMMARY | 2022-07-05 17:54 | XMS_ITS | Encounter Summary ---
:1950 Author Organization [place] Address [address] [place] [address] Care Team Providers Name Role Phone Sofia Landers PA-C Primary Care Provider Reason for Visit Reason Comments Flu Shot Encounter Details Date Type Department Care Team Description 06/12/2006 Allied Health/Nurse [facility] Flu Shot Visit Clinic [id number] [place] [id number] Social History Tobacco Use Types Packs/Day Years Used Date Smoking Tobacco: Never Alcohol Use Standard Drinks/Week Comments No 0 (1 standard drink = 0.6 oz pure alcoho l) Sex Assigned at Date Recorded Not on file documented as of this encounter Progress Notes Dilia Roach - 06/13/2006 2:29 PM CST Edith Stallings 1. Is the person to be vaccinated sick today? No 2. Does the person to be vaccinated have an allergy to eggs? No 3. Has the person to be vaccinated ever had a serious reaction to any influenza vaccine in the past? No STOP here for injectable vaccine. Proceed for internasal. 4. Is the person being vaccinated younger than 5 or older than 49 years of age? [...] the person to be vaccinated ever had Gillain-Topsham' Syndrome? Not Applicable 10. Does the person to be vaccinated live with or expect to have close contact with a person whose immune system is severly compromised or work with bone marrow transplant or chemotherapy patients? 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
--- OUTSIDE RECORDS SUMMARY | 2022-07-05 17:54 | XMS_ITS | Encounter Summary ---
:1950 Author Organization [place] Address [address] [place] [address] Care Team Providers Name Role Phone Unavailable Primary Care Provider Unavailable Encounter Details Date Type Department Care Team Description 09/17/2005 Hospital Laboratory [facility] Abstract, [facility] Social History Tobacco Use Types Packs/Day Years Used Date Smoking Tobacco: Never Assessed Sex Assigned at Date Recorded Not on file documented as of this encounter Plan of Treatment Not on filedocumented as of this encounter Procedures Procedure Name Priority Date/Time Associated Diagnosis Comme nts HCL UA MICRO IF Routine 09/17/2005 10:20 PM Resul ts for this POSITIVE DINING ROOM HOST procedure are i n the results section. CL AFF MICRO Routine 09/17/2005 10:20 PM Results for this EXAM-URINE DINING ROOM HOST procedure are i n the results section. documented in this encounter Results (ABNORMAL) Hospital - MICRO EXAM-URINE (09/17/2005 10:20 PM DINING ROOM HOST) P athologist Signature WBC Urine O - 2 0 - 2 /HPF [facility] RBC Urine 10-25 (A) 0 - 2 /HPF [facility] Squamous EPI Few FEW /LPF [facility] Specimen Anatomical Collection Method Collection Time Receive d Time (Source) Location / / Volume Laterality 09/17/2005 10:20 09/17/2005 PM DINING ROOM HOST 10:26 PM DINING ROOM HOST Provider Abstract LABORATORY Performing Organization Address City/State/ZIP Code Phon e Number M [facility] 911 [facility] [place] [address] CENTER [facility] (ABNORMAL) Hospital - UA MICRO IF POSITIVE (09/17/2005 10:20 PM DINING ROOM HOST) [facility] gist Method Time Signature Color Urine Yellow [facility] Appearance Urine Clear [facility] Glucose Urine Negative NEG mg/dL [facility] Bilirubin Urine Negative NEG [facility] Ketones Urine 15 (A) NEG mg/dL [facility] Specific [place] 1.020 1.003 - [place] Urine 1.035 [facility] Blood Urine Moderate (A) NEG [facility] pH Urine 6.5 5.0 - 7.0 [place] pH [facility] Protein Albumin Negative NEG mg/dL [facility] Urobilinogen 0.2 0.2 - 1.0 [place] Urine EU/dL [facility] Nitrite Urine Negative NEG [facility] Leukocyte Negative NEG [place] Esterase Urine [facility] Source Midstream [facility] Specimen Anatomical Collection Method Collection Time Receive d Time (Source) Location / / Volume Laterality 09/17/2005 10:20 09/17/2005 PM DINING ROOM HOST 10:26 PM DINING ROOM HOST Provider Abstract LABORATORY Performing Organization Address City/State/ZIP Code Phon e Number [facility] 911 [facility] [place] [address] C[address] [facility] documented in this encounter Visit Diagnoses Not on filedocumented in this encounter
--- OUTSIDE RECORDS SUMMARY | 2022-07-05 17:55 | XMS_ITS | Encounter Summary ---
:1950 Author Organization [facility] Address [address] [place] [address] Care Team Providers Name Role Phone Unavailable Primary Care Provider Unavailable Encounter Details Date Type Department Care Team Description 08/03/2020 Clinical Communication Department of Family [facility] Medicine, [place] [facility] in [place], [place] [address] [place] [address] Social History Tobacco Use Types Packs/Day Years Used Date Smoking Tobacco: Never Assessed Sex Assigned at Date Recorded Not on file documented as of this encounter Miscellaneous Notes Telephone Encounter - Samanta Shweta Stapleton - 08/03/2020 1:16 PM CST What is the purpose of the call?: Requesting Testing Only Request Testing In the past 14 days are any of the following symptoms new to you and not related to an existing health condition?: No symptoms noted In the past 14 days have you had close contact* with a person who has a LABORATORY CONFIRMED case ofCOVID-19?: Yes exposure noted. [place] patient, instruct to quarantine, testing indicated (End Screening) Testing Recommendation Endpoint Is testing recommended? : Recommended to test Plan: Endpoint recommendation: Testing indicated, advised to be swabbed for COVID-19 Only , sent to [address]: located at [address], [place] side of [facility]. You must schedule an appointment for testing at this location. Please call [phone] during the hours of 7:30 am to 7 pm or you can directly schedule your appointment through patient online services. Testing hours are daily 9 am to 7 pm. When you arrive at the testing site: Remain in your vehicle and check-in by phone using the same appointment line number. and Please avoid using public transportation per CDC recommendation. If you do not have personal transportation please self-quarantine until a personal transportation option is available. *Reminder if sending patient for testing in [facility] or [facility], route encounter to the correct testing pool. IDER ENROLLMENT SPECIALIST documented in this encounter Plan of Treatment Not on filedocumented as of this encounter Visit Diagnoses Not on filedocumented in this encounter
--- OUTSIDE RECORDS SUMMARY | 2022-07-05 17:55 | XMS_ITS | Encounter Summary ---
:1950 Author Organization [facility] Address [address] [place] [address] Care Team Providers Name Role Phone Unavailable Primary Care Provider Unavailable Reason for Visit Reason Onset Date Comments Outpatient COVID-19 Testing 08/03/2020 Encounter Details Date Type Department Care Team Description 08/03/2020 External Outreach Department of Family Post, Holden Bolden, Encounter For Medicine, [place] [address] M.D. Screening For Other Street Professional [address] [facility] Viral Diseases Building in [place], [place] (COV ID-[id number]) ([facility] [id number] Dx) [address] [facility] [phone] [place], [place] (Work) [phone] Social History Tobacco Use Types Packs/Day Years Used Date Smoking Tobacco: Never Assessed Sex Assigned at Date Recorded Not on file documented as of this encounter Progress Notes Phi Gama R.N. - 08/03/2020 1:19 PM CST Encounter created for COVID-19 screening. URE ENLARGER documented in this encounter Plan of Treatment Not on filedocumented as of this encounter Procedures Procedure Name Priority Date/Time Associated Diagnosis Comme nts SARS CORONAVIRUS-2, Routine 08/03/2020 3:25 PM Encounter For R esults for this PCR PICTURE ENLARGER Screening For Other procedur e are in Viral Diseases the results (COVID-19) section. documented in this encounter Results SARS Coronavirus-2, PCR Asymptomatic (08/03/2020 3:25 PM PICTURE ENLARGER) [facility] Method Time Signature SARS Swab, 08/04/2020 [facility] Coronavirus-2 Nasopharynx 2:50 AM PICTURE ENLARGER Source SARS Undetected Undetected 08/04/2020 [facility] Coronavirus-2 2:50 AM PICTURE ENLARGER , PCR Comment: SARS-CoV-2 RNA absent. This result does not rule out COVID-19 in the patient, as the sensitivity of the test depends o n the timing of the specimen collection and quality of the specimen. Result should be correlated with patient's history and clinical presentat ion. ----ADDITIONAL INFORMATION---- This test was developed and its performa nce characteristics determined by [facility] in a manner co nsistent with CLIA requirements. Independent review by the U.S. Food and Drug Administration is pending. Visit the CDC website: https://www.cdc.gov/coronavirus/ ?? for the most recent guidelines on Shah[place] virus testing. Fact Sheet for Healthcare Providers: (https://www.SiftyNet/it-iMusicail es/ Provider_Fact_Sheet_for_[facility]_COVI D-19.pdf) Fact Sheet for Patients: (https://www.SiftyNet/itwedgiesmmfil es/ Patient_Fact_Sheet_for_COVID-19.pdf) Specimen Anatomical Collection Method Collection Time Receive d Time (Source) Location / / Volume Laterality Varies 08/03/2020 3:25 PM 0 6:25 (Nasopharynx) PICTURE ENLARGER PM PICTURE ENLARGER Holden Srivastava M.D. LAB MICROBIOLOGY - GENERAL O RDERABLES Performing Organization Address City/State/ZIP Code Phon e Number [facility] - [address] [place], [place] [address] [facility] [place] [address] Laboratories-[facility] [address] documented in this encounter Visit Diagnoses Diagnosis Encounter For Screening For Other Viral Diseases (COVID-19) - Primary documented in this encounter Additional Health Concerns Infection Onset Date Last Indicated Resolved Time COVID19 Pending 08/03/2020 08/03/2020 08/04/2020 2:51 AM PICTURE ENLARGER documented as of this encounter
--- OUTSIDE RECORDS SUMMARY | 2022-07-05 17:55 | XMS_ITS | Encounter Summary ---
:1950 Author Organization [facility] Address [address] [place] [address] Care Team Providers Name Role Phone Unavailable Primary Care Provider Unavailable Encounter Details Date Type Department Care Team Description 08/03/2020 Admin Visit Department of Family Medicine, [address] [phone] Social History Tobacco Use Types Packs/Day Years Used Date Smoking Tobacco: Never Assessed Sex Assigned at Date Recorded Not on file documented as of this encounter Plan of Treatment Not on filedocumented as of this encounter Visit Diagnoses Not on filedocumented in this encounter Additional Health Concerns Infection Onset Date Last Indicated Resolved Time COVID19 Pending 08/03/2020 08/03/2020 08/04/2020 2:51 AM CONSTRUCTION CONTROLLER documented as of this encounter
--- OUTSIDE RECORDS SUMMARY | 2022-07-05 17:55 | XMS_ITS | Clinical Summary ---
:1950 [facility] Organization [facility] Address [address] [place] [address] Care Team Providers Name Role Phone Unavailable Primary Care Provider Unavailable Source Comments Patient records contain information from all sites at [facility]. For routine questions regarding patient records, call [phone] during business hours, M-F 8:00 AM - 5:00 PM Central Time. Record requests for emergency care only can be directed to [phone] at any time.[facility] Social History Tobacco Use Types Packs/Day Years Used Date Smoking Tobacco: Never Assessed Sex Assigned at Date Recorded Not on file Plan of Treatment Health Maintenance Due Date Last Done Comments Bone Density Scan (Osteoporosis 1950 Screen) CT Colonography 1950 Cologuard 1950 Colonoscopy 1950 Colorectal Cancer Screening 1950 FIT 1950 Fasting Glucose for Diabetes 1950 Screening Hepatitis C Screening 1950 Mammogram 1950 Depression Screening (Annual 08/07/2021 PHQ-2) Fall Risk Screen (Annual) 08/07/2021 DTaP,Tdap,and Td Vaccines (3 - Td 04/05/2027 04/05/2017, , or Tdap) 11/29/1996 Pneumococcal vaccine (65+ years) Completed 03/30/2015, 02/2014 Zoster Vaccines Completed 10/17/2019, 06/21/2019, 04/19/2012 COVID-19 Vaccine Completed 06/07/2022, 12/14/2021, 06/10/2021, Additional history exists Influenza Vaccine Completed 06/07/2022, 05/10/2021, 05/12/2020, Additional history exists Insurance Payer Benefit Plan Subscriber ID Effective Dates Phone Address Type / Group BUD [facility] [id number] 2018-Brian [phone] [address] [address] PPO [facility] [address] [place] [id number]
--- NOTE | 2022-07-05 18:00 | CRLHL7_ITS ---
For Patients: As a result of the Cures Act, medical imaging exams and procedure reports are released immediately into your electronic medical record. You may view this report before your referring provider. If you have questions, please contact your health care provider. BILATERAL SCREENING MAMMOGRAM WITH COMPUTER-AIDED DETECTION AND TOMOSYNTHESIS TECHNIQUE: CC and MLO views were obtained. These mammographic images have been obtained using full-field digital technique. These mammographic images were interpreted with the benefit of computer-aided detection. Breast Tomosynthesis was used in this interpretation. COMPARISON FILM: 06/21/21,06/19/20,06/14/19. FINDINGS: The breasts are almost entirely fatty. IMPRESSION: There is no radiographic evidence for malignancy. ASSESSMENT: BI-RADS Category 2: Benign RECOMMENDATION: Routine screening mammogram in 1 year. A lay language report of this examination will be provided to the patient. Garfield Hernandez M.D. Diagnostic/Nuclear Medicine Radiologist [email or web address] MACIE:tee Transcribed: 11:01 a.m. PT/Dictated by: Garfield Hernandez MD @ 07/06/2022 8:42:00 AM (Electronically Signed)
== END 2022-07-05 17:47 | disposition home or self-care (01) ==
LOC: MAMMO 17:47
PROVIDERS: PCP Family Medicine; Visit Provider Family Medicine
DX: Z12.31 Encounter for screening mammogram for malignant neoplasm of breast (principal)
CPT/HCPCS: 77063; 77067

== ENCOUNTER 2023-07-07 07:55 | Outpatient (CLI) | payer MEDICARE, BC, SELFPAY | END 2023-07-07 07:56 | disposition home or self-care (01) | LOC: NFLDREF 07-10 07:47 | PROVIDERS: PCP Family Medicine; Referring Provider Family Medicine; Visit Provider Family Medicine | DX: E78.5 Hyperlipidemia, unspecified (principal) | CPT/HCPCS: 80053; 80061 ==

== ENCOUNTER 2023-07-13 09:08 | Outpatient (CLI) | payer MEDICARE, BC, SELFPAY ==
--- NOTE | 2023-07-13 09:15 | CRLHL7_ITS ---
For Patients: As a result of the Cures Act, medical imaging exams and procedure reports are released immediately into your electronic medical record. You may view this report before your referring provider. If you have questions, please contact your health care provider. BILATERAL SCREENING MAMMOGRAM WITH COMPUTER-AIDED DETECTION AND TOMOSYNTHESIS TECHNIQUE: CC and MLO views were obtained. These mammographic images have been obtained using full-field digital technique. These mammographic images were interpreted with the benefit of computer-aided detection. Breast Tomosynthesis was used in this interpretation. COMPARISON FILM: 07/05/22, 06/21/21, 06/19/20. FINDINGS: The breasts are almost entirely fatty IMPRESSION: There is no radiographic evidence for malignancy. ASSESSMENT: BI-RADS Category 2: Benign RECOMMENDATION: Routine screening mammogram in 1 year. A lay language report of this examination will be provided to the patient. Earnest Lees M.D. Diagnostic Radiologist [email or web address] BRIELLE/[email or web address] / be/Dictated by: Earnest Lees MD @ 07/13/2023 12:57:00 PM (Electronically Signed)
== END 2023-07-13 09:09 | disposition home or self-care (01) ==
LOC: MAMMO 09:09
PROVIDERS: PCP Family Medicine; Visit Provider Family Medicine
DX: Z12.31 Encounter for screening mammogram for malignant neoplasm of breast (principal)
CPT/HCPCS: 77063; 77067

== ENCOUNTER 2024-07-11 07:42 | Outpatient (CLI) | payer MEDICARE, BC, SELFPAY ==
--- OUTSIDE RECORDS SUMMARY | 2024-07-15 02:22 | XMS_ITS | Encounter Summary ---
Author Organization [facility] Address [address] [place] [address]. [place] [address] Care Team Providers Care Mopper Name Role Phone Sofia Landers PA-C Primary Care Provider [phone] Mikayla Allan MD Unavailable [phone] Sofia Landers PA-C Unavailable Sofia Landers PA-C Unavailable [phone] Reason for Visit * Reason Onset Date Comments Refill Request 11/02/2009 fosamax Encounter Details Date Type Department Care Team (Late st Contact Info) Description 11/02/[address] [address] Sofia Landers PA-C [address] [place] [address] Refill Request (fosamax) Social History Tobacco Use Types Packs/Day Years Used Date Smoking Tobacco: Never Alcohol Use Standard Drinks/Week Comments No 0 (1 standard drink = 0.6 oz pur e alcohol) Comments No Sex and Gender Information Value Date Recorded Sex Assigned at Not on file 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 Note patient request to change to three month supply.......Tuyet Fournier RN * Telephone Encounter - Sofia Jimenes - 11/02/2009 9:31 AM CDT Pt is requesting #12 for a 3 month supply last refill per epic- 03/30/09 last refill per fax-10/30/09 last office visit-03/30/09 labs- no date fax came-10/30/09 documented in this encounter Plan of Treatment Not on file documented as of this encounter Visit Diagnoses Diagnosis Osteopenia- Primary Disorder of bone and cartilage, unspecified documented in this encounter Care Teams Mopper Relationship Specialty Start Date End Date Sofia Landers PA-C PCP - General 05/10/06 Mikayla Allan MD [facility] [address] [place] [address] [id number] PCP - Obstetrics/Gynecology 05/18/10 Sofia Landers PA-C [phone] [facility] [place] [address] PCP - Assigned PCP 12/05/10 10/09/18 Sofia Landers PA-C [id number] [address] [id number] Assigned PCP 05/10/12 04/17/21 documented as of this encounter
--- OUTSIDE RECORDS SUMMARY | 2024-07-15 02:22 | XMS_ITS | Referral Summary ---
Author Organization [facility] Address [address] [place] [id number] Care Team Providers Care Machine Applicator Cementer Name Role Phone Sofia Landers PA-C Primary Care Provider Allergies Active Allergy Reactions Criticality Noted Date Comments Pneumococcal Polysaccharide Vaccine 02/13/2014 Lump, fever Sulfa Antibiotics Rash 05/10/2006 Medications ZACH LOW STRENGTH OR 1 TABLET DAILY Active MULTI-VITAMIN OR 1 tablet daily Active fish oil-omega-3 fatty acids (OMEGA 3) 1000 MG capsule Take 2 g by mouth daily. Active amLODIPine (NORVASC) 10 MG tabletIndicatio ns:Hypertension goal BP (blood pressure) < 130/80 Take 1 tablet (10 mg) by mouth daily 90 tablet 3 04/12/2018 Active atorvastatin (LIPITOR) 20 MG tabletIndicatio ns:Hyperlipidem ia LDL goal <130 Take 1 tablet (20 mg) by mouth daily 90 tablet 3 04/12/2018 Active hydrochlorothia zide (HYDRODIURIL) 25 MG tabletIndicatio ns:Hypertension goal BP (blood pressure) < 130/80 Take 1 tablet (25 mg) by mouth daily 90 tablet 3 04/12/2018 Active lisinopril (PRINIVIL/ZESTR IL) 20 MG tabletIndicatio ns:Hypertension goal BP (blood pressure) < 130/80 Take 3 tablets (60 mg) by mouth daily 270 tablet 3 04/12/2018 Active ibuprofen (ADVIL/MOTRIN) 800 MG tablet Take 1 tablet (800 mg) by mouth every 8 hours as needed for pain 30 tablet 01/15/2019 Active Active Problems Problem Noted Date Diagnosed Date Overweight 11/06/2013 Overview (05/08/2015): Problem list name updated by automated process. Provider to review Osteopenia 01/31/2011 Hypertension goal BP (blood pressure) < 130/80 0 12/10/2010 Malignant neoplasm of ovary 08/18/2010 HYPERLIPIDEMIA LDL GOAL <130 06/06/2010 Uterine cancer 04/21/2010 Overview (06/09/2014): 03/30/10 embx-- A. Uterus, endometrial curettings: - [...] clinically indicated/advised by provider. Postmenopausal bleeding 03/08/2010 Overview (03/31/2012): Symptomatic menopausal or female climacteric sta kian 05/10/2006 H/O malignant neoplasm of endometrium Overview (04/07/2016): 04/29/10 Hysterectomy: Pathology - Stage IA, grade [...] speculum exam. Resolved Problems Problem Noted Date Diagnosed Date Resolved Date Advanced directives, counseling/discussion 03/28/2012 01/22/2024 [facility] 02/10/2011 01/22/2024 Overview (11/12/2012): X EMERGENCY CARE PLAN Presenting Problem Signs and Symptoms Treatment Plan Questions or conerns during clinic hours I will call the clinic directly Questions or conerns outside clinic hours I will call the 24 hour nurse line at [phone] Patient needs to schedule an appointment I will call the 24 hour scheduling team at [phone] or clinic directly Same day treatment I will call the clinic first, nurse line if after hours, urgent care and express care if needed DX [id number] REPLACED WITH [id number] [facility] (11/12/2012) Hyperlipidemia 05/10/2006 10/19/2010 Overview (05/07/2015): Problem list name updated by automated process. Provider to review Essential hypertension, benign 05/10/2006 02/10/2014 Immunizations Name Administration Dates Next Due HEPA 04/18/2011,01/04/2000 HepB 07/08/1994,01/17/1994,12/16/1993 Influenza (High Dose) Trival ent,PF (Fluzone) 04/12/2018,06/13/2017,04/08/2016,2015 Influenza (IIV3) PF 04/19/2012, 1,06/12/2007,2005,06/21/2002,05/26/2001,06/24/2000 Pneumo Conj 13-V (2010&after) 03/30/2015 Pneumococcal 23 valent 02/10/2014 TD,PF 7+ (Tenivac) 11/29/1996 TDAP Vaccine (Adacel) 04/05/2017,05/02/2007 Typhoid IM 01/04/2000 Zoster vaccine, live 04/19/2012 Social History Tobacco Use Types Packs/Day Years Used Date Smoking Tobacco: Never Smokeless Tobacco: Never Alcohol Use Standard Drinks/Week Comments Yes 0 (1 standard drink = 0.6 oz pur e alcohol) occasional glass of wine PHQ-2 Answer Date Recorded PHQ-2 Score 0 04/12/2018 Adolescent Education Answer Date Record ed Getting School Help Needed Not on file 05/23 Comments No Sex and Gender Information Value Date Recorded Sex Assigned at Not on file 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 Gender Identity Not on file Sexual Orientation Not on file Last Filed Vital Signs Vital Sign Reading Time Taken Comments Blood Pressure 129/69 01/15/2019 11:30 PM CDT Pulse 88 01/15/2019 11:30 PM CDT Temperature 35.7 C (96.3 F) 01/15/2019 9:30 PM CDT Respiratory Rate 16 01/15/2019 11:30 PM CDT Oxygen Saturation 97% 01/15/2019 11:30 PM CDT Inhaled Oxygen Concentration - - Weight 68.9 kg (152 lb) 01/15/2019 9:30 PM CDT Height 150.7 cm (4' 11.33) 04/12/2018 9:52 AM C DT Body Mass Index 30.36 04/12/2018 9:52 AM CDT Plan of Treatment Not on file Insurance MEDICARE [facility] MEDICARE SUPPLEMENT Care Teams Machine Applicator Cementer Relationship Specialty Start Date End Date Sofia Landers PA-C PCP - General 05/10/06
--- OUTSIDE RECORDS SUMMARY | 2024-07-15 02:22 | XMS_ITS | Clinical Summary ---
Author Organization [facility] Address [address] [place] [address] Care Team Providers Care Potato Loader Name Role Phone Sofia Landers PA-C Primary [...] Resolved Date Advanced directives, counseling/discussion 03/28/2012 01/22/2024 [facility] 02/10/2011 01/22/2024 Overview (11/12/2012): X EMERGENCY CARE PLAN Presenting Problem Signs and Symptoms Treatment Plan Questions or conerns during clinic hours I will call the clinic directly Questions or conerns outside clinic hours I will call the 24 hour nurse line at [phone] Patient needs to schedule an appointment I will call the 24 hour scheduling team at [phone] or clinic directly Same day treatment I will call the clinic first, nurse line if after hours, urgent care and express care if needed DX V65.8 REPLACED WITH [id number] [facility] (11/12/2012) Hyperlipidemia 05/10/2006 10/19/2010 Overview (05/07/2015): Problem [...] syndrome Genetic Disorder Daughter 2 C.A.D. 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
== END 2024-07-11 07:43 | disposition home or self-care (01) ==
LOC: NFLDREF 07-15 02:20
PROVIDERS: PCP Family Medicine; Referring Provider Family Medicine; Visit Provider Family Medicine
DX: I10 Essential (primary) hypertension (principal); E78.5 Hyperlipidemia, unspecified
CPT/HCPCS: 80053; 80061

== ENCOUNTER 2024-08-19 12:47 | Outpatient (CLI) | payer MEDICARE, BC, SELFPAY ==
--- NOTE | 2024-08-19 13:00 | CRLHL7_ITS ---
For Patients: As a result of the Century Cures Act, medical imaging exams and procedure reports are released immediately into your electronic medical record. You may view this report before your referring provider. If you have questions, please contact your health care provider. BILATERAL SCREENING MAMMOGRAM WITH COMPUTER-AIDED DETECTION AND TOMOSYNTHESIS TECHNIQUE: CC and MLO views were obtained. These mammographic images have been obtained using full-field digital technique. These mammographic images were interpreted with the benefit of computer-aided detection. Breast Tomosynthesis was used in this interpretation. COMPARISON FILM: 07/13/23, 07/05/22, 06/21/21. FINDINGS: There are scattered areas of fibroglandular density. IMPRESSION: There is no radiographic evidence for malignancy. ASSESSMENT: BI-RADS Category 2: Benign RECOMMENDATION: Routine screening mammogram in 1 year. A lay language report of this examination will be provided to the patient. Earnest Lees M.D. Diagnostic Radiologist [email or web address] SP/Dictated by: Earnest Lees MD @ 08/20/2024 9:10:00 AM (Electronically Signed)
== END 2024-08-19 12:48 | disposition home or self-care (01) ==
LOC: MAMMO 12:49
PROVIDERS: PCP Family Medicine; Visit Provider Family Medicine
DX: Z12.31 Encounter for screening mammogram for malignant neoplasm of breast (principal)
CPT/HCPCS: 77063; 77067

== ENCOUNTER 2024-08-22 12:48 | Outpatient (CLI) | payer MEDICARE, BC, SELFPAY ==
--- NOTE | 2024-08-22 13:00 | CRLHL7_ITS ---
For Patients: As a result of the Century Cures Act, medical imaging exams and procedure reports are released immediately into your electronic medical record. You may view this report before your referring provider. If you have questions, please contact your health care provider. XR DXA Bone Mineral Density (BMD) Reason for exam: Disorders of bone density. Current height (in): 58. Weight (lb): 140. Menopause age: 58. Ethnicity: White. 1. Have you had a previous hip or vertebral fracture? No. 2. Have you had any fractures during your adult life which did not result from significant trauma (e.g., auto accident)? No. 3. Did either of your parents have a hip fracture? No. 4. Do you smoke? No. 5. Have you ever taken Glucocorticoids? No. 6. Do you have rheumatoid arthritis? No. 7. Do you have secondary osteoporosis? No. 8. Do you drink 3 or more alcoholic drinks per day? No. 9. Are you being treated for osteoporosis? No. 10. Have you ever taken any of the following medications: Actonel, Evista, Fosamax, Miacalcin, Reclast, Boniva, Forteo, HRT (i.e., estrogen/hormone therapy), Protelos, Prolia, Vitamin D, Calcium, other ??? please specify. ANSWER: Yes, Fosamax (i.e., alendronate). 11. Do you have any of the following medical conditions: Anorexia or bulimia, asthma or emphysema, end stage renal disease, hyperparathyroidism, any seizure disorders, cancer, inflammatory bowel diseases, hysterectomy, other ??? please specify. ANSWER: Yes, hysterectomy. 12. What was your maximum height (inches)? 62. 13. Do you perform weight bearing exercise regularly? No. 14. Do you regularly consume dairy products? Yes. 15. Do you drink caffeinated beverages? Yes. 16. At what age did your period start? 9. 17. Are you premenopausal? No. 18. How many full-term pregnancies have you had? 3. 19. Have you ever missed your period for more than 6 months in a row (not including or menopause)? No. TECHNIQUE: Bone mineral density study was performed using the [facility]. FINDINGS: The results of the study expressed as bone mineral density (BMD) are as follows: Lumbar spine L1 to L4: BMD: 0.733 g/cm2. T-score: -2.9. Z-score: -0.4 Neck Left: BMD: 0.638 g/cm2. T-score: -1.9. Z-score: 0.2 Right: BMD: 0.635 g/cm2. T-score: -1.9. Z-score: 0.2 Total Left: BMD: 0.806 g/cm2. T-score: -1.1. Z-score: 0.7 Right: BMD: 0.777 g/cm2. T-score: -1.3. Z-score: 0.5 IMPRESSION: Osteoporosis. *Comparison exams done prior to 01/2020 were performed on different unit, [employer]. Earnest Lees M.D. Diagnostic Radiologist [email or web address] BRIELLE/lexii shultz/Dictated by: Earnest Lees MD @ 08/23/2024 8:37:00 AM (Electronically Signed)
== END 2024-08-22 12:49 | disposition home or self-care (01) ==
LOC: RAD 12:49
PROVIDERS: PCP Family Medicine; Visit Provider Family Medicine
DX: M85.80 Other specified disorders of bone density and structure, unspecified site (principal); M81.0 Age-related osteoporosis without current pathological fracture; Z78.0 Asymptomatic menopausal state
CPT/HCPCS: 77080

== ENCOUNTER 2025-07-14 07:45 | Outpatient (CLI) | payer MEDICARE, BC, SELFPAY | END 2025-07-14 07:46 | disposition home or self-care (01) | LOC: NFLDREF 07-15 08:45 | PROVIDERS: PCP Family Medicine; Referring Provider Family Medicine; Visit Provider Family Medicine | DX: E78.5 Hyperlipidemia, unspecified (principal) | CPT/HCPCS: 80053; 80061 ==